=== PATIENT | female | born 1965 | race Caucasian/White ===

== ENCOUNTER → 2016-05-30 | Outpatient (CLI) | payer BC ==
--- OUTSIDE RECORDS SUMMARY | 2016-05-30 11:00 | XMS REPORT | Continuity of Care Document ---
Author Author [facility] Organization [facility] Address Unknown Phone Unavailable Care Team Providers Care Communications Department Chair Name Role Phone CHELI BARCENAS DO PCP Insurance Providers Payer Name Policy Number Subscriber Name Relationship [facility] [id number] Yecenia Valladares 16 Self / Same As Patient Problems No problem information available. Medications No medication information available. Social History Social History Problem Response Recorded Date/Time Recent Foreign Travel No 09/27/2015 1:27pm Hospital Discharge Instructions No hospital discharge instructions. Plan of Care Prescriptions See Medication Section Functional Status No functional status results. Allergies, Adverse Reactions, Alerts Allergen Type Severity Reaction Status Last Updated Sulfa (Sulfonamide Antibiotics) ([id number]) Allergy Unknown Active naproxen ([id number]) Allergy Unknown Active 08/03/14 Immunizations No immunization records. Vital Signs No known vital signs results. Results Microbiology Results Procedure Source Result Collection Date/Time Result Date/Time Anaerobic Culture Tissue, Toe No anaerobes isolated 09/27/2015 2:43pm 10/01 2:08pm Wound Culture Tissue, Toe CORYNEBACTERIUM SPECIES 09/27/2015 2:43pm 2015 2:08pm PROBABLE ACTINOMYCES 09/27/2015 2:43pm 10/02/2015 2:08pm STAPH, COAG NEG (PLANNING MANAGEMENT IT SPECIALIST) 09/27/2015 2:43pm 10/02/2015 2:08pm Procedures No known history of procedures. Encounters Encounter Location Arrival/Admit Date Discharge/Depart Date Attending Provider Discharged Recurring [facility] 10/11/15 3:24pm 4:00pm ZANA CARTER MD
--- NOTE | 2016-05-31 12:19 | Diagnostic Imaging Report ---
Bilateral screening mammogram. The current study was also evaluated with a Computer Aided Detection (CAD) system. INDICATION: Screening. No current complaints stated on the questionnaire. COMPARISON: 05/11/2015. FINDINGS: The breasts are composed of heterogeneously dense parenchyma which may decrease mammographic sensitivity. There is a benign-appearing calcification in the medial aspect of the right breast. Asymmetry measuring 1 cm with increased density is seen along the upper aspect of the right MLO view with no definite correlate on the CC projection. The left breast demonstrates no definite change. IMPRESSION: Focal compression view and ultrasound evaluation for upper right breast asymmetry is recommended. ACR BI-RADS Category 0: Incomplete. (Needs additional imaging evaluation). Result letter will be mailed to the patient. Note: At least 10% of breast cancer is not imaged by mammography. Dictated by: Dictated on workstation # [id number]
== END ==
LOC: RAD 10:56
PROVIDERS: ATTEND Nurse Practitioner
DX: Z12.31 Encounter for screening mammogram for malignant neoplasm of breast (principal)

== ENCOUNTER → 2016-06-07 | Outpatient (CLI) | payer BC ==
--- OUTSIDE RECORDS SUMMARY | 2016-06-07 08:04 | XMS REPORT | Continuity of Care Document ---
Author Author [facility] Organization [facility] Address Unknown Phone Unavailable Care Team Providers Care Legal Coordinator Name Role Phone CHELI BARCENAS DO PCP Insurance Providers Payer Name Policy Number Subscriber Name Relationship [facility] [id number] Yecenia Valladares 16 Self / Same As [...] Reaction Status Last Updated Sulfa (Sulfonamide Antibiotics) ([id number]) Allergy Unknown Active naproxen ([id number]) Allergy Unknown Active 08/03/14 Immunizations No immunization records. Vital Signs No known vital signs results. Results Microbiology Results Procedure Source Result Collection Date/Time Result Date/Time Anaerobic Culture Tissue, Toe No anaerobes isolated 09/27/2015 2:43pm 10/01 2:08pm Wound Culture Tissue, Toe CORYNEBACTERIUM SPECIES 09/27/2015 2:43pm 2015 2:08pm PROBABLE ACTINOMYCES 09/27/2015 2:43pm 10/02/2015 2:08pm STAPH, COAG NEG (POWER DISTRIBUTION ENGINEER) 09/27/2015 2:43pm 10/02/2015 2:08pm Procedures No known history of procedures. Encounters Encounter Location Arrival/Admit Date Discharge/Depart Date Attending Provider Discharged Recurring [facility] 10/11/15 3:24pm 4:00pm ZANA CARTER MD
--- NOTE | 2016-06-07 08:39 | Diagnostic Imaging Report ---
EXAMINATION: Right breast diagnostic mammogram. CAD is utilized. The current study was also evaluated with a Computer Aided Detection (CAD) system. Benign-appearing calcifications seen. FINDINGS: Area of asymmetry in the upper aspect of the right breast demonstrate this prominent density similar to the background breast parenchyma with focal compression view in favor of summation artifact of parenchyma. IMPRESSION: Findings suggestive of summation artifact of parenchyma. Ultrasound evaluation pending. BI-RADS 0. ACR BI-RADS Category 0: Incomplete. (Needs additional imaging evaluation). Result letter will be mailed to the patient. Note: At least 10% of breast cancer is not imaged by mammography. Dictated by: Dictated on workstation # [id number]
--- NOTE | 2016-06-07 09:12 | Diagnostic Imaging Report ---
EXAMINATION: Right breast ultrasound. INDICATION: Right breast asymmetry. FINDINGS: At 12:00 zone 6 cm from the nipple there is a lobulated 1.3 x 0.6 x 1.1 cm slightly heterogenous mass with no increased through-transmission. There is no internal vascularity. Some lobulations in the borders are seen. IMPRESSION: Indeterminate 1.3 cm mass at the 12:00, zone. Ultrasound-guided biopsy is recommended. BI-RADS 4A. ACR BI-RADS Category 4A: Low suspicion of malignancy. The findings and the recommendations were discussed personally with the patient. Report was faxed to office of Dr. Lantigua by gee at 9:15 am. Dictated by: Dictated on workstation # [id number]
== END ==
LOC: RAD 08:02
PROVIDERS: ATTEND Family Medicine
DX: R92.8 Other abnormal and inconclusive findings on diagnostic imaging of breast (principal)
CPT/HCPCS: 76641

== ENCOUNTER → 2016-06-19 | Outpatient (CLI) | payer BC ==
[~2016-06-19] VITALS: Ht 167.6 cm; Wt 102.1 kg
[~2016-06-19] MED LIST: LIDOCAINE 1% INJ 20 ML (XYLOCAINE) VIAL INJ ONE; LIDOCAINE 1% INJ 20 ML (XYLOCAINE) VIAL ONE
--- OUTSIDE RECORDS SUMMARY | 2016-06-19 12:19 | XMS REPORT | Continuity of Care Document ---
Author Author [facility] Organization [facility] Address Unknown Phone Unavailable Care Team Providers Care Division Field Inspector Name Role Phone CHELI BARCENAS DO PCP Insurance Providers Payer Name Policy Number Subscriber Name Relationship [facility] [id number] Yecenia Valladares 16 Self / Same As [...] Reaction Status Last Updated Sulfa (Sulfonamide Antibiotics) ([id number]) Allergy Unknown Active naproxen ([id number]) Allergy Unknown Active 08/03/14 Immunizations No immunization records. Vital Signs No known vital signs results. Results Microbiology Results Procedure Source Result Collection Date/Time Result Date/Time Anaerobic Culture Tissue, Toe No anaerobes isolated 09/27/2015 2:43pm 10/01 2:08pm Wound Culture Tissue, Toe CORYNEBACTERIUM SPECIES 09/27/2015 2:43pm 2015 2:08pm PROBABLE ACTINOMYCES 09/27/2015 2:43pm 10/02/2015 2:08pm STAPH, COAG NEG (SPLITTING MACHINE FEEDER) 09/27/2015 2:43pm 10/02/2015 2:08pm Procedures No known history of procedures. Encounters Encounter Location Arrival/Admit Date Discharge/Depart Date Attending Provider Discharged Recurring [facility] 10/11/15 3:24pm 4:00pm ZANA CARTER MD
--- NOTE | 2016-06-19 14:09 | Diagnostic Imaging Report ---
EXAMINATION: Vacuum-assisted ultrasound-guided biopsy of breast mass right. A metallic clip placed to brandan biopsy site. INDICATION: Right breast mass. CONSENT: Informed consent was obtained from the patient. The risks, benefits, potential complications and alternatives were reviewed and all questions answered to the patient's satisfaction. FINDINGS: Ultrasound images demonstrate hypoechoic indeterminate breast mass at 12:00 zone, 6 CM from the nipple. PROCEDURE: After sterile preparation and draping, 1% lidocaine was utilized for local anesthesia. A vacuum-assisted biopsy device with 14-gauge needle was introduced under live ultrasound guidance into the lesion. Good needle position was documented with ultrasound images. A metallic clip was placed to brandan the site of the biopsy. A subsequent mammogram is performed and confirms the proper positioning of the clip. Multiple samples were obtained and sent to pathology. The patient tolerated the procedure well with no immediate complications. IMPRESSION: Successful ultrasound-guided biopsy of 12:00 right breast mass. A metallic clip placed to brandan biopsy site. Dictated by: Dictated on workstation # [id number]
--- NOTE | 2016-06-19 20:44 | Diagnostic Imaging Report ---
Exam: Diagnostic right breast mammogram. Indication: Documentation of clip position after ultrasound-guided biopsy of 12:00 o'clock right breast mass. Findings: Clip is seen at 12:00 o'clock zone after ultrasound-guided biopsy. Impression: Satisfactory clip position at 12:00 o'clock zone at the location of the nodule biopsied by ultrasound. Pathology results are pending. Dictated by: Dictated on workstation # [id number]
== END ==
LOC: RAD 12:14
PROVIDERS: ATTEND Family Medicine
DX: N60.31 Fibrosclerosis of right breast (principal)
CPT/HCPCS: 19083; 88305

== ENCOUNTER → 2016-12-29 | Outpatient (CLI) | payer BC, OTHER ==
--- NOTE | 2016-12-29 09:03 | Diagnostic Imaging Report ---
Right breast diagnostic mammogram. Tomography was also performed. CAD is utilized. Pathology results were benign. INDICATION: Six-month followup after ultrasound-guided biopsy of the right breast for 12 o'clock zone lesion. FINDINGS: There is a biopsy clip in the upper aspect of the right breast. It is associated with background dense parenchyma with no definite focal lesion identified. Benign-appearing calcifications seen. IMPRESSION: Stable mammographic findings when compared to prior exam of 05/30/2016. Ultrasound evaluation is pending. ACR BI-RADS Category 0: Incomplete. (Needs additional imaging evaluation). Result letter will be mailed to the patient. Note: At least 10% of breast cancer is not imaged by mammography. Dictated by: Dictated on workstation # [id number]
--- NOTE | 2016-12-29 09:34 | Diagnostic Imaging Report ---
EXAMINATION: Right breast ultrasound. INDICATION: Followup lesion after ultrasound-guided biopsy. FINDINGS: The pathology results came back as fibrosis and unremarkable ductal epithelium. The hypoechoic mass is again seen measuring 1.3 x 0.7 x 0.8 CM. This is located in the 12 o'clock zone, 6 CM from the nipple. This is similar to the prior exam. There is minimal shadowing. The lesion has angular margins. IMPRESSION: Unchanged 1.3 cm mass at 12:00 zone 6 cm from the nipple with nonspecific benign findings on prior needle biopsy. Another followup in 6 months is recommended to reevaluate this area. Clinical assessment of the patient's risk and consideration for excision is recommended if clinically indicated. BI-RADS 3. ACR BI-RADS Category 3: Probably benign findings. The findings were discussed with Dr. Lantigua, and with her Nurse, Ms. Delma Guzman, by Dr. Estrella at time of dictation. Dictated by: Dictated on workstation # [id number]
== END ==
LOC: RAD 08:22
PROVIDERS: ATTEND Family Medicine
DX: N63 Unspecified lump in breast (principal)

== ENCOUNTER → 2017-07-12 | Outpatient (CLI) | payer OTHER | LOC: CARD 13:03 | PROVIDERS: ATTEND Internal Medicine Cardiovascular Disease | DX: R07.89 Other chest pain (principal); R42 Dizziness and giddiness; Z82.49 Family history of ischemic heart disease and other diseases of the circulatory system; I10 Essential (primary) hypertension; E66.9 Obesity, unspecified; E03.9 Hypothyroidism, unspecified; R00.2 Palpitations | CPT/HCPCS: 93306 ==

== ENCOUNTER → 2017-07-16 | Outpatient (CLI) | payer OTHER ==
[~2017-07-16] VITALS: Ht 167.6 cm; Wt 95.3 kg
[~2017-07-16] MED LIST changes: +CATHETER FLUSH 10 ML SYR IV PRN; -LIDOCAINE 1% INJ 20 ML (XYLOCAINE) VIAL INJ ONE; -LIDOCAINE 1% INJ 20 ML (XYLOCAINE) VIAL ONE
[2017-07-16 09:30] VITALS: BP 161/77
--- NOTE | 2017-07-16 14:02 | STRESS TEST ---
DATE OF SERVICE: 07/16/2017 EXERCISE MYOVIEW STRESS TEST REFERRING PHYSICIAN: Gunjan Lantigua DO. INDICATION: Chest pain. Baseline heart rate is 64. Baseline blood pressure is 139/82. Baseline EKG is sinus rhythm with no ischemic changes. SUMMARY: The patient was injected with 10.69 mCi of technetium-99 Myoview and the resting images were obtained. Then, the patient started exercising with heart rate, blood pressure and EKG noted above. During exercise, the patient has significant artifact affecting the quality of the EKG. Maximum heart rate achieved was 136, which is 83% of maximum expected heart rate. With peak exercise level, EKG was showing minimal nondiagnostic changes. During recovery, heart rate and blood pressure returned to baseline. EKG returned to baseline. The resting and stress images were reviewed and compared in the short axis, horizontal long axis, and vertical long axis views. Review of the images showed breast attenuation with no significant ischemia or infarction. SSS is 2, SDS 2, TID 1.06. On the gated images, the left ventricle appeared to be normal size with normal contractility. Calculated ejection fraction 70%. CONCLUSION: 1. Fair exercise tolerance, a total of 7 minutes 15 seconds on standard Osei protocol, total of 8.7 METS achieving 83% of maximum expected heart rate. 2. Appropriate heart rate and blood pressure response to exercise returned to baseline during recovery. 3. Significant EKG artifacts noted during test did not show significant ischemic changes. 4. Normal SPECT images with no ischemia or infarction on SPECT images. 5. Normal left ventricular size with normal contractility. Calculated ejection fraction 70%. Job ID: [id number] DocumentID: [id number] Dictated Date: 07/16/2017 11:17:42 Barge Captain Date: 07/16/2017 14:02:18 Dictated By: DOMINGUEZ SOMERS MD
== END ==
LOC: CARD 07:39
PROVIDERS: ATTEND Internal Medicine Cardiovascular Disease
DX: R07.89 Other chest pain (principal); I10 Essential (primary) hypertension; R00.2 Palpitations; R42 Dizziness and giddiness; E03.9 Hypothyroidism, unspecified; E66.9 Obesity, unspecified; Z68.33 Body mass index [BMI] 33.0-33.9, adult; Z82.49 Family history of ischemic heart disease and other diseases of the circulatory system
CPT/HCPCS: 78452; 93017

== ENCOUNTER 2017-07-27 12:45 | Outpatient (RCR) | payer OTHER | END 2017-10-25 | disposition home or self-care (01) | LOC: CARD 12:45 | PROVIDERS: ATTEND Internal Medicine Cardiovascular Disease | DX: R07.89 Other chest pain (principal); R00.2 Palpitations; I10 Essential (primary) hypertension; E03.9 Hypothyroidism, unspecified; E66.9 Obesity, unspecified | CPT/HCPCS: 93225; 93226 ==

== ENCOUNTER 2019-04-16 05:34 | Outpatient (CLI) | payer OTHER ==
[~2019-04-16] VITALS: Ht 167.7 cm; Wt 109.1 kg
[2019-04-16] MEDS ORDERED: LISI1TAB6 PO (14:10)
[2019-04-16] MEDS ORDERED: METO-387 PO (14:10)
[2019-04-16] MEDS ORDERED: KRIL1CAP18 PO (14:10)
[2019-04-16] MEDS ORDERED: MV-M1TAB57 PO (14:10)
[2019-04-16] MEDS ORDERED: ASPI-586 PO (14:10)
[2019-04-16] MEDS ORDERED: DICL100T83 PO (14:10)
[2019-04-16] MEDS ORDERED: ESTR0.5T PO (14:10)
[2019-04-16] MEDS ORDERED: FLUO60TA PO (14:10)
[2019-04-16] MEDS ORDERED: POTA8TAB6 PO (14:10)
[2019-04-16] MEDS ORDERED: GABA-488 PO (14:10)
[2019-04-16] MEDS ORDERED: CETI10TA20 PO (14:10)
[2019-04-16] MEDS ORDERED: LEVO75TA6 PO (14:10)
== END 2019-04-16 14:13 ==
LOC: PREOP 05:34
PROVIDERS: ATTEND Surgery
DX: Z01.818 Encounter for other preprocedural examination (principal)

== ENCOUNTER → 2019-04-23 | Day surgery (SDC) | payer OTHER ==
--- NOTE | 2019-04-09 07:57 | HISTORY AND PHYSICAL ---
DATE OF SERVICE: 04/23/2019 ATTENDING PHYSICIAN: Dr. Lantigua. PROCEDURE DATE: 04/23/2019. HISTORY OF PRESENT ILLNESS: The patient is a 53-year-old female, who is known to us. She does have a history of morbid obesity with medical comorbidities related to obesity and did undergo a laparoscopic gastric sleeve resection on 05/08/2016. On today's visit, the patient reports that she is in need of a screening colonoscopy and reports that she has never had one done before in the past. She denies any family history of colon cancer as well as no blood in her stool. She denies any diarrhea, constipation or abdominal pain. She also denies any dark tarry stools. PAST MEDICAL HISTORY: Type 2 diabetes, hypertension, hypothyroidism, depression, morbid obesity. PAST SURGICAL HISTORY: Appendectomy in 1977, in 1989, bilateral foot and ankle surgery x4 in 2013 and 2014, partial hysterectomy in 2001 and laparoscopic gastric sleeve resection on 05/08/2016. ALLERGIES: NAPROXEN. MEDICATIONS: Lisinopril/hydrochlorothiazide, metoprolol, levothyroxine, estradiol, Prozac, multivitamin, potassium and aspirin 81 mg. SOCIAL HISTORY: Previously smoked half pack per day for 10 years, quit in 1990. Rare for alcohol. FAMILY HISTORY: Mother with breast cancer diagnosed 45 years of age. Father with Parkinson's disease. Paternal grandmother with breast cancer and type 2 diabetes. Maternal grandmother with type 2 diabetes, hypertension. VITAL SIGNS: Blood pressure 110/60. Current weight is 235 pounds at 5 feet 6 inches. REVIEW OF SYSTEMS: Well-nourished female, in no acute distress. She is not experiencing any shortness of breath or difficulty breathing. No chest pain, palpitations or diaphoresis. No nausea, vomiting or abdominal pain. No diarrhea or constipation. No red blood per rectum. No dark tarry stools. No fever or chills. No recent inadvertent weight loss. All other review of systems negative. PHYSICAL EXAMINATION: CHEST: Clear. Good breath sounds bilaterally. HEART: Regular, no murmurs. EXTREMITIES: No lower extremity edema. Negative Homans sign. HEENT: No scleral icterus. No cervical lymphadenopathy. ABDOMEN: Soft, nontender, nondistended. SKIN: Warm, dry and pink. NEUROLOGIC: Awake, alert and oriented x3. ASSESSMENT AND PLAN: A 53-year-old female, who is in need of a screening colonoscopy. The risks and benefits of the procedure as well as the procedure and home care instructions were explained to the patient. The patient verbalized understanding of instructions and agrees to proceed as planned. At this time, we will proceed with scheduling the patient for a screening colonoscopy. Job ID: [id number] DocumentID: [id number] Dictated Date: 03/24/2019 11:13:45 Firer Helper Date: 03/24/2019 12:12:49 Dictated By: POLINA WILLSON APRN
[2019-04-23] VITALS (14 sets, daily range): BP systolic 108–129; BP diastolic 55–72
[~2019-04-23] VITALS: Ht 167.7 cm; Wt 109.1 kg
[~2019-04-23] MED LIST changes: +ACETAMINOPHEN 325 MG TABLET PO PRN; +ASPI-586 PO; -CATHETER FLUSH 10 ML SYR IV PRN; +CETI10TA20 PO; +DICL100T83 PO; +ESTR0.5T PO; +FLUO60TA PO; +GABA-488 PO; +HYDROcodone/APAP 5 MG/325 MG (LORTAB) TAB PO PRN; +KRIL1CAP18 PO; +LEVO75TA6 PO; +LIDOCAINE JELLY 2% 6 ML SYRINGE MM PRN; +LIDOCAINE JELLY 2% 6 ML SYRINGE ONE; +LISI1TAB6 PO; +METO-387 PO; +MIDAZOLAM 5 MG/5 ML (VERSED) VIAL ONE; +MV-M1TAB57 PO; +NS IV 500 ML 500 ML IV PRN; +NS IV 500 ML 500 ML ONE; +ONDANSETRON 4 MG/2 ML (SDV) Z0FRAN IVP PRN; +POTA8TAB6 PO; +fentaNYL INJECTION 100 MCG/2 ML AMP IVP ONE; +fentaNYL INJECTION 100 MCG/2 ML AMP ONE; +morphine INJ 10 MG/ML 1ML (SYR OR VIAL) IVP PRN
[2019-04-23] MEDS: MIDAZOLAM 5 MG/5 ML (VERSED) VIAL IV PRN ×4 (10:30→10:45)
--- NOTE | 2019-04-23 10:31 | Conscious Sedation/ASA ---
Conscious Sedation Pre-Proced Time 10:00 ASA Score 2 For ASA 3 and 4: Consider anesthesia and medical clearance. Also, for patients with a history of failed moderate sedation consider anesthesia. Airway Lungs Heart ASA score ASA 1: a normal healthy patient ASA 2: a patient with a mild systemic disease (mid diabetes, controlled hypertension, obesity ASA 3: a patient with a severe systemic disease that limits activity (angina, COPD, prior Myocardial infarction) ASA 4: a patient with an incapacitating disease that is a constant threat to life (CHF, renal failure) ASA 5: a moribund patient not expected to survive 24 hrs. (ruptured aneurysm) ASA 6: a declared brain- patient whose organs are being harvested. For emergent operations, add the letter E after the classification Mallampati Classification Grade 2 Sedation Plan Analgesia, Amnesia, Plan communicated to team members, Discussed options with patient/fam, Discussed risks with patient/fam The patient is an appropriate candidate to undergo the planned procedure, sedation, and anesthesia. The patient immediately re-assessed prior to indication. DIMITRIS PATE MD Apr 23, 2019 10:31 POS
--- NOTE | 2019-04-23 10:32 | Progress Note-Pre Operative ---
Pre-Operative Progress Note H&P Reviewed The H&P was reviewed, patient examined and no changes noted. Date Seen by Provider: Apr 23, 2019 Time Seen by Provider: 10:00 Date H&P Reviewed: Apr 23, 2019 Time H&P Reviewed: 10:00 Pre-Operative Diagnosis: screening o DIMITRIS PATE MD Apr 23, 2019 10:32 POS
--- NOTE | 2019-04-23 10:33 | Discharge Inst-Surgical ---
D/C Lap Instructions-RIO Follow Up Activity as tolerated High Fiber Diet 25g or more per day Avoid Alcohol, Caffeine, Spicy Thompson and Acid foods. Drink 64 fluid oz or more of fluids per day. Symptoms to Report: Fever over 101 degree F, Nausea/Vomiting If any problems/questions: Contact your physician or go to Emergency Room DIMITRIS PATE MD Apr 23, 2019 10:33 POS
--- NOTE | 2019-04-23 11:11 | Progress Note-Post Operative ---
Post-Operative Progess Note Surgeon (s)/Supervisor Agency Appointments (s) Surgeon DIMITRIS PATE MD Supervisor Agency Appointments: none Pre-Operative Diagnosis screening colo Post-Operative Diagnosis normal colon and rectum Procedure & Operative Findings Date of Procedure 04/23/19 Procedure Performed/Findings colonoscopy Anesthesia Type cs Estimated Blood Loss Estimated blood loss (mL): minimal Specimens/Packing Specimens Removed none DIMITRIS PATE MD Apr 23, 2019 11:11 POS
--- NOTE | 2019-04-23 17:33 | OPERATIVE REPORT ---
DATE OF SERVICE: 04/23/2019 ATTENDING PRIMARY CARE PHYSICIAN: Gunjan Lantigua DO PREOPERATIVE DIAGNOSIS: Screening colonoscopy. POSTOPERATIVE DIAGNOSIS: Normal colon and rectum. PROCEDURE PERFORMED: Colonoscopy. SURGEON: Dimitris Pate MD. ANESTHESIA: Conscious sedation. ESTIMATED BLOOD LOSS: Minimal. FINDINGS: Normal colon and rectum. No polyps or any neoplasms identified. DISPOSITION: The patient tolerated the procedure well. INDICATIONS: The patient is a 53-year-old female, known to us. She is in need of a screening colonoscopy. She has not had a colonoscopy up to this point in her life. She reports that she is tolerating a regular diet and having normal bowel movements with no major issues with diarrhea, no constipation as well as no red blood per rectum nor any dark tarry stools. She also does not report any family history of colon cancer. She does report that her mother was diagnosed with breast cancer at age 45. DESCRIPTION OF PROCEDURE: The patient was brought to the endoscopy suite, laid in left lateral decubitus position. After adequate IV pain and sedative medications and conscious sedation anesthesia, a digital rectal examination was performed. No significant hemorrhoids identified. Normal sphincter tone was felt and there were no palpable masses. The endoscope was then intubated to the anus and rectum gently insufflated. The endoscope was then advanced through the valves of Nichols of the rectum with no polyps or any neoplasms identified. We then proceeded through the sigmoid colon where no diverticulosis identified. The endoscope was then advanced to the remainder of the descending, transverse and ascending colon to the cecum. These segments were normal. There were no polyps or any neoplasms identified throughout the colon or rectum. The endoscope was then slowly withdrawn while taking a second look and suctioning of residual air with no additional findings. The patient tolerated the procedure well. We will recommend high fiber diet with 25 grams of fiber daily as well as significant amounts of water to promote soft stools on a daily basis. She does not need another colonoscopy for another 10 years. Job ID: [id number] DocumentID: [id number] Dictated Date: 04/23/2019 11:04:12 Special Events Assistant Date: 04/23/2019 17:32:16 Dictated By: DIMITRIS PATE MD
--- OUTSIDE RECORDS SUMMARY | 2019-05-18 21:39 | XMS REPORT | Clinical Summary ---
Author Author [facility] Organization [facility] Address Unknown Phone Unavailable Care Team Providers Care Instrument Room Technician Name Role Phone Gunjan Lantigua MD PCP Source Comments Some departments are not documenting in the electronic medical record. If you d o not see the information that you expected, contact Release of Information in [facility] [employer] Information Management department at [phone] for further assistan ce in locating additional records.[facility] Allergies Comments Active Allergy Reactions Severity Noted Date Naproxen HIVES Medium Sulfa (Sulfonamide HIVES Medium Antibiotics) Medications End Date Status Medication Sig Dispensed Refills Start Date Active pantoprazole DR TK 1 T PO D 3 (PROTONIX) 40 mg tablet 7 Active metoprolol XL (TOPROL XL) TK / T PO 1 12/19 25 mg extended release QD 7 tablet Active fluoxetine(+) (PROZAC) 40 TK 1 C PO QAM 2 11/19 0 mg capsule 7 Active Problems Problem Noted Date Abnormal screening mammogram 01/09/2017 Family History Medical History Relation Name Comments Cancer-Breast Maternal Aunt Cancer-Prostate Maternal Grandfather Diabetes Maternal Grandmother Heart Disease Maternal Grandmother High Cholesterol Maternal Grandmother Hypertension Maternal Grandmother Cancer-Breast Mother Cancer Paternal Grandfather Cancer-Breast Paternal bilateral breast ca ncer Grandmother Cancer-Colon Neg Hx Cancer-Ovarian Neg Hx Relation Name Status Comments Maternal Aunt Alive Maternal Grandfather Maternal Grandmother Mother Alive Paternal Grandfather Paternal Grandmother Social History Date Tobacco Use Types Packs/Day Years Used Quit: 1990 Former Smoker Cigarettes 0.5 5 Smokeless Tobacco: Never Used Drinks/Week oz/Week Comments Alcohol Use 1 Glasses of wine 1-2 Shots of liquor 0 Cans of beer 2.0 - 3.0 Yes Sex Assigned at Date Recorded Not on file Industry Job Start Date Occupation Not on file Not on file Not on file Travel End Travel History Travel Start No recent travel history available. Last Filed Vital Signs Reading Time Taken Comments Vital Sign 107/57 01/09/2017 10:15 AM CDT Blood Pressure 56 01/09/2017 10:15 AM CDT Pulse 36.8 C (98.3 F) 01/09/2017 10:15 AM CDT Temperature 16 01/09/2017 10:15 AM CDT Respiratory Rate 98% 01/09/2017 10:15 AM CDT Oxygen Saturation - - Inhaled Oxygen Concentration 93.2 kg (205 lb 6.4 oz) 01/09/2017 10:15 AM CDT Weight 167.6 cm (5' 6") 01/09/2017 10:15 AM CDT Height 33.15 01/09/2017 10:15 AM CDT Body Mass Index Plan of Treatment Health Maintenance Due Date Last Done Comments HEPATITIS C SCREENING 1963 DTAP/TDAP VACCINES ( - 10/09/1974 Tdap) HIV SCREENING 10/09/1978 PHYSICAL (COMPREHENSIVE) 10/09/1981 EXAM CERVICAL CANCER SCREENING 10/09/1993 COLORECTAL CANCER 10/09/2013 SCREENING INFLUENZA VACCINE 12/19/2018 02/18/2018 BREAST CANCER SCREENING 08/28/2019 08/27/2018, SHINGLES RECOMBINANT Completed 07/29/2018, 09/10 VACCINE Results Not on filefrom Last 3 Months Insurance Type Payer Benefit Subscriber ID Effective Phone Address Plan / Dates Group Indemnity [facility] xxxxxxxxx 2016-P CHOICE/CHO resent ICE PLUS [id number] Advance Directives Patient Power Shear Operator Explanation Type Date Recorded Advance Directive/DPOA
--- OUTSIDE RECORDS SUMMARY | 2019-05-18 21:41 | XMS REPORT | CCD ---
Author Author Yecenia Lantigua D.O. Organization GUNJAN LANTIGUA DO [facility] Address [address] [place] [phone] Phone Care Team Providers Care Iron Caster Name Role Phone Gunjan Lantigua D.O., PP Unavailable CCM Unavailable Summary Purpose Interface Exchange Insurance Providers Payer name Policy type / Coverage type Covered green party ID Effective Begin Date Effective End Date [facility] [employer] Insurance [id number] Un known Family history Father Diagnosis Age At Onset Parkinson's disease Unknown Grandmother Diagnosis Age At Onset Hypertension Unknown Congestive heart failure Unknown Social History Social History Element Codes Description Effective Dates Marital status Unknown 04/27/2011 Number of children Unknown 3 04/27/[address]: 7124304 Former smoker quit 20years ago 04/27/2011 Allergies, Adverse Reactions, Alerts Substance Reaction Codes Entered Date Inactivated Date Status SULFA (SULFONAMIDES) Unknown 02/19/2014 No Inactive Martin e Active _ Unknown 09/08/2010 No Inactive Date Active Problems Condition Codes Effective Dates Condition Status Encounter for general adult medical examination withou t abnormal findings ICD-9: V70.9 ICD-10: Z00.00 03/04/2019 Active FLU VACCINE ICD-9: V04.81 ICD-10: Z23 03/04/2019 Active Essential (primary) hypertension ICD-9: 401.9 ICD-10: I10 12/23/2013 Active Hypothyroidism ICD-9: 244.9 ICD-10: E03.9 12/23/2013 Active Type 2 diabetes mellitus without complications ICD-9: 250.00 ICD-10: E11.9 12/23/2013 Active Mixed hyperlipidemia ICD-9: 272.4 ICD-10: E78.2 12/23/2013 Active Type 2 diabetes mellitus with diabetic neuropathy, uns pecified ICD-9: 250.60 ICD-10: E11.40 01/04/2016 Active Other fatigue ICD-9: 780.79 ICD-10: R53.83 10/11/2018 Active Irritant contact dermatitis due to plants, except food ICD-9: 692.6 ICD-10: L24.7 09/13/2018 Active Charcot's joint, left ankle and foot ICD-9: 094.0 ICD-10: M14.672 01/03/2018 Active Charcot's joint, right ankle and foot ICD-9: 094.0 ICD-10: M14.671 01/03/2018 Active Other specified problems related to primary support gr oup ICD-9: V61.8 ICD-10: Z63.8 04/08/2018 Active Pain in right shoulder ICD-9: 719.41 ICD-10: M25.511 04/08/2018 Active Other allergic rhinitis ICD-9: 477.8 ICD-10: J30.89 03/04/2018 Active Unspecified open wound, right foot, sequela ICD-9: 906 .1 ICD-10: S91.301S 09/23/2015 Active Cellulitis of left toe ICD-9: 681.10 ICD-10: L03.032 09/10/2017 Active Urinary tract infection, site not specified ICD-9: 599 .0 ICD-10: N39.0 07/27/2017 Active Angina pectoris, unspecified ICD-9: 786.50 ICD-10: I20.9 06/06/2017 Active Anesthesia of skin ICD-9: 782.0 ICD-10: R20.0 06/04/2017 Active Cellulitis of right toe ICD-9: 681.10 ICD-10: L03.031 02/21/2017 Active Other abnormal and inconclusive findings on diagnostic imaging of breast ICD-9: 793.80 ICD-10: R92.8 12/13/2016 Active Bariatric surgery status ICD-9: V45.86 ICD-10: Z98.84 08/31/2016 Active Zoster without complications ICD-9: 053.9 ICD-10: B02.9 08/02/2016 Active Encounter for screening mammogram for malignant neopla sm of breast ICD-9: V76.11 ICD-10: Z12.31 05/16/2016 Active Acute stress reaction ICD-9: 308.3 ICD-10: F43.0 11/14/2015 Active Cellulitis of right lower limb ICD-9: 682.7 ICD-10: L03.115 09/23/2015 Active Cramp and spasm ICD-9: 729.82 ICD-10: R25.2 07/12/2015 Active Charcot's joint of foot, non-diabetic ICD-9: 094.0 11/25/2014 Active Cellulitis of toe of right foot ICD-9: 681.10 11/15/2014 Active ONYCHOMYCOSIS ICD-9: 110.1 04/24/2012 Active Valgus deformity of foot ICD-9: 736.79 11/15/2014 Active Epigastric abdominal pain ICD-9: 789.06 10/09/2014 Active Thoracic back pain ICD-9: 724.1 10/09/2014 Active DM W/O COMPLICATION TYPE II, UNCONTROLLED ICD-9: 250.02 2013 Active CELLULITIS ICD-9: 682.9 02/12/2014 Active Edema of lower extremity ICD-9: 782.3 02/12/2014 Active SKIN SENSATION DISTURB ICD-9: 782.0 02/12/2014 Active GASTROENTERITIS ICD-9: 558.9 12/25/2013 Active DM W/O COMPLICATION TYPE II ICD-9: 250.00 12/23/2013 Acti ve HYPERLIPIDEMIA NEC/NOS ICD-9: 272.4 12/23/2013 Active HYPERTENSION ICD-9: 401.9 12/23/2013 Active HYPOTHYROIDISM ICD-9: 244.9 12/23/2013 Active ABNORMAL WEIGHT GAIN ICD-9: 783.1 03/04/2013 Active DEPRESSIVE DISORDER NEC ICD-9: 311 10/31/2012 Active Subacromial bursitis ICD-9: 726.19 10/31/2012 Active Ankle pain, left ICD-9: 719.47 06/12/2012 Active Medication therapy continued ICD-9: V58.69 06/12/2012 Act toribio Stress incontinence ICD-9: 625.6 06/12/2012 Active Hyperglycemia ICD-9: 790.29 04/26/2011 Active Neuropathy of foot ICD-9: 355.8 01/27/2011 Active ROUTINE GYNE EXAM ICD-9: V72.31 10/31/2010 Active ROUTINE MEDICAL EXAM ICD-9: V70.0 10/31/2010 Active SPASM OF MUSCLE ICD-9: 728.85 09/15/2010 Active Allergic rhinitis Unknown 09/08/2010 Active Depression Unknown 09/08/2010 Active Hypertension Unknown 09/08/2010 Active Hypothyroid Unknown 09/08/2010 Active Neck pain, musculoskeletal ICD-9: 723.1 09/08/2010 Activ e Medications Medication Codes Instructions Start Date Stop Date Status Fill Instructions levothyroxine 75 mcg tablet RxNorm: 716408 TAKE 1 TABLET BY PAMELA TH DAILY 05/15/2019 07/13/2019 Active fluoxetine 20 mg capsule RxNorm: 157429 3 CAPSULE(S) PO QD 04/14/2009/10/2019 Active potassium chloride ER 8 mEq tablet,extended release RxNorm: 703073 1 TABLET(S) PO QD 04/14/2019 07/12/2019 Active metoprolol succinate ER 25 mg tablet,extended release 24 hr RxNorm: 729613 1/2 TABLET(S) PO QD 03/17/2019 06/14/2019 Active levothyroxine 75 mcg tablet RxNorm: 083994 1 TABLET(S) PO QD 201805/11/2019 Inactive [AttnRPh: Saving apply/adjud icate RxGRP:SG20 RxBIN:[id number] RxPCN:HT ID#:[id number]] potassium chloride ER 8 mEq tablet,extended release RxNorm: 507404 1 TABLET(S) PO QD 01/08/2019 04/07/2019 Inactive estradiol 0.5 mg tablet RxNorm: 498775 Tablet(s) 1 TABLET(S) PO QD 12/09/2018 No Stop Date Active lisinopril 10 mg-hydrochlorothiazide 12.5 mg tablet RxNorm: 110575 1/2 Tablet(s) PO QD 12/09/2018 06/06/2019 Active levothyroxine 75 mcg tablet RxNorm: 831489 1 Tablet(s) PO QD 201802/05/2019 Inactive [AttnRPh: Saving apply/adjud icate RxGRP:SG20 RxBIN:[id number] RxPCN:HT ID#:[id number]] fluoxetine 20 mg capsule RxNorm: 201814 3 Capsule(s) PO QD 10/11/1904/07/2019 Inactive fluoxetine 20 mg capsule RxNorm: 175327 3 Capsule(s) PO QD 10/11/1910/09/2018 Inactive diclofenac ER 100 mg tablet,extended release 24 hr RxNorm: 8 04152 1 Tablet(s) PO BID as needed for pain 10/02/2018 01/29/2019 Inactive potassium chloride ER 8 mEq tablet,extended release RxNorm: 640682 1 Tablet(s) PO QD 10/02/2018 12/30/2018 Inactive prednisone 20 mg tablet RxNorm: 736364 Tablet(s) PO 1 t ab TID for 3 days, 1 tab BID for 3 days, 1 tab daily for 3 days 09/13/2018 10/15/2018 Inactive metoprolol succinate ER 25 mg tablet,extended release 24 hr RxNorm: 638916 1/2 Tablet(s) PO QD 09/13/2018 03/11/2019 Inactive fluoxetine 60 mg tablet RxNorm: 4655651 1 Tablet(s) PO QD REPLAC ES 40MG DOSE 09/03/2018 10/09/2018 Inactive levothyroxine 75 mcg tablet RxNorm: 396112 1 Tablet(s) PO QD 201811/08/2018 Inactive [AttnRPh: Saving apply/adjud icate RxGRP:SG20 RxBIN:[id number] RxPCN: ID#:[id number]] potassium chloride ER 8 mEq tablet,extended release RxNorm: 559884 TABLET(S) 1 TABLET(S) PO QD 08/06/2018 10/01/2018 Inactive Fish Oil 1,000 mg capsule RxNorm: 1 Capsule(s) PO BID 07/16/2018 0 10/13/2018 Inactive atorvastatin 10 mg tablet RxNorm: 433684 1 Tablet(s) PO QD 07/16/1910/13/2018 Inactive atorvastatin 10 mg tablet RxNorm: 196977 1 Tablet(s) PO QD 07/16/1907/15/2018 Inactive fluoxetine 60 mg tablet RxNorm: 8350563 1 TABLET(S) PO QD REPLAC ES 40MG DOSE 06/13/2018 09/02/2018 Inactive lisinopril 10 mg-hydrochlorothiazide 12.5 mg tablet RxNorm: 834784 TABLET(S) 1/2 TABLET(S) PO QD 06/13/2018 12/08/2018 Inactive levothyroxine 75 mcg tablet RxNorm: 091638 1 TABLET(S) PO QD 201808/12/2018 Inactive [AttnRPh: Saving apply/adjud icate RxGRP:SG20 RxBIN:[id number] RxPCN: ID#:[id number]] potassium chloride ER 8 mEq tablet,extended release RxNorm: 319004 TABLET(S) 1 TABLET(S) PO QD 05/30/2018 07/28/2018 Inactive estradiol 0.5 mg tablet RxNorm: 835402 1 TABLET(S) PO QD 05/30/2018 0 12/08/2018 Inactive fluoxetine 60 mg tablet RxNorm: 4046086 1 Tablet(s) PO QD replac es 40mg dose 04/08/2018 06/06/2018 Inactive levothyroxine 75 mcg tablet RxNorm: 543457 1 TABLET(S) PO QD 201706/06/2018 Inactive [AttnRPh: Saving apply/adjud icate RxGRP:SG20 RxBIN:[id number] RxPCN:HT ID#:[id number]] Voltaren 1 % topical gel RxNorm: 206943 2 Gram(s) TOP QID to ri ght shoulder 04/08/2018 10/15/2018 Inactive potassium chloride ER 8 mEq tablet,extended release RxNorm: 575653 TABLET(S) 1 TABLET(S) PO QD 04/01/2018 05/29/2018 Inactive metoprolol succinate ER 25 mg tablet,extended release 24 hr RxNorm: 348235 1/2 TABLET(S) PO QD 03/07/2018 09/02/2018 Inactive lisinopril 10 mg-hydrochlorothiazide 12.5 mg tablet RxNorm: 362214 TABLET(S) 1/2 TABLET(S) PO QD 03/07/2018 06/04/2018 Inactive estradiol 0.5 mg tablet RxNorm: 719053 1 TABLET(S) PO QD 03/04/2018 0 05/29/2018 Inactive potassium chloride ER 8 mEq tablet,extended release RxNorm: 925090 TABLET(S) 1 TABLET(S) PO QD 01/31/2018 03/31/2018 Inactive fluoxetine 40 mg capsule RxNorm: 421247 1 Capsule(s) PO QAM 018 04/07/2018 Inactive levothyroxine 75 mcg tablet RxNorm: 464755 1 Tablet(s) PO QD 201704/06/2018 Inactive [AttnRPh: Saving apply/adjud icate RxGRP:SG20 RxBIN:[id number] RxPCN: ID#:[id number]] lisinopril 10 mg-hydrochlorothiazide 12.5 mg tablet RxNorm: 975437 TABLET(S) 1/2 TABLET(S) PO QD 12/10/2017 03/06/2018 Inactive estradiol 0.5 mg tablet RxNorm: 436523 1 Tablet(s) PO QD 11/28/2017 1 Inactive potassium chloride ER 8 mEq tablet,extended release RxNorm: 547970 Tablet(s) 1 TABLET(S) PO QD 11/02/2017 10/15/2018 Inactive potassium chloride ER 8 mEq tablet,extended release RxNorm: 883702 Tablet(s) 1 TABLET(S) PO QD 10/24/2017 11/01/2017 Inactive metoprolol succinate ER 25 mg tablet,extended release 24 hr RxNorm: 275360 1/2 Tablet(s) PO QD 10/03/2017 03/06/2018 Inactive levothyroxine 75 mcg tablet RxNorm: 839557 1 Tablet(s) PO QD 201701/07/2018 Inactive [AttnRPh: Saving apply/adjud icate RxGRP:SG20 RxBIN:[id number] RxPCN: ID#:[id number]] dicloxacillin 500 mg capsule RxNorm: 427448 1 Capsule(s) PO TID 01/201810/02/2017 Inactive diclofenac ER 100 mg tablet,extended release 24 hr RxNorm: 8 34412 1 Tablet(s) PO BID as needed for pain 09/19/2017 01/02/2018 Inactive potassium chloride ER 8 mEq tablet,extended release RxNorm: 204117 Tablet(s) 1 TABLET(S) PO QD 09/19/2017 10/24/2017 Inactive clindamycin HCl 300 mg capsule RxNorm: 138683 1 Capsule(s) PO TID 0 09/10/2017 09/16/2017 Inactive lisinopril 10 mg-hydrochlorothiazide 12.5 mg tablet RxNorm: 891226 Tablet(s) 1/2 TABLET(S) PO QD 09/06/2017 12/04/2017 Inactive potassium chloride ER 8 mEq tablet,extended release RxNorm: 430401 1 TABLET(S) PO QD 08/17/2017 09/19/2017 Inactive levothyroxine 75 mcg tablet RxNorm: 905440 1 Tablet(s) PO QD 201710/03/2017 Inactive [AttnRPh: Saving apply/adjud icate RxGRP:SG20 RxBIN:[id number] RxPCN:HT ID#:[id number]] fluoxetine 40 mg capsule RxNorm: 870435 1 Capsule(s) PO QAM 018 01/17/2018 Inactive lisinopril 10 mg-hydrochlorothiazide 12.5 mg tablet RxNorm: 749388 1/2 TABLET(S) PO QD 05/31/2017 09/06/2017 Inactive potassium chloride ER 8 mEq tablet,extended release RxNorm: 735978 1 Tablet(s) PO QD 05/08/2017 08/05/2017 Inactive metoprolol succinate ER 25 mg tablet,extended release 24 hr RxNorm: 689365 1/2 Tablet(s) PO QD 04/05/2017 10/03/2017 Inactive levothyroxine 75 mcg tablet RxNorm: 971054 1 Tablet(s) PO QD 201607/06/2017 Inactive [AttnRPh: Saving apply/adjud icate RxGRP:SG20 RxBIN:[id number] RxPCN:HT ID#:[id number]] potassium chloride ER 8 mEq tablet,extended release RxNorm: 959429 1 Tablet(s) PO QD 03/05/2017 05/08/2017 Inactive Diflucan 100 mg tablet RxNorm: 677525 1 Tablet(s) PO QD 02/21/2017 Inactive clindamycin 300 mg capsule RxNorm: 373223 2 Capsule(s) PO TID 02/2103/02/2017 Inactive fluoxetine 40 mg capsule RxNorm: 437182 1 Capsule(s) PO QAM 017 07/06/2017 Inactive levothyroxine 75 mcg tablet RxNorm: 737612 1 Tablet(s) PO QD 201604/05/2017 Inactive [AttnRPh: Saving apply/adjud icate RxGRP:SG20 RxBIN:[id number] RxPCN:HT ID#:[id number]] levothyroxine 75 mcg tablet RxNorm: 945687 1 Tablet(s) PO QD 201612/29/2016 Inactive [AttnRPh: Saving apply/adjud icate RxGRP:SG20 RxBIN:[id number] RxPCN:HT ID#:[id number]] lisinopril 10 mg-hydrochlorothiazide 12.5 mg tablet RxNorm: 589714 1/2 Tablet(s) PO QD 08/31/2016 02/26/2017 Inactive metoprolol succinate ER 25 mg tablet,extended release 24 hr RxNorm: 412844 1/2 Tablet(s) PO QD 08/31/2016 04/05/2017 Inactive estradiol 2 mg tablet RxNorm: 937322 1 Tablet(s) PO QD 08/08/201603/2017 Inactive [SAVINGS FOR UNINSURED PATIENTS -- BIN:0 88795, PCN: ASPROD1, Group: AM08, ID# [id number], Process claim through [employer], for questions: . THIS IS NOT INSURANCE.] Valtrex 1 gram tablet RxNorm: 932361 1 Tablet(s) PO TID 08/02/2016 Inactive levothyroxine 75 mcg tablet RxNorm: 080544 1 TABLET(S) PO QD -N EED LABS 06/26/2016 10/02/2016 Inactive [AttnRPh: Saving niraj ly/adjudicate RxGRP:SG20 RxBIN:[id number] RxPCN:HT ID#:[id number]] metoprolol succinate ER 50 mg tablet,extended release 24 hr RxNorm: 781163 TAKE 1 TABLET BY MOUTH EVERY DAY 05/29/2016 09/09/2017 Inactive levothyroxine 75 mcg tablet RxNorm: 334837 1 TABLET(S) PO QD -N EED LABS 03/16/2016 06/13/2016 Inactive [AttnRPh: Saving niraj ly/adjudicate RxGRP:SG20 RxBIN:[id number] RxPCN:HT ID#:[id number]] potassium chloride ER 8 mEq tablet,extended release RxNorm: 669793 1 TABLET(S) PO QD 03/13/2016 03/05/2017 Inactive fluoxetine 40 mg capsule RxNorm: 972735 1 CAPSULE(S) PO QAM 016 01/10/2017 Inactive diclofenac ER 100 mg tablet,extended release 24 hr RxNorm: 8 09024 1 Tablet(s) PO BID as needed for pain 02/02/2016 09/19/2017 Inactive estradiol 2 mg tablet RxNorm: 471007 1 Tablet(s) PO QD 01/25/2016 Inactive [SAVINGS FOR UNINSURED PATIENTS -- BIN:0 84871, PCN: ASPROD1, Group: [id number], ID# [id number], Process claim through [employer], for questions: . THIS IS NOT INSURANCE.] lisinopril 20 mg-hydrochlorothiazide 25 mg tablet RxNorm: 19 7887 1 TABLET(S) PO QD 01/20/2016 02/20/2017 Inactive [AttnRPh: Saving apply/adjudicate RxGRP:SG20 RxBIN:[id number] RxPCN: ID#:[id number]] levothyroxine 75 mcg tablet RxNorm: 193179 1 TABLET(S) PO QD -N EED LABS 12/22/2015 03/15/2016 Inactive [AttnRPh: Saving niraj ly/adjudicate RxGRP:SG20 RxBIN:[id number] RxPCN:HT ID#:[id number]] potassium chloride ER 8 mEq tablet,extended release RxNorm: 013295 1 TABLET(S) PO QD 12/08/2015 03/06/2016 Inactive Zorvolex 35 mg capsule RxNorm: 8263031 1 Capsule(s) PO TID 11/15/19 16 10/15/2018 Inactive Zorvolex 35 mg capsule RxNorm: 6445139 1 Capsule(s) PO TID 11/15/19 16 11/14/2015 Inactive gabapentin 300 mg capsule RxNorm: 468777 1 CAPSULE(S) PO QHS 201501/03/2016 Inactive lisinopril 20 mg-hydrochlorothiazide 25 mg tablet RxNorm: 19 7887 1 TABLET(S) PO QD 10/20/2015 01/17/2016 Inactive [AttnRPh: Saving apply/adjudicate RxGRP:SG20 RxBIN:[id number] RxPCN:HT ID#:[id number]] estradiol 2 mg tablet RxNorm: 085151 1 TABLET(S) PO QD 10/20/2015 Inactive [SAVINGS FOR UNINSURED PATIENTS -- BIN:0 50713, PCN: ASPROD1, Group: [id number], ID# [id number], Process claim through [employer], for questions: . THIS IS NOT INSURANCE.] levothyroxine 75 mcg tablet RxNorm: 471798 1 TABLET(S) PO QD -N EED LABS 09/24/2015 12/21/2015 Inactive [AttnRPh: Saving niraj ly/adjudicate RxGRP:SG20 RxBIN:[id number] RxPCN: ID#:[id number]] clindamycin 300 mg capsule RxNorm: 350681 1 Capsule(s) PO QID 09/1209/22/2015 Inactive potassium chloride ER 8 mEq tablet,extended release RxNorm: 849021 1 TABLET(S) PO QD 08/25/2015 11/22/2015 Inactive gabapentin 300 mg capsule RxNorm: 133838 1 Capsule(s) PO QHS 201511/09/2015 Inactive potassium chloride ER 8 mEq tablet,extended release RxNorm: 150881 1 Tablet(s) PO QD 08/19/2015 10/15/2018 Inactive potassium chloride ER 8 mEq tablet,extended release RxNorm: 539830 1 Tablet(s) PO QD 07/13/2015 08/11/2015 Inactive metoprolol succinate ER 50 mg tablet,extended release 24 hr RxNorm: 911001 1 Tablet(s) PO QD 05/20/2015 05/19/2015 Inactive fluoxetine 40 mg capsule RxNorm: 671126 1 Capsule(s) PO QAM 015 11/15/2015 Inactive cyclobenzaprine 10 mg tablet RxNorm: 237422 1 Tablet(s) PO TID as needed for muscle spasm 04/26/2015 01/03/2016 Inactive Zorvolex 35 mg capsule RxNorm: 7394365 1 Capsule(s) PO TID 04/26/20 15 11/15/2015 Inactive lisinopril 20 mg-hydrochlorothiazide 25 mg tablet RxNorm: 19 7887 1 Tablet(s) PO QD 04/19/2015 10/15/2015 Inactive [AttnRPh: Saving apply/adjudicate RxGRP:SG20 RxBIN:[id number] RxPCN:HT ID#:[id number]] estradiol 2 mg tablet RxNorm: 490216 1 Tablet(s) PO QD 04/05/2015 Inactive [SAVINGS FOR UNINSURED PATIENTS -- BIN:0 10968, PCN: ASPROD1, Group: [id number], ID# [id number], Process claim through [employer], for questions: . THIS IS NOT INSURANCE.] levothyroxine 75 mcg tablet RxNorm: 289295 1 TABLET(S) PO QD -N EED LABS 03/15/2015 09/10/2015 Inactive [AttnRPh: Saving niraj ly/adjudicate RxGRP:SG20 RxBIN:[id number] RxPCN: ID#:[id number]] mupirocin 2 % topical ointment RxNorm: 316167 TOP BID to affect ed toe 11/16/2014 11/25/2014 Inactive clindamycin 300 mg capsule RxNorm: 132458 1 Capsule(s) PO TID 11/1611/25/2014 Inactive [SAVINGS FOR UNINSURED PATIE NTS -- BIN:485365, PCN: ASPROD1, Group: AME08, ID# [id number], Process claim through [employer], for questions: . THIS IS NOT INSURANCE.] fluoxetine 40 mg capsule RxNorm: 574839 1 Capsule(s) PO QAM 015 05/20/2015 Inactive fenofibrate micronized 134 mg capsule RxNorm: 485228 1 Capsule( s) PO QD 10/15/2014 08/18/2015 Inactive lisinopril 20 mg-hydrochlorothiazide 25 mg tablet RxNorm: 19 7887 1 Tablet(s) PO QD 10/15/2014 04/19/2015 Inactive [AttnRPh: Saving apply/adjudicate RxGRP:SG20 RxBIN:[id number] RxPCN:HT ID#:[id number]] cyclobenzaprine 10 mg tablet RxNorm: 452370 1 Tablet(s) PO TID as needed for muscle spasm 10/09/2014 04/26/2015 Inactive Zorvolex 35 mg capsule RxNorm: 7807528 1 Capsule(s) PO TID 10/10/19 15 04/26/2015 Inactive levothyroxine 75 mcg tablet RxNorm: 259211 1 TABLET(S) PO QD -N EED LABS 08/28/2014 02/23/2015 Inactive [AttnRPh: Saving niraj ly/adjudicate RxGRP:SG20 RxBIN:[id number] RxPCN:HT ID#:[id number]] levothyroxine 75 mcg tablet RxNorm: 236700 1 Tablet(s) PO QD -n eed labs 08/03/2014 08/27/2014 Inactive [AttnRPh: Saving niraj ly/adjudicate RxGRP:SG20 RxBIN:[id number] RxPCN:HT ID#:[id number]] lisinopril 20 mg-hydrochlorothiazide 25 mg tablet RxNorm: 19 7887 TABLET(S) PO TAKE 1 TABLET BY MOUTH EVERY DAY 07/13/2014 10/15/2014 Inactive [AttnRPh: Saving apply/adjudicate RxGRP:SG20 RxBIN:[id number] RxPCN:HT ID#:[id number]] fenofibrate micronized 134 mg capsule RxNorm: 298292 1 CAPSULE( S) PO QD 07/06/2014 10/15/2014 Inactive estradiol 2 mg tablet RxNorm: 217400 1 Tablet(s) PO QD 06/25/2014 Inactive [SAVINGS FOR UNINSURED PATIENTS -- BIN:0 37080, PCN: ASPROD1, Group: AME08, ID# [id number], Process claim through [employer], for questions: . THIS IS NOT INSURANCE.] fluoxetine 40 mg capsule RxNorm: 445565 1 Capsule(s) PO QAM 014 11/10/2014 Inactive levothyroxine 75 mcg tablet RxNorm: 571312 1 Tablet(s) PO QD 201308/03/2014 Inactive [AttnRPh: Saving apply/adjud icate RxGRP:SG20 RxBIN:232863 RxPCN:HT ID#:[id number]] clindamycin 300 mg capsule RxNorm: 685356 1 Capsule(s) PO TID 02/1902/28/2014 Inactive [SAVINGS FOR UNINSURED PATIE NTS -- BIN:283635, PCN: ASPROD1, Group: AME08, ID# [id number], Process claim through [employer], for questions: . THIS IS NOT INSURANCE.] mupirocin 2 % topical ointment RxNorm: 917844 1 TOP BID 02/12/2014 1 Inactive Bactrim DS 800 mg-160 mg tablet RxNorm: 952035 1 Tablet(s) PO BID 0 02/12/2014 02/18/2014 Inactive metoprolol succinate ER 50 mg tablet,extended release 24 hr RxNorm: 080130 1 Tablet(s) PO QD 01/27/2014 05/20/2015 Inactive TAKE 1 TABLET BY MOUTH EVERY MORNING levothyroxine 75 mcg tablet RxNorm: 538084 1 Tablet(s) PO QD 201304/24/2014 Inactive [AttnRPh: Saving apply/adjud icate RxGRP:SG20 RxBIN:[id number] RxPCN: ID#:[id number]] lisinopril 20 mg-hydrochlorothiazide 25 mg tablet RxNorm: 19 7887 Tablet(s) PO TAKE 1 TABLET BY MOUTH EVERY DAY 01/12/2014 01/11/2014 Inactive [AttnRPh: Saving apply/adjudicate RxGRP:SG20 RxBIN:[id number] RxPCN: ID#:[id number]] promethazine 25 mg tablet RxNorm: 346765 1 Tablet(s) PO Q4H as needed 12/25/2013 04/22/2014 Inactive fenofibrate micronized 134 mg capsule RxNorm: 513250 1 Capsule( s) PO QD 12/25/2013 06/22/2014 Inactive fluoxetine 40 mg capsule RxNorm: 981160 1 Capsule(s) PO QAM 014 05/11/2014 Inactive metformin ER 500 mg 24 hr tablet,extended release RxNorm: 86 0975 TAKE 1 TABLET BY MOUTH DAILY 10/28/2013 12/24/2013 Inactive metoprolol succinate ER 50 mg tablet,extended release 24 hr RxNorm: 225979 1 Tablet(s) PO QD 10/06/2013 10/15/2018 Inactive [SAVINGS FOR UNI NSURED PATIENTS -- BIN:134674, PCN: ASPROD1, Group: AME08, ID# [id number], Process claim through [employer], for questions: . THIS IS NOT INSURANCE.] estradiol 2 mg tablet RxNorm: 185795 1 Tablet(s) PO QD 09/12/2013 Inactive [SAVINGS FOR UNINSURED PATIENTS -- BIN:0 18815, PCN: ASPROD1, Group: AME08, ID# [id number], Process claim through [employer], for questions: . THIS IS NOT INSURANCE.] levothyroxine 75 mcg tablet RxNorm: 259814 1 Tablet(s) PO QD may do 30 day supply if desires. Patient needs labs prior to next refill 09/12/2013 01/20/2014 Inactive [AttnRPh: Saving apply/adjud icate RxGRP:SG20 RxBIN:[id number] RxPCN:HT ID#:[id number]] levothyroxine 75 mcg tablet RxNorm: 475251 1 Tablet(s) PO QD may do 30 day supply if desires. Patient needs labs prior to next refill 08/15/2013 09/12/2013 Inactive metformin ER 500 mg 24 hr tablet,extended release RxNorm: 86 0975 1 /2 Tablet(s) PO QD 07/04/2013 08/26/2013 Inactive levothyroxine 75 mcg tablet RxNorm: 968976 1 Tablet(s) PO QD may do 30 day supply if desires 05/12/2013 08/15/2013 Inactive Lipitor 40 mg tablet RxNorm: 585268 1 Tablet(s) PO QD 05/05/201312/2013 Inactive Lipitor 40 mg tablet RxNorm: 240100 1 Tablet(s) PO QD 05/05/201304/20 Inactive fluoxetine 40 mg capsule RxNorm: 861050 1 Capsule(s) PO QAM 013 11/10/2013 Inactive lisinopril 20 mg-hydrochlorothiazide 25 mg tablet RxNorm: 19 7887 Tablet(s) PO TAKE 1 TABLET BY MOUTH EVERY DAY 04/07/2013 01/11/2014 Inactive metoprolol succinate ER 50 mg tablet,extended release 24 hr RxNorm: 069342 Tablet(s) PO 04/07/2013 10/06/2013 Inactive TAKE 1 TABLET BY MOUTH EVERY MORNING metformin ER 500 mg tablet,extended release 24hr RxNorm: 861 002 1 /2 Tablet(s) PO QD 02/28/2013 04/29/2013 Inactive levothyroxine 75 mcg tablet RxNorm: 024816 1 Tablet(s) PO QD may do 30 day supply if desires 02/17/2013 05/12/2013 Inactive lisinopril 20 mg-hydrochlorothiazide 25 mg tablet RxNorm: 19 7887 1 Tablet(s) PO QD 12/27/2012 04/07/2013 Inactive phentermine 37.5 mg tablet RxNorm: 954393 1 Tablet(s) PO QAM 201201/23/2013 Inactive estradiol 2 mg tablet RxNorm: 902239 1 Tablet(s) PO QD 12/12/2012 Inactive fluoxetine 40 mg capsule RxNorm: 799314 1 Capsule(s) PO QAM 013 05/01/2013 Inactive levothyroxine 75 mcg tablet RxNorm: 321673 1 Tablet(s) PO QD may do 30 day supply if desires 11/20/2012 02/16/2013 Inactive metformin ER 500 mg tablet,extended release 24 hr RxNorm: 86 0977 2 Tablet(s) PO QD 10/31/2012 11/27/2012 Inactive fluoxetine 40 mg capsule RxNorm: 219748 1 Capsule(s) PO QAM 013 05/02/2013 Inactive metformin ER 500 mg tablet,extended release 24 hr RxNorm: 86 0977 1 Tablet(s) PO QD 10/21/2012 10/30/2012 Inactive fluoxetine 20 mg tablet RxNorm: 201040 1 Tablet(s) PO QAM repla dianne cymbalta 10/03/2012 10/30/2012 Inactive Lamisil 250 mg tablet RxNorm: 266661 1 Tablet(s) PO QD 10/03/201202/2013 Inactive metoprolol succinate ER 50 mg tablet,extended release 24 hr RxNorm: 707305 Tablet(s) PO 10/02/2012 04/06/2013 Inactive TAKE 1 TABLET BY MOUTH EVERY MORNING Cymbalta 60 mg capsule,delayed release RxNorm: 449408 1 Capsule (s) PO QD 07/25/2012 10/30/2012 Inactive TAKE 1 CAPSULE BY [facility] DAILY lisinopril 20 mg-hydrochlorothiazide 25 mg tablet RxNorm: 19 7887 1 Tablet(s) PO QD 06/27/2012 12/23/2012 Inactive levothyroxine 75 mcg tablet RxNorm: 432065 1 Tablet(s) PO QD 201108/17/2012 Inactive Lamisil 250 mg tablet RxNorm: 406675 1 Tablet(s) PO QD 04/24/2012 Inactive metformin ER 500 mg tablet,extended release 24 hr RxNorm: 86 0977 1 Tablet(s) PO QD 04/22/2012 10/18/2012 Inactive lisinopril-hydrochlorothiazide 20 mg-25 mg tablet RxNorm: 19 7887 1 Tablet(s) PO QD 02/29/2012 05/28/2012 Inactive metoprolol succinate ER 50 mg tablet,extended release 24 hr RxNorm: 939036 Tablet(s) PO 01/04/2012 10/01/2012 Inactive TAKE 1 TABLET BY MOUTH EVERY MORNING estradiol 2 mg tablet RxNorm: 990735 1 Tablet(s) PO QD 01/04/201204/2013 Inactive Cymbalta 60 mg capsule,delayed release RxNorm: 421172 1 Capsule (s) PO QD 12/04/2011 07/24/2012 Inactive TAKE 1 CAPSULE BY [facility] DAILY Metanx 3 mg-35 mg-2 mg Tab RxNorm: 2 Tablet(s) PO QD 11/29/2011 Inactive levothyroxine 75 mcg tablet RxNorm: 926672 1 Tablet(s) PO QD 201105/20/2012 Inactive Cymbalta 60 mg capsule,delayed release RxNorm: 773400 1 Capsule (s) PO QD 11/08/2011 07/25/2012 Inactive TAKE 1 CAPSULE BY [facility] DAILY estradiol 2 mg Tab RxNorm: 146296 1 Tablet(s) PO QD 11/08/20112011 Inactive metformin ER 500 mg tablet,extended release 24 hr RxNorm: 86 0977 1 Tablet(s) PO QD 11/08/2011 04/22/2012 Inactive lisinopril-hydrochlorothiazide 20 mg-25 mg tablet RxNorm: 19 7887 1 Tablet(s) PO QD 11/08/2011 02/29/2012 Inactive levothyroxine 75 mcg Cap RxNorm: 810339 1 Capsule(s) PO QD 11/06/19 12 11/06/2011 Inactive levothyroxine 75 mcg tablet RxNorm: 413493 1 Tablet(s) PO QD 201111/20/2012 Inactive Metanx 3 mg-35 mg-2 mg Tab RxNorm: 2 Tablet(s) PO QD 08/29/2011 Inactive hydrochlorothiazide 25 mg Tab RxNorm: 105438 1 Tablet(s) PO QD 08/1911/07/2011 Inactive estradiol 2 mg Tab RxNorm: 316424 1 Tablet(s) PO QD 06/26/20112011 Inactive levothyroxine 75 mcg Cap RxNorm: 569216 1 Capsule(s) PO QD 06/26/1910/23/2011 Inactive Metanx 3 mg-35 mg-2 mg Tab RxNorm: 2 Tablet(s) PO QD 05/29/2011 Inactive hydrochlorothiazide 25 mg Tab RxNorm: 818125 1 Tablet(s) PO QD 02/2005/18/2011 Inactive levothyroxine 75 mcg Cap RxNorm: 777683 1 Capsule(s) PO QD 03/01/20 11 03/30/2011 Inactive levothyroxine 75 mcg Cap RxNorm: 402553 1 Capsule(s) PO QD 02/02/20 11 02/28/2011 Inactive metformin 1,000 mg Tab RxNorm: 023408 1 Tablet(s) PO QHS 02/01/2011 0 10/15/2018 Inactive metoprolol succinate ER 50 mg tablet,extended release 24 hr RxNorm: 709014 1 Tablet(s) PO QAM 12/22/2010 10/02/2012 Inactive estradiol 2 mg Tab RxNorm: 880268 1 Tablet(s) PO QD 12/13/20102011 Inactive Cymbalta 60 mg Capsule, delayed release RxNorm: 246967 Capsule(s) P O 12/01/2010 11/07/2011 Inactive TAKE 1 CAPSULE BY MOUTH VARSHA Y Cymbalta 60 mg Cap RxNorm: 515618 1 Capsule(s) PO QD 11/24/201010/15 Inactive Cymbalta 60 mg Capsule, delayed release RxNorm: 713173 1 Capsul e(s) PO QD 09/29/2010 12/04/2011 Inactive hydrochlorothiazide 25 mg Tab RxNorm: 597897 1 Tablet(s) PO QD 09/1811/27/2010 Inactive metoprolol succinate ER 50 mg 24 hr Tab RxNorm: 909733 1 Tablet (s) PO QAM 09/15/2010 12/22/2010 Inactive Flexeril 10 mg Tab RxNorm: 449576 1 Tablet(s) PO TID 09/15/201011/13 Inactive levothyroxine 75 mcg Cap RxNorm: 855143 1 Capsule(s) PO QD 09/09/1912/06/2010 Inactive estradiol 2 mg Tab RxNorm: 419392 1 Tablet(s) PO QD 09/08/20102010 Inactive Flexeril 10 mg Tab RxNorm: 963587 1 Tablet(s) PO TID 09/08/201009/14 Inactive Multiple Vitamins Oral RxNorm: Oral No Start Date Act toribio aspirin 81 mg tablet RxNorm: 443531 1 Tablet(s) PO QD No Start Date Active gabapentin 300 mg capsule RxNorm: 845991 1 Capsule(s) PO QHS as needed No Start Date Active Zyrtec 10 mg tablet RxNorm: 6503494 1 Tablet(s) PO QD No Start Date Active metoprolol succinate ER 50 mg tablet,extended release 24 hr RxNorm: 577559 1/4 Tablet(s) PO QD No Start Date 02/20/2017 Inactive metoprolol succinate ER 50 mg tablet,extended release 24 hr RxNorm: 697762 1/2 Tablet(s) PO QD No Start Date 08/30/2016 Inactive Fish Oil 1,000 mg capsule RxNorm: 1 Capsule(s) PO QD No Start Date 07/15/2018 Inactive estradiol 0.5 mg tablet RxNorm: 193853 1 Tablet(s) PO QD No Start D ate 11/27/2017 Inactive clindamycin RxNorm: 2582 miscellaneous No Start Date 11/25/2014 Inacti ve levothyroxine 75 mcg Tab RxNorm: 974979 1 Tablet(s) PO QD No Start Date 11/05/2011 Inactive metformin ER 500 mg tablet,extended release 24hr RxNorm: 860 975 1/2 Tablet(s) PO QD No Start Date 08/19/2014 Inactive levothyroxine 75 mcg Cap RxNorm: 966427 1 Capsule(s) PO QD No Start Date 09/07/2010 Inactive levothyroxine 75 mcg tablet RxNorm: 275711 1 Tablet(s) PO QD No Sta rt Date 01/19/2014 Inactive metformin ER 500 mg tablet,extended release 24hr RxNorm: 861 002 1 1/2 Tablet(s) PO QD No Start Date 02/27/2013 Inactive clindamycin 300 mg capsule RxNorm: 655097 1 Capsule(s) PO TID No St art Date 03/28/2015 Inactive Zyrtec 10 mg Tab RxNorm: 2410444 1 Tablet(s) PO QD No Start Date 08/19 Inactive metoprolol succinate ER 50 mg 24 hr Tab RxNorm: 691267 1 Tablet (s) PO QAM No Start Date 09/14/2010 Inactive Vitamin B12 1000mcg Tablet RxNorm: 1 Tablet(s) PO QD No Start Date 10/02/2012 Inactive Xyzal 5 mg tablet RxNorm: 397042 1 Tablet(s) PO QD No Start Date 07/2016 Inactive metformin 1,000 mg Tab RxNorm: 563969 1/2 Tablet(s) PO QD No Start Date 11/07/2011 Inactive metoprolol succinate ER 50 mg tablet,extended release 24 hr RxNorm: 281520 1 Tablet(s) PO QD No Start Date 05/19/2015 Inactive hydrochlorothiazide 25 mg Tab RxNorm: 018186 1 Tablet(s) PO QD No S tart Date 09/28/2010 Inactive potassium chloride ER 8 mEq tablet,extended release RxNorm: 485516 1 Tablet(s) PO QD No Start Date 03/04/2017 Inactive lisinopril 20 mg-hydrochlorothiazide 25 mg tablet RxNorm: 19 7887 1/2 Tablet(s) PO QD No Start Date 08/30/2016 Inactive Co Q-10 200 mg capsule RxNorm: 417145 1 Capsule(s) PO QD No Start D ate 11/25/2014 Inactive Cymbalta 60 mg Cap RxNorm: 417322 1 Capsule(s) PO QD No Start Date Inactive vitamin E 1,000 unit Cap RxNorm: 113467 1 Capsule(s) PO QD No Start Date 11/25/2014 Inactive metformin ER 500 mg 24 hr tablet,extended release RxNorm: 86 1018 1 Tablet(s) PO QD No Start Date 12/24/2013 Inactive [place] 3 Fish Oil capsule RxNorm: 1 Capsule(s) PO BID No Start Date 07/08/2018 Inactive prednisone 20 mg tablet RxNorm: 636380 1 Tablet(s) PO BID No Start Date 11/27/2012 Inactive metformin ER 500 mg 24 hr tablet,extended release RxNorm: 86 0975 1 Tablet(s) PO QD No Start Date 07/03/2013 Inactive metoprolol succinate ER 50 mg 24 hr Tab RxNorm: 538073 1 Tablet (s) PO QD No Start Date 10/05/2013 Inactive estradiol 2 mg Tab RxNorm: 337215 1 Tablet(s) PO QD No Start Date Inactive Medication Administered No Medication Administered data Immunizations Vaccine Codes Date Status Influenza CVX: 141 03/04/2019 Complete Influenza CVX: 141 03/04/2019 Complete Results Observation Observation Code Item Item Code Result Date S ervice Location FREE T4 37451 T4 Free 0.98 ng/dL 02/27/2019 Unknown GLYCOSYLATED HEMOGLOBIN TEST 45214 Hgb A1c 96768-1 6.0 % 1 Unknown MEAN GLUC 6513459 Calc Mean Gluc 126 mg/dL 02/27/2019 Unkn own GFR CALC 9556918 GFR Non Afr Amr >60 mL/min 02/27/2019 Un known GFR CALC 6463834 GFR Afr Amr >60 mL/min 02/27/2019 Unknow n THYROID STIMULATING HORMONE 79245 TSH 0.802 uIU/mL 02/27/2019 Unknown COMPLETE BLOOD COUNT [id number] WBC 7.0 10e9/L 02/28/20 19 Unknown COMPLETE BLOOD COUNT [id number] RBC 4.04 10e12/L 2018 Unknown COMPLETE BLOOD COUNT 0853533 HEMOGLOBIN 11.9 g/dL 02/28/20 19 Unknown COMPLETE BLOOD COUNT [id number] HEMATOCRIT 37.4 % 02/28/20 19 Unknown COMPLETE BLOOD COUNT [id number] MCV 92.6 fL 9 Unknown COMPLETE BLOOD COUNT [id number] MCH 29.5 pg 9 Unknown COMPLETE BLOOD COUNT 0562010 MCHC 31.8 g/dL 9 Unknown COMPLETE BLOOD COUNT [id number] PLATELET COUNT 242 10e9/L 02/2019 Unknown COMPLETE BLOOD COUNT 6553501 Mean Plt Volume 10.9 fL 02/2019 Unknown COMPLETE BLOOD COUNT 1365321 Neut Auto 59.1 % 9 Unknown COMPLETE BLOOD COUNT 1082044 Lymph Auto 32.2 % 02/28/20 19 Unknown COMPLETE BLOOD COUNT 7128540 [place] Auto 6.0 % 9 Unknown COMPLETE BLOOD COUNT 7879672 RDW 13.3 % 9 Unknown COMPLETE BLOOD COUNT 3853021 Eos Auto 2.6 % 9 Unknown COMPLETE BLOOD COUNT 1859539 Baso Auto 0.1 % 9 Unknown COMPLETE BLOOD COUNT 2015748 Neutrophil Abs 4.14 10e9/L Unknown COMPLETE BLOOD COUNT [id number] Lymphocyte Abs 2.25 10e9/L Unknown COMPLETE BLOOD COUNT 8108090 Monocyte Abs 0.42 10e9/L 02/18 Unknown COMPLETE BLOOD COUNT [id number] Eosinophil Abs 0.18 10e9/L Unknown COMPLETE BLOOD COUNT 4361513 RDW-SD 44.2 fL 9 Unknown COMPLETE BLOOD COUNT [id number] Basophil Abs 0.01 10e9/L 02/18 Unknown COMPREHENSIVE METABOLIC 47438 AST 18 U/L 2018 Unknown COMPREHENSIVE METABOLIC 52111 ALT 12 U/L 2018 Unknown COMPREHENSIVE METABOLIC 57532 BUN 15 mg/dL 2018 Unknown COMPREHENSIVE METABOLIC 34313 ALBUMIN 4.0 g/dL 2018 Unknown COMPREHENSIVE METABOLIC 67054 CHLORIDE 100 mmol/L 02/27 Unknown COMPREHENSIVE METABOLIC 75133 Bili Total 0.5 mg/dL 02/27 Unknown COMPREHENSIVE METABOLIC 69454 ALK PHOS 81 U/L 2018 Unknown COMPREHENSIVE METABOLIC 08403 SODIUM 138 mmol/L 02/27 Unknown COMPREHENSIVE METABOLIC 46720 CREATININE 0.86 mg/dL 02/18 Unknown COMPREHENSIVE METABOLIC 84518 CALCIUM 8.9 mg/dL 2018 Unknown COMPREHENSIVE METABOLIC 42249 POTASSIUM 3.9 mmol/L 02/27 Unknown COMPREHENSIVE METABOLIC 95616 Total Protein 6.5 g/dL Unknown COMPREHENSIVE METABOLIC 20916 Glucose 88 mg/dL 2018 Unknown COMPREHENSIVE METABOLIC 31249 Bicarbonate 29 mmol/L 02/18 Unknown COMPREHENSIVE METABOLIC 12116 AGAP 9 mmol/L 2018 Unknown LIPID GROUP 48467 Cholesterol 234 mg/dL 02/27/2019 Unkno wn LIP[facility] GROUP 12146 Triglyceride 138 mg/dL 02/27/2019 Unkn own LIPID GROUP 00038 HDL CHOLESTEROL 51 mg/dL 02/27/2019 U nknown LIPID GROUP 40200 Chol/HDL Ratio 4.59 ratio 02/27/2019 U nknown LIPID GROUP 08568 NON-HDL Chol 183 mg/dL 02/27/2019 Unkn own LIPID GROUP 67131 LDL Cholesterol 155 mg/dL 02/27/2019 U nknown LIPID GROUP 69970 Cholesterol 235 mg/dL 07/15/2018 Unkno wn LIPID GROUP 70558 Triglyceride 171 mg/dL 07/15/2018 Unkn own LIPID GROUP 41425 HDL CHOLESTEROL 51 mg/dL 07/15/2018 U nknown LIPID GROUP 50115 Chol/HDL Ratio 4.61 ratio 07/15/2018 U nknown LIPID GROUP 36000 NON-HDL Chol 184 mg/dL 07/15/2018 Unkn own LIPID GROUP 76996 LDL Cholesterol 150 mg/dL 07/15/2018 U nknown THYROID STIMULATING HORMONE 47497 TSH 0.940 uIU/mL 07/15/2018 Unknown COMPLETE BLOOD COUNT 3083605 WBC 6.7 10e9/L 07/15/19 19 Unknown COMPLETE BLOOD COUNT [id number] RBC 4.12 10e12/L 2018 Unknown COMPLETE BLOOD COUNT 6564378 HEMOGLOBIN 12.4 g/dL 07/15/19 19 Unknown COMPLETE BLOOD COUNT [id number] HEMATOCRIT 38.1 % 07/15/19 19 Unknown COMPLETE BLOOD COUNT 4883386 MCV 92.5 fL 9 Unknown COMPLETE BLOOD COUNT 4108368 MCH 30.1 pg 9 Unknown COMPLETE BLOOD COUNT 5962710 MCHC 32.5 g/dL 9 Unknown COMPLETE BLOOD COUNT 2121802 PLATELET COUNT 247 10e9/L Unknown COMPLETE BLOOD COUNT 8264991 Mean Plt Volume 10.7 fL Unknown COMPLETE BLOOD COUNT 2311752 Neut Auto 56.5 % 9 Unknown COMPLETE BLOOD COUNT 0665823 Lymph Auto 32.3 % 07/15/19 19 Unknown COMPLETE BLOOD COUNT 7332808 [place] Auto 6.7 % 9 Unknown COMPLETE BLOOD COUNT 7563984 RDW 13.4 % 9 Unknown COMPLETE BLOOD COUNT 8651265 Eos Auto 4.2 % 9 Unknown COMPLETE BLOOD COUNT 0044628 Baso Auto 0.3 % 9 Unknown COMPLETE BLOOD COUNT 0885080 Neutrophil Abs 3.79 10e9/L Unknown COMPLETE BLOOD COUNT 0508776 Lymphocyte Abs 2.16 10e9/L Unknown COMPLETE BLOOD COUNT 4176375 Monocyte Abs 0.45 10e9/L 06/22 Unknown COMPLETE BLOOD COUNT 8540917 Eosinophil Abs 0.28 10e9/L Unknown COMPLETE BLOOD COUNT 1087323 RDW-SD 44.2 fL 9 Unknown COMPLETE BLOOD COUNT 1253017 Basophil Abs 0.02 10e9/L 06/22 Unknown COMPREHENSIVE METABOLIC 21760 AST 21 U/L 2018 Unknown COMPREHENSIVE METABOLIC 44462 ALT 15 U/L 2018 Unknown COMPREHENSIVE METABOLIC 44006 BUN 17 mg/dL 2018 Unknown COMPREHENSIVE METABOLIC 17864 ALBUMIN 3.8 g/dL 2018 Unknown COMPREHENSIVE METABOLIC 26235 CHLORIDE 101 mmol/L 07/15 Unknown COMPREHENSIVE METABOLIC 72582 Bili Total 0.4 mg/dL 07/15 Unknown COMPREHENSIVE METABOLIC 27109 ALK PHOS 80 U/L 2018 Unknown COMPREHENSIVE METABOLIC 50211 SODIUM 138 mmol/L 07/15 Unknown COMPREHENSIVE METABOLIC 26473 CREATININE 0.78 mg/dL 06/22 Unknown COMPREHENSIVE METABOLIC 06307 CALCIUM 8.9 mg/dL 2018 Unknown COMPREHENSIVE METABOLIC 08924 POTASSIUM 4.0 mmol/L 07/15 Unknown COMPREHENSIVE METABOLIC 66927 Total Protein 6.4 g/dL Unknown COMPREHENSIVE METABOLIC 97190 Glucose 91 mg/dL 2018 Unknown COMPREHENSIVE METABOLIC 09097 Bicarbonate 29 mmol/L 06/22 Unknown COMPREHENSIVE METABOLIC 60531 AGAP 8 mmol/L 2018 Unknown GFR CALC 5047418 GFR Non Afr Amr >60 mL/min 07/15/2018 Un known GFR CALC 9825766 GFR Afr Amr >60 mL/min 07/15/2018 Unknow n GLYCOSYLATED HEMOGLOBIN TEST 94512 Hgb A1c 46049-3 6.1 % 0 07/15/2018 Unknown FREE T4 59246 T4 Free 0.96 ng/dL 07/15/2018 Unknown MEAN GLUC 6644942 Calc Mean Gluc 128 mg/dL 07/15/2018 Unkn own MEAN GLUC 6653624 Calc Mean Gluc 117 mg/dL 12/31/2017 Unkn own COMPREHENSIVE METABOLIC 34921 AST 20 U/L 2017 Unknown COMPREHENSIVE METABOLIC 28548 ALT 17 U/L 2017 Unknown COMPREHENSIVE METABOLIC 58426 BUN 22 mg/dL 2017 Unknown COMPREHENSIVE METABOLIC 45810 ALBUMIN 4.0 g/dL 2017 Unknown COMPREHENSIVE METABOLIC 66872 CHLORIDE 101 mmol/L 12/31 Unknown COMPREHENSIVE METABOLIC 60084 Bili Total 0.4 mg/dL 12/31 Unknown COMPREHENSIVE METABOLIC 23258 ALK PHOS 74 U/L 2017 Unknown COMPREHENSIVE METABOLIC 22573 SODIUM 139 mmol/L 12/31 Unknown COMPREHENSIVE METABOLIC 59375 CREATININE 0.80 mg/dL 12/19 Unknown COMPREHENSIVE METABOLIC 35465 CALCIUM 9.3 mg/dL 2017 Unknown COMPREHENSIVE METABOLIC 82276 POTASSIUM 4.2 mmol/L 12/31 Unknown COMPREHENSIVE METABOLIC 83799 Total Protein 6.5 g/dL Unknown COMPREHENSIVE METABOLIC 60272 Glucose 93 mg/dL 2017 Unknown COMPREHENSIVE METABOLIC 62401 Bicarbonate 29 mmol/L 12/19 Unknown COMPREHENSIVE METABOLIC 64228 AGAP 9 mmol/L 2017 Unknown GFR CALC 5263381 GFR Non Afr Amr >60 mL/min 12/31/2017 Un known GFR CALC 2274155 GFR Afr Amr >60 mL/min 12/31/2017 Unknow n GLYCOSYLATED HEMOGLOBIN TEST 68004 Hgb A1c 67883-2 5.7 % 0 12/31/2017 Unknown FREE T4 99435 T4 Free 1.11 ng/dL 12/31/2017 Unknown LIPID GROUP 67467 Cholesterol 241 mg/dL 12/31/2017 Unkno wn L[facility] 70738 Triglyceride 108 mg/dL 12/31/2017 Unkn own LIPID GROUP 28313 HDL CHOLESTEROL 59 mg/dL 12/31/2017 [facility] [place] LIPID GROUP 97879 Chol/HDL Ratio 4.08 ratio 12/31/2017 [facility] [place] LIPID GROUP 77902 NON-HDL Chol 182 mg/dL 12/31/2017 Unkn own LIPID GROUP 62395 LDL Cholesterol 160 mg/dL 12/31/2017 U nkno COMPLETE BLOOD COUNT 9200369 WBC 6.7 10e9/L 01/01/20 18 Unknown COMPLETE BLOOD COUNT [id number] RBC 4.03 10e12/L 2017 Unknown COMPLETE BLOOD COUNT 2919429 HEMOGLOBIN 12.1 g/dL 01/01/20 18 Unknown COMPLETE BLOOD COUNT 6721244 HEMATOCRIT 38.0 % 01/01/20 18 Unknown COMPLETE BLOOD COUNT 5915339 MCV 94.3 fL 8 Unknown COMPLETE BLOOD COUNT 6098932 MCH 30.0 pg 8 Unknown COMPLETE BLOOD COUNT 9300931 MCHC 31.8 g/dL 8 Unknown COMPLETE BLOOD COUNT 6135236 PLATELET COUNT 240 10e9/L Unknown COMPLETE BLOOD COUNT 9886753 Mean Plt Volume 10.9 fL Unknown COMPLETE BLOOD COUNT 1211456 Neut Auto 53.9 % 8 Unknown COMPLETE BLOOD COUNT 3899181 Lymph Auto 35.7 % 01/01/20 18 Unknown COMPLETE BLOOD COUNT 5368941 [place] Auto 6.6 % 8 Unknown COMPLETE BLOOD COUNT 7018621 RDW 13.5 % 8 Unknown COMPLETE BLOOD COUNT 6170131 Eos Auto 3.7 % 8 Unknown COMPLETE BLOOD COUNT 6738110 Baso Auto 0.1 % 8 Unknown COMPLETE BLOOD COUNT 3439062 Neutrophil Abs 3.61 10e9/L Unknown COMPLETE BLOOD COUNT 7263554 Lymphocyte Abs 2.39 10e9/L Unknown COMPLETE BLOOD COUNT [id number] Monocyte Abs 0.44 10e9/L 12/19 Unknown COMPLETE BLOOD COUNT 6869316 Eosinophil Abs 0.25 10e9/L Unknown COMPLETE BLOOD COUNT 3972804 RDW-SD 44.7 fL 8 Unknown COMPLETE BLOOD COUNT 7881992 Basophil Abs 0.01 10e9/L 12/19 Unknown THYROID STIMULATING HORMONE 32981 TSH 0.533 uIU/mL 12/31/2017 Unknown GFR CALC 6923046 GFR Non Afr Amr 57 mL/min 06/04/2017 Lanette chungn GFR CALC 8062598 GFR Afr Amr >60 mL/min 06/04/2017 Unknow n VITAMIN B 12 80126 VITAMIN B12 1339 pg/mL 06/04/2017 [place] COMPLETE BLOOD COUNT 4178933 WBC 6.7 10e9/L 06/04/19 18 Unknown COMPLETE BLOOD COUNT 3457595 RBC 4.13 10e12/L 2017 Unknown COMPLETE BLOOD COUNT 8796822 HEMOGLOBIN 12.5 g/dL 06/04/19 18 Unknown COMPLETE BLOOD COUNT 7535341 HEMATOCRIT 38.7 % 06/04/19 18 Unknown COMPLETE BLOOD COUNT 7252633 MCV 93.7 fL 8 Unknown COMPLETE BLOOD COUNT 9465575 MCH 30.3 pg 8 Unknown COMPLETE BLOOD COUNT 6488557 MCHC 32.3 g/dL 8 Unknown COMPLETE BLOOD COUNT 6437750 PLATELET COUNT 205 10e9/L Unknown COMPLETE BLOOD COUNT 4962622 Mean Plt Volume 11.1 fL Unknown COMPLETE BLOOD COUNT 4777381 Neut Auto 41.5 % 8 Unknown COMPLETE BLOOD COUNT 2383555 Lymph Auto 40.5 % 06/04/19 18 Unknown COMPLETE BLOOD COUNT 1648422 [place] Auto 6.0 % 8 Unknown COMPLETE BLOOD COUNT 6992323 RDW 12.5 % 8 Unknown COMPLETE BLOOD COUNT 3807664 Eos Auto 11.6 % 8 Unknown COMPLETE BLOOD COUNT 3265628 Baso Auto 0.4 % 8 Unknown COMPLETE BLOOD COUNT 5945935 Neutrophil Abs 2.78 10e9/L Unknown COMPLETE BLOOD COUNT 4598264 Lymphocyte Abs 2.71 10e9/L Unknown COMPLETE BLOOD COUNT [id number] Monocyte Abs 0.40 10e9/L 05/21 Unknown COMPLETE BLOOD COUNT 2202285 Eosinophil Abs 0.78 10e9/L Unknown COMPLETE BLOOD COUNT 2450231 RDW-SD 41.9 fL 8 Unknown COMPLETE BLOOD COUNT 9283207 Basophil Abs 0.03 10e9/L 05/21 Unknown LIPID GROUP 67507 Cholesterol 186 mg/dL 06/04/2017 Unkno wn LIPID GROUP 91886 Triglyceride 78 mg/dL 06/04/2017 Unkn own LIPID GROUP 38359 HDL CHOLESTEROL 40 06/04/2017 U nknown LIPID GROUP 22712 Chol/HDL Ratio 4.65 ratio 06/04/2017 U nknown LIPID GROUP 99319 NON-HDL Chol 146 mg/dL 06/04/2017 Unkn own LIPID GROUP 17367 LDL Cholesterol 130 mg/dL 06/04/2017 U nknown GLYCOSYLATED HEMOGLOBIN TEST 62663 Hgb A1c 62684-7 5.6 % 0 06/04/2017 Unknown THYROID STIMULATING HORMONE 73055 TSH 0.748 uIU/mL 06/04/2017 Unknown COMPREHENSIVE METABOLIC 85047 AST 17 U/L 2017 Unknown COMPREHENSIVE METABOLIC 29291 ALT 11 U/L 2017 Unknown COMPREHENSIVE METABOLIC 90305 BUN 19 mg/dL 2017 Unknown COMPREHENSIVE METABOLIC 98137 ALBUMIN 4.1 g/dL 2017 Unknown COMPREHENSIVE METABOLIC 74161 CHLORIDE 103 mmol/L 06/04 Unknown COMPREHENSIVE METABOLIC 02947 Bili Total 0.5 mg/dL 06/04 Unknown COMPREHENSIVE METABOLIC 04046 ALK PHOS 65 U/L 2017 Unknown COMPREHENSIVE METABOLIC 29813 SODIUM 140 mmol/L 06/04 Unknown COMPREHENSIVE METABOLIC 63750 CREATININE 1.01 mg/dL 05/21 Unknown COMPREHENSIVE METABOLIC 77912 CALCIUM 9.3 mg/dL 2017 Unknown COMPREHENSIVE METABOLIC 92734 POTASSIUM 4.2 mmol/L 06/04 Unknown COMPREHENSIVE METABOLIC 02816 Total Protein 6.3 g/dL Unknown COMPREHENSIVE METABOLIC 17582 Glucose 87 mg/dL 2017 Unknown COMPREHENSIVE METABOLIC 87652 Bicarbonate 31 mmol/L 05/21 Unknown COMPREHENSIVE METABOLIC 13759 AGAP 6 mmol/L 2017 Unknown MEAN GLUC 5611276 Calc Mean Gluc 114 mg/dL 06/04/2017 Unkn own FREE T4 51024 T4 Free 1.22 ng/dL 02/23/2017 Unknown THYROID STIMULATING HORMONE 17137 TSH 1.404 uIU/mL 02/23/2017 Unknown COMPREHENSIVE METABOLIC 86605 AST 18 U/L 2016 Unknown COMPREHENSIVE METABOLIC 36050 ALT 12 U/L 2016 Unknown COMPREHENSIVE METABOLIC 45797 BUN 19 mg/dL 2016 Unknown COMPREHENSIVE METABOLIC 38831 ALBUMIN 4.3 g/dL 2016 Unknown COMPREHENSIVE METABOLIC 66128 CHLORIDE 99 mmol/L 2016 Unknown COMPREHENSIVE METABOLIC 82010 Bili Total 0.4 mg/dL 02/23 Unknown COMPREHENSIVE METABOLIC 77679 ALK PHOS 66 U/L 2016 Unknown COMPREHENSIVE METABOLIC 70138 SODIUM 137 mmol/L 02/23 Unknown COMPREHENSIVE METABOLIC 78955 CREATININE 0.92 mg/dL 10/2016 Unknown COMPREHENSIVE METABOLIC 22216 CALCIUM 9.4 mg/dL 2016 Unknown COMPREHENSIVE METABOLIC 90068 POTASSIUM 4.2 mmol/L 02/23 Unknown COMPREHENSIVE METABOLIC 64827 Total Protein 6.6 g/dL Unknown COMPREHENSIVE METABOLIC 96881 Glucose 85 mg/dL 2016 Unknown COMPREHENSIVE METABOLIC 87430 Bicarbonate 35 mmol/L 10/2016 Unknown COMPREHENSIVE METABOLIC 78750 AGAP 3 mmol/L 2016 Unknown MEAN GLUC 5324680 Calc Mean Gluc 114 mg/dL 02/23/2017 Unkn own COMPLETE BLOOD COUNT 4452872 WBC 6.2 10e9/L 02/24/20 17 Unknown COMPLETE BLOOD COUNT [id number] RBC 4.20 10e12/L 2016 Unknown COMPLETE BLOOD COUNT 1868417 HEMOGLOBIN 12.7 g/dL 02/24/20 17 Unknown COMPLETE BLOOD COUNT 8427687 HEMATOCRIT 39.3 % 02/24/20 17 Unknown COMPLETE BLOOD COUNT 5271305 MCV 93.6 fL 7 Unknown COMPLETE BLOOD COUNT 4003409 MCH 30.2 pg 7 Unknown COMPLETE BLOOD COUNT 3164152 MCHC 32.3 g/dL 7 Unknown COMPLETE BLOOD COUNT 7174322 PLATELET COUNT 226 10e9/L 10/2016 Unknown COMPLETE BLOOD COUNT 0916995 Mean Plt Volume 10.7 fL 10/2016 Unknown COMPLETE BLOOD COUNT 1026700 Neut Auto 48.7 % 7 Unknown COMPLETE BLOOD COUNT 7432555 Lymph Auto 40.8 % 02/24/20 17 Unknown COMPLETE BLOOD COUNT 4405544 [place] Auto 7.7 % 7 Unknown COMPLETE BLOOD COUNT 2313361 RDW 13.0 % 7 Unknown COMPLETE BLOOD COUNT 0553974 Eos Auto 2.6 % 7 Unknown COMPLETE BLOOD COUNT 6305637 Baso Auto 0.2 % 7 Unknown COMPLETE BLOOD COUNT 6860318 Neutrophil Abs 3.02 10e9/L Unknown COMPLETE BLOOD COUNT 3055362 Lymphocyte Abs 2.53 10e9/L Unknown COMPLETE BLOOD COUNT 1630806 Monocyte Abs 0.48 10e9/L 10/2016 Unknown COMPLETE BLOOD COUNT 6049218 Eosinophil Abs 0.16 10e9/L Unknown COMPLETE BLOOD COUNT 9028930 RDW-SD 43.2 fL 7 Unknown COMPLETE BLOOD COUNT 4740355 Basophil Abs 0.01 10e9/L 10/2016 Unknown GLYCOSYLATED HEMOGLOBIN TEST 58533 Hgb A1c 91053-5 5.6 % 1 Unknown LIPID GROUP 14937 Cholesterol 238 mg/dL 02/23/2017 Unkno wn LIPID GROUP 07022 Triglyceride 155 mg/dL 02/23/2017 Unkn own LIPID GROUP 27852 HDL CHOLESTEROL 49 mg/dL 02/23/2017 U nknown LIPID GROUP 83342 Chol/HDL Ratio 4.86 ratio 02/23/2017 U nknown LIPID GROUP 41418 NON-HDL Chol 189 mg/dL 02/23/2017 Unkn own LIPID GROUP 05539 LDL Cholesterol 158 mg/dL 02/23/2017 U nknown GFR CALC 9653822 GFR Non Afr Amr >60 mL/min 02/23/2017 Un known GFR CALC 5162376 GFR Afr Amr >60 mL/min 02/23/2017 Unknow n GLYCOSYLATED HEMOGLOBIN TEST 25710 Hgb A1c 07015-6 5.7 % 0 08/31/2016 Unknown MEAN GLUC 0447721 Calc Mean Gluc 117 mg/dL 08/31/2016 Unkn own COMPLETE BLOOD COUNT 6286953 WBC 6.9 10e9/L 09/01/19 17 Unknown COMPLETE BLOOD COUNT 2950815 RBC 4.00 10e12/L 2016 Unknown COMPLETE BLOOD COUNT 5586062 HEMOGLOBIN 12.3 g/dL 09/01/19 17 Unknown COMPLETE BLOOD COUNT 5298838 HEMATOCRIT 37.1 % 09/01/19 17 Unknown COMPLETE BLOOD COUNT 3125166 MCV 92.8 fL 7 Unknown COMPLETE BLOOD COUNT 9920035 MCH 30.8 pg 7 Unknown COMPLETE BLOOD COUNT 7748336 MCHC 33.2 g/dL 7 Unknown COMPLETE BLOOD COUNT 9901774 PLATELET COUNT 238 10e9/L Unknown COMPLETE BLOOD COUNT 6399164 Mean Plt Volume 11.2 fL Unknown COMPLETE BLOOD COUNT 2633307 Neut Auto 49.9 % 7 Unknown COMPLETE BLOOD COUNT 5705115 Lymph Auto 40.7 % 09/01/19 17 Unknown COMPLETE BLOOD COUNT 5381675 [place] Auto 6.5 % 7 Unknown COMPLETE BLOOD COUNT [id number] RDW 14.3 % 7 Unknown COMPLETE BLOOD COUNT [id number] Eos Auto 2.8 % 7 Unknown COMPLETE BLOOD COUNT 1600584 Baso Auto 0.1 % 7 Unknown COMPLETE BLOOD COUNT [id number] Neutrophil Abs 3.44 10e9/L Unknown COMPLETE BLOOD COUNT 1990449 Lymphocyte Abs 2.81 10e9/L Unknown COMPLETE BLOOD COUNT [id number] Monocyte Abs 0.45 10e9/L 08/19 Unknown COMPLETE BLOOD COUNT 6971955 Eosinophil Abs 0.19 10e9/L Unknown COMPLETE BLOOD COUNT [id number] RDW-SD 47.3 fL 7 Unknown COMPLETE BLOOD COUNT [id number] Basophil Abs 0.01 10e9/L 08/19 Unknown THYROID STIMULATING HORMONE 37708 TSH 1.053 uIU/mL 08/31/2016 Unknown GFR CALC [id number] GFR Non Afr Amr >60 mL/min 08/31/2016 Un known GFR CALC [id number] GFR Afr Amr >60 mL/min 08/31/2016 Unknow n FREE T4 88762 T4 Free 1.29 ng/dL 08/31/2016 Unknown COMPREHENSIVE METABOLIC 81968 AST 20 U/L 2016 Unknown COMPREHENSIVE METABOLIC 13253 ALT 14 U/L 2016 Unknown COMPREHENSIVE METABOLIC 07510 BUN 15 mg/dL 2016 Unknown COMPREHENSIVE METABOLIC 83016 ALBUMIN 4.0 g/dL 2016 Unknown COMPREHENSIVE METABOLIC 22013 CHLORIDE 97 mmol/L 2016 Unknown COMPREHENSIVE METABOLIC 38306 Bili Total 0.4 mg/dL 08/31 Unknown COMPREHENSIVE METABOLIC 86594 ALK PHOS 72 U/L 2016 Unknown COMPREHENSIVE METABOLIC 63170 SODIUM 135 mmol/L 08/31 Unknown COMPREHENSIVE METABOLIC 16462 CREATININE 0.91 mg/dL 08/19 Unknown COMPREHENSIVE METABOLIC 02230 CALCIUM 9.5 mg/dL 2016 Unknown COMPREHENSIVE METABOLIC 61633 POTASSIUM 4.0 mmol/L 08/31 Unknown COMPREHENSIVE METABOLIC 55946 Total Protein 6.4 g/dL Unknown COMPREHENSIVE METABOLIC 18742 Glucose 76 mg/dL 2016 Unknown COMPREHENSIVE METABOLIC 92217 Bicarbonate 29 mmol/L 08/19 Unknown COMPREHENSIVE METABOLIC 88662 AGAP 9 mmol/L 2016 Unknown LIPID GROUP [id number] Cholesterol 211 mg/dL 08/31/2016 Unkno wn [facility] 36460 Triglyceride 147 mg/dL 08/31/2016 Unkn own [facility] 29842 HDL CHOLESTEROL 49 mg/dL 08/31/2016 U nknown [facility] 87840 Chol/HDL Ratio 4.31 ratio 08/31/2016 U nknown [facility] 42355 NON-HDL Chol 162 mg/dL 08/31/2016 Unkn own [facility] 91341 LDL Cholesterol 133 mg/dL 08/31/2016 U nknown GFR CALC 6135329 GFR Non Afr Amr >60 mL/min 01/05/2016 Un known GFR CALC [id number] GFR Afr Amr >60 mL/min 01/05/2016 Unknow n FREE T4 88361 T4 Free 1.13 ng/dL 01/05/2016 Unknown URIC ACID 11096 URIC ACID 6.5 mg/dL 01/05/2016 Unknown COMPREHENSIVE METABOLIC 21117 AST 19 U/L 2015 Unknown COMPREHENSIVE METABOLIC 32860 ALT 12 U/L 2015 Unknown COMPREHENSIVE METABOLIC 96920 BUN 16 mg/dL 2015 Unknown COMPREHENSIVE METABOLIC 67565 ALBUMIN 4.0 g/dL 2015 Unknown COMPREHENSIVE METABOLIC 41981 CHLORIDE 97 mmol/L 2015 Unknown COMPREHENSIVE METABOLIC 76272 Bili Total 0.4 mg/dL 01/04 Unknown COMPREHENSIVE METABOLIC 89337 ALK PHOS 69 U/L 2015 Unknown COMPREHENSIVE METABOLIC 71299 SODIUM 135 mmol/L 01/04 Unknown COMPREHENSIVE METABOLIC 58162 CREATININE 0.76 mg/dL 12/19 Unknown COMPREHENSIVE METABOLIC 60647 CALCIUM 9.4 mg/dL 2015 Unknown COMPREHENSIVE METABOLIC 21032 POTASSIUM 4.1 mmol/L 01/04 Unknown COMPREHENSIVE METABOLIC 23030 Total Protein 6.6 g/dL Unknown COMPREHENSIVE METABOLIC 22195 Glucose 81 mg/dL 2015 Unknown COMPREHENSIVE METABOLIC 03221 Bicarbonate 28 mmol/L 12/19 Unknown COMPREHENSIVE METABOLIC 57124 AGAP 10 mmol/L 2015 Unknown VITAMIN B 12 76564 VITAMIN B12 1044 pg/mL 01/05/2016 Unk nown COMPLETE BLOOD COUNT 0265813 WBC 8.2 10e9/L 01/05/20 16 Unknown COMPLETE BLOOD COUNT 1004327 RBC 3.92 10e12/L 2015 Unknown COMPLETE BLOOD COUNT 1013608 HEMOGLOBIN 12.0 g/dL 01/05/20 16 Unknown COMPLETE BLOOD COUNT 7550013 HEMATOCRIT 36.3 % 01/05/20 16 Unknown COMPLETE BLOOD COUNT 9853253 MCV 92.6 fL 6 Unknown COMPLETE BLOOD COUNT 4385181 MCH 30.6 pg 6 Unknown COMPLETE BLOOD COUNT 9229445 MCHC 33.1 g/dL 6 Unknown COMPLETE BLOOD COUNT 3351915 PLATELET COUNT 253 10e9/L Unknown COMPLETE BLOOD COUNT 3749071 Mean Plt Volume 10.7 fL Unknown COMPLETE BLOOD COUNT 3508869 Neut Auto 59.9 % 6 Unknown COMPLETE BLOOD COUNT 0177819 Lymph Auto 30.2 % 01/05/20 16 Unknown COMPLETE BLOOD COUNT 0123320 [place] Auto 5.7 % 6 Unknown COMPLETE BLOOD COUNT 4539284 RDW 12.9 % 6 Unknown COMPLETE BLOOD COUNT 9327524 Eos Auto 4.1 % 6 Unknown COMPLETE BLOOD COUNT 7094851 Baso Auto 0.1 % 6 Unknown COMPLETE BLOOD COUNT 2421463 Neutrophil Abs 4.91 10e9/L Unknown COMPLETE BLOOD COUNT 6391890 Lymphocyte Abs 2.48 10e9/L Unknown COMPLETE BLOOD COUNT 1212097 Monocyte Abs 0.47 10e9/L 12/19 Unknown COMPLETE BLOOD COUNT 7486497 Eosinophil Abs 0.34 10e9/L Unknown COMPLETE BLOOD COUNT 7604457 RDW-SD 42.2 fL 6 Unknown COMPLETE BLOOD COUNT 3149607 Basophil Abs 0.01 10e9/L 12/19 Unknown THYROID STIMULATING HORMONE 22043 TSH 1.364 uIU/mL 01/05/2016 Unknown [facility] 59167 Cholesterol 199 mg/dL 01/05/2016 Unkno wn [facility] 46056 Triglyceride 218 mg/dL 01/05/2016 Unkn own [facility] 49582 HDL CHOLESTEROL 48 mg/dL 01/05/2016 U nknown [facility] 02281 Chol/HDL Ratio 4.15 ratio 01/05/2016 U nknown [facility] 98587 NON-HDL Chol 151 mg/dL 01/05/2016 Unkn own [facility] 21507 LDL Cholesterol 107 mg/dL 01/05/2016 U nknown COMPREHENSIVE METABOLIC 38085 AST 19 U/L 2015 Unknown COMPREHENSIVE METABOLIC 02827 ALT 13 IU/L 2015 Unknown COMPREHENSIVE METABOLIC 16187 BUN 18 MG/DL 2015 Unknown COMPREHENSIVE METABOLIC 19124 ALBUMIN 4.1 GM/DL 2015 Unknown COMPREHENSIVE METABOLIC 35250 CHLORIDE 99 MMOL/L 2015 Unknown COMPREHENSIVE METABOLIC 76470 BILI TOT 0.4 MG/DL 2015 Unknown COMPREHENSIVE METABOLIC 17300 ALK PHOS 67 U/L 2015 Unknown COMPREHENSIVE METABOLIC 91655 SODIUM 134 MMOL/L 08/16 Unknown COMPREHENSIVE METABOLIC 40855 CREATININE 0.81 MG/DL 07/20 Unknown COMPREHENSIVE METABOLIC 26287 CALCIUM 9.5 MG/DL 2015 Unknown COMPREHENSIVE METABOLIC 09296 POTASSIUM 3.8 MMOL/L 08/16 Unknown COMPREHENSIVE METABOLIC 59303 PROT TOT 6.6 GM/DL 2015 Unknown COMPREHENSIVE METABOLIC 48932 Glucose 98 MG/DL 2015 Unknown COMPREHENSIVE METABOLIC 65081 BICARB 26 MMOL/L 2015 Unknown COMPREHENSIVE METABOLIC 83156 ANION GAP 9 MEQ/L 2015 Unknown GFR CALC 1125566 GFR AA >60 ML/MIN 08/17/2015 Unknown GFR CALC 7594416 GFR NON-AA >60 ML/MIN 08/17/2015 Unknown THYROID STIMULATING HORMONE 63045 TSH 1.705 uIU/ML 08/17/2015 Unknown COMPLETE BLOOD COUNT 7168496 WBC 8.2 10e9/L 08/17/19 16 Unknown COMPLETE BLOOD COUNT 6198831 RBC 4.04 10e12/L 2015 Unknown COMPLETE BLOOD COUNT 6693675 HGB 12.2 g/dL 6 Unknown COMPLETE BLOOD COUNT 2234886 HCT DET 36.9 % 6 Unknown COMPLETE BLOOD COUNT 5012229 MCV 91.3 fL 6 Unknown COMPLETE BLOOD COUNT 3658274 MCH 30.2 pg 6 Unknown COMPLETE BLOOD COUNT 5550865 MCHC 33.1 g/dL 6 Unknown COMPLETE BLOOD COUNT 4300613 PLT 254 10e9/L 08/17/19 16 Unknown COMPLETE BLOOD COUNT 3389856 MPV 10.8 fL 6 Unknown COMPLETE BLOOD COUNT 1556428 RULA % 57.3 % 6 Unknown COMPLETE BLOOD COUNT 7416148 LY % 32.5 % 6 Unknown COMPLETE BLOOD COUNT 1913202 MON % 6.0 % 6 Unknown COMPLETE BLOOD COUNT 1344680 EOS % 4.0 % 6 Unknown COMPLETE BLOOD COUNT 0688209 BASO % 0.2 % 6 Unknown COMPLETE BLOOD COUNT 0451534 RDW 13.3 % 6 Unknown COMPLETE BLOOD COUNT 1936420 ABS RULA 4.70 10e9/L 016 Unknown COMPLETE BLOOD COUNT 5430240 ABS LYMPH 2.67 10e9/L 016 Unknown COMPLETE BLOOD COUNT 5947581 ABS MONO 0.49 10e9/L 016 Unknown COMPLETE BLOOD COUNT 1966931 ABS EOS 0.33 10e9/L 016 Unknown COMPLETE BLOOD COUNT 3359792 ABS BASO 0.02 10e9/L 016 Unknown COMPLETE BLOOD COUNT 2519476 RDW-SD 43.7 fL 6 Unknown GLYCOSYLATED HEMOGLOBIN TEST 51979 A1C HPLC 84607-6 6.0 % 0 08/17/2015 Unknown FREE T4 34194 FREE T4 1.14 NG/DL 08/17/2015 Unknown LIP[facility] GROUP 97535 HDL TEST 53 MG/DL 08/17/2015 Unknown [facility] 01108 TRIG 220 MG/DL 08/17/2015 Unknown [facility] 69844 TEST LDL 114 MG/DL 08/17/2015 Unknown [facility] 50233 CHOL 211 MG/DL 08/17/2015 Unknown [facility] GROUP 12318 RCHOL/HDL 3.98 RATIO 08/17/2015 Unknow n [facility] 64595 NON-HDL CH 158 MG/DL 08/17/2015 Unknow n GFR CALC 0031493 GFR AA >60 ML/MIN 07/01/2015 Unknown GFR CALC 3690078 GFR NON-AA >60 ML/MIN 07/01/2015 Unknown THYROID STIMULATING HORMONE 82401 TSH 1.105 uIU/ML 07/01/2015 [place] [address] Glucose 106 MG/DL 07/01 [place] [address] CREATININE 0.76 MG/DL 03/2016 [place] [address] BUN 14 MG/DL 07/01 [place] [address] SODIUM 134 MMOL/L 06/21 [place] [address] POTASSIUM 3.5 MMOL/L 06/21 [place] [address] CHLORIDE 95 MMOL/L 07/01 [place] [address] BICARB 31 MMOL/L 07/01 [place] [address] ANION GAP 8 MEQ/L 07/01 [place] [address] CALCIUM 9.6 MG/DL 07/01 Unknown FREE T4 69778 FREE T4 1.15 NG/DL 03/24/2015 Unknown COMPLETE BLOOD COUNT 7755249 WBC 8.4 10e9/L 03/24/20 15 Unknown COMPLETE BLOOD COUNT 1158687 RBC 4.17 10e12/L 2014 Unknown COMPLETE BLOOD COUNT 5494255 HGB 12.5 g/dL 5 Unknown COMPLETE BLOOD COUNT 6755567 HCT DET 38.4 % 5 Unknown COMPLETE BLOOD COUNT 7914734 MCV 92.1 fL 5 Unknown COMPLETE BLOOD COUNT 6241469 MCH 30.0 pg 5 Unknown COMPLETE BLOOD COUNT 3111899 MCHC 32.6 g/dL 5 Unknown COMPLETE BLOOD COUNT 0499745 PLT 266 10e9/L 03/24/20 15 Unknown COMPLETE BLOOD COUNT 2256036 MPV 10.8 fL 5 Unknown COMPLETE BLOOD COUNT 7596674 RULA % 50.9 % 5 Unknown COMPLETE BLOOD COUNT 5552425 LY % 41.6 % 5 Unknown COMPLETE BLOOD COUNT 7154685 MON % 5.0 % 5 Unknown COMPLETE BLOOD COUNT 0399711 EOS % 2.3 % 5 Unknown COMPLETE BLOOD COUNT 7669997 BASO % 0.2 % 5 Unknown COMPLETE BLOOD COUNT 6162130 RDW 13.0 % 5 Unknown COMPLETE BLOOD COUNT 1261925 ABS RULA 4.28 10e9/L 015 Unknown COMPLETE BLOOD COUNT 7433734 ABS LYMPH 3.49 10e9/L 015 Unknown COMPLETE BLOOD COUNT 1951335 ABS MONO 0.42 10e9/L 015 Unknown COMPLETE BLOOD COUNT 3422219 ABS EOS 0.19 10e9/L 015 Unknown COMPLETE BLOOD COUNT 9604352 ABS BASO 0.02 10e9/L 015 Unknown COMPLETE BLOOD COUNT 1125307 RDW-SD 42.6 fL 5 Unknown GFR CALC 5618982 GFR AA >60 ML/MIN 03/24/2015 Unknown GFR CALC 4029492 GFR NON-AA >60 ML/MIN 03/24/2015 Unknown COMPREHENSIVE METABOLIC 67809 AST 16 U/L 2014 Unknown COMPREHENSIVE METABOLIC 75302 ALT 10 IU/L 2014 Unknown COMPREHENSIVE METABOLIC 19358 BUN 16 MG/DL 2014 Unknown COMPREHENSIVE METABOLIC 88756 ALBUMIN 4.2 GM/DL 2014 Unknown COMPREHENSIVE METABOLIC 05706 CHLORIDE 98 MMOL/L 2014 Unknown COMPREHENSIVE METABOLIC 06069 BILI TOT 0.4 MG/DL 2014 Unknown COMPREHENSIVE METABOLIC 05387 ALK PHOS 60 U/L 2014 Unknown COMPREHENSIVE METABOLIC 70727 SODIUM 136 MMOL/L 03/24 Unknown COMPREHENSIVE METABOLIC 06010 CREATININE 0.85 MG/DL 08/2014 Unknown COMPREHENSIVE METABOLIC 85494 CALCIUM 9.7 MG/DL 2014 Unknown COMPREHENSIVE METABOLIC 05107 POTASSIUM 4.0 MMOL/L 03/24 Unknown COMPREHENSIVE METABOLIC 39276 PROT TOT 6.8 GM/DL 2014 Unknown COMPREHENSIVE METABOLIC 78931 Glucose 88 MG/DL 2014 Unknown COMPREHENSIVE METABOLIC 79228 BICARB 26 MMOL/L 2014 Unknown COMPREHENSIVE METABOLIC 94309 ANION GAP 12 MEQ/L 2014 Unknown THYROID STIMULATING HORMONE 70311 TSH 1.827 uIU/ML 03/24/2015 Unknown GLYCOSYLATED HEMOGLOBIN TEST 61033 A1C HPLC 68836-3 5.9 % 1 05/24/2014 Unknown LIPID GROUP 41380 HDL TEST 57 MG/DL 03/24/2015 Unknown LIP[facility] GROUP 60228 TRIG 236 MG/DL 03/24/2015 Unknown LIPID GROUP 88378 TEST LDL 136 MG/DL 03/24/2015 Unknown LIPID GROUP 15346 CHOL 240 MG/DL 03/24/2015 Unknown LIP[facility] GROUP 63653 RCHOL/HDL 4.21 RATIO 03/24/2015 Unknow n LIP[facility] GROUP 49613 NON-HDL CH 183 MG/DL 03/24/2015 Unknow n THYROID STIMULATING HORMONE 75917 TSH 0.769 uIU/ML 11/19/2014 Unknown LIPID GROUP 62060 HDL TEST 46 MG/DL 11/19/2014 Unknown LIP[facility] GROUP 32782 TRIG 175 MG/DL 11/19/2014 Unknown LIP[facility] GROUP 82960 TEST LDL 93 MG/DL 11/19/2014 Unknown LIP[facility] GROUP 14630 CHOL 174 MG/DL 11/19/2014 Unknown LIPID GROUP 15279 RCHOL/HDL 3.78 RATIO 11/19/2014 Unknow n LIP[facility] GROUP 29723 NON-HDL CH 128 MG/DL 11/19/2014 Unknow n GLYCOSYLATED HEMOGLOBIN TEST 58248 A1C HPLC 93160-8 6.0 % 0 11/19/2014 Unknown GFR CALC 5155824 GFR AA >60 ML/MIN 11/19/2014 Unknown GFR CALC 8636415 GFR NON-AA >60 ML/MIN 11/19/2014 Unknown COMPLETE BLOOD COUNT 9689597 WBC 8.1 10e9/L 11/20/19 15 Unknown COMPLETE BLOOD COUNT 6430962 RBC 4.06 10e12/L 2014 Unknown COMPLETE BLOOD COUNT 0763352 HGB 12.2 g/dL 5 Unknown COMPLETE BLOOD COUNT 3298018 HCT DET 36.9 % 5 Unknown COMPLETE BLOOD COUNT 7162769 MCV 90.9 fL 5 Unknown COMPLETE BLOOD COUNT 9667771 MCH 30.0 pg 5 Unknown COMPLETE BLOOD COUNT 0984563 MCHC 33.1 g/dL 5 Unknown COMPLETE BLOOD COUNT 5565889 PLT 320 10e9/L 11/20/19 15 Unknown COMPLETE BLOOD COUNT 3253060 MPV 10.0 fL 5 Unknown COMPLETE BLOOD COUNT 1312884 RULA % 56.0 % 5 Unknown COMPLETE BLOOD COUNT 9578350 LY % 33.8 % 5 Unknown COMPLETE BLOOD COUNT 2771904 MON % 5.7 % 5 Unknown COMPLETE BLOOD COUNT 3431586 EOS % 4.1 % 5 Unknown COMPLETE BLOOD COUNT 1566250 BASO % 0.4 % 5 Unknown COMPLETE BLOOD COUNT 2658444 RDW 12.6 % 5 Unknown COMPLETE BLOOD COUNT 4060572 ABS RULA 4.54 10e9/L 015 Unknown COMPLETE BLOOD COUNT 4119813 ABS LYMPH 2.74 10e9/L 015 Unknown COMPLETE BLOOD COUNT 1644147 ABS MONO 0.46 10e9/L 015 Unknown COMPLETE BLOOD COUNT 3868094 ABS EOS 0.33 10e9/L 015 Unknown COMPLETE BLOOD COUNT 0502672 ABS BASO 0.03 10e9/L 015 Unknown COMPLETE BLOOD COUNT 6942902 RDW-SD 40.9 fL 5 Unknown URIC ACID 43375 URIC ACID 4.5 MG/DL 11/19/2014 Unknown COMPREHENSIVE METABOLIC 88684 AST 16 U/L 2014 Unknown COMPREHENSIVE METABOLIC 63876 ALT 13 IU/L 2014 Unknown COMPREHENSIVE METABOLIC 94912 BUN 16 MG/DL 2014 Unknown COMPREHENSIVE METABOLIC 38919 ALBUMIN 4.2 GM/DL 2014 Unknown COMPREHENSIVE METABOLIC 02329 CHLORIDE 99 MMOL/L 2014 Unknown COMPREHENSIVE METABOLIC 43761 BILI TOT 0.4 MG/DL 2014 Unknown COMPREHENSIVE METABOLIC 26408 ALK PHOS 51 U/L 2014 Unknown COMPREHENSIVE METABOLIC 57219 SODIUM 134 MMOL/L 11/19 Unknown COMPREHENSIVE METABOLIC 67213 CREATININE 0.95 MG/DL 06/2014 Unknown COMPREHENSIVE METABOLIC 08778 CALCIUM 9.8 MG/DL 2014 Unknown COMPREHENSIVE METABOLIC 55168 POTASSIUM 3.9 MMOL/L 11/19 Unknown COMPREHENSIVE METABOLIC 92527 PROT TOT 6.8 GM/DL 2014 Unknown COMPREHENSIVE METABOLIC 21479 Glucose 89 MG/DL 2014 Unknown COMPREHENSIVE METABOLIC 20593 BICARB 28 MMOL/L 2014 Unknown COMPREHENSIVE METABOLIC 01455 ANION GAP 7 MEQ/L 2014 Unknown FREE T4 60829 FREE T4 1.34 NG/DL 11/19/2014 Unknown GLYCOSYLATED HEMOGLOBIN TEST 14903 A1C HPLC 20134-6 6.0 % 0 08/17/2014 Unknown GFR CALC 1113227 GFR AA >60 ML/MIN 08/17/2014 Unknown GFR CALC 6645082 GFR NON-AA >60 ML/MIN 08/17/2014 Unknown LIPID GROUP 26589 HDL TEST 49 MG/DL 08/17/2014 Unknown LIPID GROUP 35825 TRIG 144 MG/DL 08/17/2014 Unknown LIPID GROUP 04606 TEST LDL 118 MG/DL 08/17/2014 Unknown LIPID GROUP 72505 CHOL 196 MG/DL 08/17/2014 Unknown LIPID GROUP 51229 RCHOL/HDL 4.00 RATIO 08/17/2014 Unknow n LIPID GROUP 57472 NON-HDL CH 147 MG/DL 08/17/2014 Unknow n COMPREHENSIVE METABOLIC 27693 AST 18 U/L 2014 Unknown COMPREHENSIVE METABOLIC 64706 ALT 12 IU/L 2014 Unknown COMPREHENSIVE METABOLIC 98750 BUN 12 MG/DL 2014 Unknown COMPREHENSIVE METABOLIC 98789 ALBUMIN 3.9 GM/DL 2014 Unknown COMPREHENSIVE METABOLIC 97110 CHLORIDE 100 MMOL/L 08/17 Unknown COMPREHENSIVE METABOLIC 92723 BILI TOT 0.3 MG/DL 2014 Unknown COMPREHENSIVE METABOLIC 36550 ALK PHOS 46 U/L 2014 Unknown COMPREHENSIVE METABOLIC 90172 SODIUM 135 MMOL/L 08/17 Unknown COMPREHENSIVE METABOLIC 96003 CREATININE 0.84 MG/DL 07/21 Unknown COMPREHENSIVE METABOLIC 27983 CALCIUM 9.5 MG/DL 2014 Unknown COMPREHENSIVE METABOLIC 60418 POTASSIUM 4.2 MMOL/L 08/17 Unknown COMPREHENSIVE METABOLIC 16973 PROT TOT 6.4 GM/DL 2014 Unknown COMPREHENSIVE METABOLIC 23172 Glucose 95 MG/DL 2014 Unknown COMPREHENSIVE METABOLIC 62105 BICARB 29 MMOL/L 2014 Unknown COMPREHENSIVE METABOLIC 31449 ANION GAP 6 MEQ/L 2014 Unknown THYROID STIMULATING HORMONE 38870 TSH 1.029 uIU/ML 08/17/2014 Unknown COMPLETE BLOOD COUNT 3990515 WBC 6.6 10e9/L 08/18/19 15 Unknown COMPLETE BLOOD COUNT 7401072 RBC 3.97 10e12/L 2014 Unknown COMPLETE BLOOD COUNT 2722633 HGB 12.2 g/dL 5 Unknown COMPLETE BLOOD COUNT 9453217 HCT DET 36.7 % 5 Unknown COMPLETE BLOOD COUNT 3462087 MCV 92.4 fL 5 Unknown COMPLETE BLOOD COUNT 7783269 MCH 30.7 pg 5 Unknown COMPLETE BLOOD COUNT 6199561 MCHC 33.2 g/dL 5 Unknown COMPLETE BLOOD COUNT 1371209 PLT 284 10e9/L 08/18/19 15 Unknown COMPLETE BLOOD COUNT 0395013 MPV 10.5 fL 5 Unknown COMPLETE BLOOD COUNT 0677210 RULA % 51.3 % 5 Unknown COMPLETE BLOOD COUNT 3306207 LY % 38.6 % 5 Unknown COMPLETE BLOOD COUNT 4350999 MON % 5.7 % 5 Unknown COMPLETE BLOOD COUNT 0423106 EOS % 4.1 % 5 Unknown COMPLETE BLOOD COUNT 6700851 BASO % 0.3 % 5 Unknown COMPLETE BLOOD COUNT 6039211 RDW 12.8 % 5 Unknown COMPLETE BLOOD COUNT [id number] ABS RULA 3.39 10e9/L 015 Unknown COMPLETE BLOOD COUNT 0730390 ABS LYMPH 2.55 10e9/L 015 Unknown COMPLETE BLOOD COUNT 9095160 ABS MONO 0.38 10e9/L 015 Unknown COMPLETE BLOOD COUNT 0542922 ABS EOS 0.27 10e9/L 015 Unknown COMPLETE BLOOD COUNT 8620636 ABS BASO 0.02 10e9/L 015 Unknown COMPLETE BLOOD COUNT 3982392 RDW-SD 42.2 fL 5 Unknown FREE T4 22628 FREE T4 1.31 NG/DL 08/17/2014 Unknown GFR CALC 7987091 GFR AA >60 ML/MIN 04/28/2014 Unknown GFR CALC 4267441 GFR NON-AA 59.0L ML/MIN 04/28/2014 Unkno wn FREE T4 46453 FREE T4 1.05 NG/DL 04/28/2014 Unknown COMPREHENSIVE METABOLIC 85398 AST 16 U/L 2013 Unknown COMPREHENSIVE METABOLIC 89282 ALT 10 IU/L 2013 Unknown COMPREHENSIVE METABOLIC 98983 BUN 16 MG/DL 2013 Unknown COMPREHENSIVE METABOLIC 47231 ALBUMIN 4.1 GM/DL 2013 Unknown COMPREHENSIVE METABOLIC 86736 CHLORIDE 101 MMOL/L 04/28 Unknown COMPREHENSIVE METABOLIC 91984 BILI TOT 0.4 MG/DL 2013 Unknown COMPREHENSIVE METABOLIC 23083 ALK PHOS 46 U/L 2013 Unknown COMPREHENSIVE METABOLIC 17940 SODIUM 136 MMOL/L 04/28 Unknown COMPREHENSIVE METABOLIC 16504 CREATININE 0.99 MG/DL 01/2014 Unknown COMPREHENSIVE METABOLIC 22713 CALCIUM 9.4 MG/DL 2013 Unknown COMPREHENSIVE METABOLIC 48958 POTASSIUM 4.3 MMOL/L 04/28 Unknown COMPREHENSIVE METABOLIC 60199 PROT TOT 6.6 GM/DL 2013 Unknown COMPREHENSIVE METABOLIC 64346 Glucose 94 MG/DL 2013 Unknown COMPREHENSIVE METABOLIC 37984 BICARB 28 MMOL/L 2013 Unknown COMPREHENSIVE METABOLIC 34170 ANION GAP 7 MEQ/L 2013 Unknown GLYCOSYLATED HEMOGLOBIN TEST 84545 A1C HPLC 17043-1 6.2 % 1 06/29/2013 Unknown COMPLETE BLOOD COUNT 4659618 WBC 6.5 10e9/L 04/28/20 14 Unknown COMPLETE BLOOD COUNT 2457638 RBC 3.87 10e12/L 2013 Unknown COMPLETE BLOOD COUNT 7908405 HGB 11.9 g/dL 4 Unknown COMPLETE BLOOD COUNT 7838335 HCT DET 36.2 % 4 Unknown COMPLETE BLOOD COUNT 1187017 MCV 93.5 fL 4 Unknown COMPLETE BLOOD COUNT 7650092 MCH 30.7 pg 4 Unknown COMPLETE BLOOD COUNT 9896168 MCHC 32.9 g/dL 4 Unknown COMPLETE BLOOD COUNT 9937782 PLT 276 10e9/L 04/28/20 14 Unknown COMPLETE BLOOD COUNT 3260259 MPV 11.0 fL 4 Unknown COMPLETE BLOOD COUNT 2284021 RULA % 58.9 % 4 Unknown COMPLETE BLOOD COUNT 9044825 LY % 32.6 % 4 Unknown COMPLETE BLOOD COUNT 0327670 MON % 5.4 % 4 Unknown COMPLETE BLOOD COUNT 4061732 EOS % 2.8 % 4 Unknown COMPLETE BLOOD COUNT 4397181 BASO % 0.3 % 4 Unknown COMPLETE BLOOD COUNT 8057743 RDW 12.7 % 4 Unknown COMPLETE BLOOD COUNT 0468752 ABS RULA 3.83 10e9/L 014 Unknown COMPLETE BLOOD COUNT [id number] ABS LYMPH 2.12 10e9/L 014 Unknown COMPLETE BLOOD COUNT 3706772 ABS MONO 0.35 10e9/L 014 Unknown COMPLETE BLOOD COUNT 6985280 ABS EOS 0.18 10e9/L 014 Unknown COMPLETE BLOOD COUNT 8782136 ABS BASO 0.02 10e9/L 014 Unknown COMPLETE BLOOD COUNT 2376296 RDW-SD 42.4 fL 4 Unknown THYROID STIMULATING HORMONE 09251 TSH 1.219 uIU/ML 04/28/2014 Unknown LIPID GROUP 50396 HDL TEST 53 MG/DL 04/28/2014 Unknown LIPID GROUP 94211 TRIG 144 MG/DL 04/28/2014 Unknown LIPID GROUP 10654 TEST LDL 124 MG/DL 04/28/2014 Unknown LIPID GROUP 24153 CHOL 206 MG/DL 04/28/2014 Unknown LIPID GROUP 74645 RCHOL/HDL 3.89 RATIO 04/28/2014 Unknow n LIPID GROUP 09775 NON-HDL CH 153 MG/DL 04/28/2014 Unknow n COMPLETE BLOOD COUNT 4491006 WBC 6.8 10e9/L 12/24/19 14 Unknown COMPLETE BLOOD COUNT 1606591 RBC 3.96 10e12/L 2013 Unknown COMPLETE BLOOD COUNT 3325326 HGB 12.3 g/dL 4 Unknown COMPLETE BLOOD COUNT 7890619 HCT DET 37.1 % 4 Unknown COMPLETE BLOOD COUNT 7101451 MCV 93.7 fL 4 Unknown COMPLETE BLOOD COUNT 7992434 MCH 31.1 pg 4 Unknown COMPLETE BLOOD COUNT 6149235 MCHC 33.2 g/dL 4 Unknown COMPLETE BLOOD COUNT 4912883 PLT 258 10e9/L 12/24/19 14 Unknown COMPLETE BLOOD COUNT 0832116 MPV 10.7 fL 4 Unknown COMPLETE BLOOD COUNT 9722700 RULA % 52.5 % 4 Unknown COMPLETE BLOOD COUNT 9334634 LY % 36.7 % 4 Unknown COMPLETE BLOOD COUNT 4057960 MON % 6.2 % 4 Unknown COMPLETE BLOOD COUNT 7468530 EOS % 4.3 % 4 Unknown COMPLETE BLOOD COUNT 2029645 BASO % 0.3 % 4 Unknown COMPLETE BLOOD COUNT 5213451 RDW 13.0 % 4 Unknown COMPLETE BLOOD COUNT 6294501 ABS RULA 3.57 10e9/L 014 Unknown COMPLETE BLOOD COUNT 0585989 ABS LYMPH 2.50 10e9/L 014 Unknown COMPLETE BLOOD COUNT 1625329 ABS MONO 0.42 10e9/L 014 Unknown COMPLETE BLOOD COUNT 2821982 ABS EOS 0.29 10e9/L 014 Unknown COMPLETE BLOOD COUNT 9270295 ABS BASO 0.02 10e9/L 014 Unknown COMPLETE BLOOD COUNT 2512550 RDW-SD 43.0 fL 4 Unknown LIPID GROUP 11101 HDL TEST 45 MG/DL 12/23/2013 Unknown LIPID GROUP 91743 TRIG 323 MG/DL 12/23/2013 Unknown LIPID GROUP 59752 TEST LDL 129 MG/DL 12/23/2013 Unknown LIPID GROUP 63803 CHOL 239 MG/DL 12/23/2013 Unknown LIPID GROUP 90541 RCHOL/HDL 5.31 RATIO 12/23/2013 Unknow n LIPID GROUP 87118 NON-HDL CH 194 MG/DL 12/23/2013 Unknow n GLYCOSYLATED HEMOGLOBIN TEST 13361 A1C HPLC 50964-4 5.9 % 0 12/23/2013 Unknown GFR CALC 8745768 GFR AA >60 ML/MIN 12/23/2013 Unknown GFR CALC 1843821 GFR NON-AA >60 ML/MIN 12/23/2013 Unknown THYROID STIMULATING HORMONE 63884 TSH 1.105 uIU/ML 12/23/2013 Unknown COMPREHENSIVE METABOLIC 76623 AST 19 U/L 2013 Unknown COMPREHENSIVE METABOLIC 01517 ALT 12 IU/L 2013 Unknown COMPREHENSIVE METABOLIC 29976 BUN 13 MG/DL 2013 Unknown COMPREHENSIVE METABOLIC 29048 ALBUMIN 4.1 GM/DL 2013 Unknown COMPREHENSIVE METABOLIC 58388 CHLORIDE 99 MMOL/L 2013 Unknown COMPREHENSIVE METABOLIC 61671 BILI TOT 0.4 MG/DL 2013 Unknown COMPREHENSIVE METABOLIC 75841 ALK PHOS 59 U/L 2013 Unknown COMPREHENSIVE METABOLIC 48578 SODIUM 136 MMOL/L 12/23 Unknown COMPREHENSIVE METABOLIC 33062 CREATININE 0.81 MG/DL 09/2013 Unknown COMPREHENSIVE METABOLIC 17968 CALCIUM 9.5 MG/DL 2013 Unknown COMPREHENSIVE METABOLIC 46535 POTASSIUM 4.1 MMOL/L 12/23 Unknown COMPREHENSIVE METABOLIC 82922 PROT TOT 6.6 GM/DL 2013 Unknown COMPREHENSIVE METABOLIC 39357 Glucose 94 MG/DL 2013 Unknown COMPREHENSIVE METABOLIC 48501 BICARB 28 MMOL/L 2013 Unknown COMPREHENSIVE METABOLIC 91716 ANION GAP 9 MEQ/L 2013 Unknown FREE T4 44698 FREE T4 1.12 NG/DL 12/23/2013 Unknown HEMOGLOBIN A1C (GLYCOSYLATED) 2198936 A1C HPLC 35898-9 5.9 % 05/01/2013 Unknown THYROID STIMULATING HORMONE 19278 TSH 1.216 uIU/ML 05/01/2013 Unknown FREE T4 66444 FREE T4 1.14 NG/DL 05/01/2013 Unknown GFR CALC 4306180 GFR AA >60 ML/MIN 05/01/2013 Unknown GFR CALC 3618347 GFR NON-AA >60 ML/MIN 05/01/2013 Unknown COMPLETE BLOOD COUNT 4928130 WBC 7.1 10e9/L 05/01/20 13 Unknown COMPLETE BLOOD COUNT 0169092 RBC 4.02 10e12/L 2012 Unknown COMPLETE BLOOD COUNT 6004418 HGB 12.7 g/dL 3 Unknown COMPLETE BLOOD COUNT 4995734 HCT DET 38.5 % 3 Unknown COMPLETE BLOOD COUNT 1394998 MCV 95.8 fL 3 Unknown COMPLETE BLOOD COUNT 7112647 MCH 31.6 pg 3 Unknown COMPLETE BLOOD COUNT 6506334 MCHC 33.0 g/dL 3 Unknown COMPLETE BLOOD COUNT 7720969 PLT 281 10e9/L 05/01/20 13 Unknown COMPLETE BLOOD COUNT 1849999 MPV 10.4 fL 3 Unknown COMPLETE BLOOD COUNT 5907378 RULA % 61.1 % 3 Unknown COMPLETE BLOOD COUNT 7995105 LY % 30.2 % 3 Unknown COMPLETE BLOOD COUNT 4890985 MON % 6.2 % 3 Unknown COMPLETE BLOOD COUNT [id number] EOS % 2.4 % 3 Unknown COMPLETE BLOOD COUNT [id number] BASO % 0.1 % 3 Unknown COMPLETE BLOOD COUNT [id number] RDW 12.4 % 3 Unknown COMPLETE BLOOD COUNT [id number] ABS RULA 4.34 10e9/L 013 Unknown COMPLETE BLOOD COUNT [id number] ABS LYMPH 2.14 10e9/L 013 Unknown COMPLETE BLOOD COUNT [id number] ABS MONO 0.44 10e9/L 013 Unknown COMPLETE BLOOD COUNT [id number] ABS EOS 0.17 10e9/L 013 Unknown COMPLETE BLOOD COUNT [id number] ABS BASO 0.01 10e9/L 013 Unknown COMPLETE BLOOD COUNT [id number] RDW-SD 42.4 fL 3 Unknown COMPREHENSIVE METABOLIC 76303 AST 15 U/L 2012 Unknown COMPREHENSIVE METABOLIC 48349 ALT 11 IU/L 2012 Unknown COMPREHENSIVE METABOLIC 60897 BUN 19 MG/DL 2012 Unknown COMPREHENSIVE METABOLIC 58012 ALBUMIN 4.2 GM/DL 2012 Unknown COMPREHENSIVE METABOLIC 27476 CHLORIDE 99 MMOL/L 2012 Unknown COMPREHENSIVE METABOLIC 64644 BILI TOT 0.4 MG/DL 2012 Unknown COMPREHENSIVE METABOLIC 74594 ALK PHOS 53 U/L 2012 Unknown COMPREHENSIVE METABOLIC 08101 SODIUM 137 MMOL/L 05/01 Unknown COMPREHENSIVE METABOLIC 71705 CREATININE 0.81 MG/DL 04/20 Unknown COMPREHENSIVE METABOLIC 34266 CALCIUM 9.5 MG/DL 2012 Unknown COMPREHENSIVE METABOLIC 13163 POTASSIUM 4.2 MMOL/L 05/01 Unknown COMPREHENSIVE METABOLIC 66418 PROT TOT 6.4 GM/DL 2012 Unknown COMPREHENSIVE METABOLIC 59171 Glucose 99 MG/DL 2012 Unknown COMPREHENSIVE METABOLIC 26263 BICARB 31 MMOL/L 2012 Unknown COMPREHENSIVE METABOLIC 27334 ANION GAP 7 MEQ/L 2012 Unknown LIPID GROUP 75947 HDL TEST 51 MG/DL 05/01/2013 Unknown LIPID GROUP 98719 TRIG 254 MG/DL 05/01/2013 Unknown LIPID GROUP 46424 TEST LDL 134 MG/DL 05/01/2013 Unknown LIPID GROUP 42333 CHOL 236 MG/DL 05/01/2013 Unknown LIPID GROUP 19227 RCHOL/HDL 4.63 RATIO 05/01/2013 Unknow n HEMOGLOBIN A1C (GLYCOSYLATED) [id number] A1C [facility] [id number] 5.6 % 01/28/2013 Unknown THYROID STIMULATING HORMONE 64902 TSH 0.908 uIU/ML 01/28/2013 Unknown FREE T4 21617 FREE T4 1.35 NG/DL 01/28/2013 Unknown COMPLETE BLOOD COUNT [id number] WBC 6.7 10e9/L 01/28/20 13 Unknown COMPLETE BLOOD COUNT [id number] RBC 3.91 10e12/L 2012 Unknown COMPLETE BLOOD COUNT [id number] HGB 12.6 g/dL 3 Unknown COMPLETE BLOOD COUNT [id number] HCT DET 36.6 % 3 Unknown COMPLETE BLOOD COUNT [id number] MCV 93.6 fL 3 Unknown COMPLETE BLOOD COUNT [id number] MCH 32.2 pg 3 Unknown COMPLETE BLOOD COUNT [id number] MCHC 34.4 g/dL 3 Unknown COMPLETE BLOOD COUNT [id number] PLT 254 10e9/L 01/28/20 13 Unknown COMPLETE BLOOD COUNT [id number] MPV 10.3 fL 3 Unknown COMPLETE BLOOD COUNT [id number] RULA % 51.9 % 3 Unknown COMPLETE BLOOD COUNT [id number] LY % 37.7 % 3 Unknown COMPLETE BLOOD COUNT [id number] MON % 7.3 % 3 Unknown COMPLETE BLOOD COUNT [id number] EOS % 3.0 % 3 Unknown COMPLETE BLOOD COUNT [id number] BASO % 0.1 % 3 Unknown COMPLETE BLOOD COUNT [id number] RDW 11.8 % 3 Unknown COMPLETE BLOOD COUNT [id number] ABS RULA 3.48 10e9/L 013 Unknown COMPLETE BLOOD COUNT [id number] ABS LYMPH 2.53 10e9/L 013 Unknown COMPLETE BLOOD COUNT [id number] ABS MONO 0.49 10e9/L 013 Unknown COMPLETE BLOOD COUNT [id number] ABS EOS 0.20 10e9/L 013 Unknown COMPLETE BLOOD COUNT 1980753 ABS BASO 0.01 10e9/L 013 Unknown COMPLETE BLOOD COUNT [id number] RDW-SD 39.4 fL 3 Unknown COMPREHENSIVE METABOLIC 84367 AST 17 U/L 2012 Unknown COMPREHENSIVE METABOLIC 19807 ALT 11 IU/L 2012 Unknown COMPREHENSIVE METABOLIC 75326 BUN 10 MG/DL 2012 Unknown COMPREHENSIVE METABOLIC 35962 ALBUMIN 4.1 GM/DL 2012 Unknown COMPREHENSIVE METABOLIC 48899 CHLORIDE 100 MMOL/L 01/27 Unknown COMPREHENSIVE METABOLIC 67965 BILI TOT 0.3 MG/DL 2012 Unknown COMPREHENSIVE METABOLIC 51182 ALK PHOS 51 U/L 2012 Unknown COMPREHENSIVE METABOLIC 20250 SODIUM 138 MMOL/L 01/27 Unknown COMPREHENSIVE METABOLIC 47393 CREATININE 0.81 MG/DL 01/2013 Unknown COMPREHENSIVE METABOLIC 37855 CALCIUM 9.4 MG/DL 2012 Unknown COMPREHENSIVE METABOLIC 95375 POTASSIUM 4.2 MMOL/L 01/27 Unknown COMPREHENSIVE METABOLIC 57880 PROT TOT 6.5 GM/DL 2012 Unknown COMPREHENSIVE METABOLIC 97693 Glucose 91 MG/DL 2012 Unknown COMPREHENSIVE METABOLIC 96135 BICARB 29 MMOL/L 2012 Unknown COMPREHENSIVE METABOLIC 80717 ANION GAP 9 MEQ/L 2012 Unknown GFR CALC 1884520 GFR AA >60 ML/MIN 01/27/2013 Unknown GFR CALC 0458336 GFR NON-AA >60 ML/MIN 01/27/2013 Unknown LIPID GROUP 60609 HDL TEST 48 MG/DL 01/27/2013 Unknown LIPID GROUP 44943 TRIG 250 MG/DL 01/27/2013 Unknown LIPID GROUP 75899 TEST LDL 111 MG/DL 01/27/2013 Unknown LIPID GROUP 40272 CHOL 209 MG/DL 01/27/2013 Unknown LIPID GROUP 49177 RCHOL/HDL 4.35 RATIO 01/27/2013 Unknow n FREE T4 95494 FREE T4 1.24 NG/DL 10/28/2012 Unknown HEMOGLOBIN A1C (GLYCOSYLATED) 0613832 A1C HPLC 10254-8 6.2 % 10/28/2012 Unknown LIPID GROUP 99733 HDL TEST 47 MG/DL 10/28/2012 Unknown LIPID GROUP 86600 TRIG 372 MG/DL 10/28/2012 Unknown LIPID GROUP 10310 TEST LDL 109 MG/DL 10/28/2012 Unknown LIPID GROUP 98198 CHOL 230 MG/DL 10/28/2012 Unknown LIPID GROUP 35114 RCHOL/HDL 4.89 RATIO 10/28/2012 Unknow n COMPLETE BLOOD COUNT [id number] WBC 8.0 10e9/L 10/29/19 13 Unknown COMPLETE BLOOD COUNT [id number] RBC 4.03 10e12/L 2012 Unknown COMPLETE BLOOD COUNT [id number] HGB 12.7 g/dL 3 Unknown COMPLETE BLOOD COUNT [id number] HCT DET 38.2 % 3 Unknown COMPLETE BLOOD COUNT 7958482 MCV 94.8 fL 3 Unknown COMPLETE BLOOD COUNT 5307251 MCH 31.5 pg 3 Unknown COMPLETE BLOOD COUNT [id number] MCHC 33.2 g/dL 3 Unknown COMPLETE BLOOD COUNT [id number] PLT 274 10e9/L 10/29/19 13 Unknown COMPLETE BLOOD COUNT [id number] MPV 10.4 fL 3 Unknown COMPLETE BLOOD COUNT [id number] RULA % 56.4 % 3 Unknown COMPLETE BLOOD COUNT [id number] LY % 33.8 % 3 Unknown COMPLETE BLOOD COUNT [id number] MON % 6.7 % 3 Unknown COMPLETE BLOOD COUNT 0377898 EOS % 2.9 % 3 Unknown COMPLETE BLOOD COUNT 1534556 BASO % 0.2 % 3 Unknown COMPLETE BLOOD COUNT [id number] RDW 12.4 % 3 Unknown COMPLETE BLOOD COUNT [id number] ABS RULA 4.51 10e9/L 013 Unknown COMPLETE BLOOD COUNT [id number] ABS LYMPH 2.70 10e9/L 013 Unknown COMPLETE BLOOD COUNT [id number] ABS MONO 0.54 10e9/L 013 Unknown COMPLETE BLOOD COUNT [id number] ABS EOS 0.23 10e9/L 013 Unknown COMPLETE BLOOD COUNT [id number] ABS BASO 0.02 10e9/L 013 Unknown COMPLETE BLOOD COUNT [id number] RDW-SD 42.2 fL 3 Unknown COMPREHENSIVE METABOLIC 07908 AST 18 U/L 2012 Unknown COMPREHENSIVE METABOLIC 04489 ALT 12 IU/L 2012 Unknown COMPREHENSIVE METABOLIC 84259 BUN 15 MG/DL 2012 Unknown COMPREHENSIVE METABOLIC 20751 ALBUMIN 4.3 GM/DL 2012 Unknown COMPREHENSIVE METABOLIC 85747 CHLORIDE 97 MMOL/L 2012 Unknown COMPREHENSIVE METABOLIC 57278 BILI TOT 0.3 MG/DL 2012 Unknown COMPREHENSIVE METABOLIC 41147 ALK PHOS 47 U/L 2012 Unknown COMPREHENSIVE METABOLIC 67916 SODIUM 135 MMOL/L 10/28 Unknown COMPREHENSIVE METABOLIC 25795 CREATININE 0.81 MG/DL 10/19 Unknown COMPREHENSIVE METABOLIC 84204 CALCIUM 9.5 MG/DL 2012 Unknown COMPREHENSIVE METABOLIC 13955 POTASSIUM 4.0 MMOL/L 10/28 Unknown COMPREHENSIVE METABOLIC 52306 PROT TOT 6.3 GM/DL 2012 Unknown COMPREHENSIVE METABOLIC 86570 Glucose 112 MG/DL 2012 Unknown COMPREHENSIVE METABOLIC 17159 BICARB 29 MMOL/L 2012 Unknown COMPREHENSIVE METABOLIC 90255 ANION GAP 9 MEQ/L 2012 Unknown THYROID STIMULATING HORMONE 18468 TSH 1.478 uIU/ML 10/28/2012 Unknown GFR CALC 7537894 GFR AA >60 ML/MIN 10/28/2012 Unknown GFR CALC 3448962 GFR NON-AA >60 ML/MIN 10/28/2012 Unknown GFR CALC 6639843 GFR AA >60 ML/MIN 07/18/2012 Unknown GFR CALC 6340161 GFR NON-AA >60 ML/MIN 07/18/2012 Unknown COMPREHENSIVE METABOLIC 24789 AST 22 U/L 2012 Unknown COMPREHENSIVE METABOLIC 59909 ALT 17 IU/L 2012 Unknown COMPREHENSIVE METABOLIC 84443 BUN 10 MG/DL 2012 Unknown COMPREHENSIVE METABOLIC 14128 ALBUMIN 4.4 GM/DL 2012 Unknown COMPREHENSIVE METABOLIC 92212 CHLORIDE 93 MMOL/L 2012 Unknown COMPREHENSIVE METABOLIC 18742 BILI TOT 0.3 MG/DL 2012 Unknown COMPREHENSIVE METABOLIC 48087 ALK PHOS 73 U/L 2012 Unknown COMPREHENSIVE METABOLIC 10374 SODIUM 135 MMOL/L 07/18 Unknown COMPREHENSIVE METABOLIC 37103 CREATININE 0.86 MG/DL 06/22 Unknown COMPREHENSIVE METABOLIC 62475 CALCIUM 9.9 MG/DL 2012 Unknown COMPREHENSIVE METABOLIC 44516 POTASSIUM 3.8 MMOL/L 07/18 Unknown COMPREHENSIVE METABOLIC 80902 PROT TOT 7.1 GM/DL 2012 Unknown COMPREHENSIVE METABOLIC 00201 Glucose 94 MG/DL 2012 Unknown COMPREHENSIVE METABOLIC 71075 BICARB 29 MMOL/L 2012 Unknown COMPREHENSIVE METABOLIC 87086 ANION GAP 13 MEQ/L 2012 Unknown HEMOGLOBIN A1C (GLYCOSYLATED) 2732592 A1C HPLC 09610-9 5.8 % 07/18/2012 Unknown URIC ACID 86769 URIC ACID 5.5 MG/DL 06/12/2012 Unknown HEPATIC FUNCTION PANEL A 62830 AST 20 U/L 06/12 Unknown HEPATIC FUNCTION PANEL A 79220 ALK PHOS 61 U/L 06/12 Unknown HEPATIC FUNCTION PANEL A 90862 BILI TOT 0.3 MG/DL 06/12 Unknown HEPATIC FUNCTION PANEL A 69376 ALT 18 IU/L 06/12 Unknown HEPATIC FUNCTION PANEL A 14175 BILI DIR 0.1 MG/DL 06/12 Unknown HEPATIC FUNCTION PANEL A 29615 ALBUMIN 4.6 GM/DL 06/12 Unknown HEPATIC FUNCTION PANEL A 93540 PROT TOT 6.9 GM/DL 06/12 Unknown GFR CALC 5772932 GFR AA >60 ML/MIN 11/01/2011 Unknown GFR CALC 1710588 GFR NON-AA >60 ML/MIN 11/01/2011 Unknown COMPREHENSIVE METABOLIC 92076 AST 22 U/L 2011 Unknown COMPREHENSIVE METABOLIC 49919 ALT 19 IU/L 2011 Unknown COMPREHENSIVE METABOLIC 98188 BUN 15 MG/DL 2011 Unknown COMPREHENSIVE METABOLIC 34854 ALBUMIN 4.1 GM/DL 2011 Unknown COMPREHENSIVE METABOLIC 04024 CHLORIDE 98 MMOL/L 2011 Unknown COMPREHENSIVE METABOLIC 39028 BILI TOT 0.3 MG/DL 2011 Unknown COMPREHENSIVE METABOLIC 87888 ALK PHOS 57 U/L 2011 Unknown COMPREHENSIVE METABOLIC 56622 SODIUM 140 MMOL/L 10/31 Unknown COMPREHENSIVE METABOLIC 14110 CREATININE 0.84 MG/DL 10/19 Unknown COMPREHENSIVE METABOLIC 32257 CALCIUM 9.4 MG/DL 2011 Unknown COMPREHENSIVE METABOLIC 37268 POTASSIUM 3.7 MMOL/L 10/31 Unknown COMPREHENSIVE METABOLIC 48301 PROT TOT 6.3 GM/DL 2011 Unknown COMPREHENSIVE METABOLIC 86620 Glucose 97 MG/DL 2011 Unknown COMPREHENSIVE METABOLIC 30021 BICARB 31 MMOL/L 2011 Unknown COMPREHENSIVE METABOLIC 93103 ANION GAP 11 MEQ/L 2011 Unknown GLYCOSYLATED HEMOGLOBIN TEST 30176 A1C HPLC 64384-5 6.0 % 0 11/01/2011 Unknown GLYCOSYLATED HEMOGLOBIN TEST 61128 A1C HPLC 42080-1 6.0 % 1 06/27/2010 Unknown LIPID GROUP 08256 HDL TEST 44 MG/DL 02/01/2011 Unknown LIPID GROUP 53684 TRIG 199 MG/DL 02/01/2011 Unknown LIPID GROUP 20133 TEST LDL 116 MG/DL 02/01/2011 Unknown LIPID GROUP 84079 CHOL 200 MG/DL 02/01/2011 Unknown LIPID GROUP 82058 RCHOL/HDL 4.55 RATIO 02/01/2011 Unknow n INSULIN SERUM 38589 INSULIN 26.9 mU/L 01/30/2011 Unkno wn THYROID STIMULATING HORMONE 63616 TSH 1.190 uIU/ML 01/30/2011 Unknown COMPLETE BLOOD COUNT 47249 WBC 8.5 10e9/L 01/31/20 11 Unknown COMPLETE BLOOD COUNT 25637 RBC 4.23 10e12/L 2010 Unknown COMPLETE BLOOD COUNT 55674 HGB 13.3 g/dL 1 Unknown COMPLETE BLOOD COUNT 35190 HCT DET 38.6 % 1 Unknown COMPLETE BLOOD COUNT 25404 MCV 91.3 fL 1 Unknown COMPLETE BLOOD COUNT 46512 MCH 31.4 pg 1 Unknown COMPLETE BLOOD COUNT 86517 MCHC 34.5 g/dL 1 Unknown COMPLETE BLOOD COUNT 17928 PLT 283 10e9/L 01/31/20 11 Unknown COMPLETE BLOOD COUNT 16786 MPV 10.5 fL 1 Unknown COMPLETE BLOOD COUNT 21072 RULA % 62.5 % 1 Unknown COMPLETE BLOOD COUNT 88505 LY % 28.6 % 1 Unknown COMPLETE BLOOD COUNT 16374 MON % 6.7 % 1 Unknown COMPLETE BLOOD COUNT 50826 EOS % 2.0 % 1 Unknown COMPLETE BLOOD COUNT 48534 BASO % 0.2 % 1 Unknown COMPLETE BLOOD COUNT 74687 RDW 12.1 % 1 Unknown COMPLETE BLOOD COUNT 23830 ABS RULA 5.31 10e9/L 011 Unknown COMPLETE BLOOD COUNT 81602 ABS LYMPH 2.43 10e9/L 011 Unknown COMPLETE BLOOD COUNT 31246 ABS MONO 0.57 10e9/L 011 Unknown COMPLETE BLOOD COUNT 15476 ABS EOS 0.17 10e9/L 011 Unknown COMPLETE BLOOD COUNT 30274 ABS BASO 0.02 10e9/L 011 Unknown COMPLETE BLOOD COUNT 05113 RDW-SD 39.7 fL 1 Unknown FREE T4 61630 FREE T4 1.24 NG/DL 01/30/2011 Unknown GFR CALC 2002611 GFR AA >60 ML/MIN 01/30/2011 Unknown GFR CALC 6311417 GFR NON-AA >60 ML/MIN 01/30/2011 Unknown COMPREHENSIVE METABOLIC 66736 AST 16 U/L 2010 Unknown COMPREHENSIVE METABOLIC 06968 ALT 15 IU/L 2010 Unknown COMPREHENSIVE METABOLIC 59139 BUN 14 MG/DL 2010 Unknown COMPREHENSIVE METABOLIC 11880 ALBUMIN 4.3 GM/DL 2010 Unknown COMPREHENSIVE METABOLIC 32356 CHLORIDE 97 MMOL/L 2010 Unknown COMPREHENSIVE METABOLIC 37689 BILI TOT 0.5 MG/DL 2010 Unknown COMPREHENSIVE METABOLIC 37124 ALK PHOS 66 U/L 2010 Unknown COMPREHENSIVE METABOLIC 91579 SODIUM 139 MMOL/L 01/30 Unknown COMPREHENSIVE METABOLIC 50626 CREATININE 0.87 MG/DL 01/19 Unknown COMPREHENSIVE METABOLIC 24026 CALCIUM 9.3 MG/DL 2010 Unknown COMPREHENSIVE METABOLIC 87778 POTASSIUM 3.6 MMOL/L 01/30 Unknown COMPREHENSIVE METABOLIC 25514 PROT TOT 6.9 GM/DL 2010 Unknown COMPREHENSIVE METABOLIC 03353 Glucose 107 MG/DL 2010 Unknown COMPREHENSIVE METABOLIC 92708 BICARB 29 MMOL/L 2010 Unknown COMPREHENSIVE METABOLIC 84105 ANION GAP 13 MEQ/L 2010 Unknown ERYTHROCYTE SEDIMENTATION RATE 86380 ESR 19 MM/HR 01/30/2011 Unknown Procedures Procedure Codes Date IIV4 VACC NO PRSV 6 MTHS TO 64 YRS+ IM CPT-4: 82112 03/04/2019 IIV4 VACC NO PRSV 6 MTHS TO 64 YRS+ IM CPT-4: 19010 03/04/2019 IMMUNIZATION ADMIN CPT-4: 50228 03/04/2019 ROUTINE VENIPUNCTURE CPT-4: 84748 02/27/2019 ASSAY OF FREE THYROXINE CPT-4: 29022 02/27/2019 ASSAY THYROID STIM HORMONE CPT-4: 90187 02/27/2019 COMPREHEN METABOLIC PANEL CPT-4: 51010 02/27/2019 COMPLETE CBC W/AUTO DIFF WBC CPT-4: 82933 02/27/2019 LIPID PANEL CPT-4: 52871 02/27/2019 A1C HPLC CPT-4: 90249 02/27/2019 ROUTINE VENIPUNCTURE CPT-4: 62375 10/11/2018 ASSAY OF FREE THYROXINE CPT-4: 01033 10/11/2018 ASSAY THYROID STIM HORMONE CPT-4: 90442 10/11/2018 COMPREHEN METABOLIC PANEL CPT-4: 43059 10/11/2018 COMPLETE CBC W/AUTO DIFF WBC CPT-4: 21805 10/11/2018 ASSAY OF FERRITIN CPT-4: 96504 10/11/2018 A1C HPLC CPT-4: 82432 10/11/2018 ROUTINE VENIPUNCTURE CPT-4: 78847 07/15/2018 COMPLETE CBC W/AUTO DIFF WBC CPT-4: 73618 07/15/2018 COMPREHEN METABOLIC PANEL CPT-4: 99480 07/15/2018 ASSAY THYROID STIM HORMONE CPT-4: 18571 07/15/2018 ASSAY OF FREE THYROXINE CPT-4: 68674 07/15/2018 LIPID PANEL CPT-4: 83398 07/15/2018 A1C HPLC CPT-4: 47818 07/15/2018 ROUTINE VENIPUNCTURE CPT-4: 40056 04/04/2018 COMPREHEN METABOLIC PANEL CPT-4: 60400 04/04/2018 A1C HPLC CPT-4: 78069 04/04/2018 ROUTINE VENIPUNCTURE CPT-4: 57070 12/31/2017 ASSAY OF FREE THYROXINE CPT-4: 29738 12/31/2017 ASSAY THYROID STIM HORMONE CPT-4: 48608 12/31/2017 COMPREHEN METABOLIC PANEL CPT-4: 72895 12/31/2017 COMPLETE CBC W/AUTO DIFF WBC CPT-4: 39862 12/31/2017 LIPID PANEL CPT-4: 65084 12/31/2017 A1C HPLC CPT-4: 53069 12/31/2017 CEFTRIAXONE SODIUM INJECTION CPT-4: J0696 10/25/2017 THER/PROPH/DIAG INJ SC/IM CPT-4: 49214 10/25/2017 CEFTRIAXONE SODIUM INJECTION CPT-4: J0696 10/24/2017 THER/PROPH/DIAG INJ SC/IM CPT-4: 63900 10/24/2017 CEFTRIAXONE SODIUM INJECTION CPT-4: J0696 09/26/2017 THER/PROPH/DIAG INJ SC/IM CPT-4: 65836 09/26/2017 DEBRIDE INFECTED SKIN CPT-4: 07617 09/10/2017 URINE CULTURE/ COLONY COUNT CPT-4: 95253 07/27/2017 URINALYSIS NONAUTO W/O SCOPE CPT-4: 26023 07/27/2017 ROUTINE VENIPUNCTURE CPT-4: 30664 06/04/2017 ASSAY THYROID STIM HORMONE CPT-4: 79148 06/04/2017 COMPREHEN METABOLIC PANEL CPT-4: 50306 06/04/2017 COMPLETE CBC W/AUTO DIFF WBC CPT-4: 68730 06/04/2017 LIPID PANEL CPT-4: 07971 06/04/2017 A1C HPLC CPT-4: 74930 06/04/2017 VITAMIN B-12 CPT-4: 90517 06/04/2017 ROUTINE VENIPUNCTURE CPT-4: 52808 02/23/2017 ASSAY OF FREE THYROXINE CPT-4: 79721 02/23/2017 ASSAY THYROID STIM HORMONE CPT-4: 96086 02/23/2017 COMPREHEN METABOLIC PANEL CPT-4: 98688 02/23/2017 COMPLETE CBC W/AUTO DIFF WBC CPT-4: 88869 02/23/2017 LIPID PANEL CPT-4: 11598 02/23/2017 A1C HPLC CPT-4: 02523 02/23/2017 ROUTINE VENIPUNCTURE CPT-4: 06114 08/31/2016 COMPREHEN METABOLIC PANEL CPT-4: 14547 08/31/2016 COMPLETE CBC W/AUTO DIFF WBC CPT-4: 58265 08/31/2016 LIPID PANEL CPT-4: 18142 08/31/2016 A1C HPLC CPT-4: 33500 08/31/2016 ASSAY OF FREE THYROXINE CPT-4: 06832 08/31/2016 ASSAY THYROID STIM HORMONE CPT-4: 48383 08/31/2016 A1C HPLC CPT-4: 74827 01/25/2016 ROUTINE VENIPUNCTURE CPT-4: 51252 01/05/2016 ASSAY OF FREE THYROXINE CPT-4: 71109 01/05/2016 ASSAY THYROID STIM HORMONE CPT-4: 50380 01/05/2016 COMPREHEN METABOLIC PANEL CPT-4: 75375 01/05/2016 COMPLETE CBC W/AUTO DIFF WBC CPT-4: 37451 01/05/2016 LIPID PANEL CPT-4: 80090 01/05/2016 A1C GLYCOSYLATED HEMOGLOBIN TEST CPT-4: 07201 016 ASSAY OF BLOOD/URIC ACID CPT-4: 90371 01/05/2016 VITAMIN B-12 CPT-4: 52267 01/05/2016 CEFTRIAXONE SODIUM INJECTION CPT-4: J0696 09/13/2015 THER/PROPH/DIAG INJ SC/IM CPT-4: 25737 09/13/2015 ROUTINE VENIPUNCTURE CPT-4: 45195 08/17/2015 ASSAY OF FREE THYROXINE CPT-4: 09723 08/17/2015 ASSAY THYROID STIM HORMONE CPT-4: 53566 08/17/2015 COMPREHEN METABOLIC PANEL CPT-4: 96158 08/17/2015 COMPLETE CBC W/AUTO DIFF WBC CPT-4: 61285 08/17/2015 LIPID PANEL CPT-4: 63180 08/17/2015 A1C HPLC CPT-4: 14133 08/17/2015 METABOLIC PANEL TOTAL CA CPT-4: 09896 07/01/2015 ROUTINE VENIPUNCTURE CPT-4: 45676 07/01/2015 ASSAY THYROID STIM HORMONE CPT-4: 91105 07/01/2015 ROUTINE VENIPUNCTURE CPT-4: 30628 03/24/2015 ASSAY OF FREE THYROXINE CPT-4: 59215 03/24/2015 ASSAY THYROID STIM HORMONE CPT-4: 72355 03/24/2015 COMPREHEN METABOLIC PANEL CPT-4: 42770 03/24/2015 COMPLETE CBC W/AUTO DIFF WBC CPT-4: 62277 03/24/2015 LIPID PANEL CPT-4: 22364 03/24/2015 A1C HPLC CPT-4: 56810 03/24/2015 ROUTINE VENIPUNCTURE CPT-4: 92208 11/19/2014 ASSAY OF FREE THYROXINE CPT-4: 53824 11/19/2014 ASSAY THYROID STIM HORMONE CPT-4: 13560 11/19/2014 COMPREHEN METABOLIC PANEL CPT-4: 21988 11/19/2014 COMPLETE CBC W/AUTO DIFF WBC CPT-4: 95265 11/19/2014 LIPID PANEL CPT-4: 03851 11/19/2014 A1C HPLC CPT-4: 04283 11/19/2014 ASSAY OF BLOOD/URIC ACID CPT-4: 97511 11/19/2014 URINALYSIS NONAUTO W/O SCOPE CPT-4: 33623 10/09/2014 URINE CULTURE/ COLONY COUNT CPT-4: 52293 10/09/2014 ROUTINE VENIPUNCTURE CPT-4: 96674 08/17/2014 ASSAY OF FREE THYROXINE CPT-4: 52465 08/17/2014 ASSAY THYROID STIM HORMONE CPT-4: 67860 08/17/2014 COMPREHEN METABOLIC PANEL CPT-4: 87379 08/17/2014 COMPLETE CBC W/AUTO DIFF WBC CPT-4: 49112 08/17/2014 LIPID PANEL CPT-4: 48396 08/17/2014 A1C HPLC CPT-4: 48860 08/17/2014 ROUTINE VENIPUNCTURE CPT-4: 17797 04/28/2014 ASSAY OF FREE THYROXINE CPT-4: 32267 04/28/2014 ASSAY THYROID STIM HORMONE CPT-4: 50367 04/28/2014 COMPREHEN METABOLIC PANEL CPT-4: 37370 04/28/2014 COMPLETE CBC W/AUTO DIFF WBC CPT-4: 32522 04/28/2014 LIPID PANEL CPT-4: 37604 04/28/2014 A1C HPLC CPT-4: 61547 04/28/2014 ROUTINE VENIPUNCTURE CPT-4: 77932 12/23/2013 ASSAY OF FREE THYROXINE CPT-4: 87173 12/23/2013 ASSAY THYROID STIM HORMONE CPT-4: 39371 12/23/2013 COMPREHEN METABOLIC PANEL CPT-4: 33646 12/23/2013 COMPLETE CBC W/AUTO DIFF WBC CPT-4: 92002 12/23/2013 LIPID PANEL CPT-4: 79316 12/23/2013 A1C HPLC CPT-4: 54194 12/23/2013 ROUTINE VENIPUNCTURE CPT-4: 45287 08/18/2013 ASSAY OF FREE THYROXINE CPT-4: 63794 08/18/2013 ASSAY THYROID STIM HORMONE CPT-4: 44614 08/18/2013 COMPREHEN METABOLIC PANEL CPT-4: 44170 08/18/2013 COMPLETE CBC W/AUTO DIFF WBC CPT-4: 26450 08/18/2013 LIPID PANEL CPT-4: 68251 08/18/2013 A1C HPLC CPT-4: 58965 08/18/2013 ROUTINE VENIPUNCTURE CPT-4: 08578 05/01/2013 ASSAY OF FREE THYROXINE CPT-4: 29679 05/01/2013 ASSAY THYROID STIM HORMONE CPT-4: 90417 05/01/2013 COMPREHEN METABOLIC PANEL CPT-4: 69971 05/01/2013 COMPLETE CBC W/AUTO DIFF WBC CPT-4: 60563 05/01/2013 LIPID PANEL CPT-4: 52502 05/01/2013 A1C GLYCOSYLATED HEMOGLOBIN TEST CPT-4: 95585 013 ROUTINE VENIPUNCTURE CPT-4: 62486 01/27/2013 ASSAY OF FREE THYROXINE CPT-4: 98323 01/27/2013 ASSAY THYROID STIM HORMONE CPT-4: 05142 01/27/2013 COMPREHEN METABOLIC PANEL CPT-4: 79530 01/27/2013 LIPID PANEL CPT-4: 94612 01/27/2013 A1C GLYCOSYLATED HEMOGLOBIN TEST CPT-4: 14575 013 COMPLETE CBC W/AUTO DIFF WBC CPT-4: 08016 01/27/2013 DRAIN/INJECT JOINT/BURSA CPT-4: 32128 10/31/2012 METHYLPREDNISOLONE 40 MG INJ CPT-4: J1030 10/31/2012 TRIAMCINOLONE ACET INJ NOS CPT-4: J3301 10/31/2012 ROUTINE VENIPUNCTURE CPT-4: 17049 10/28/2012 COMPLETE CBC W/AUTO DIFF WBC CPT-4: 49337 10/28/2012 LIPID PANEL CPT-4: 14072 10/28/2012 COMPREHEN METABOLIC PANEL CPT-4: 73209 10/28/2012 ASSAY THYROID STIM HORMONE CPT-4: 53585 10/28/2012 ASSAY OF FREE THYROXINE CPT-4: 71767 10/28/2012 A1C GLYCOSYLATED HEMOGLOBIN TEST CPT-4: 62579 013 CEFTRIAXONE SODIUM INJECTION CPT-4: J0696 07/19/2012 THER/PROPH/DIAG INJ SC/IM CPT-4: 91280 07/19/2012 CEFTRIAXONE SODIUM INJECTION CPT-4: J0696 07/18/2012 THER/PROPH/DIAG INJ SC/IM CPT-4: 21622 07/18/2012 ROUTINE VENIPUNCTURE CPT-4: 03177 07/18/2012 COMPREHEN METABOLIC PANEL CPT-4: 60023 07/18/2012 A1C GLYCOSYLATED HEMOGLOBIN TEST CPT-4: 64257 013 ROUTINE VENIPUNCTURE CPT-4: 58897 06/12/2012 ASSAY OF BLOOD/URIC ACID CPT-4: 95392 06/12/2012 HEPATIC FUNCTION PANEL CPT-4: 83495 06/12/2012 ROUTINE VENIPUNCTURE CPT-4: 48348 11/01/2011 COMPREHEN METABOLIC PANEL CPT-4: 66379 11/01/2011 A1C GLYCOSYLATED HEMOGLOBIN TEST CPT-4: 27212 012 ROUTINE VENIPUNCTURE CPT-4: 36385 04/26/2011 A1C GLYCOSYLATED HEMOGLOBIN TEST CPT-4: 66852 011 ROUTINE VENIPUNCTURE CPT-4: 87824 01/30/2011 ASSAY OF FREE THYROXINE CPT-4: 53740 01/30/2011 ASSAY THYROID STIM HORMONE CPT-4: 33782 01/30/2011 COMPREHEN METABOLIC PANEL CPT-4: 90650 01/30/2011 COMPLETE CBC W/AUTO DIFF WBC CPT-4: 38750 01/30/2011 ASSAY OF INSULIN CPT-4: 80538 01/30/2011 RBC SED RATE AUTOMATED CPT-4: 34270 01/30/2011 SPECIMEN HANDLING OFFICE-LAB CPT-4: 92818 10/31/2010 OCCULT BLOOD FECES CPT-4: 65668 10/31/2010 Vital Signs Date Vital 03/04/2019 Blood Pressure 1: 122/78 Code: 8480-6 BMI: 39.6 Code: 81386-3 Heart Rate 1: 56 bpm Height: 5'5" Respiratory Rate: 18 bpm SpO2: 98% Tempera ture: 37.0 (C) / 98.6 (F) Weight: 238 lbs 10/16/2018 Blood Pressure 1: 116/78 Code: 8480-6 Heart Rate 1: 64 bpm Respiratory Rate: 20 bpm SpO2: 97% Temperature: 37.2 (C) / 99.0 (F) We ight: 240 lbs 09/13/2018 Blood Pressure 1: 140/90 Code: 8480-6 Heart Rate 1: 62 bpm Respiratory Rate: 18 bpm SpO2: 97% Temperature: 36.1 (C) / 97.0 (F) We ight: 237 lbs 07/09/2018 Blood Pressure 1: 126/78 Code: 8480-6 BMI: 37.9 Code: 54466-5 Heart Rate 1: 72 bpm Height: 5'6" Respiratory Rate: 20 bpm SpO2: 98% Tempera ture: 36.9 (C) / 98.4 (F) Weight: 235 lbs 04/08/2018 Blood Pressure 1: 116/70 Code: 8480-6 BMI: 37.0 Code: 36033-8 Heart Rate 1: 60 bpm Height: 5'6" Respiratory Rate: 20 bpm SpO2: 97% Tempera ture: 36.7 (C) / 98.1 (F) Weight: 229 lbs 04/04/2018 Blood Pressure 1: 128/80 Cod e: 8480-6 03/04/2018 Blood Pressure 1: 150/82 Code: 8480-6 Heart Rate 1: 57 bpm Respiratory Rate: 18 bpm SpO2: 96% Temperature: 36.6 (C) / 97.8 (F) We ight: 230 lbs 01/03/2018 Blood Pressure 1: 116/64 Code: 8480-6 BMI: 36.5 Code: 34248-5 Heart Rate 1: 64 bpm Height: 5'6" Respiratory Rate: 20 bpm Temperature: 36 .9 (C) / 98.5 (F) Weight: 226 lbs 10/24/2017 Blood Pressure 1: 118/78 Code: 8480-6 BMI: 35.2 Code: 73301-9 Heart Rate 1: 70 bpm Height: 5'6" Respiratory Rate: 22 bpm SpO2: 98% Tempera ture: 36.1 (C) / 97.0 (F) Weight: 218 lbs 09/26/2017 Blood Pressure 1: 130/84 Code: 8480-6 BMI: 35.3 Code: 00627-1 Heart Rate 1: 53 bpm Height: 5'6" Respiratory Rate: 12 bpm SpO2: 96% Tempera ture: 36.3 (C) / 97.4 (F) Weight: 219 lbs 09/10/2017 Blood Pressure 1: 120/70 Code: 8480-6 Heart Rate 1: 50 bpm SpO2: 95% Temperature: 36.2 (C) / 97.1 (F) Weight: 218 lbs 07/27/2017 Blood Pressure 1: 126/80 Code: 8480-6 BMI: 33.9 Code: 84820-0 Heart Rate 1: 64 bpm Height: 5'6" Respiratory Rate: 20 bpm SpO2: 97% Tempera ture: 36.8 (C) / 98.2 (F) Weight: 210 lbs 06/06/2017 Blood Pressure 1: 112/68 Code: 8480-6 BMI: 33.9 Code: 78580-9 Heart Rate 1: 72 bpm Height: 5'6" Respiratory Rate: 20 bpm Temperature: 36 .6 (C) / 97.9 (F) Weight: 210 lbs 03/08/2017 Blood Pressure 1: 104/60 Code: 8480-6 Heart Rate 1: 68 bpm Respiratory Rate: 20 bpm Temperature: 36.6 (C) / 97.8 (F) 02/21/2017 Blood Pressure 1: 106/60 Code: 8480-6 BMI: 33.2 Code: 87540-0 Heart Rate 1: 68 bpm Height: 5'6" Respiratory Rate: 20 bpm Temperature: 36 .6 (C) / 97.8 (F) Weight: 206 lbs 08/31/2016 Blood Pressure 1: 114/68 Code: 8480-6 BMI: 33.2 Code: 23979-8 Heart Rate 1: 60 bpm Height: 5'6" Respiratory Rate: 20 bpm SpO2: 98% Tempera ture: 36.8 (C) / 98.2 (F) Weight: 206 lbs 08/02/2016 Blood Pressure 1: 126/68 Code: 8480-6 BMI: 34.5 Code: 17604-9 Heart Rate 1: 58 bpm Height: 5'6" Respiratory Rate: 22 bpm SpO2: 98% Tempera ture: 36.0 (C) / 96.8 (F) Weight: 214 lbs 01/04/2016 Blood Pressure 1: 132/68 Code: 8480-6 BMI: 40.8 Code: 78531-8 Heart Rate 1: 80 bpm Height: 5'6" Respiratory Rate: 20 bpm Temperature: 36 .8 (C) / 98.2 (F) Weight: 253 lbs 11/15/2015 Blood Pressure 1: 142/70 Code: 8480-6 BMI: 40.8 Code: 85504-4 Heart Rate 1: 80 bpm Height: 5'6" Respiratory Rate: 18 bpm SpO2: 96% Tempera ture: 36.1 (C) / 97.0 (F) Weight: 253 lbs 09/24/2015 Blood Pressure 1: 128/70 Code: 8480-6 Heart Rate 1: 68 bpm Height: Respiratory Rate: 20 bpm SpO2: 99% Temperature: 36.2 (C) / 97.1 (F) We ight: 09/15/2015 BMI: 40.5 Code: 49437-2 Heart Rate 1: 64 bpm Height: 5 '6" Respiratory Rate: 20 bpm SpO2: 97% Temperature: 36.2 (C) / 97.1 (F) Weight: 251 lbs 09/13/2015 Blood Pressure 1: 118/76 Code: 8480-6 BMI: 40.5 Code: 55007-1 Heart Rate 1: 76 bpm Height: 5'6" Respiratory Rate: 20 bpm Temperature: 36 .9 (C) / 98.4 (F) Weight: 251 lbs 08/19/2015 Blood Pressure 1: 126/78 Code: 8480-6 BMI: 40.7 Code: 71201-5 Heart Rate 1: 76 bpm Height: 5'6" Respiratory Rate: 20 bpm Temperature: 36 .4 (C) / 97.5 (F) Weight: 252 lbs 07/13/2015 Blood Pressure 1: 114/70 Code: 8480-6 Heart Rate 1: 76 bpm Height: 5'6" Respiratory Rate: 20 bpm Temperature: 36.8 (C) / 98.2 (F) We ight: 03/29/2015 Blood Pressure 1: 114/72 Code: 8480-6 BMI: 41.0 Code: 28512-2 Heart Rate 1: 68 bpm Height: 5'6" Respiratory Rate: 20 bpm Temperature: 36 .6 (C) / 97.8 (F) Weight: 254 lbs 11/26/2014 Blood Pressure 1: 114/62 Code: 8480-6 BMI: 39.4 Code: 08540-4 Heart Rate 1: 84 bpm Height: 5'6" Respiratory Rate: 20 bpm Temperature: 36 .8 (C) / 98.3 (F) Weight: 244 lbs 11/19/2014 Blood Pressure 1: 128/76 Code: 8480-6 BMI: 39.4 Code: 79642-0 Heart Rate 1: 80 bpm Height: 5'6" Respiratory Rate: 22 bpm Temperature: 36 .4 (C) / 97.6 (F) Weight: 244 lbs 11/16/2014 Blood Pressure 1: 122/70 Code: 8480-6 BMI: 39.4 Code: 66731-9 Heart Rate 1: 80 bpm Height: 5'6" Respiratory Rate: 18 bpm Temperature: 36 .4 (C) / 97.6 (F) Weight: 244 lbs 10/09/2014 Blood Pressure 1: 126/70 Code: 8480-6 BMI: 39.5 Code: 45482-7 Heart Rate 1: 78 bpm Height: 5'6" Respiratory Rate: 20 bpm Temperature: 36 .8 (C) / 98.2 (F) Weight: 245 lbs 08/20/2014 Blood Pressure 1: 118/82 Code: 8480-6 BMI: 39.5 Code: 49026-9 Heart Rate 1: 72 bpm Height: 5'6" Respiratory Rate: 20 bpm Temperature: 36 .8 (C) / 98.2 (F) Weight: 245 lbs 04/23/2014 Blood Pressure 1: 108/60 Code: 8480-6 BMI: 39.4 Code: 09609-3 Heart Rate 1: 60 bpm Height: 5'6" Respiratory Rate: 20 bpm Temperature: 36 .3 (C) / 97.4 (F) Weight: 244 lbs 02/19/2014 Blood Pressure 1: 114/62 Code: 8480-6 BMI: 39.4 Code: 40856-1 Heart Rate 1: 84 bpm Height: 5'6" Respiratory Rate: 20 bpm Temperature: 36 .7 (C) / 98.1 (F) Weight: 244 lbs 02/12/2014 Blood Pressure 1: 122/80 Code: 8480-6 BMI: 39.4 Code: 86679-1 Heart Rate 1: 80 bpm Height: 5'6" Respiratory Rate: 22 bpm Temperature: 36 .2 (C) / 97.1 (F) Weight: 244 lbs 12/25/2013 Blood Pressure 1: 130/78 Code: 8480-6 Bl ood Pressure 2: 118/74 Code: 8480-6 BMI: 38.6 Code: 95313-0 Heart Rate 1: 88 bpm Height: 5'6" Res piratory Rate: 20 bpm Temperature: 36.9 (C) / 98.4 (F) Weight: 239 lbs 08/27/2013 Blood Pressure 1: 136/94 Code: 8480-6 BMI: 39.4 Code: 99415-3 Heart Rate 1: 68 bpm Height: 5'6" Respiratory Rate: 20 bpm Temperature: 37 .0 (C) / 98.6 (F) Weight: 244 lbs 04/30/2013 Blood Pressure 1: 126/78 Code: 8480-6 BMI: 39.2 Code: 11362-2 Heart Rate 1: 84 bpm Height: 5'6" Respiratory Rate: 20 bpm Temperature: 36 .7 (C) / 98.0 (F) Weight: 243 lbs 03/04/2013 Blood Pressure 1: 128 Code: 8480-6 BMI: 38.9 Code: 71518-3 Height: 5'6" Weight: 241 lbs 01/30/2013 Blood Pressure 1: 122 Code: 8480-6 BMI: 39.4 Code: 37829-3 Heart Rate 1: 64 bpm Height: 5'6" Respiratory Rate: 20 bpm Temperature: 35 .6 (C) / 96.1 (F) Weight: 244 lbs 11/28/2012 Blood Pressure 1: 128 Code: 8480-6 BMI: 39.4 Code: 63671-8 Heart Rate 1: 72 bpm Height: 5'6" Respiratory Rate: 20 bpm Temperature: 36 .7 (C) / 98.1 (F) Weight: 248 lbs 10/31/2012 Blood Pressure 1: 12882 Code: 8480-6 BMI: 39.7 Code: 64663-9 Heart Rate 1: 80 bpm Height: 5'6" Respiratory Rate: 20 bpm Temperature: 36 .9 (C) / 98.4 (F) Weight: 250 lbs 10/03/2012 Blood Pressure 1: 116 Code: 8480-6 BMI: 39.1 Code: 58989-3 Heart Rate 1: 76 bpm Height: 5'6" Respiratory Rate: 20 bpm Temperature: 36 .9 (C) / 98.5 (F) Weight: 246 lbs 07/18/2012 Blood Pressure 1: 108 Code: 8480-6 BMI: 38.6 Code: 07206-1 Heart Rate 1: 92 bpm Height: 5'6" Respiratory Rate: 20 bpm Temperature: 36 .8 (C) / 98.2 (F) Weight: 243 lbs 06/12/2012 Blood Pressure 1: 122/72 Code: 8480-6 BMI: 38.0 Code: 96814-5 Heart Rate 1: 68 bpm Height: 5'6" Temperature: 36.6 (C) / 97.8 (F) Weight: 239 lbs 04/24/2012 Blood Pressure 1: 108/78 Code: 8480-6 BMI: 39.6 Code: 95067-2 Heart Rate 1: 80 bpm Height: 5'6" Respiratory Rate: 20 bpm Temperature: 36 .7 (C) / 98.1 (F) Weight: 249 lbs 03/07/2012 Blood Pressure 1: 112/72 Code: 8480-6 BMI: 39.6 Code: 07622-6 Heart Rate 1: 74 bpm Height: 5'6" Temperature: 36.1 (C) / 97.0 (F) Weight: 249 lbs 11/08/2011 Blood Pressure 1: 136/86 Code: 8480-6 BMI: 40.1 Code: 68202-2 Heart Rate 1: 76 bpm Height: 5'6" Respiratory Rate: 20 bpm Temperature: 36 .7 (C) / 98.0 (F) Weight: 252 lbs 07/31/2011 Blood Pressure 1: 126/80 Code: 8480-6 BMI: 40.1 Code: 45847-3 Heart Rate 1: 84 bpm Height: 5'6" Respiratory Rate: 20 bpm Temperature: 36 .6 (C) / 97.8 (F) Weight: 252 lbs 04/27/2011 Blood Pressure 1: 140/82 Code: 8480-6 BMI: 40.7 Code: 43887-3 Heart Rate 1: 76 bpm Height: 5'6" Respiratory Rate: 20 bpm Temperature: 36 .4 (C) / 97.6 (F) Weight: 256 lbs 01/27/2011 Blood Pressure 1: 124/78 Code: 8480-6 Heart Rate 1: 84 bpm Temperature: 36.6 (C) / 97.8 (F) Weight: 254 lbs 10/31/2010 Blood Pressure 1: 124/76 Code: 8480-6 Heart Rate 1: 72 bpm Temperature: 36.1 (C) / 97.0 (F) Weight: 256 lbs 09/15/2010 Blood Pressure 1: 122/84 Code: 8480-6 Te mperature: 36.2 (C) / 97.2 (F) Weight: 255 lbs 09/08/2010 Blood Pressure 1: 138/92 Code: 8480-6 BMI: 41.2 Code: 50628-3 Heart Rate 1: 82 bpm Height: 5'6" Temperature: 36.3 (C) / 97.3 (F) Weight: 255 lbs Functional Status No Functional Status data Reason For Visit Reason For Visit Effective Dates Notes well woman exam (40-65 years) 03/04/2019 Annual Wel lness lab draw 02/27/2019 follow up 10/16/2018 lab draw 10/11/2018 flare up of rash 09/13/2018 lab draw 07/15/2018 follow up 07/09/2018 follow up 04/08/2018 lab draw 04/04/2018 otalgia 03/04/2018 left ear follow up 01/03/2018 lab draw 12/31/2017 injection(s) 10/25/2017 Rocephin toe pain due to infection 10/24/2017 Patient has on ging infection to left great toe for the last month. She was given clindamycin, dicloxacillin, and rocephin in the past. Patient also placing Bactroban to affected area flank pain 07/27/2017 follow up 06/06/2017 lab draw 06/04/2017 follow up 03/08/2017 lab draw 02/23/2017 cellulitis 02/21/2017 follow up 08/31/2016 rash 08/02/2016 lab draw 01/25/2016 lab draw 01/05/2016 follow up 01/04/2016 follow up 11/15/2015 ER vist from [place] approximately 10 days follow up 09/24/2015 Patient is still pro ceeding with current regimen of Bactroban ointment and clindamycin follow up 09/15/2015 2 day cellulitis 09/13/2015 follow up 08/19/2015 Refill potassium chl oride lab draw 08/17/2015 follow up 07/13/2015 lab draw 07/01/2015 follow up 03/29/2015 lab draw 03/24/2015 follow up 11/26/2014 follow up 11/19/2014 toe pain due to infection 11/16/2014 flank pain 10/09/2014 follow up 08/20/2014 lab draw 08/17/2014 lab draw 04/28/2014 diabetes mellitus 04/23/2014 follow up 02/19/2014 toe pain due to infection 02/12/2014 high blood pressure 12/25/2013 lab draw 12/23/2013 follow up 08/27/2013 lab draw 08/18/2013 lab draw 05/01/2013 follow up 04/30/2013 3mo fwup blood pressure check 03/04/2013 follow up 01/30/2013 dc Phentermine optio n lab draw 01/27/2013 follow up 11/28/2012 1mo fwup follow up 10/31/2012 1mo fwup lab draw 10/28/2012 follow up 10/03/2012 3mo fwup injection(s) 07/19/2012 cellulitis 07/18/2012 Started on Cephalexi n yesterday ankle pain 06/12/2012 color change 04/24/2012 diabetes mellitus 03/07/2012 follow up 11/08/2011 3mo fwup lab draw 11/01/2011 follow up 07/31/2011 3mo fwup follow up 04/27/2011 discuss labs paresthesia 01/27/2011 well woman exam (40-65 years) 10/31/2010 neck pain 09/15/2010 neck and arm pain 09/08/2010 Encounters Encounter Performer Location Codes Date ([id number]) PREV VISIT EST AGE 40-64 Diagnosis: Encounter for general adult medical examination without abnormal findings[ICD10: Z00.00] Diagnosis: FLU VACCINE[ICD10: Z23] Gunjan Orefuadmaddi PALACIOGUNJAN [employer] CPT-4: 74475 03/04/2019 ([id number]) NURSE/OUTPATIENT VISIT EST Diagnosis: Type 2 diabetes mellitus without complications[ICD10: E11.9] Diagnosis: Essential (primary) hypertension[ICD10: I10] Diagnosis: Hypothyroidism[ICD10: E03.9] Gunjan Glenroyfuadmaddi PALACIOGUNJAN [employer] CPT-4: 82930 02/27/2019 ([id number]) OFFICE/OUTPATIENT VISIT EST Diagnosis: Essential (primary) hypertension[ICD10: I10] Diagnosis: Hypothyroidism, unspecified[ICD10: E03.9] Diagnosis: Mixed hyperlipidemia[ICD10: E78.2] Diagnosis: Type 2 diabetes mellitus with diabetic neuropathy, unspecified[ICD10: E11.40] Gunjan Glenroyfuadmaddi PALACIOGUNJAN [employer] CPT-4: 87579 10/16/2018 ([id number]) NURSE/OUTPATIENT VISIT EST Diagnosis: Type 2 diabetes mellitus without complications[ICD10: E11.9] Diagnosis: Essential (primary) hypertension[ICD10: I10] Diagnosis: Mixed hyperlipidemia[ICD10: E78.2] Diagnosis: Hypothyroidism, unspecified[ICD10: E03.9] Diagnosis: Other fatigue[ICD10: R53.83] Gunjan LANTIGUA [employer] CPT-4: 00204 10/11/2018 ([id number]) OFFICE/OUTPATIENT VISIT EST Diagnosis: Irritant contact dermatitis due to plants, except food[ICD10: L24.7] Darby LANTIGUA [employer] CPT-4: 45386 09/13/2018 ([id number]) NURSE/OUTPATIENT VISIT EST Diagnosis: Type 2 diabetes mellitus without complications[ICD10: E11.9] Diagnosis: Mixed hyperlipidemia[ICD10: E78.2] Diagnosis: Hypothyroidism, unspecified[ICD10: E03.9] Diagnosis: Essential (primary) hypertension[ICD10: I10] Gunjan LANTIGUA [employer] CPT-4: 30623 07/15/2018 ([id number]) OFFICE/OUTPATIENT VISIT EST Diagnosis: Essential (primary) hypertension[ICD10: I10] Diagnosis: Type 2 diabetes mellitus without complications[ICD10: E11.9] Diagnosis: Charcot's joint, left ankle and foot[ICD10: M14.672] Diagnosis: Charcot's joint, right ankle and foot[ICD10: M14.671] Diagnosis: Mixed hyperlipidemia[ICD10: E78.2] Gunjan [employer] CPT-4: 21337 07/09/2018 OFFICE/OUTPATIENT VISIT EST Diagnosis: Type 2 diabetes mellitus without complications[ICD10: E11.9] Diagnosis: Hypothyroidism, unspecified[ICD10: E03.9] Diagnosis: Mixed hyperlipidemia[ICD10: E78.2] Diagnosis: Essential (primary) hypertension[ICD10: I10] Diagnosis: Other specified problems related to primary support group[ICD10: Z63.8] Diagnosis: Pain in right shoulder[ICD10: M25.511] Gunjan Limaddi DEIDRE ROQUE LANTIGUA [employer] CPT-4: 27114 04/08/2018 ([id number]) OFFICE/OUTPATIENT VISIT EST Diagnosis: Other allergic rhinitis[ICD10: J30.89] Hina JIANG [email or web address] CPT-4: 73604 03/04/2018 ([id number]) OFFICE/OUTPATIENT VISIT EST Diagnosis: Charcot's joint, right ankle and foot[ICD10: M14.671] Diagnosis: Charcot's joint, left ankle and foot[ICD10: M14.672] Diagnosis: Type 2 diabetes mellitus without complications[ICD10: E11.9] Diagnosis: Hypothyroidism, unspecified[ICD10: E03.9] Diagnosis: Mixed hyperlipidemia[ICD10: E78.2] Diagnosis: Essential (primary) hypertension[ICD10: I10] Gunjan LANTIGUA [employer] CPT-4: 88915 01/03/2018 ([id number]) NURSE/OUTPATIENT VISIT EST Diagnosis: Hypothyroidism, unspecified[ICD10: E03.9] Diagnosis: Type 2 diabetes mellitus without complications[ICD10: E11.9] Diagnosis: Mixed hyperlipidemia[ICD10: E78.2] Diagnosis: Essential (primary) hypertension[ICD10: I10] Gunjan LANTIGUA [employer] CPT-4: 17436 12/31/2017 ([id number]) NURSE/OUTPATIENT VISIT EST Diagnosis: Unspecified open wound, right foot, sequela[ICD10: S91.301S] Gunjan LANTIGUA [employer] CPT-4: 25368 10/25/2017 ([id number]) OFFICE/OUTPATIENT VISIT EST Diagnosis: Cellulitis of left toe[ICD10: L03.032] Hina JIANG [employer] CPT-4: 70343 10/24/2017 ([id number]) OFFICE/OUTPATIENT VISIT EST Diagnosis: Cellulitis of left toe[ICD10: L03.032] Hina JIANG [employer] CPT-4: 58201 09/26/2017 ([id number]) OFFICE/OUTPATIENT VISIT EST Diagnosis: Urinary tract infection, site not specified[ICD10: N39.0] Hina LANTIGUA [employer] CPT-4: 92132 07/27/2017 ([id number]) OFFICE/OUTPATIENT VISIT EST Diagnosis: Type 2 diabetes mellitus without complications[ICD10: E11.9] Diagnosis: Essential (primary) hypertension[ICD10: I10] Diagnosis: Mixed hyperlipidemia[ICD10: E78.2] Diagnosis: Angina pectoris, unspecified[ICD10: I20.9] Gunjan LANTIGUA [facility] CPT-4: 42870 06/06/2017 ([id number]) OFFICE/OUTPATIENT VISIT EST Diagnosis: Hypothyroidism, unspecified[ICD10: E03.9] Diagnosis: Type 2 diabetes mellitus without complications[ICD10: E11.9] Diagnosis: Mixed hyperlipidemia[ICD10: E78.2] Diagnosis: Essential (primary) hypertension[ICD10: I10] Diagnosis: Anesthesia of skin[ICD10: R20.0] Gunjan LANTIGUA [employer] [facility] CPT-4: 75894 06/04/2017 ([id number]) OFFICE/OUTPATIENT VISIT EST Diagnosis: Cellulitis of right toe[ICD10: L03.031] Gunjan LANTIGUA [employer] [facility] CPT-4: 18682 03/08/2017 ([id number]) OFFICE/OUTPATIENT VISIT EST Diagnosis: Hypothyroidism, unspecified[ICD10: E03.9] Diagnosis: Type 2 diabetes mellitus without complications[ICD10: E11.9] Diagnosis: Mixed hyperlipidemia[ICD10: E78.2] Diagnosis: Essential (primary) hypertension[ICD10: I10] Gunjan LANTIGUA [employer] [facility] CPT-4: 69245 02/23/2017 ([id number]) OFFICE/OUTPATIENT VISIT EST Diagnosis: Cellulitis of right toe[ICD10: L03.031] Gunjan LANTIGUA [employer] [facility] CPT-4: 66531 02/21/2017 ([id number]) OFFICE/OUTPATIENT VISIT EST Diagnosis: Type 2 diabetes mellitus without complications[ICD10: E11.9] Diagnosis: Type 2 diabetes mellitus with diabetic neuropathy, unspecified[ICD10: E11.40] Diagnosis: Hypothyroidism, unspecified[ICD10: E03.9] Diagnosis: Essential (primary) hypertension[ICD10: I10] Diagnosis: Bariatric surgery status[ICD10: Z98.84] Gunjan LANTIGUA [employer] [facility] CPT-4: 74356 08/31/2016 ([id number]) OFFICE/OUTPATIENT VISIT EST Diagnosis: Zoster without complications[ICD10: B02.9] Ernestina Tomas GUNJAN Briana LANTIGUA [employer] [facility] CPT-4: 71846 08/02/2016 ([id number]) OFFICE/OUTPATIENT VISIT EST Diagnosis: Hypothyroidism, unspecified[ICD10: E03.9] Diagnosis: Type 2 diabetes mellitus without complications[ICD10: E11.9] Diagnosis: Type 2 diabetes mellitus with diabetic neuropathy, unspecified[ICD10: E11.40] Diagnosis: Mixed hyperlipidemia[ICD10: E78.2] Diagnosis: Essential (primary) hypertension[ICD10: I10] Gunjan BOWER Briana LANTIGUA [employer] [facility] CPT-4: 63947 01/05/2016 ([id number]) OFFICE/OUTPATIENT VISIT EST Diagnosis: Essential (primary) hypertension[ICD10: I10] Diagnosis: Type 2 diabetes mellitus without complications[ICD10: E11.9] Diagnosis: Type 2 diabetes mellitus with diabetic neuropathy, unspecified[ICD10: E11.40] Diagnosis: Mixed hyperlipidemia[ICD10: E78.2] Gunjan MCKENZIE Briana LANTIGUA [employer] [facility] CPT-4: 07196 01/04/2016 ([id number]) OFFICE/OUTPATIENT VISIT EST Diagnosis: Zoster without complications[ICD10: B02.9] Diagnosis: Acute stress reaction[ICD10: F43.0] Ernestinajaya Tomas DOLORES LR Briana LANTIGUA [employer] [facility] CPT-4: 65450 11/15/2015 ([id number]) OFFICE/OUTPATIENT VISIT EST Diagnosis: Unspecified open wound, right foot, sequela[ICD10: S91.301S] Diagnosis: Cellulitis of right lower limb[ICD10: L03.115] Ernestina BOWER Briana LANTIGUA [employer] [facility] CPT-4: 42624 09/24/2015 ([id number]) OFFICE/OUTPATIENT VISIT EST Diagnosis: Cellulitis of right lower limb[ICD10: L03.115] Ernestina BOWER TruptiMabel SWAPNA [employer] [facility] CPT-4: 94800 09/15/2015 ([id number]) OFFICE/OUTPATIENT VISIT EST Diagnosis: Cellulitis of right lower limb[ICD10: L03.115] Ernestina BOWER [employer] [facility] CPT-4: 74391 09/13/2015 ([id number]) OFFICE/OUTPATIENT VISIT EST Diagnosis: Type 2 diabetes mellitus with diabetic neuropathy, unspecified[ICD10: E11.40] Diagnosis: Essential (primary) hypertension[ICD10: I10] Diagnosis: Mixed hyperlipidemia[ICD10: E78.2] Gunjan MCKENZIE [employer] [facility] CPT-4: 20618 08/19/2015 ([id number]) OFFICE/OUTPATIENT VISIT EST Diagnosis: Hypothyroidism, unspecified[ICD10: E03.9] Diagnosis: Type 2 diabetes mellitus without complications[ICD10: E11.9] Diagnosis: Mixed hyperlipidemia[ICD10: E78.2] Diagnosis: Essential (primary) hypertension[ICD10: I10] Gunjan LANTIGUA [employer] [facility] CPT-4: 64097 08/17/2015 ([id number]) OFFICE/OUTPATIENT VISIT EST Diagnosis: Cramp and spasm[ICD10: R25.2] Gunjan LI [employer] [facility] CPT-4: 15497 07/13/2015 ([id number]) OFFICE/OUTPATIENT VISIT EST Diagnosis: Cramp and spasm[ICD10: R25.2] Gunjan [facility] [employer] [facility] CPT-4: 22418 07/01/2015 ([id number]) OFFICE/OUTPATIENT VISIT EST Diagnosis: Type 2 diabetes mellitus without complications[ICD10: E11.9] Diagnosis: Essential (primary) hypertension[ICD10: I10] Diagnosis: Mixed hyperlipidemia[ICD10: E78.2] Gunjan Glenroyaquiles [place] [employer] [facility] CPT-4: 87387 03/29/2015 ([id number]) OFFICE/OUTPATIENT VISIT EST Diagnosis: Type 2 diabetes mellitus without complications[ICD10: E11.9] Diagnosis: Hypothyroidism, unspecified[ICD10: E03.9] Diagnosis: Essential (primary) hypertension[ICD10: I10] Diagnosis: Mixed hyperlipidemia[ICD10: E78.2] Gunjan Limaddi [employer]LEX[employer]ERBESS [employer] [facility] CPT-4: 66466 03/24/2015 ([id number]) OFFICE/OUTPATIENT VISIT EST Diagnosis: DM W/O COMPLICATION TYPE II[ICD9: 250.00] Diagnosis: HYPOTHYROIDISM[ICD9: 244.9] Diagnosis: HYPERLIPIDEMIA NEC/NOS[ICD9: 272.4] Diagnosis: Charcot's joint of foot, non-diabetic[ICD9: 094.0] Gunjan LANTIGUA [facility] CPT-4: 33447 11/26/2014 ([id number]) OFFICE/OUTPATIENT VISIT EST Diagnosis: Cellulitis of toe of right foot[ICD9: 681.10] Diagnosis: ONYCHOMYCOSIS[ICD9: 110.1] Yissel KAY [facility] CPT-4: 10260 11/19/2014 ([id number]) OFFICE/OUTPATIENT VISIT EST Diagnosis: Cellulitis of toe of right foot[ICD9: 681.10] Diagnosis: ONYCHOMYCOSIS[ICD9: 110.1] Diagnosis: DISTURBANCE OF SKIN SENSATION (Paresthesia)[ICD9: 782.0] Diagnosis: Valgus deformity of foot[ICD9: 736.79] Yissel LANTIGUA [facility] CPT-4: 41622 11/16/2014 ([id number]) OFFICE/OUTPATIENT VISIT EST Diagnosis: Epigastric abdominal pain[ICD9: 789.06] Diagnosis: Thoracic back pain[ICD9: 724.1] Yissel LANTIGUA [facility] CPT-4: 31662 10/09/2014 ([id number]) OFFICE/OUTPATIENT VISIT EST Diagnosis: DM W/O COMPLICATION TYPE II[ICD9: 250.00] Diagnosis: HYPERLIPIDEMIA NEC/NOS[ICD9: 272.4] Diagnosis: HYPERTENSION[ICD9: 401.9] Gunjan TIM [facility] CPT-4: 14377 08/20/2014 ([id number]) OFFICE/OUTPATIENT VISIT EST Diagnosis: HYPOTHYROIDISM[ICD9: 244.9] Diagnosis: DM W/O COMPLICATION TYPE II, UNCONTROLLED[ICD9: 250.02] Diagnosis: HYPERLIPIDEMIA NEC/NOS[ICD9: 272.4] Diagnosis: HYPERTENSION[ICD9: 401.9] Gunjan TIM [facility] CPT-4: 07105 08/17/2014 ([id number]) OFFICE/OUTPATIENT VISIT EST Diagnosis: HYPOTHYROIDISM[ICD9: 244.9] Diagnosis: DM W/O COMPLICATION TYPE II, UNCONTROLLED[ICD9: 250.02] Diagnosis: HYPERLIPIDEMIA NEC/NOS[ICD9: 272.4] Diagnosis: HYPERTENSION[ICD9: 401.9] Gunjan TIM [facility] CPT-4: 05590 04/28/2014 ([id number]) OFFICE/OUTPATIENT VISIT EST Diagnosis: DM W/O COMPLICATION TYPE II[ICD9: 250.00] Diagnosis: HYPERLIPIDEMIA NEC/NOS[ICD9: 272.4] Diagnosis: HYPERTENSION[ICD9: 401.9] Gunjan TIM [facility] CPT-4: 73316 04/23/2014 OFFICE/OUTPATIENT VISIT EST Diagnosis: CELLULITIS[ICD9: 682.9] [facility] 64865 02/19/2014 OFFICE/OUTPATIENT VISIT EST Diagnosis: SKIN SENSATION DISTURB[ICD9: 782.0] Diagnosis: CELLULITIS[ICD9: 682.9] Diagnosis: Edema of lower extremity[ICD9: 782.3] Yissel Virgil [employer] CPT-4: 14269 02/12/2014 ([id number]) OFFICE/OUTPATIENT VISIT EST Diagnosis: GASTROENTERITIS[ICD9: 558.9] Diagnosis: DM W/O COMPLICATION TYPE II[ICD9: 250.00] Diagnosis: HYPERLIPIDEMIA NEC/NOS[ICD9: 272.4] Diagnosis: HYPERTENSION[ICD9: 401.9] Gunjan TIM [facility] CPT-4: 12330 12/25/2013 ([id number]) OFFICE/OUTPATIENT VISIT EST Diagnosis: HYPOTHYROIDISM[ICD9: 244.9] Diagnosis: DM W/O COMPLICATION TYPE II[ICD9: 250.00] Diagnosis: HYPERLIPIDEMIA NEC/NOS[ICD9: 272.4] Diagnosis: HYPERTENSION[ICD9: 401.9] Gunjan TIM [facility] CPT-4: 73929 12/23/2013 ([id number]) OFFICE/OUTPATIENT VISIT EST Diagnosis: DM W/O COMPLICATION TYPE II[ICD9: 250.00] Diagnosis: HYPERTENSION[ICD9: 401.9] Diagnosis: HYPERLIPIDEMIA NEC/NOS[ICD9: 272.4] Gunjan LR S. ORENDER DO [facility] CPT-4: 63619 08/27/2013 ([id number]) OFFICE/OUTPATIENT VISIT EST Diagnosis: HYPOTHYROIDISM[ICD9: 244.9] Diagnosis: DM W/O COMPLICATION TYPE II, UNCONTROLLED[ICD9: 250.02] Diagnosis: HYPERTENSION[ICD9: 401.9] Gunjan Orefuadmaddi PALACIOGUNJAN TruptiMabel GLENROY NDER DO [facility] CPT-4: 66865 08/18/2013 ([id number]) OFFICE/OUTPATIENT VISIT EST Diagnosis: HYPOTHYROIDISM[ICD9: 244.9] Diagnosis: DM W/O COMPLICATION TYPE II[ICD9: 250.00] Diagnosis: HYPERLIPIDEMIA NEC/NOS[ICD9: 272.4] Diagnosis: HYPERTENSION[ICD9: 401.9] Gunjan Glenroyaquiles BOWER TruptiMabel ORE NDER DO [facility] CPT-4: 50702 05/01/2013 ([id number]) OFFICE/OUTPATIENT VISIT EST Diagnosis: DM W/O COMPLICATION TYPE II[ICD9: 250.00] Diagnosis: HYPERTENSION[ICD9: 401.9] Diagnosis: HYPOTHYROIDISM[ICD9: 244.9] Gunjanyue BOWER S. O RENDER DO [facility] CPT-4: 32081 04/30/2013 OFFICE/OUTPATIENT VISIT EST Diagnosis: ABNORMAL WEIGHT GAIN[ICD9: 783.1] Gunjan Cummings SMabel ORENDER DO [facility] CPT-4: 77060 03/04/2013 ([id number]) OFFICE/OUTPATIENT VISIT EST Diagnosis: DM W/O COMPLICATION TYPE II[ICD9: 250.00] Diagnosis: HYPERTENSION[ICD9: 401.9] Diagnosis: HYPERLIPIDEMIA NEC/NOS[ICD9: 272.4] Gunjan LR S. ORENDER DO [facility] CPT-4: 08452 01/30/2013 ([id number]) OFFICE/OUTPATIENT VISIT EST Diagnosis: DM W/O COMPLICATION TYPE II, UNCONTROLLED[ICD9: 250.02] Diagnosis: HYPERTENSION[ICD9: 401.9] Diagnosis: HYPOTHYROIDISM[ICD9: 244.9] Gunjan BOWER S. O RENDER DO [facility] CPT-4: 21299 01/27/2013 ([id number]) OFFICE/OUTPATIENT VISIT EST Diagnosis: DM W/O COMPLICATION TYPE II, UNCONTROLLED[ICD9: 250.02] Diagnosis: DEPRESSIVE DISORDER NEC[ICD9: 311] Diagnosis: FEM STRESS INCONTINENCE[ICD9: 625.6] Gunjan Warren [facility] CPT-4: 81858 11/28/2012 OFFICE/OUTPATIENT VISIT EST Diagnosis: JOINT PAIN-ANKLE[ICD9: 719.47] Diagnosis: DM W/O COMPLICATION TYPE II, UNCONTROLLED[ICD9: 250.02] Diagnosis: DEPRESSIVE DISORDER NEC[ICD9: 311] Diagnosis: Subacromial bursitis[ICD9: 726.19] Gunjan Warren [employer] CPT-4: 76065 10/31/2012 ([id number]) OFFICE/OUTPATIENT VISIT EST Diagnosis: DM W/O COMPLICATION TYPE II, UNCONTROLLED[ICD9: 250.02] Diagnosis: HYPERTENSION[ICD9: 401.9] Gunjan Warren GLENROY AQUILES [facility] CPT-4: 23334 10/28/2012 ([id number]) OFFICE/OUTPATIENT VISIT EST Diagnosis: DISTURBANCE OF SKIN SENSATION (Paresthesia)[ICD9: 782.0] Diagnosis: JOINT PAIN-ANKLE[ICD9: 719.47] Gunjan Monroe GLENROYAQUILES [facility] CPT-4: 26743 10/03/2012 ([id number]) OFFICE/OUTPATIENT VISIT EST Diagnosis: CELLULITIS[ICD9: 682.9] Gunjan Warren GLENROYFUAD VICENTE [facility] CPT-4: 38174 07/19/2012 ([id number]) OFFICE/OUTPATIENT VISIT EST Diagnosis: CELLULITIS[ICD9: 682.9] Diagnosis: DM W/O COMPLICATION TYPE II, UNCONTROLLED[ICD9: 250.02] Gunjan Warren GLENROYAQUIL[address] [facility] CPT-4: 67583 07/18/2012 OFFICE/OUTPATIENT VISIT EST Diagnosis: Ankle pain, left[ICD9: 719.47] Diagnosis: Stress incontinence[ICD9: 625.6] Diagnosis: Medication therapy continued[ICD9: V58.69] Gunjanyue TIMNDER [facility] CPT-4: 13258 06/12/2012 ([id number]) OFFICE/OUTPATIENT VISIT EST Diagnosis: ONYCHOMYCOSIS[ICD9: 110.1] Gunjan GUAJARDO RAHUL [facility] CPT-4: 68064 04/24/2012 ([id number]) OFFICE/OUTPATIENT VISIT EST Diagnosis: DM W/O COMPLICATION TYPE II[ICD9: 250.00] Diagnosis: HYPERTENSION[ICD9: 401.9] Gunjan TIM NDER [facility] CPT-4: 29499 03/07/2012 ([id number]) OFFICE/OUTPATIENT VISIT EST Diagnosis: DM W/O COMPLICATION TYPE II[ICD9: 250.00] Diagnosis: HYPERTENSION[ICD9: 401.9] Gunjan TIM NDER [facility] CPT-4: 10815 11/08/2011 ([id number]) OFFICE/OUTPATIENT VISIT EST Diagnosis: OTHER ABNORMAL GLUCOSE[ICD9: 790.29] Diagnosis: HYPERTENSION[ICD9: 401.9] Gunjan TIM NDER [facility] CPT-4: 21080 11/01/2011 ([id number]) OFFICE/OUTPATIENT VISIT EST Diagnosis: HYPERTENSION[ICD9: 401.9] Diagnosis: OTHER ABNORMAL GLUCOSE[ICD9: 790.29] Gunjan LylesMabel GLENROYNDER [facility] CPT-4: 69738 07/31/2011 OFFICE/OUTPATIENT VISIT EST Diagnosis: OTHER ABNORMAL GLUCOSE[ICD9: 790.29] Diagnosis: HYPERTENSION[ICD9: 401.9] Diagnosis: SKIN SENSATION DISTURB[ICD9: 782.0] Gunjan BERNAL BE SMabel GLENROYNDER [facility] CPT-4: 62031 04/27/2011 OFFICE/OUTPATIENT VISIT EST Diagnosis: Neuropathy of foot[ICD9: 355.8] Gunjan Glenroyfuadmaddi ALEXANDERGUNJAN TruptiMabel [facility] CPT-4: 37349 01/27/2011 ([id number]) PREV VISIT EST AGE 40-64 Chloe BOWER S. O RENDER DO [facility] CPT- 4: 24581 10/31/2010 ([id number]) OFFICE/OUTPATIENT VISIT EST Gunjan LANTIGUA DO [employer] CPT-4: 50152 09/15/2010 ([id number]) OFFICE/OUTPATIENT VISIT NEW Gunjan LANTIGUA DO [employer] CPT-4: 37270 09/08/2010 Plan of Care Planned Activity Notes Codes Status Date Visit Diagnosis Plan: Encounter for [facility] adult medical examination without abnormal findings Discussion: Mediterranean diet Combinati on of cardio and weight bearing exercise Had Tdap in December of this year Flu shot given Up to date on mammo Referral for colonoscopy ICD-9 : V70.9 ICD-10 : Z00.00 03/04/2019 Appointment: Gunjan Lantigua WPtel: [address] [place] [address] Annual Well Visit 03/04/2019 Care Plan: Referral Order SNOMED-CT : [id number] Pending 03/04/2019 Appointment: Gunjan Lantigua WPtel: [address] [place], [place] [id number] [place] LAB 02/27/2019 Visit Diagnosis Plan: Hypothyroidism, unspecified Disc ussion: Stable ICD-9 : 244.9 ICD-10 : E03.9 10/16/2018 Visit Diagnosis Plan: Essential (primary) hypertension Discussion: Stable ICD-9 : 401.9 ICD-10 : I10 10/16/2018 Visit Diagnosis Plan: Type 2 diabetes me llitus with diabetic neuropathy, unspecified Discussion: Lab discussed Accuchecks herson ly Continue current meds Check CMP and HbA1C in 4mos then fwup ICD-9 : 250.60 ICD-10 : E11.40 10/16/2018 Visit Diagnosis Plan: Mixed hyperlipidemia Discussion: Mediterranean diet Combination of cardio and weight bearing exercise Lab discussed Recheck lipids in 6mos ICD-9 : 272.4 ICD-10 : E78.2 10/16/2018 Appointment: Gunjan Lantigua WPtel: [address] [place], [place] [id number] [place] FOLLOW UP 10/16/2018 Appointment: Gunjan Lantigua WPtel: [address] [place], [place] [phone] [place] LAB 10/11/2018 Visit Diagnosis Plan: Irritant contact dermatitis due to plants, except food Discussion: Prednisone taper- start today. Continue oral antihistamines at home. Blue goo called into [facility]- apply twice daily to lower extremities, arms, and abdomen. Go to ED with any orofacial swelling, SOA. Patient states understanding. ICD-9 : 692.6 ICD-10 : L24.7 09/13/2018 Appointment: Darby Pereira [facility]0 [place] [id number] ACUTE ILLNESS 09/13/2018 Patient Education: prednisone- Optimize[employer] Coupon [id number] [email or web address] Completed 09/13/2018 Appointment: Gunjan Lantigua WPtel: [facility]0 [facility] [place] LAB 07/15/2018 Visit Diagnosis Plan: Essential (primary) hypertension Discussion: Stable ICD-9 : 401.9 ICD-10 : I10 07/09/2018 Visit Diagnosis Plan: Type 2 diabetes mellitus without complications Discussion: Return in AM for fasting lab Fwup end of September Follow Up: As needed ICD-9 : 250.00 ICD-10 : E11.9 07/09/2018 Visit Diagnosis Plan: Mixed hyperlipidemia Discussion: Return for fasting lipids ICD-9 : 272.4 ICD-10 : E78.2 07/09/2018 Visit Diagnosis Plan: Charcot's joint, left ankle and foot Discussion: Using CBD oil Sees specialist in in August ICD-9 : 094.0 ICD-10 : M14.672 07/09/2018 Appointment: Gunjan Lantigua WPtel: [facility]3 [facility] [place] FOLLOW UP 07/09/2018 Visit Diagnosis Plan: Other specified problems related to primary support group Discussion: Stress Reducers Discussed counseling Increase fluoxetine to 60mg daily ICD-9 : V61.8 ICD-10 : Z63.8 04/08/2018 Visit Diagnosis Plan: Type 2 diabetes mellitus without complications Discussion: Lab discussed Accuchecks daily Follow Up: 3 months ICD-9 : 250.00 ICD-10 : E11.9 04/08/2018 Visit Diagnosis Plan: Hypothyroidism, unspecified Disc ussion: Stable ICD-9 : 244.9 ICD-10 : E03.9 04/08/2018 Visit Diagnosis Plan: Pain in right shoulder Discussio n: Topical voltaren gel and stretches Discussed possible PT ICD-9 : 719.41 ICD-10 : M25.511 04/08/2018 Visit Diagnosis Plan: Mixed hyperlipidemia Discussion: Lab discussed ICD-9 : 272.4 ICD-10 : E78.2 04/08/2018 Visit Diagnosis Plan: Essential (primary) hypertension Discussion: Stable ICD-9 : 401.9 ICD-10 : I10 04/08/2018 Appointment: Gunjan Lantigua WPtel: [address] [place] [address] FOLLOW UP 04/08/2018 Appointment: Gunjan Lantigua WPtel: [address] [place] [address] LAB 04/04/2018 Visit Diagnosis Plan: Other allergic rhinitis Discussi on: instructed patient to start flonase daily to bilateral nares. discussed that may not have relief for a couple days but should have relief. if new or worsening symptoms later this week, call clinic ICD-9 : 477.8 ICD-10 : J30.89 03/04/2018 Appointment: Hina Bess [address] [place] [address] ACUTE ILLNESS 03/04/2018 Patient Education: Patient Medication Summary Completed 03/04/2018 Visit Diagnosis Plan: Charcot's joint, right ankle and foot Discussion: Wearing orhotic shoes with inserts and monitoring for sores/infections Patient got first Shingrix ICD-9 : 094.0 ICD-10 : M14.671 01/03/2018 Visit Diagnosis Plan: Essential (primary) hypertension Discussion: Stable ICD-9 : 401.9 ICD-10 : I10 01/03/2018 Visit Diagnosis Plan: Hypothyroidism, unspecified Disc ussion: Stable ICD-9 : 244.9 ICD-10 : E03.9 01/03/2018 Visit Diagnosis Plan: Mixed hyperlipidemia Discussion: Lifestyle change/diet/exercise and check lipids in 6mos ICD-9 : 272.4 ICD-10 : E78.2 01/03/2018 Visit Diagnosis Plan: Type 2 diabetes mellitus without complications Discussion: Stable Continue accuchecks daily Follow Up: 3 months ICD-9 : 250.00 ICD-10 : E11.9 01/03/2018 Appointment: Gunjan Lantigua WPtel: [address] [facility] FOLLOW UP 01/03/2018 Patient Education: Patient Medication Summary Completed 01/03/2018 Appointment: Gunjan Lantigua WPtel: [address] [facility] US LAB 12/31/2017 Patient Education: Patient Medication Summary Completed 12/31/2017 Appointment: Gunjan Lantigua WPtel: [address] [facility] US INJECTION 10/25/2017 Patient Education: Patient Medication Summary Completed 10/25/2017 Visit Diagnosis Plan: Cellulitis of left toe Discussio n: due to no improvement and worsening symptoms, instructed patient to call dr. mary to be seen as soon as possible. rocephin injection given in office and instructed to have additional injection tomorrow due to severity. ICD-9 : 681.10 ICD-10 : L03.032 10/24/2017 Appointment: Hina Bess [address] [place], [place] [address] ACUTE ILLNESS 10/24/2017 Patient Education: Patient Medication Summary Completed 10/24/2017 Visit Diagnosis Plan: Cellulitis of left toe Discussio n: rocephin injection given in office. dicloxacillin prescribed as well. instructed patient to call or rtc with new or worsening symptoms. ICD-9 : 681.10 ICD-10 : L03.032 09/26/2017 Appointment: Hina Bess [address] [place], [place] [address] ACUTE ILLNESS 09/26/2017 Patient Education: Patient Medication Summary Completed 09/26/2017 Visit Diagnosis Plan: Cellulitis of left toe Discussio n: small incision was made over area of concern to attempt to drain out infection. consent was signed. infection under skin had calcified but was completely removed. patient tolerated well due to unable to feel procedure. no bleeding or complications occurred. toe was cleansed thoroughly and covered with bandaid. clindamycin tid for 7 days prescribed. instructed patient to avoid using neosporin for 48 hours in case additional infection was to be removed. ok to cover toe with bandaid. after 48 hours, can use neosporin and bandaid. call or rtc with worsening symptoms or no improvement. educated patient on importance of checking feet regularly. ICD-9 : 681.10 ICD-10 : L03.032 09/10/2017 Appointment: Hina Bess [address] [place] [address] ACUTE ILLNESS 09/10/2017 Patient Education: Patient Medication Summary Completed 09/10/2017 Visit Diagnosis Plan: Urinary tract infection, site no t specified Discussion: ua obtained due to symptoms. showed trace blood and leukocytes. will send off for culture. instructed patient to push fluids this weekend including water and cranberry juice and to purchase AZO for pain. take for no more than 3 days. will call sunday with culture results and if antibiotic is needed. go to ED over the weekend if symptoms worsen. ICD-9 : 599.0 ICD-10 : N39.0 07/27/2017 Appointment: Hina Bess [address] [place] [address] ACUTE ILLNESS 07/27/2017 Patient Education: Patient Medication Summary Completed 07/27/2017 Referral: Shirley Juares WPtel: [address] [place] [address] Referral Initiated 06/21/2017 Visit Diagnosis Plan: Essential (primary) hypertension Discussion: Stable ICD-9 : 401.9 ICD-10 : I10 06/06/2017 Visit Diagnosis Plan: Type 2 diabetes mellitus without complications Discussion: Lab discussed Stable with diet Follow Up: 3 months ICD-9 : 250.00 ICD-10 : E11.9 06/06/2017 Visit Diagnosis Plan: Angina pectoris, unspecified Dis cussion: Proceed with cardiology for stress testing--will need nuclear due to foot To ER if CP with radiation to neck/back/arm, associated dyspnea, nausea, diaphoresis, or impending doom ICD-9 : 786.50 ICD-10 : I20.9 06/06/2017 Appointment: Gunjan Lantigua WPtel: [address] [place], [place] [phone] FOLLOW UP 06/06/2017 Patient Education: Patient Medication Summary Completed 06/06/2017 Care Plan: Referral Order SNOMED-CT : [id number] Pending 06/06/2017 Appointment: Gunjan Lantigua WPtel: [address] [place], [place] [phone] [place] LAB 06/04/2017 Patient Education: Patient Medication Summary Completed 06/04/2017 Visit Diagnosis Plan: Cellulitis of right toe Discussi on: Healing Discussed wrapping toe in moleskin if rubbing in shoe Needs to go back and see podiatry Notify if redness returns ICD-9 : 681.10 ICD-10 : L03.031 03/08/2017 Appointment: Gunjan Lantigua WPtel: [address] [place] [address] FOLLOW UP 03/08/2017 Patient Education: Patient Medication Summary Completed 03/08/2017 Appointment: Gunjan Lantigua WPtel: [address] [place], [place] [phone] CANCELED 03/01/2017 Appointment: Gunjan Lantigua WPtel: [address] [place], [place] [phone] [place] LAB 02/23/2017 Patient Education: Patient Medication Summary Completed 02/23/2017 Visit Diagnosis Plan: Cellulitis of right toe Discussi on: Clindamycin Notify if worsening Recheck 1 week Will return in AM for routine fasting lab ICD-9 : 681.10 ICD-10 : L03.031 02/21/2017 Appointment: Gunjan Lantigua WPtel: [address] [place] [address] ACUTE ILLNESS 02/21/2017 Patient Education: Patient Medication Summary Completed 02/21/2017 Patient Education: Patient Medication Summary Completed 12/13/2016 Visit Diagnosis Plan: Type 2 diabetes mellitus without complications Discussion: Check CMP, HbA1C Follow Up: 3 months ICD-9 : 250.00 ICD-10 : E11.9 08/31/2016 Visit Diagnosis Plan: Hypothyroidism, unspecified Disc ussion: Check TSH, Free T4 ICD-9 : 244.9 ICD-10 : E03.9 08/31/2016 Visit Diagnosis Plan: Essential (primary) hypertension Discussion: Decrease lisinopril hct to 10/12.5mg 1/2 po daily ICD-9 : 401.9 ICD-10 : I10 08/31/2016 Appointment: Gunjan Lantigua WPtel: [address] [place] [address] [place] CHECK UP 08/31/2016 Patient Education: Patient Medication Summary Completed 08/31/2016 Visit Diagnosis Plan: Zoster without complications Dis cussion: Rash and symptoms appear consistent with shingles Rx as above Supportive care reviewed Can add gabapentin if pain not controlled Discussed contagious precautions Follow up PRN ICD-9 : 053.9 ICD-10 : B02.9 08/02/2016 Appointment: Ernestina Tomas [address] [place] [address] ACUTE ILLNESS 08/02/2016 Patient Education: Patient Medication Summary Completed 08/02/2016 Patient Education: Patient Medication Summary Completed 05/17/2016 Appointment: Gunjan Lantigua WPtel: [address] [place] [address] [place] LAB 01/25/2016 Patient Education: Patient Medication Summary Completed 01/25/2016 Appointment: Gunjan Lantigua WPtel: [address] [place], [place] [phone] [place] LAB 01/05/2016 Patient Education: Patient Medication Summary Completed 01/05/2016 Visit Plan: Check CMP, CBC, TSH, free T4 , B12, uric acid, HbA1C, Lipids Use topical selsun blue to posterior left ear Continue off of neurontin Accuchecks daily 01/04/2016 Appointment: Gunjan Lantigua WPtel: [address] [place], [place] [phone] 01/02 lm~sl 01/03 lm~sl FOLLOW UP 01/04/2016 Patient Education: Patient Medication Summary Completed 01/04/2016 Appointment: Gunjan Lantigua WPtel: [address] [place], [place] [phone] RESCHEDULED 12/16/2015 Visit Plan: Finish acyclovir as ordered Discussed shingles vaccine - she will check with insurance if covered yet - per Dr Lantigua wait 6 months to vaccinate Advised healthy grieving and stress reduction Offered assistance with paperwork(FMLA) or work note if needed - patient declines at this time 11/15/2015 Appointment: Ernestina Tomas [address] [place], [place] [id number] 11/11 confirmed~sl FOLLOW UP 11/15/2015 Patient Education: Patient Medication Summary Completed 11/15/2015 Visit Plan: Sore to right foot is now ap pearing more ulcerative in nature Is not progressing in healing process Will refer over to wound care for further management since she is not able to get into her dramatic coach promptly Appt made for Sunday at 2:00 09/24/2015 Appointment: Ernestina Tomas [address] [place], [place] [phone] FOLLOW UP 09/24/2015 Patient Education: Patient Medication Summary Completed 09/24/2015 Visit Plan: Foot does appear some improv ed Work harder at getting epsom salt soaks in Continue clinda and other wound care Monitor closely Follow up if stops improving or if worsens 09/15/2015 Appointment: Ernestina Tomas [address] [place], [place] [phone] 09/13 confirmed~sl FOLLOW UP 09/15/2015 Patient Education: Patient Medication Summary Completed 09/15/2015 Visit Plan: Patient requesting to be agg ressive due to history of infections 1 Gram of Rocephin given Clindamycin rx as above Has topical bactroban at home Epsom salt soaks and elevate Keep DYLAN when possible Recheck in 48 hours 09/13/2015 Appointment: Ernestina Tomas [address] [place], [place] [phone] ACUTE ILLNESS 09/13/2015 Patient Education: Patient Medication Summary Completed 09/13/2015 Visit Plan: Lab discussed Accuchecks herson ly Gabapentin 300mg q HS Going to start training 08/19/2015 Appointment: Gunjan Lantigua WPtel: [address] [place], [place] [phone] 08/09 lm-sp 08/10 confirmed-sp RESCHEDULED Patient Education: Patient Medication Summary Completed 08/19/2015 Appointment: Gunjan Lantigua WPtel: [address] [place], [place] [phone] [place] LAB 08/17/2015 Patient Education: Patient Medication Summary Completed 08/17/2015 Appointment: Gunjan Lantigua WPtel: [address] [place], [place] [phone] US FOLLOW UP 07/26/2015 Visit Plan: Lab discussed Sees Podiatry tomorrow Add potassium micro-K 8meq daily and magnesium 400mg daily Call in 1month 07/13/2015 Appointment: Gunjan Lantigua WPtel: [address] [place], [place] [phone] [place] 07/12 confirmed~lb FOLLOW UP 07/13/2015 Patient Education: Patient Medication Summary Completed 07/13/2015 Appointment: Gunjan Lantigua WPtel: [address] [place], [place] [id number] [place] LAB 07/01/2015 Patient Education: Patient Medication Summary Completed 07/01/2015 Patient Education: Patient Medication Summary Completed 04/27/2015 Visit Plan: Lab discussed Continue curre nt meds and add back fish oil 3gram daily Accuchecks daily Recheck in 4mos Fwup with podiatry on right foot 03/29/2015 Appointment: Gunjan Lantigua WPtel: [address] [place], [place] [phone] [place] 03/26 left message~lb...03/26 confirmed~lb 03/29/15 appt mraio irwin cn FOLLOW UP 03/29/2015 Patient Education: Patient Medication Summary Completed 03/29/2015 Appointment: Gunjan Lantigua WPtel: [address] [place], [place] [phone] [place] LAB 03/24/2015 Patient Education: Patient Medication Summary Completed 03/24/2015 Visit Plan: Sees podiatry next week and going to have to have right foot surgery Continue current meds Finish antibiotics Will check lab and fwup at end of February or first part of 11/26/2014 Appointment: Gunjan Lantigua WPtel: [address] [place], [place] [address] US FOLLOW UP 11/26/2014 Patient Education: Patient Medication Summary Completed 11/26/2014 Visit Plan: Routine fasting labs today. CBC, CMP, TSH, Free T4, Lipid Panel, HgbA1C, Uric Acid Continue warm foot soaks and application of Mupirocin bid Complete Clindamycin Appt. with Dr. Mary - Sunday. 11/19/2014 Appointment: Yissel Herman WPtel: [address] [place] [address] 11/18 appt confirmed FOLLOW UP 11/19/2014 Patient Education: Patient Medication Summary Completed 11/19/2014 Visit Plan: Wear open toed shoes to avoi d pressure on toe Foot soaks BID x 20 min. Mupirocin topical to affected area of toe BID Follow-up on Recommended increasing Probiotic to BID while on antibiotc Will make appt for follow-up with Dr. Mary concerning foot deformity 11/16/2014 Appointment: Yissel Herman WPtel: [address] [place] [address] ACUTE ILLNESS 11/16/2014 Patient Education: Patient Medication Summary Completed 11/16/2014 Appointment: Yissel Herman WPtel: [address] [place] [address] ACUTE ILLNESS 10/09/2014 Patient Education: Patient Medication Summary Completed 10/09/2014 Visit Plan: Labs discussed Stop Metformi n Accuchecks daily alternating times Discussed Saxenda Recheck HbA1C in 3mos 08/20/2014 Appointment: Gunjan Lantigua WPtel: [address] [place], [place] [address] US FOLLOW UP 08/20/2014 Patient Education: Patient Medication Summary Completed 08/20/2014 Appointment: Gunjan Lantigua WPtel: [address] [place], [place] [id number] [place] LAB 08/17/2014 Patient Education: Patient Medication Summary Completed 08/17/2014 Appointment: Gunjan Lantigua WPtel: [address] [place], [place] [phone] US LAB 04/28/2014 Patient Education: Patient Medication Summary Completed 04/28/2014 Visit Plan: Patient will return next wee k for fasting lab Decrease Toprol XL to 25mg daily and moniter BP Pt sees podiatry next week 04/23/2014 Appointment: Gunjan Lantigua WPtel: [address] [place] [address] FOLLOW UP 04/23/2014 Patient Education: Patient Medication Summary Completed 04/23/2014 Appointment: Gunjan Lantigua WPtel: [address] [place] [address] FOLLOW UP 02/19/2014 Patient Education: Patient Medication Summary Completed 02/19/2014 Appointment: Yissel Herman WPtel: [address] [place] [address] ACUTE ILLNESS 02/12/2014 Patient Education: Patient Medication Summary Completed 02/12/2014 Visit Plan: Clear liquids--litle sips at a time, notify if worsens or persists and phenergan to use prn Labs discussed Cont off metformin and moniter BS Fenofibrate 12/25/2013 Appointment: Gunjan Lantigua WPtel: [address] [place], [place] [phone] 12/24 vm PAP 12/25/2013 Patient Education: Patient Medication Summary Completed 12/25/2013 Appointment: Gunjan Lantigua WPtel: [address] [place], [place] [phone] ACUTE ILLNESS 12/23/2013 Patient Education: Patient Medication Summary Completed 12/23/2013 Visit Plan: Lab discussed--continue curr ent meds Continue accuchecks Defers chol meds--will add fish oil 3gm daily Will go for 2nd opinion on left ankle/foot 08/27/2013 Appointment: Gunjan Lantiguatel: [address] [place], [place] [phone] [place] FOLLOW UP 08/27/2013 Patient Education: Patient Medication Summary Completed 08/27/2013 Appointment: Gunjan Lantigua WPtel: [address] [place], [place] [phone] US LAB 08/18/2013 Patient Education: Patient Medication Summary Completed 08/18/2013 Appointment: Gunjan Lantigua WPtel: [address] [place], [place] [phone] US LAB 05/01/2013 Patient Education: Patient Medication Summary Completed 05/01/2013 Visit Plan: See ophtalmalogy for removal of right eye cyst Discussed podiatry consult Will return later this week or next for fasting lab 04/30/2013 Appointment: Gunjan Lantigua WPtel: [address] [place], [place] [phone] US FOLLOW UP 04/30/2013 Patient Education: Patient Medication Summary Completed 04/30/2013 Appointment: Gunjan Lantiguatel: [address] [place], [place] [phone] WT CHECK 03/04/2013 Patient Education: Patient Medication Summary Completed 03/04/2013 Visit Plan: Lab discussed Continue accuc hecks Continue current meds and phenteramine for next 3mos 01/30/2013 Appointment: Gunjan Lantigua WPtel: [address] [place], [place] [phone] US FOLLOW UP 01/30/2013 Patient Education: Patient Medication Summary Completed 01/30/2013 Appointment: Gunjan Lantigua WPtel: [address] [place], [place] [phone] US LAB 01/27/2013 Patient Education: Patient Medication Summary Completed 01/27/2013 Visit Plan: Continue increase dose of fl uoxetine Trial of enablex Keep metformin at 750mg daily with accuchecks Trial of phenteramine in 1mo Mammogram scheduled 11/28/2012 Appointment: Gunjan Lantiguatel: [address] [place], [place] [address] FOLLOW UP 11/28/2012 Patient Education: Patient Medication Summary Completed 11/28/2012 Visit Plan: Aircast to left ankle for 1m ore week then ankle brace for 2wks then prn Increase fluoxetine to 40mg daily Injection to shoulder as above Increase metforminER to 1000mg daily Trial of Enablex 15mg q HS Continue benadryl and 3 days of prednisone for both rash and shoulder 10/31/2012 Appointment: Gunjan Lantigua WPtel: [address] [place] [address] FOLLOW UP 10/31/2012 Patient Education: Patient Medication Summary Completed 10/31/2012 Appointment: Gunjan Lantigua WPtel: [address] [place] [address] LAB 10/28/2012 Patient Education: Patient Medication Summary Completed 10/28/2012 Visit Plan: DC cymbalta and start fluoxe tyesha Discussed likely diabetic neuropathy Aircast to left ankle Restart Lamisil 10/03/2012 Appointment: Gunjan Lantigua WPtel: [address] [place], [place] [address] FOLLOW UP 10/03/2012 Patient Education: Patient Medication Summary Completed 10/03/2012 Appointment: Gunjan Lantigua WPtel: [address] [place], [place] [phone] [place] INJECTION 07/19/2012 Patient Education: Patient Medication Summary Completed 07/19/2012 Appointment: Gunjan Lantigua WPtel: [address] [place], [place] [address] 07/15 patient notified to call office be fore coming to appt to make sure clinic is not closed due to weather FOLLOW UP 06/22 Patient Education: Patient Medication Summary Completed 07/18/2012 Appointment: Chloe Pak WPtel: [address] [place], [place] [phone] ACUTE ILLNESS 06/12/2012 Patient Education: Patient Medication Summary Completed 06/12/2012 Visit Plan: Lamisil for 3mos LFTs in 6wk s Fwup 3mos Discussed diabetic shoes vs wide-toed shoes 04/24/2012 Appointment: Gunjan Lantigua WPtel: [address] [place] [address] ACUTE ILLNESS 04/24/2012 Patient Education: Patient Medication Summary Completed 04/24/2012 Visit Plan: Check HbA1C, CBC, CMP, Lipid s, TSH, Free T4 Discussed possibility of carpal tunnel--will start with wrist splints Decrease lisinopril hct 20/25mg to 1/2 tablet daily 03/07/2012 Appointment: Gunjan Lantigua WPtel: [address] [place] [address] 03/06 number no longer FOLLOW UP 2 Patient Education: Patient Medication Summary Completed 03/07/2012 Visit Plan: Decrease metformin to 250mg daily Continue accuchecks Change HCTZ to lisinopril hct Discussed lap-band procedure--pt has tried numerous diets in past with little success 11/08/2011 Appointment: Gunjan Lantigua WPtel: [address] [place], [place] [phone] FOLLOW UP 11/08/2011 Patient Education: Patient Medication Summary Completed 11/08/2011 Appointment: Gunjan Lantigua WPtel: [address] [place], [place] [phone] US LAB 11/01/2011 Patient Education: Patient Medication Summary Completed 11/01/2011 Visit Plan: Continue current meds Long d iscussion about diet/exercise and weight loss Check CMP, HbA1C in 3mos 07/31/2011 Appointment: Gunjan Lantigua WPtel: [address] [place], [place] [phone] [place] FOLLOW UP 07/31/2011 Patient Education: Patient Medication Summary Completed 07/31/2011 Visit Plan: Decrease Metformin to 500mg po daily Glucometer to do spot checks Start Metanx 1 po BID 04/27/2011 Appointment: Gunjan Lantigua WPtel: [address] [place] [address] FOLLOW UP 04/27/2011 Patient Education: Patient Medication Summary Completed 04/27/2011 Appointment: Gunjan Lantigua WPtel: [address] [place] [phone] [place] LAB 04/26/2011 Patient Education: Patient Medication Summary Completed 04/26/2011 Appointment: Gunjan Lantigua WPtel: [address] [place] [address] LAB 01/30/2011 Patient Education: Patient Medication Summary Completed 01/30/2011 Visit Plan: Neuropathy of both feet to m id foot. Labs: (fasting labs: CBC, CMP, insulin and sed rate, TSH, Free T4). Discussed that if all labs are normal we will consider further studies. (EMG etc) 01/27/2011 Appointment: Chloe Pak WPtel: [address] [place] [address] ACUTE ILLNESS 01/27/2011 Patient Education: Patient Medication Summary Completed 01/27/2011 Appointment: Chloe Pak WPtel: [address] [place] [address] PAP 10/31/2010 Patient Education: Patient Medication Summary Completed 10/31/2010 Visit Plan: Cont flexeril plus daily str etches Discussed if arm pain continues will need MRI of cervical spine Pt will return in October for annual with lab 09/15/2010 Appointment: Gunjan Lantigua WPtel: [address] [place] [address] FOLLOW UP 09/15/2010 Patient Education: Patient Medication Summary Completed 09/15/2010 Visit Plan: Pt reports seeing Dr. Savannah onofre in [facility].(Chiropractor) Discussed use of heat, stretches. Pt. will come in for re-eval next week. Will schedule for PAP /well woman in October. Pt. is allergic to Naproxen sodium. 09/08/2010 Appointment: Chloe Pak WPtel: [phone] [id number] NEW PATIENT 09/08/2010 Patient Education: Patient Medication Summary Completed 09/08/2010 Ref[facility]: [facility] [phone] [id number] [facility] Appointment Requested Instructions Comment . Check CMP, CBC, TSH, free T4, B12, uri c acid, HbA1C, Lipids Use topical selsun blue to posterior left ear Continue off of neurontin Accuchecks daily . Finish acyclovir as ordered Discussed shingles vaccine - she will check with insurance if covered yet - per Dr Lantigua wait 6 months to vaccinate Advised healthy grieving and stress reduction Offered assistance with paperwork(FMLA) or work note if needed - patient declines at this time . Sore to right foot is now appearing mo re ulcerative in nature Is not progressing in healing process Will refer over to wound care for further management since she is not able to get into her dramatic coach promptly Appt made for Sunday at 2:00 . Foot does appear some improved Work harder at getting epsom salt soaks in Continue clinda and other wound care Monitor closely Follow up if stops improving or if worsens . Patient requesting to be aggressive du e to history of infections 1 Gram of Rocephin given Clindamycin rx as above Has topical bactroban at home Epsom salt soaks and elevate Keep DYLAN when possible Recheck in 48 hours . Lab discussed Accuchecks daily Gabapentin 300mg q HS Going to start training . Lab discussed Sees Podiatry tomorrow Add potassium micro-K 8meq daily and magnesium 400mg daily Call in 1month . Lab discussed Continue current meds and add back fish oil 3gram daily Accuchecks daily Recheck in 4mos Fwup with podiatry on right foot . Sees podiatry next week and going to [facility] to have right foot surgery Continue current meds Finish antibiotics Will check lab and fwup at end of February or first part of March . Routine fasting labs today. CBC, CMP, TSH, Free T4, Lipid Panel, HgbA1C, Uric Acid Continue warm foot soaks and application of Mupirocin bid Complete Clindamycin Appt. with Dr. Mary - Sunday. . Wear open toed shoes to avoid pressure on toe Foot soaks BID x 20 min. Mupirocin topical to affected area of toe BID Follow-up on Recommended increasing Probiotic to BID while on antibiotc Will make appt for follow-up with Dr. Mary concerning foot deformity . Labs discussed Stop Metformin Accuchecks daily alternating times Discussed Saxenda Recheck HbA1C in 3mos . Patient will return next week for fast ing lab Decrease Toprol XL to 25mg daily and moniter BP Pt sees podiatry next week . Clear liquids--litle sips at a time, n otify if worsens or persists and phenergan to use prn Labs discussed Cont off metformin and moniter BS Fenofibrate . Lab discussed--continue current meds Continue accuchecks Defers chol meds--will add fish oil 3gm daily Will go for 2nd opinion on left ankle/foot . See ophtalmalogy for removal of right eye cyst Discussed podiatry consult Will return later this week or next for fasting lab . Lab discussed Continue accuchecks Continue current meds and phenteramine for next 3mos . Continue increase dose of fluoxetine Trial of enablex Keep metformin at 750mg daily with accuchecks Trial of phenteramine in 1mo Mammogram scheduled . Aircast to left ankle for 1more week t hen ankle brace for 2wks then prn Increase fluoxetine to 40mg daily Injection to shoulder as above Increase metforminER to 1000mg daily Trial of Enablex 15mg q HS Continue benadryl and 3 days of prednisone for both rash and shoulder . DC cymbalta and start fluoxetine Discussed likely diabetic neuropathy Aircast to left ankle Restart Lamisil Patient's toe looks better. There is les s redness and no puss coming out she says.. . Lamisil for 3mos LFTs in 6wks Fwup 3mos Discussed diabetic shoes vs wide-toed shoes Positive tinels, phalens bilaterally and negative reverse phalens. Check HbA1C, CBC, CMP, Lipids, TSH, Free T4 Discussed possibility of carpal tunnel--will start with wrist splints Decrease lisinopril hct 20/25mg to 1/2 tablet daily . Decrease metformin to 250mg daily Continue accuchecks Change HCTZ to lisinopril hct Discussed lap-band procedure--pt has tried numerous diets in past with little success . Continue current meds Long discussion about diet/exercise and weight loss Check CMP, HbA1C in 3mos . Decrease Metformin to 500mg po daily Glucometer to do spot checks Start Metanx 1 po BID . Neuropathy of both feet to mid foot. L abs: (fasting labs: CBC, CMP, insulin and sed rate, TSH, Free T4). Discussed that if all labs are normal we will consider further studies. (EMG etc) . Cont flexeril plus daily stretches Discussed if arm pain continues will need MRI of cervical spine Pt will return in October for annual with lab . Pt reports seeing Dr. Bartlett in [facility].(Chiropractor) Discussed use of heat, stretches. Pt. will come in for re-eval next week. Will schedule for PAP /well woman in October. Pt. is allergic to Naproxen sodium. Medical Equipment No Medical Equipment data Health Concerns Section Health Concerns data not found Goals Section Goals data not found Interventions Section Interventions data not found Health Status Evaluations/Outcomes Section Health Status Evaluations/Outcomes data not found Advance Directives No Advance Directive data
--- OUTSIDE RECORDS SUMMARY | 2019-05-18 21:43 | XMS REPORT ---
Author Author Yecenia Blakely Doctor Organization [facility] Address Unknown Phone Unavailable Care Team Providers Care Orthotic/Prosthetic Clinician Name Role Phone Migration, Doctor Unavailable Unavailable PROBLEMS Type Condition ICD9-CM Code [id number] Code Onset Dates Condition S tatus SNOMED Code Problem Screening examination for pulmonary tuberculosis V74.1 Active 907730703 Problem Need for prophylactic vaccination and inoculation, Influen za V04.81 Active 752369411 Problem Screening for hypertension V81.1 Act toribio [id number] ALLERGIES Substance Reaction Event Type Date Status Naproxen Unknown Drug Allergy Aug, Active ENCOUNTERS Encounter Location Date Diagnosis [facility] [id number] [place] [phone] Feb, Encounter for immunization Z 23 [facility] [address] [facility] [id number] [place] [id number] September, Ulcer of right foot, limited to breakdown of skin L97.511 [facility] [address] [facility] [id number] [address] [place] [id number] Feb, Encounter for immunization Z 23 [facility] [address] [facility] [id number] [address] [place] [id number] Aug, [facility] [address] [facility] [id number] [address] [place] [phone] Aug, [facility] [address] [facility] [id number] [address] [place] [id number] Jun, [facility] [address] [facility] [id number] [address] [place] [phone] Jun, [facility] [address] [facility] [id number] [address] [place] [phone] Feb, [facility] [address] [place] [id number] [address] [place] [phone] Feb, [facility] [address] [facility] [id number] [address] [place] [phone] Mar, [facility] [address] [facility] [id number] [address] [place] [phone] Mar, [facility] [address] [facility] [id number] [address] [place] [phone] Feb, [facility] [address] [facility] [id number] [address] [place] [phone] Feb, IMMUNIZATIONS No Known Immunizations SOCIAL HISTORY Never Assessed [place] [place] VITAL SIGNS MEDICATIONS Medication Instructions Dosage Frequency Start Date End Date Duration S tatus Metoprolol Tartrate by Oral route Mar, Active levothyroxine by Oral route Mar, Active Estradiol by Oral route Mar, Act toribio Cymbalta by Oral route Mar, Acti ve Lisinopril by Oral route Mar, Ac tive RESULTS No Results PROCEDURES No Known procedures INSTRUCTIONS MEDICATIONS ADMINISTERED No Known Medications MEDICAL (GENERAL) HISTORY Type Description Date Medical History Charcot foot Surgical History numerous foot surgeries
--- OUTSIDE RECORDS SUMMARY | 2019-05-18 21:43 | XMS REPORT ---
Author Author Yecenia Black Organization [facility] Address [address] [place] [address] Care Team Providers Care Underwriter Solicitation Director Name Role Phone SHEILA Black Unavailable PROBLEMS Type Condition ICD9-CM Code [id number] Code Onset Dates Condition S tatus SNOMED Code Problem Screening examination for pulmonary tuberculosis V74.1 Active 492830749 Problem Need for prophylactic vaccination and inoculation, Influen za V04.81 Active 817177015 Problem Screening for hypertension V81.1 Act toribio [id number] ALLERGIES No Information ENCOUNTERS Encounter Location Date Diagnosis [facility] [id number] [place] [phone] Feb, Encounter for immunization Z 23 [facility] [address] [place] [id number] [place] [phone] September, Ulcer of right foot, limited to breakdown of skin L97.511 [facility] [address] [place] [id number] [place] [phone] Feb, Encounter for immunization Z 23 [facility] [address] [facility] [id number] [address] [place] [phone] Aug, [facility] [address] [place] [id number] [place] [phone] Aug, [facility] [address] [place] [id number] [place] [phone] Jun, [facility] [address] [place] [id number] [place] [phone] Jun, [facility] [address] [place] [id number] [place] [phone] Feb, [facility] [address] [place] [id number] [place] [phone] Feb, [facility] [address] [facility] [id number] [address] [place] [phone] Mar, [facility] [address] [facility] [id number] [address] [place] [phone] Mar, [facility] [address] [facility] [id number] [address] [place] [phone] Feb, [facility] [address] [facility] [id number] [address] [place] [phone] Feb, IMMUNIZATIONS No Known Immunizations SOCIAL HISTORY Never Assessed REASON FOR VISIT PLAN OF CARE VITAL SIGNS MEDICATIONS Unknown Medications RESULTS No Results PROCEDURES No Known procedures INSTRUCTIONS MEDICATIONS ADMINISTERED No Known Medications MEDICAL (GENERAL) HISTORY Type Description Date Medical History Charcot foot Surgical History numerous foot surgeries
--- OUTSIDE RECORDS SUMMARY | 2019-05-18 21:43 | XMS REPORT | CCD ---
Author Author Yecenia Lantigua D.O. Organization GUNJAN LANTIGUA [facility] Address [facility] [place] [address] Phone Care Team Providers Care Photonics Technician Name Role Phone Gunjan Lantigua D.O., PP Unavailable CCM Unavailable Summary Purpose Interface Exchange Insurance Providers Payer name Policy type / Coverage type Covered democrat ID Effective Begin Date Effective End Date [facility] [employer] [id number] Unknown Family history Father Diagnosis Age At Onset Parkinson's disease Unknown Grandmother Diagnosis Age At Onset Hypertension Unknown Congestive heart failure Unknown Social History Social History Element Codes Description Effective Dates Marital status Unknown M arried 04/27/2011 Number of children Unknown 3 04/27/[address]: 4618366 Former smoker quit 20years ago 04/27/2011 Allergies, Adverse Reactions, Alerts Substance Reaction Codes Entered Date Inactivated Date Status _ Unknown 09/08/2010 No Inactive Date Active SULFA (SULFONAMIDES) Unknown 02/19/2014 No Inactive Date Active Past Medical History Illness Codes Condition Status Onset Date Resolved Date Essential (primary) hypertension ICD-9: 401.9 ICD-10: I10 Active 12/23/2013 Unknown Hypothyroidism, unsp ecified ICD-9: 244.9 ICD-10: E03.9 Active 12/23/2013 Unknown Mixed hyperlipidemia ICD-9: 272.4 ICD-10: E78.2 Active 12/23/2013 Unknown Type 2 diabetes osmar itus with diabetic neuropathy, unspecified ICD-9: 250.60 ICD-10: E11.40 Active 01/04/2016 Unknown Other fatigue ICD-9: 780.79 ICD-10: R53.83 Active 10/11/2018 Unknown Type 2 diabetes osmar itus without complications ICD-9: 250.00 ICD-10: E11.9 Active 12/23/2013 Unknown Irritant contact crow matitis due to plants, except food ICD-9: 692.6 ICD-10: L24.7 Active 09/13/2018 Unknown Charcot's joint, lef t ankle and foot ICD-9: 094.0 ICD-10: M14.672 Active 01/03/2018 Unknown Charcot's joint, rig ht ankle and foot ICD-9: 094.0 ICD-10: M14.671 Active 01/03/2018 Unknown Other specified prob lems related to primary support group ICD-9: V61.8 ICD-10: Z63.8 Active 04/08/2018 Unknown Pain in right shoulder ICD-9: 719.41 ICD-10: M25.511 Active 04/08/2018 Unknown Other allergic rhinitis ICD-9: 477.8 ICD-10: J30.89 Active 03/04/2018 Unknown Unspecified open wou nd, right foot, sequela ICD-9: 906.1 ICD-10: S91.301S Active 09/23/2015 Unknown Cellulitis of left toe ICD-9: 681.10 ICD-10: L03.032 Active 09/10/2017 Unknown Urinary tract infect ion, site not specified ICD-9: 599.0 ICD-10: N39.0 Active 07/27/2017 Unknown Angina pectoris, uns pecified ICD-9: 786.50 ICD-10: I20.9 Active 06/06/2017 Unknown Anesthesia of skin ICD- 9: 782.0 ICD-10: R20.0 Active 06/04/2017 Unknown Cellulitis of right toe ICD-9: 681.10 ICD-10: L03.031 Active 02/21/2017 Unknown Other abnormal and i nconclusive findings on diagnostic imaging of breast ICD-9: 793.80 ICD-10: R92.8 Active 12/13/[address] atus ICD-9: V45.86 ICD-10: Z98.84 Active 08/31/2016 Unknown Zoster without compl ications ICD-9: 053.9 ICD-10: B02.9 Active 11/14/2015 Unknown Encounter for screen ing mammogram for malignant neoplasm of breast ICD-9: V76.11 ICD-10: Z12.31 Active 05/16/2016 Unknown Acute stress reaction ICD-9: 308.3 ICD-10: F43.0 Active 11/14/2015 Unknown Cellulitis of right lower limb ICD-9: 682.7 ICD-10: L03.115 Active 09/23/2015 Unknown Cramp and spasm ICD-9: 729.82 ICD-10: R25.2 Active 07/12/2015 Unknown Charcot's joint of f oot, non-diabetic ICD-9: 094.0 Active 12/2014 Unknown Cellulitis of toe of right foot ICD-9: 681.10 Active Unknown ONYCHOMYCOSIS ICD-9: 110.1 Active 04/24/2012 Unknown Valgus deformity of foot ICD-9: 736.79 Active Unknown Epigastric abdominal pain ICD-9: 789.06 Active Unknown Thoracic back pain ICD- 9: 724.1 Active 10/09/2014 Unknown DM W/O COMPLICATION TYPE II, UNCONTROLLED ICD-9: 250.02 Active 04/28/2014 Unknown CELLULITIS ICD-9: 682.9 Active 02/12/2014 Unknow n Edema of lower extre mity ICD-9: 782.3 Active 01/20 Unknown SKIN SENSATION DISTURB ICD-9: 782.0 Active 02/12/2014 Unknown GASTROENTERITIS ICD-9: 558.9 Active 12/25/2013 Unknown DM W/O COMPLICATION TYPE II ICD-9: 250.00 Active 09/2013 Unknown HYPERLIPIDEMIA NEC/NOS ICD-9: 272.4 Active 12/23/2013 Unknown HYPERTENSION ICD-9: 401.9 Active 12/23/2013 Unknown HYPOTHYROIDISM ICD-9: 244.9 Active 12/23/2013 Unknown ABNORMAL WEIGHT GAIN ICD-9: 783.1 Active 03/04/2013 Unknown DEPRESSIVE DISORDER NEC ICD-9: 311 Active 10/31/2012 Unknown Subacromial bursitis ICD-9: 726.19 Active 10/31/2012 Unknown Ankle pain, left ICD-9: 719.47 Active 06/12/2012 Unknown Medication therapy c ontinued ICD-9: V58.69 Active Unknown Stress incontinence ICD- 9: 625.6 Active 06/12/2012 Unknown Hyperglycemia ICD-9: 790.29 Active 04/26/2011 Unknown Neuropathy of foot ICD- 9: 355.8 Active 01/27/2011 Unknown ROUTINE GYNE EXAM ICD-9: V72.31 Active 10/31/2010 Unknown ROUTINE MEDICAL EXAM ICD-9: V70.0 Active 10/31/2010 Unknown SPASM OF MUSCLE ICD-9: 728.85 Active 09/15/2010 Unknown Allergic rhinitis Unknown Active 09/08/2010 Unknown Depression Unknown Active 09/08/2010 Unknow n Hypertension Unknown Active 09/08/2010 Unknow n Hypothyroid Unknown Active 09/08/2010 Unknow n Neck pain, musculosk eletal ICD-9: 723.1 Active 08/20 Unknown Problems Condition Codes Effectiv e Dates Condition Status Essential (primary) hypertension ICD-9: 401.9 ICD-10: I10 12/23/2013 Active Hypothyroidism, unsp ecified ICD-9: 244.9 ICD-10: E03.9 12/23/2013 Active Mixed hyperlipidemia ICD-9: 272.4 ICD-10: E78.2 12/23/2013 Active Type 2 diabetes osmar itus with diabetic neuropathy, unspecified ICD-9: 250.60 ICD-10: E11.40 01/04/2016 Active Other fatigue ICD-9: 780.79 ICD-10: R53.83 10/11/2018 Active Type 2 diabetes osmar itus without complications ICD-9: 250.00 ICD-10: E11.9 12/23/2013 Active Irritant contact crow matitis due to plants, except food ICD-9: 692.6 ICD-10: L24.7 09/13/2018 Active Charcot's joint, lef t ankle and foot ICD-9: 094.0 ICD-10: M14.672 01/03/2018 Active Charcot's joint, rig ht ankle and foot ICD-9: 094.0 ICD-10: M14.671 01/03/2018 Active Other specified prob lems related to primary support group ICD-9: V61.8 ICD-10: Z63.8 04/08/2018 Active Pain in right shoulder ICD-9: 719.41 ICD-10: M25.511 04/08/2018 Active Other allergic rhinitis ICD-9: 477.8 ICD-10: J30.89 03/04/2018 Active Unspecified open wou nd, right foot, sequela ICD-9: 906.1 ICD-10: S91.301S 09/23/2015 Active Cellulitis of left toe ICD-9: 681.10 ICD-10: L03.032 09/10/2017 Active Urinary tract infect ion, site not specified ICD-9: 599.0 ICD-10: N39.0 07/27/2017 Active Angina pectoris, uns pecified ICD-9: 786.50 ICD-10: I20.9 06/06/2017 Active Anesthesia of skin ICD- 9: 782.0 ICD-10: R20.0 06/04/2017 Active Cellulitis of right toe ICD-9: 681.10 ICD-10: L03.031 02/21/2017 Active Other abnormal and i nconclusive findings on diagnostic imaging of breast ICD-9: 793.80 ICD-10: R92.8 12/13/[address] atus ICD-9: V45.86 ICD-10: Z98.84 08/31/2016 Active Zoster without compl ications ICD-9: 053.9 ICD-10: B02.9 11/14/2015 Active Encounter for screen ing mammogram for malignant neoplasm of breast ICD-9: V76.11 ICD-10: Z12.31 05/16/2016 Active Acute stress reaction ICD-9: 308.3 ICD-10: F43.0 11/14/2015 Active Cellulitis of right lower limb ICD-9: 682.7 ICD-10: L03.115 09/23/2015 Active Cramp and spasm ICD-9: 729.82 ICD-10: R25.2 07/12/2015 Active Charcot's joint of f oot, non-diabetic ICD-9: 094.0 11/25/2014 Active Cellulitis of toe of right foot ICD-9: 681.10 11/15/2014 Active ONYCHOMYCOSIS ICD-9: 110.1 04/24/2012 Active Valgus deformity of foot ICD-9: 736.79 11/15/2014 Active Epigastric abdominal pain ICD-9: 789.06 10/09/2014 Active Thoracic back pain ICD- 9: 724.1 10/09/2014 Active DM W/O COMPLICATION TYPE II, UNCONTROLLED ICD-9: 250.02 04/28/2014 Active CELLULITIS ICD-9: 682.9 02/12/2014 Active Edema of lower extre mity ICD-9: 782.3 02/12/2014 Active SKIN SENSATION DISTURB ICD-9: 782.0 02/12/2014 Active GASTROENTERITIS ICD-9: 558.9 12/25/2013 Active DM W/O COMPLICATION TYPE II ICD-9: 250.00 12/23/2013 Active HYPERLIPIDEMIA NEC/NOS ICD-9: 272.4 12/23/2013 Active HYPERTENSION ICD-9: 401.9 12/23/2013 Active HYPOTHYROIDISM ICD-9: 244.9 12/23/2013 Active ABNORMAL WEIGHT GAIN ICD-9: 783.1 03/04/2013 Active DEPRESSIVE DISORDER NEC ICD-9: 311 10/31/2012 Active Subacromial bursitis ICD-9: 726.19 10/31/2012 Active Ankle pain, left ICD-9: 719.47 06/12/2012 Active Medication therapy c ontinued ICD-9: V58.69 06/12/2012 Active Stress incontinence ICD- 9: 625.6 06/12/2012 Active Hyperglycemia ICD-9: 790.29 04/26/2011 Active Neuropathy of foot ICD- 9: 355.8 01/27/2011 Active ROUTINE GYNE EXAM ICD-9: V72.31 10/31/2010 Active ROUTINE MEDICAL EXAM ICD-9: V70.0 10/31/2010 Active SPASM OF MUSCLE ICD-9: 728.85 09/15/2010 Active Allergic rhinitis Unknown 09/08/2010 Active Depression Unknown 09/08/2010 Active Hypertension Unknown 09/08/2010 Active Hypothyroid Unknown 09/08/2010 Active Neck pain, musculosk eletal ICD-9: 723.1 09/08/2010 Active Medications Medication Codes Instruc tions Start Date Stop Date Sta tus Fill Instructions potassium chloride E R 8 mEq tablet,extended release RxNorm: 986578 1 TABLET(S) PO QD 01/08/2019 04/07/2019 Ac tive estradiol 0.5 mg tablet RxNorm: 780772 Tablet(s) 1 TABLET(S) PO QD 12/09/2018 No Stop Date Active lisinopril 10 mg-hyd rochlorothiazide 12.5 mg tablet RxNorm: 629160 1/2 Tablet(s) PO QD 12/09/2018 06/06/2019 Active levothyroxine 75 mcg tablet RxNorm: 666105 1 Tablet(s) PO QD 11/08/2018 02/05/2019 Active [AttnRPh: Saving apply/adjudicate RxGRP: SG20 RxBIN:[id number] RxPCN: ID#:[id number]] fluoxetine 20 mg cap jose miguel RxNorm: 758164 3 Capsule(s) PO QD 2018 04/07/2019 Active fluoxetine 20 mg cap jose miguel RxNorm: 987771 3 Capsule(s) PO QD 2018 10/09/2018 Inactive diclofenac ER 100 mg tablet,extended release 24 hr RxNorm: 498483 1 Tablet(s) PO BID as needed for pain 10/02/2018 01/29/2019 Active potassium chloride E R 8 mEq tablet,extended release RxNorm: 154270 1 Tablet(s) PO QD 10/02/2018 12/30/2018 Inactive metoprolol succinate ER 25 mg tablet,extended release 24 hr RxNorm: 925271 1/2 Tablet(s) PO QD 09/13/2018 03/11/2019 Active prednisone 20 mg tablet RxNorm: 594870 Tablet(s) PO 1 tab TID for 3 days, 1 tab BID for 3 days, 1 tab daily for 3 days 09/13/2018 10/15/2018 Inactive fluoxetine 60 mg tablet RxNorm: 2055554 1 Tablet(s) PO QD REPLACES 40MG DOSE 09/03/2018 10/09/2018 In active levothyroxine 75 mcg tablet RxNorm: 952873 1 Tablet(s) PO QD 08/12/2018 11/08/2018 Inactive [AttnRPh: Saving apply/adjudicate RxGRP: SG20 RxBIN:[id number] RxPCN: ID#:[id number]] potassium chloride E R 8 mEq tablet,extended release RxNorm: 630000 TABLET(S) 1 TABLET(S) PO QD 08/06/2018 10/01/2018 Inactive Fish Oil 1,000 mg ca psule RxNorm: 1 Capsule(s) PO BID 07/16/2018 10/13/2018 Inactive atorvastatin 10 mg t ablet RxNorm: 924537 1 Tablet(s) PO QD 07/16/2018 10/13/2018 Inactive atorvastatin 10 mg t ablet RxNorm: 933010 1 Tablet(s) PO QD 07/16/2018 07/15/2018 Inactive fluoxetine 60 mg tablet RxNorm: 2834591 1 TABLET(S) PO QD REPLACES 40MG DOSE 06/13/2018 09/02/2018 In active lisinopril 10 mg-hyd rochlorothiazide 12.5 mg tablet RxNorm: 574457 TABLET(S) 1/2 TABLET(S) PO QD 06/13/2018 12/08/2018 Inactive levothyroxine 75 mcg tablet RxNorm: 264123 1 TABLET(S) PO QD 06/13/2018 08/12/2018 Inactive [AttnRPh: Saving apply/adjudicate RxGRP: SG20 RxBIN:[id number] RxPCN: ID#:[id number]] potassium chloride E R 8 mEq tablet,extended release RxNorm: 550150 TABLET(S) 1 TABLET(S) PO QD 05/30/2018 07/28/2018 Inactive estradiol 0.5 mg tablet RxNorm: 808320 1 TABLET(S) PO QD 05/30/2018 12/08/2018 Inactive fluoxetine 60 mg tablet RxNorm: 5216856 1 Tablet(s) PO QD replaces 40mg dose 04/08/2018 06/06/2018 In active levothyroxine 75 mcg tablet RxNorm: 329439 1 TABLET(S) PO QD 04/08/2018 06/06/2018 Inactive [AttnRPh: Saving apply/adjudicate RxGRP: SG20 RxBIN:[id number] RxPCN:HT ID#:[id number]] Voltaren 1 % topical gel RxNorm: 886925 2 Gram(s) TOP QID to right shoulder 04/08/2018 10/15/2018 In active potassium chloride E R 8 mEq tablet,extended release RxNorm: 601769 TABLET(S) 1 TABLET(S) PO QD 04/01/2018 05/29/2018 Inactive metoprolol succinate ER 25 mg tablet,extended release 24 hr RxNorm: 777413 1/2 TABLET(S) PO QD 03/07/2018 09/02/2018 Inactive lisinopril 10 mg-hyd rochlorothiazide 12.5 mg tablet RxNorm: 589806 TABLET(S) 1/2 TABLET(S) PO QD 03/07/2018 06/04/2018 Inactive estradiol 0.5 mg tablet RxNorm: 777716 1 TABLET(S) PO QD 03/04/2018 05/29/2018 Inactive potassium chloride E R 8 mEq tablet,extended release RxNorm: 275155 TABLET(S) 1 TABLET(S) PO QD 01/31/2018 03/31/2018 Inactive fluoxetine 40 mg cap jose miguel RxNorm: 711703 1 Capsule(s) PO QAM 01/17/2018 04/07/2018 Inactive levothyroxine 75 mcg tablet RxNorm: 857082 1 Tablet(s) PO QD 01/07/2018 04/06/2018 Inactive [AttnRPh: Saving apply/adjudicate RxGRP: SG20 RxBIN:[id number] RxPCN: ID#:[id number]] lisinopril 10 mg-hyd rochlorothiazide 12.5 mg tablet RxNorm: 280331 TABLET(S) 1/2 TABLET(S) PO QD 12/10/2017 03/06/2018 Inactive estradiol 0.5 mg tablet RxNorm: 168773 1 Tablet(s) PO QD 11/28/2017 03/03/2018 Inactive potassium chloride E R 8 mEq tablet,extended release RxNorm: 086367 Tablet(s) 1 TABLET(S) PO QD 11/02/2017 10/15/2018 Inactive potassium chloride E R 8 mEq tablet,extended release RxNorm: 983026 Tablet(s) 1 TABLET(S) PO QD 10/24/2017 11/01/2017 Inactive metoprolol succinate ER 25 mg tablet,extended release 24 hr RxNorm: 394635 1/2 Tablet(s) PO QD 10/03/2017 03/06/2018 Inactive levothyroxine 75 mcg tablet RxNorm: 088122 1 Tablet(s) PO QD 10/03/2017 01/07/2018 Inactive [AttnRPh: Saving apply/adjudicate RxGRP: SG20 RxBIN:[id number] RxPCN: ID#:[id number]] dicloxacillin 500 mg capsule RxNorm: 557130 1 Capsule(s) PO TID 09/26/2017 10/02/2017 Inactive diclofenac ER 100 mg tablet,extended release 24 hr RxNorm: 854234 1 Tablet(s) PO BID as needed for pain 09/19/2017 01/02/2018 Inactive potassium chloride E R 8 mEq tablet,extended release RxNorm: 811069 Tablet(s) 1 TABLET(S) PO QD 09/19/2017 10/24/2017 Inactive clindamycin HCl 300 mg capsule RxNorm: 737705 1 Capsule(s) PO TID 09/10/2017 09/16/2017 Inactive lisinopril 10 mg-hyd rochlorothiazide 12.5 mg tablet RxNorm: 846171 Tablet(s) 1/2 TABLET(S) PO QD 09/06/2017 12/04/2017 Inactive potassium chloride E R 8 mEq tablet,extended release RxNorm: 414697 1 TABLET(S) PO QD 08/17/2017 09/19/2017 Inactive levothyroxine 75 mcg tablet RxNorm: 451272 1 Tablet(s) PO QD 07/06/2017 10/03/2017 Inactive [AttnRPh: Saving apply/adjudicate RxGRP: SG20 RxBIN:[id number] RxPCN:HT ID#:[id number]] fluoxetine 40 mg cap jose miguel RxNorm: 406310 1 Capsule(s) PO QAM 07/06/2017 01/17/2018 Inactive lisinopril 10 mg-hyd rochlorothiazide 12.5 mg tablet RxNorm: 993085 1/2 TABLET(S) PO QD 05/31/2017 09/06/2017 Inactive potassium chloride E R 8 mEq tablet,extended release RxNorm: 607510 1 Tablet(s) PO QD 05/08/2017 08/05/2017 Inactive metoprolol succinate ER 25 mg tablet,extended release 24 hr RxNorm: 615509 1/2 Tablet(s) PO QD 04/05/2017 10/03/2017 Inactive levothyroxine 75 mcg tablet RxNorm: 140580 1 Tablet(s) PO QD 04/05/2017 07/06/2017 Inactive [AttnRPh: Saving apply/adjudicate RxGRP: SG20 RxBIN:[id number] RxPCN:HT ID#:[id number]] potassium chloride E R 8 mEq tablet,extended release RxNorm: 294538 1 Tablet(s) PO QD 03/05/2017 05/08/2017 Inactive Diflucan 100 mg tablet RxNorm: 563571 1 Tablet(s) PO QD 02/21/2017 02/27/2017 Inactive clindamycin 300 mg c apsule RxNorm: 381220 2 Capsule(s) PO TID 02/21/2017 03/02/2017 Inactive fluoxetine 40 mg cap jose miguel RxNorm: 861274 1 Capsule(s) PO QAM 01/11/2017 07/06/2017 Inactive levothyroxine 75 mcg tablet RxNorm: 981072 1 Tablet(s) PO QD 12/29/2016 04/05/2017 Inactive [AttnRPh: Saving apply/adjudicate RxGRP: SG20 RxBIN:[id number] RxPCN:HT ID#:[id number]] levothyroxine 75 mcg tablet RxNorm: 046360 1 Tablet(s) PO QD 10/02/2016 12/29/2016 Inactive [AttnRPh: Saving apply/adjudicate RxGRP: SG20 RxBIN:[id number] RxPCN:HT ID#:[id number]] lisinopril 10 mg-hyd rochlorothiazide 12.5 mg tablet RxNorm: 787447 1/2 Tablet(s) PO QD 08/31/2016 02/26/2017 Inactive metoprolol succinate ER 25 mg tablet,extended release 24 hr RxNorm: 686363 1/2 Tablet(s) PO QD 08/31/2016 04/05/2017 Inactive estradiol 2 mg tablet RxNorm: 102174 1 Tablet(s) PO QD 08/08/2016 01/29/2017 Inactive [SAVINGS FOR UNINSURED PATIENTS -- BIN:[id number], PCN: [id number], Group: [id number], ID# [id number], Process claim through [facility], for questions: . THIS IS NOT INSURANCE.] Valtrex 1 gram tablet RxNorm: 493904 1 Tablet(s) PO TID 08/02/2016 08/08/2016 Inactive levothyroxine 75 mcg tablet RxNorm: 951433 1 TABLET(S) PO QD -NE ED LABS 06/26/2016 10/02/2016 In active [AttnRPh: Saving apply/adjudicate RxGRP: SG20 RxBIN:[id number] RxPCN:HT ID#:[id number]] metoprolol succinate ER 50 mg tablet,extended release 24 hr RxNorm: 774102 TAKE 1 TABLET BY MOUTH EVERY DAY 05/29/2016 09/09/2017 Inactive levothyroxine 75 mcg tablet RxNorm: 682924 1 TABLET(S) PO QD -NE ED LABS 03/16/2016 06/13/2016 In active [AttnRPh: Saving apply/adjudicate RxGRP: SG20 RxBIN:[id number] RxPCN: ID#:[id number]] potassium chloride E R 8 mEq tablet,extended release RxNorm: 463973 1 TABLET(S) PO QD 03/13/2016 03/05/2017 Inactive fluoxetine 40 mg cap jose miguel RxNorm: 592426 1 CAPSULE(S) PO QAM 02/16/2016 01/10/2017 Inactive diclofenac ER 100 mg tablet,extended release 24 hr RxNorm: 103273 1 Tablet(s) PO BID as needed for pain 02/02/2016 09/19/2017 Inactive estradiol 2 mg tablet RxNorm: 061441 1 Tablet(s) PO QD 01/25/2016 08/08/2016 Inactive [SAVINGS FOR UNINSURED PATIENTS -- BIN:093705, PCN: [id number], Group: [id number], ID# [id number], Process claim through [facility], for questions: . THIS IS NOT INSURANCE.] lisinopril 20 mg-hyd rochlorothiazide 25 mg tablet RxNorm: 288405 1 TABLET(S) PO QD 01/20/2016 02/20/2017 In active [AttnRPh: Saving apply/adjudicate RxGRP: SG20 RxBIN:[id number] RxPCN: ID#:[id number]] levothyroxine 75 mcg tablet RxNorm: 242408 1 TABLET(S) PO QD -NE ED LABS 12/22/2015 03/15/2016 In active [AttnRPh: Saving apply/adjudicate RxGRP: SG20 RxBIN:[id number] RxPCN:HT ID#:[id number]] potassium chloride E R 8 mEq tablet,extended release RxNorm: 883074 1 TABLET(S) PO QD 12/08/2015 03/06/2016 Inactive Zorvolex 35 mg capsule RxNorm: 7082153 1 Capsule(s) PO TID 11/15/2015 10/15/2018 Inactive Zorvolex 35 mg capsule RxNorm: 6934291 1 Capsule(s) PO TID 11/15/2015 11/14/2015 Inactive gabapentin 300 mg ca psule RxNorm: 627296 1 CAPSULE(S) PO QHS 11/10/2015 01/03/2016 Inactive lisinopril 20 mg-hyd rochlorothiazide 25 mg tablet RxNorm: 498259 1 TABLET(S) PO QD 10/20/2015 01/17/2016 In active [AttnRPh: Saving apply/adjudicate RxGRP: SG20 RxBIN:[id number] RxPCN: ID#:[id number]] estradiol 2 mg tablet RxNorm: 555396 1 TABLET(S) PO QD 10/20/2015 01/17/2016 Inactive [SAVINGS FOR UNINSURED PATIENTS -- BIN:430973, PCN: [id number], Group: [id number], ID# [id number], Process claim through [facility], for questions: . THIS IS NOT INSURANCE.] levothyroxine 75 mcg tablet RxNorm: 627930 1 TABLET(S) PO QD -NE ED LABS 09/24/2015 12/21/2015 In active [AttnRPh: Saving apply/adjudicate RxGRP: SG20 RxBIN:[id number] RxPCN: ID#:[id number]] clindamycin 300 mg c apsule RxNorm: 373723 1 Capsule(s) PO QID 09/13/2015 09/22/2015 Inactive potassium chloride E R 8 mEq tablet,extended release RxNorm: 087827 1 TABLET(S) PO QD 08/25/2015 11/22/2015 Inactive gabapentin 300 mg ca psule RxNorm: 225344 1 Capsule(s) PO QHS 08/19/2015 11/09/2015 Inactive potassium chloride E R 8 mEq tablet,extended release RxNorm: 621671 1 Tablet(s) PO QD 08/19/2015 10/15/2018 Inactive potassium chloride E R 8 mEq tablet,extended release RxNorm: 599012 1 Tablet(s) PO QD 07/13/2015 08/11/2015 Inactive metoprolol succinate ER 50 mg tablet,extended release 24 hr RxNorm: 535296 1 Tablet(s) PO QD 05/20/2015 05/19/2015 Inactive fluoxetine 40 mg cap jose miguel RxNorm: 601475 1 Capsule(s) PO QAM 05/20/2015 11/15/2015 Inactive cyclobenzaprine 10 m g tablet RxNorm: 344603 1 Tablet(s) PO TID as needed for muscle spasm 04/26/2015 01/03/2016 Inactive Zorvolex 35 mg capsule RxNorm: 1045486 1 Capsule(s) PO TID 04/26/2015 11/15/2015 Inactive lisinopril 20 mg-hyd rochlorothiazide 25 mg tablet RxNorm: 987280 1 Tablet(s) PO QD 04/19/2015 10/15/2015 In active [AttnRPh: Saving apply/adjudicate RxGRP: SG20 RxBIN:[id number] RxPCN: ID#:[id number]] estradiol 2 mg tablet RxNorm: 499272 1 Tablet(s) PO QD 04/05/2015 10/01/2015 Inactive [SAVINGS FOR UNINSURED PATIENTS -- BIN:685401, PCN: [id number], Group: [id number], ID# [id number], Process claim through [facility], for questions: . THIS IS NOT INSURANCE.] levothyroxine 75 mcg tablet RxNorm: 276572 1 TABLET(S) PO QD -NE ED LABS 03/15/2015 09/10/2015 In active [AttnRPh: Saving apply/adjudicate RxGRP: SG20 RxBIN:[id number] RxPCN: ID#:[id number]] mupirocin 2 % topica l ointment RxNorm: 535058 TOP BID to affected t oe 11/16/2014 11/25/2014 In active clindamycin 300 mg c apsule RxNorm: 773404 1 Capsule(s) PO TID 11/16/2014 11/25/2014 Inactive [SAVINGS FOR UNINSURED PATIENTS -- BIN:0 13344, PCN: [id number], Group: [id number], ID# [id number], Process claim through [facility], for questions: . THIS IS NOT INSURANCE.] fluoxetine 40 mg cap jose miguel RxNorm: 306068 1 Capsule(s) PO QAM 11/10/2014 05/20/2015 Inactive fenofibrate microniz ed 134 mg capsule RxNorm: 242181 1 Capsule(s) PO QD 10/15/2014 08/18/2015 In active lisinopril 20 mg-hyd rochlorothiazide 25 mg tablet RxNorm: 008618 1 Tablet(s) PO QD 10/15/2014 04/19/2015 In active [AttnRPh: Saving apply/adjudicate RxGRP: SG20 RxBIN:[id number] RxPCN:HT ID#:[id number]] cyclobenzaprine 10 m g tablet RxNorm: 304522 1 Tablet(s) PO TID as needed for muscle spasm 10/09/2014 04/26/2015 Inactive Zorvolex 35 mg capsule RxNorm: 7818988 1 Capsule(s) PO TID 10/09/2014 04/26/2015 Inactive levothyroxine 75 mcg tablet RxNorm: 184901 1 TABLET(S) PO QD -NE ED LABS 08/28/2014 02/23/2015 In active [AttnRPh: Saving apply/adjudicate RxGRP: SG20 RxBIN:[id number] RxPCN: ID#:[id number]] levothyroxine 75 mcg tablet RxNorm: 343862 1 Tablet(s) PO QD -ne ed labs 08/03/2014 08/27/2014 In active [AttnRPh: Saving apply/adjudicate RxGRP: SG20 RxBIN:075907 RxPCN: ID#:[id number]] lisinopril 20 mg-hyd rochlorothiazide 25 mg tablet RxNorm: 877110 TABLET(S) PO TAKE 1 TABLET BY MOUTH EVERY DAY 07/13/2014 10/15/2014 Inactive [AttnRPh: Saving apply/adjudicate RxGRP:SG20 RxBIN:[id number] RxPCN:HT ID#:[id number]] fenofibrate microniz ed 134 mg capsule RxNorm: 700732 1 CAPSULE(S) PO QD 07/06/2014 10/15/2014 In active estradiol 2 mg tablet RxNorm: 395664 1 Tablet(s) PO QD 06/25/2014 04/05/2015 Inactive [SAVINGS FOR UNINSURED PATIENTS -- BIN:308923, PCN: [id number], Group: [id number], ID# [id number], Process claim through [facility], for questions: . THIS IS NOT INSURANCE.] fluoxetine 40 mg cap jose miguel RxNorm: 237994 1 Capsule(s) PO QAM 05/11/2014 11/10/2014 Inactive levothyroxine 75 mcg tablet RxNorm: 648680 1 Tablet(s) PO QD 04/24/2014 08/03/2014 Inactive [AttnRPh: Saving apply/adjudicate RxGRP: SG20 RxBIN:[id number] RxPCN: ID#:[id number]] clindamycin 300 mg c apsule RxNorm: 352435 1 Capsule(s) PO TID 02/19/2014 02/28/2014 Inactive [SAVINGS FOR UNINSURED PATIENTS -- BIN:0 [id number], PCN: [id number], Group: [id number], ID# [id number], Process claim through [facility], for questions: . THIS IS NOT INSURANCE.] mupirocin 2 % topica l ointment RxNorm: 084737 1 TOP BID 02/12/2014 02/25/2014 Inactive Bactrim DS 800 mg-16 0 mg tablet RxNorm: 450081 1 Tablet(s) PO BID 02/12/2014 02/18/2014 Inactive metoprolol succinate ER 50 mg tablet,extended release 24 hr RxNorm: 092801 1 Tablet(s) PO QD 01/27/2014 05/20/2015 Inactive TAKE 1 TABLET BY MOUTH EVER Y MORNING levothyroxine 75 mcg tablet RxNorm: 547551 1 Tablet(s) PO QD 01/20/2014 04/24/2014 Inactive [AttnRPh: Saving apply/adjudicate RxGRP: SG20 RxBIN:[id number] RxPCN:HT ID#:[id number]] lisinopril 20 mg-hyd rochlorothiazide 25 mg tablet RxNorm: 799895 Tablet(s) PO TAKE 1 TABLET BY MOUTH EVERY DAY 01/12/2014 01/11/2014 Inactive [AttnRPh: Saving apply/adjudicate RxGRP:SG20 RxBIN:[id number] RxPCN:HT ID#:[id number]] promethazine 25 mg t ablet RxNorm: 055877 1 Tablet(s) PO Q4H as needed 12/25/2013 04/22/2014 In active fenofibrate microniz ed 134 mg capsule RxNorm: 067112 1 Capsule(s) PO QD 12/25/2013 06/22/2014 In active fluoxetine 40 mg cap jose miguel RxNorm: 883940 1 Capsule(s) PO QAM 11/10/2013 05/11/2014 Inactive metformin ER 500 mg 24 hr tablet,extended release RxNorm: 807925 TAKE 1 TABLET BY MOUT H DAILY 10/28/2013 12/24/2013 Inactive metoprolol succinate ER 50 mg tablet,extended release 24 hr RxNorm: 066787 1 Tablet(s) PO QD 10/06/2013 10/15/2018 Inactive [SAVINGS FOR UNINSURED PATIENCE ENTS -- BIN:[id number], PCN: [id number], Group: [id number], ID# [id number], Process claim through [facility], for questions: . THIS IS NOT INSURANCE.] estradiol 2 mg tablet RxNorm: 149340 1 Tablet(s) PO QD 09/12/2013 06/08/2014 Inactive [SAVINGS FOR UNINSURED PATIENTS -- BIN:[id number], PCN: [id number], Group: [id number], ID# [id number], Process claim through [facility], for questions: . THIS IS NOT INSURANCE.] levothyroxine 75 mcg tablet RxNorm: 215828 1 Tablet(s) PO QD may do 30 day supply if desires. Patient needs labs prior to next refill 09/12/2013 01/20/2014 Inactive [Att nRPh: Saving apply/adjudicate RxGRP:[id number] RxBIN:[id number] RxPCN: ID#:[id number]] levothyroxine 75 mcg tablet RxNorm: 446385 1 Tablet(s) PO QD may do 30 day supply if desires. Patient needs labs prior to next refill 08/15/2013 09/12/2013 Inactive metformin ER 500 mg 24 hr tablet,extended release RxNorm: 430879 1 1/2 Tablet(s) PO QD 07/04/2013 08/26/2013 Inactive levothyroxine 75 mcg tablet RxNorm: 792634 1 Tablet(s) PO QD may do 30 day supply if desires 05/12/2013 08/15/2013 Inactive Lipitor 40 mg tablet RxNorm: 619165 1 Tablet(s) PO QD 05/05/2013 08/26/2013 Inactive Lipitor 40 mg tablet RxNorm: 381648 1 Tablet(s) PO QD 05/05/2013 05/04/2013 Inactive fluoxetine 40 mg cap jose miguel RxNorm: 123426 1 Capsule(s) PO QAM 05/02/2013 11/10/2013 Inactive lisinopril 20 mg-hyd rochlorothiazide 25 mg tablet RxNorm: 626233 Tablet(s) PO TAKE 1 TABLET BY MOUTH EVERY DAY 04/07/2013 01/11/2014 Inactive metoprolol succinate ER 50 mg tablet,extended release 24 hr RxNorm: 642730 Tablet(s) PO 04/07/2013 10/06/2013 Inactive TAKE 1 TABLET BY MOUTH EVERY MORNING metformin ER 500 mg tablet,extended release 24hr RxNorm: 355038 1 1/2 Tablet(s) PO QD 02/28/2013 04/29/2013 Inactive levothyroxine 75 mcg tablet RxNorm: 173709 1 Tablet(s) PO QD may do 30 day supply if desires 02/17/2013 05/12/2013 Inactive lisinopril 20 mg-hyd rochlorothiazide 25 mg tablet RxNorm: 752456 1 Tablet(s) PO QD 12/27/2012 04/07/2013 In active phentermine 37.5 mg tablet RxNorm: 742494 1 Tablet(s) PO QAM 12/26/2012 01/23/2013 Inactive estradiol 2 mg tablet RxNorm: 496900 1 Tablet(s) PO QD 12/12/2012 09/07/2013 Inactive fluoxetine 40 mg cap jose miguel RxNorm: 249008 1 Capsule(s) PO QAM 11/28/2012 05/01/2013 Inactive levothyroxine 75 mcg tablet RxNorm: 524104 1 Tablet(s) PO QD may do 30 day supply if desires 11/20/2012 02/16/2013 Inactive metformin ER 500 mg tablet,extended release 24 hr RxNorm: 470337 2 Tablet(s) PO QD 10/31/2012 11/27/2012 In active fluoxetine 40 mg cap jose miguel RxNorm: 686900 1 Capsule(s) PO QAM 10/31/2012 05/02/2013 Inactive metformin ER 500 mg tablet,extended release 24 hr RxNorm: 818541 1 Tablet(s) PO QD 10/21/2012 10/30/2012 In active fluoxetine 20 mg tablet RxNorm: 492651 1 Tablet(s) PO QAM replaces cymbalta 10/03/2012 10/30/2012 In active Lamisil 250 mg tablet RxNorm: 476074 1 Tablet(s) PO QD 10/03/2012 11/27/2012 Inactive metoprolol succinate ER 50 mg tablet,extended release 24 hr RxNorm: 568168 Tablet(s) PO 10/02/2012 04/06/2013 Inactive TAKE 1 TABLET BY MOUTH EVERY MORNING Cymbalta 60 mg capsu le,delayed release RxNorm: 516294 1 Capsule(s) PO QD 07/25/2012 10/30/2012 In active TAKE 1 CAPSULE BY MOUTH DAILY lisinopril 20 mg-hyd rochlorothiazide 25 mg tablet RxNorm: 536709 1 Tablet(s) PO QD 06/27/2012 12/23/2012 In active levothyroxine 75 mcg tablet RxNorm: 874254 1 Tablet(s) PO QD 05/20/2012 08/17/2012 Inactive Lamisil 250 mg tablet RxNorm: 489810 1 Tablet(s) PO QD 04/24/2012 07/17/2012 Inactive metformin ER 500 mg tablet,extended release 24 hr RxNorm: 171721 1 Tablet(s) PO QD 04/22/2012 10/18/2012 In active lisinopril-hydrochlo rothiazide 20 mg-25 mg tablet RxNorm: 388598 1 Tablet(s) PO QD 02/29/2012 05/28/2012 In active metoprolol succinate ER 50 mg tablet,extended release 24 hr RxNorm: 249264 Tablet(s) PO 01/04/2012 10/01/2012 Inactive TAKE 1 TABLET BY MOUTH EVERY MORNING estradiol 2 mg tablet RxNorm: 163506 1 Tablet(s) PO QD 01/04/2012 09/29/2012 Inactive Cymbalta 60 mg capsu le,delayed release RxNorm: 884779 1 Capsule(s) PO QD 12/04/2011 07/24/2012 In active TAKE 1 CAPSULE BY MOUTH DAILY Metanx 3 mg-35 mg-2 mg Tab RxNorm: 2 Tablet(s) PO QD 11/29/2011 07/17/2012 Inactive levothyroxine 75 mcg tablet RxNorm: 168783 1 Tablet(s) PO QD 11/08/2011 05/20/2012 Inactive Cymbalta 60 mg capsu le,delayed release RxNorm: 261130 1 Capsule(s) PO QD 11/08/2011 07/25/2012 In active TAKE 1 CAPSULE BY MOUTH DAILY estradiol 2 mg Tab RxNorm: 008816 1 Tablet(s) PO QD 11/08/2011 01/04/2012 Inactive metformin ER 500 mg tablet,extended release 24 hr RxNorm: 912185 1 Tablet(s) PO QD 11/08/2011 04/22/2012 In active lisinopril-hydrochlo rothiazide 20 mg-25 mg tablet RxNorm: 150382 1 Tablet(s) PO QD 11/08/2011 02/29/2012 In active levothyroxine 75 mcg Cap RxNorm: 250962 1 Capsule(s) PO QD 11/06/2011 11/06/2011 Inactive levothyroxine 75 mcg tablet RxNorm: 588045 1 Tablet(s) PO QD 11/06/2011 11/20/2012 Inactive Metanx 3 mg-35 mg-2 mg Tab RxNorm: 2 Tablet(s) PO QD 08/29/2011 11/20/2011 Inactive hydrochlorothiazide 25 mg Tab RxNorm: 146648 1 Tablet(s) PO QD 08/29/2011 11/07/2011 Inactive estradiol 2 mg Tab RxNorm: 736466 1 Tablet(s) PO QD 06/26/2011 11/07/2011 Inactive levothyroxine 75 mcg Cap RxNorm: 620326 1 Capsule(s) PO QD 06/26/2011 10/23/2011 Inactive Metanx 3 mg-35 mg-2 mg Tab RxNorm: 2 Tablet(s) PO QD 05/29/2011 08/20/2011 Inactive hydrochlorothiazide 25 mg Tab RxNorm: 582831 1 Tablet(s) PO QD 03/20/2011 05/18/2011 Inactive levothyroxine 75 mcg Cap RxNorm: 491990 1 Capsule(s) PO QD 03/01/2011 03/30/2011 Inactive levothyroxine 75 mcg Cap RxNorm: 313992 1 Capsule(s) PO QD 02/01/2011 02/28/2011 Inactive metformin 1,000 mg Tab RxNorm: 642397 1 Tablet(s) PO QHS 02/01/2011 10/15/2018 Inactive metoprolol succinate ER 50 mg tablet,extended release 24 hr RxNorm: 509820 1 Tablet(s) PO QAM 12/22/2010 10/02/2012 Inactive estradiol 2 mg Tab RxNorm: 601985 1 Tablet(s) PO QD 12/13/2010 06/26/2011 Inactive Cymbalta 60 mg Capsu le, delayed release RxNorm: 213395 Capsule(s) PO 12/01/2010 11/07/2011 Inactive TAKE 1 CAPSULE BY MOUTH DAILY Cymbalta 60 mg Cap RxNorm: 865153 1 Capsule(s) PO QD 11/24/2010 10/15/2018 Inactive Cymbalta 60 mg Capsu le, delayed release RxNorm: 911364 1 Capsule(s) PO QD 09/29/2010 12/04/2011 In active hydrochlorothiazide 25 mg Tab RxNorm: 415517 1 Tablet(s) PO QD 09/29/2010 11/27/2010 Inactive metoprolol succinate ER 50 mg 24 hr Tab RxNorm: 269545 1 Tablet(s) PO QAM 09/15/2010 12/22/2010 In active Flexeril 10 mg Tab RxNorm: 246416 1 Tablet(s) PO TID 09/15/2010 11/13/2010 Inactive levothyroxine 75 mcg Cap RxNorm: 871221 1 Capsule(s) PO QD 09/08/2010 12/06/2010 Inactive estradiol 2 mg Tab RxNorm: 362243 1 Tablet(s) PO QD 09/08/2010 12/06/2010 Inactive Flexeril 10 mg Tab RxNorm: 009972 1 Tablet(s) PO TID 09/08/2010 09/14/2010 Inactive Multiple Vitamins Oral RxNorm: Oral No Start Date Active aspirin 81 mg tablet RxNorm: 220694 1 Tablet(s) PO QD No Start Date Active gabapentin 300 mg ca psule RxNorm: 998555 1 Capsule(s) PO QHS a s needed No Start Date Active Zyrtec 10 mg tablet RxNorm: 0244016 1 Tablet(s) PO QD No Start Date Active metoprolol succinate ER 50 mg tablet,extended release 24 hr RxNorm: 122886 1/4 Tablet(s) PO QD No Start Date 02/20/2017 Inactive metoprolol succinate ER 50 mg tablet,extended release 24 hr RxNorm: 460556 1/2 Tablet(s) PO QD No Start Date 08/30/2016 Inactive Fish Oil 1,000 mg ca psule RxNorm: 1 Capsule(s) PO QD No Start Date 07/15/2018 Inactive estradiol 0.5 mg tablet RxNorm: 437482 1 Tablet(s) PO QD No Start Date 11/27/2017 Inactive clindamycin RxNorm: 2582 miscellaneous No Start Date 11/25/2014 Inactive levothyroxine 75 mcg Tab RxNorm: 757935 1 Tablet(s) PO QD No Start Date 11/05/2011 Inactive metformin ER 500 mg tablet,extended release 24hr RxNorm: 623201 1/2 Tablet(s) PO QD No Start Date 08/19/2014 Inactive levothyroxine 75 mcg Cap RxNorm: 556140 1 Capsule(s) PO QD No Start Date 09/07/2010 Inactive levothyroxine 75 mcg tablet RxNorm: 364752 1 Tablet(s) PO QD No Start Date 01/19/2014 Inactive metformin ER 500 mg tablet,extended release 24hr RxNorm: 923290 1 1/2 Tablet(s) PO QD No Start Date 02/27/2013 Inactive clindamycin 300 mg c apsule RxNorm: 457208 1 Capsule(s) PO TID No Start Date 03/28/2015 Inactive Zyrtec 10 mg Tab RxNorm: 2315698 1 Tablet(s) PO QD No Start Date 08/30/2016 Inactive metoprolol succinate ER 50 mg 24 hr Tab RxNorm: 955415 1 Tablet(s) PO QAM No Start Date 09/14/2010 Inactive Vitamin B12 1000mcg Tablet RxNorm: 1 Tablet(s) PO QD No Start Date 10/02/2012 Inactive Xyzal 5 mg tablet RxNorm: 846543 1 Tablet(s) PO QD No Start Date 02/20/2017 Inactive metformin 1,000 mg Tab RxNorm: 973655 1/2 Tablet(s) PO QD No Start Date 11/07/2011 Inactive metoprolol succinate ER 50 mg tablet,extended release 24 hr RxNorm: 806474 1 Tablet(s) PO QD No Start Date 05/19/2015 Inactive hydrochlorothiazide 25 mg Tab RxNorm: 847073 1 Tablet(s) PO QD No Start Date 09/28/2010 Inactive potassium chloride E R 8 mEq tablet,extended release RxNorm: 891495 1 Tablet(s) PO QD No Start Date 03/04/2017 Inactive lisinopril 20 mg-hyd rochlorothiazide 25 mg tablet RxNorm: 072546 1/2 Tablet(s) PO QD No Start Date 08/30/2016 Inactive Co Q-10 200 mg capsule RxNorm: 902021 1 Capsule(s) PO QD No Start Date 11/25/2014 Inactive Cymbalta 60 mg Cap RxNorm: 370501 1 Capsule(s) PO QD No Start Date 09/28/2010 Inactive vitamin E 1,000 unit Cap RxNorm: 102258 1 Capsule(s) PO QD No Start Date 11/25/2014 Inactive metformin ER 500 mg 24 hr tablet,extended release RxNorm: 354123 1 Tablet(s) PO QD No Start Date 12/24/2013 Inactive [place] 3 Fish Oil cap jose miguel RxNorm: 1 Capsule(s) PO BID No Start Date 07/08/2018 Inactive prednisone 20 mg tablet RxNorm: 398706 1 Tablet(s) PO BID No Start Date 11/27/2012 Inactive metformin ER 500 mg 24 hr tablet,extended release RxNorm: 354278 1 Tablet(s) PO QD No Start Date 07/03/2013 Inactive metoprolol succinate ER 50 mg 24 hr Tab RxNorm: 105651 1 Tablet(s) PO QD No Start Date 10/05/2013 Inactive estradiol 2 mg Tab RxNorm: 083159 1 Tablet(s) PO QD No Start Date 09/07/2010 Inactive Medication Administered No Medication Administered data Immunizations No Immunization data Assessments Condition Codes Effectiv e Dates Type 2 diabetes mellitus with diabetic n europathy, unspecified ICD-10: E11.40 ICD-9: 250.60 10/16/2018 Essential (primary) hypertension ICD -10: I10 ICD-9: 401.9 10/16/2018 Mixed hyperlipidemia ICD-10: E78.2 ICD-9: 272.4 10/16/2018 Hypothyroidism, unspecified ICD-10: E03.9 ICD-9: 244.9 10/16/2018 Type 2 diabetes mellitus without complications ICD-10: E11.9 ICD-9: 250.00 10/11/2018 Other fatigue ICD-10: R53.83 ICD-9: 780.79 10/11/2018 Irritant contact dermatitis due to plants, except food ICD-10: L24.7 ICD-9: 692.6 09/13/2018 Charcot's joint, left ankle and foot ICD-10: M14.672 ICD-9: 094.0 07/09/2018 Charcot's joint, right ankle and foot ICD-10: M14.671 ICD-9: 094.0 07/09/2018 Other specified problems related to primary support gr oup ICD- 10: Z63.8 ICD-9: V61.8 04/08/2018 Pain in right shoulder ICD-10: M25.5 11 ICD-9: 719.41 04/08/2018 Other allergic rhinitis ICD-10: J30. 89 ICD-9: 477.8 03/04/2018 Unspecified open wound, right foot, sequela ICD-10: S91.301S ICD-9: 906.1 10/25/2017 Cellulitis of left toe ICD-10: L03.0 32 ICD-9: 681.10 10/24/2017 Urinary tract infection, site not specified ICD-10: N39.0 ICD-9: 599.0 07/27/2017 Angina pectoris, unspecified ICD-10: I20.9 ICD-9: 786.50 06/06/2017 Anesthesia of skin ICD-10: R20.0 ICD-9: 782.0 06/04/2017 Cellulitis of right toe ICD-10: L03. 031 ICD-9: 681.10 03/08/2017 Other abnormal and inconclusive findings on diagnostic imaging of breast ICD-10: R92.8 ICD-9: 793.80 12/13/2016 Bariatric surgery status ICD-10: Z98 .84 ICD-9: V45.86 08/31/2016 Zoster without complications ICD-10: B02.9 ICD-9: 053.9 08/02/2016 Encounter for screening mammogram for ma lignant neoplasm of breast ICD-10: Z12.31 ICD-9: V76.11 05/17/2016 Acute stress reaction ICD-10: F43.0 ICD-9: 308.3 11/15/2015 Cellulitis of right lower limb ICD-1 0: L03.115 ICD-9: 682.7 09/24/2015 Cramp and spasm ICD-10: R25.2 ICD-9: 729.82 07/13/2015 Charcot's joint of foot, non-diabetic ICD-9: 094.0 11/26/2014 HYPERLIPIDEMIA NEC/NOS ICD-9: 272.4 11/26/2014 DM W/O COMPLICATION TYPE II ICD-9: 250.00 11/26/2014 HYPOTHYROIDISM ICD-9: 244.9 11/26/2014 Cellulitis of toe of right foot ICD- 9: 681.10 11/19/2014 ONYCHOMYCOSIS ICD-9: 110.1 11/19/2014 Valgus deformity of foot ICD-9: 736.79 11/16/2014 DISTURBANCE OF SKIN SENSATION (Paresthesia) ICD-9: 782.0 11/16/2014 Thoracic back pain ICD-9: 724.1 10/09/2014 Epigastric abdominal pain ICD-9: 789.06 10/09/2014 HYPERTENSION ICD-9: 401.9 08/20/2014 DM W/O COMPLICATION TYPE II, UNCONTROLLED ICD-9: 250.02 08/17/2014 CELLULITIS ICD-9: 682.9 02/19/2014 Edema of lower extremity ICD-9: 782.3 02/12/2014 GASTROENTERITIS ICD-9: 558.9 12/25/2013 ABNORMAL WEIGHT GAIN ICD-9: 783.1 03/04/2013 FEM STRESS INCONTINENCE ICD-9: 625.6 11/28/2012 DEPRESSIVE DISORDER NEC ICD-9: 311 11/28/2012 JOINT PAIN-ANKLE ICD-9: 719.47 10/31/2012 Subacromial bursitis ICD-9: 726.19 10/31/2012 Medication therapy continued ICD-9: V58.69 06/12/2012 OTHER ABNORMAL GLUCOSE ICD-9: 790.29 11/01/2011 ROUTINE MEDICAL EXAM ICD-9: V70.0 01/30/2011 Neuropathy of foot ICD-9: 355.8 01/27/2011 ROUTINE GYNE EXAM ICD-9: V72.31 10/31/2010 SPASM OF MUSCLE ICD-9: 728.85 09/15/2010 CERVICALGIA ICD-9: 723.1 09/15/2010 Reason For Visit Reason For Visit Effective Dates Notes follow up 10/16/2018 lab draw 10/11/2018 flare up of rash 09/13/2018 lab draw 07/15/2018 follow up 07/09/2018 follow up 04/08/2018 lab draw 04/04/2018 otalgia 03/04/2018 left ear follow up 01/03/2018 lab draw 12/31/2017 injection(s) 10/25/2017 Rocephin toe pain due to infection 10/24/2017 Patient has onging infection to left great toe for the [...] [place] approximately 10 days follow up 09/24/2015 Pat ient is still proceeding with current regimen of Bactroban ointment and clindamycin follow up 09/15/2015 2 d ay cellulitis 09/13/2015 follow up 08/19/2015 Ref ill potassium chloride lab draw 08/17/2015 follow up 07/13/2015 lab [...] check 03/04/2013 follow up 01/30/2013 dc Phentermine option lab draw 01/27/2013 follow up 11/28/2012 1mo fwup follow up 10/31/2012 1mo fwup lab draw 10/28/2012 follow up 10/03/2012 3mo fwup injection(s) 07/19/2012 cellulitis 07/18/2012 St sod on Cephalexin yesterday ankle pain 06/12/2012 color change 04/24/2012 diabetes mellitus 03/07/2012 follow up 11/08/2011 3mo fwup lab draw 11/01/2011 follow up 07/31/2011 3mo fwup follow up 04/27/2011 dis cuss labs paresthesia 01/27/2011 well woman exam (40-65 years) 10/31/2010 neck pain 09/15/2010 neck and arm pain 09/08/2010 Results Observation Observation Code Item Item Code Result Date LIP[facility] 12368 Choles terol 235 mg/dL 07/15/2018 [facility] 39057 Trigly ceride 171 mg/dL 07/15/2018 [facility] 53600 HDL CH OLESTEROL 51 mg/dL 07/15/2018 [facility] 68828 Chol/H DL Ratio 4.61 ratio 07/15/2018 [facility] 46322 NON-HD L Chol 184 mg/dL 07/15/2018 [facility] 25753 LDL Ch olesterol 150 mg/dL 07/15/2018 THYROID STIMULATING HORMONE 21146 TSH 0.940 uIU/mL 9 COMPLETE BLOOD COUNT 7861096 WBC 6.7 10e9/L 07/15/2018 COMPLETE BLOOD COUNT [id number] RBC 4.12 10e12/L 9 COMPLETE BLOOD COUNT [id number] HEMOGLOBIN 12.4 g/dL 07/15/2018 COMPLETE BLOOD COUNT [id number] HEMATOCRIT 38.1 % 07/15/2018 COMPLETE BLOOD COUNT [id number] MCV 92.5 fL 07/15/2018 COMPLETE BLOOD COUNT [id number] MCH 30.1 pg 07/15/2018 COMPLETE BLOOD COUNT 4868872 MCHC 32.5 g/dL 07/15/2018 COMPLETE BLOOD COUNT [id number] PLATELET COUNT 247 10e9/L 07/15/2018 COMPLETE BLOOD COUNT [id number] Mean Plt Volume 10.7 fL 07/15/2018 COMPLETE BLOOD COUNT [id number] Neut Auto 56.5 % 07/15/2018 COMPLETE BLOOD COUNT 0779826 Lymph Auto 32.3 % 07/15/2018 COMPLETE BLOOD COUNT 4403587 Alfalfa Auto 6.7 % 07/15/2018 COMPLETE BLOOD COUNT 1679321 RDW 13.4 % 07/15/2018 COMPLETE BLOOD COUNT [id number] Eos Auto 4.2 % 07/15/2018 COMPLETE BLOOD COUNT 0161215 Baso Auto 0.3 % 07/15/2018 COMPLETE BLOOD COUNT [id number] Neutrophil Abs 3.79 10e9/L 07/15/2018 COMPLETE BLOOD COUNT [id number] Lymphocyte Abs 2.16 10e9/L 07/15/2018 COMPLETE BLOOD COUNT 1653069 Monocyte Abs 0.45 10e9/L 07/15/2018 COMPLETE BLOOD COUNT [id number] Eosinophil Abs 0.28 10e9/L 07/15/2018 COMPLETE BLOOD COUNT [id number] RDW-SD 44.2 fL 07/15/2018 COMPLETE BLOOD COUNT [id number] Basophil Abs 0.02 10e9/L 07/15/2018 COMPREHENSIVE METABOLIC 70786 AST 21 U/L 07/15/2018 COMPREHENSIVE METABOLIC 53289 ALT 15 U/L 07/15/2018 COMPREHENSIVE METABOLIC 25631 BUN 17 mg/dL 07/15/2018 COMPREHENSIVE METABOLIC 30146 ALBUMIN 3.8 g/dL 07/15/2018 COMPREHENSIVE METABOLIC 18466 CHLORIDE 101 mmol/L 07/15/2018 COMPREHENSIVE METABOLIC 16419 Bili Total 0.4 mg/dL 07/15/2018 COMPREHENSIVE METABOLIC 06281 ALK PHOS 80 U/L 07/15/2018 COMPREHENSIVE METABOLIC 97111 SODIUM 138 mmol/L 07/15/2018 COMPREHENSIVE METABOLIC 94770 CREATININE 0.78 mg/dL 07/15/2018 COMPREHENSIVE METABOLIC 23269 CALCIUM 8.9 mg/dL 07/15/2018 COMPREHENSIVE METABOLIC 39024 POTASSIUM 4.0 mmol/L 07/15/2018 COMPREHENSIVE METABOLIC 12123 Total Protein 6.4 g/dL 07/15/2018 COMPREHENSIVE METABOLIC 85897 Glucose 91 mg/dL 07/15/2018 COMPREHENSIVE METABOLIC 18774 Bicarbonate 29 mmol/L 07/15/2018 COMPREHENSIVE METABOLIC 83199 AGAP 8 mmol/L 07/15/2018 GFR CALC 0384677 GFR Non Afr Amr >60 mL/min 07/15/2018 GFR CALC 8645132 GFR Afr Amr >60 mL/min 07/15/2018 GLYCOSYLATED HEMOGLOBIN TEST 34689 Hgb A1c 23747-9 6.1 % 07/15/2018 FREE T4 13968 T4 Free 0.96 ng/dL 07/15/2018 MEAN GLUC Calc M rajesh Gluc 128 mg/dL 07/15/2018 MEAN GLUC 9308375 Calc M rajesh Gluc 117 mg/dL 12/31/2017 COMPREHENSIVE METABOLIC 30050 AST 20 U/L 12/31/2017 COMPREHENSIVE METABOLIC 51921 ALT 17 U/L 12/31/2017 COMPREHENSIVE METABOLIC 22470 BUN 22 mg/dL 12/31/2017 COMPREHENSIVE METABOLIC 29740 ALBUMIN 4.0 g/dL 12/31/2017 COMPREHENSIVE METABOLIC 77170 CHLORIDE 101 mmol/L 12/31/2017 COMPREHENSIVE METABOLIC 00281 Bili Total 0.4 mg/dL 12/31/2017 COMPREHENSIVE METABOLIC 90237 ALK PHOS 74 U/L 12/31/2017 COMPREHENSIVE METABOLIC 30018 SODIUM 139 mmol/L 12/31/2017 COMPREHENSIVE METABOLIC 40101 CREATININE 0.80 mg/dL 12/31/2017 COMPREHENSIVE METABOLIC 12916 CALCIUM 9.3 mg/dL 12/31/2017 COMPREHENSIVE METABOLIC 12895 POTASSIUM 4.2 mmol/L 12/31/2017 COMPREHENSIVE METABOLIC 09017 Total Protein 6.5 g/dL 12/31/2017 COMPREHENSIVE METABOLIC 92881 Glucose 93 mg/dL 12/31/2017 COMPREHENSIVE METABOLIC 75831 Bicarbonate 29 mmol/L 12/31/2017 COMPREHENSIVE METABOLIC 50489 AGAP 9 mmol/L 12/31/2017 GFR CALC 2399661 GFR Non Afr Amr >60 mL/min 12/31/2017 GFR CALC 8498427 GFR Afr Amr >60 mL/min 12/31/2017 GLYCOSYLATED HEMOGLOBIN TEST 95063 Hgb A1c 18660-5 5.7 % 12/31/2017 FREE T4 66132 T4 Free 1.11 ng/dL 12/31/2017 LIPID GROUP 81086 Choles terol 241 mg/dL 12/31/2017 LIPID GROUP 11852 Trigly ceride 108 mg/dL 12/31/2017 LIPID GROUP 22720 HDL CH OLESTEROL 59 mg/dL 12/31/2017 LIPID GROUP 03239 Chol/H DL Ratio 4.08 ratio 12/31/2017 LIPID GROUP 47521 NON-HD L Chol 182 mg/dL 12/31/2017 LIP[facility] GROUP 08743 LDL Ch olesterol 160 mg/dL 12/31/2017 COMPLETE BLOOD COUNT 8072018 WBC 6.7 10e9/L 12/31/2017 COMPLETE BLOOD COUNT 4695061 RBC 4.03 10e12/L 8 COMPLETE BLOOD COUNT 0966228 HEMOGLOBIN 12.1 g/dL 12/31/2017 COMPLETE BLOOD COUNT 0605750 HEMATOCRIT 38.0 % 12/31/2017 COMPLETE BLOOD COUNT 7774209 MCV 94.3 fL 12/31/2017 COMPLETE BLOOD COUNT 9374142 MCH 30.0 pg 12/31/2017 COMPLETE BLOOD COUNT 7278491 MCHC 31.8 g/dL 12/31/2017 COMPLETE BLOOD COUNT 5337213 PLATELET COUNT 240 10e9/L 12/31/2017 COMPLETE BLOOD COUNT 9216203 Mean Plt Volume 10.9 fL 12/31/2017 COMPLETE BLOOD COUNT 4174984 Neut Auto 53.9 % 12/31/2017 COMPLETE BLOOD COUNT 8630424 Lymph Auto 35.7 % 12/31/2017 COMPLETE BLOOD COUNT 6211284 Alfalfa Auto 6.6 % 12/31/2017 COMPLETE BLOOD COUNT 9663452 RDW 13.5 % 12/31/2017 COMPLETE BLOOD COUNT 4336113 Eos Auto 3.7 % 12/31/2017 COMPLETE BLOOD COUNT 0690580 Baso Auto 0.1 % 12/31/2017 COMPLETE BLOOD COUNT 5572082 Neutrophil Abs 3.61 10e9/L 12/31/2017 COMPLETE BLOOD COUNT 5177938 Lymphocyte Abs 2.39 10e9/L 12/31/2017 COMPLETE BLOOD COUNT 2795609 Monocyte Abs 0.44 10e9/L 12/31/2017 COMPLETE BLOOD COUNT 7788671 Eosinophil Abs 0.25 10e9/L 12/31/2017 COMPLETE BLOOD COUNT 9380235 Basophil Abs 0.01 10e9/L 12/31/2017 COMPLETE BLOOD COUNT 2440918 RDW-SD 44.7 fL 12/31/2017 THYROID STIMULATING HORMONE 36920 TSH 0.533 uIU/mL 8 GFR CALC 0659691 GFR Non Afr Amr 57 mL/min 06/04/2017 GFR CALC 9807471 GFR Afr Amr >60 mL/min 06/04/2017 VITAMIN B 12 70272 VITAM IN B12 1339 pg/mL 06/04/2017 COMPLETE BLOOD COUNT 2698904 WBC 6.7 10e9/L 06/04/2017 COMPLETE BLOOD COUNT 4872723 RBC 4.13 10e12/L 8 COMPLETE BLOOD COUNT 2449473 HEMOGLOBIN 12.5 g/dL 06/04/2017 COMPLETE BLOOD COUNT 4179356 HEMATOCRIT 38.7 % 06/04/2017 COMPLETE BLOOD COUNT 6115461 MCV 93.7 fL 06/04/2017 COMPLETE BLOOD COUNT 6553863 MCH 30.3 pg 06/04/2017 COMPLETE BLOOD COUNT 3226992 MCHC 32.3 g/dL 06/04/2017 COMPLETE BLOOD COUNT 6088027 PLATELET COUNT 205 10e9/L 06/04/2017 COMPLETE BLOOD COUNT 2665901 Mean Plt Volume 11.1 fL 06/04/2017 COMPLETE BLOOD COUNT 6679243 Neut Auto 41.5 % 06/04/2017 COMPLETE BLOOD COUNT 2867879 Lymph Auto 40.5 % 06/04/2017 COMPLETE BLOOD COUNT 1255962 Alfalfa Auto 6.0 % 06/04/2017 COMPLETE BLOOD COUNT 8645990 Eos Auto 11.6 % 06/04/2017 COMPLETE BLOOD COUNT 3140936 RDW 12.5 % 06/04/2017 COMPLETE BLOOD COUNT 9037091 Baso Auto 0.4 % 06/04/2017 COMPLETE BLOOD COUNT 4323444 Neutrophil Abs 2.78 10e9/L 06/04/2017 COMPLETE BLOOD COUNT 5328377 Lymphocyte Abs 2.71 10e9/L 06/04/2017 COMPLETE BLOOD COUNT [id number] Monocyte Abs 0.40 10e9/L 06/04/2017 COMPLETE BLOOD COUNT [id number] Eosinophil Abs 0.78 10e9/L 06/04/2017 COMPLETE BLOOD COUNT [id number] Basophil Abs 0.03 10e9/L 06/04/2017 COMPLETE BLOOD COUNT [id number] RDW-SD 41.9 fL 06/04/2017 LIPID GROUP 85990 Choles terol 186 mg/dL 06/04/2017 LIPID GROUP 71333 Trigly ceride 78 mg/dL 06/04/2017 LIPID GROUP 44751 HDL CH OLESTEROL 40 06/04/2017 LIPID GROUP 95890 Chol/H DL Ratio 4.65 ratio 06/04/2017 LIPID GROUP 94163 NON-HD L Chol 146 mg/dL 06/04/2017 LIPID GROUP 89275 LDL Ch olesterol 130 mg/dL 06/04/2017 GLYCOSYLATED HEMOGLOBIN TEST 91471 Hgb A1c 28860-2 5.6 % 06/04/2017 THYROID STIMULATING HORMONE 85075 TSH 0.748 uIU/mL 01/15/201 8 COMPREHENSIVE METABOLIC 04355 AST 17 U/L 06/04/2017 COMPREHENSIVE METABOLIC 38026 ALT 11 U/L 06/04/2017 COMPREHENSIVE METABOLIC 66199 BUN 19 mg/dL 06/04/2017 COMPREHENSIVE METABOLIC 07786 ALBUMIN 4.1 g/dL 06/04/2017 COMPREHENSIVE METABOLIC 28703 CHLORIDE 103 mmol/L 06/04/2017 COMPREHENSIVE METABOLIC 33123 Bili Total 0.5 mg/dL 06/04/2017 COMPREHENSIVE METABOLIC 23402 ALK PHOS 65 U/L 06/04/2017 COMPREHENSIVE METABOLIC 44098 SODIUM 140 mmol/L 06/04/2017 COMPREHENSIVE METABOLIC 27604 CREATININE 1.01 mg/dL 06/04/2017 COMPREHENSIVE METABOLIC 46104 CALCIUM 9.3 mg/dL 06/04/2017 COMPREHENSIVE METABOLIC 43648 POTASSIUM 4.2 mmol/L 06/04/2017 COMPREHENSIVE METABOLIC 05713 Total Protein 6.3 g/dL 06/04/2017 COMPREHENSIVE METABOLIC 32326 Glucose 87 mg/dL 06/04/2017 COMPREHENSIVE METABOLIC 62702 Bicarbonate 31 mmol/L 06/04/2017 COMPREHENSIVE METABOLIC 75137 AGAP 6 mmol/L 06/04/2017 MEAN GLUC [id number] Calc M rajesh Gluc 114 mg/dL 06/04/2017 FREE T4 65079 T4 Free 1.22 ng/dL 02/23/2017 THYROID STIMULATING HORMONE 50938 TSH 1.404 uIU/mL 7 COMPREHENSIVE METABOLIC 61792 AST 18 U/L 02/23/2017 COMPREHENSIVE METABOLIC 49283 ALT 12 U/L 02/23/2017 COMPREHENSIVE METABOLIC 60729 BUN 19 mg/dL 02/23/2017 COMPREHENSIVE METABOLIC 48706 ALBUMIN 4.3 g/dL 02/23/2017 COMPREHENSIVE METABOLIC 01157 CHLORIDE 99 mmol/L 02/23/2017 COMPREHENSIVE METABOLIC 11393 Bili Total 0.4 mg/dL 02/23/2017 COMPREHENSIVE METABOLIC 44013 ALK PHOS 66 U/L 02/23/2017 COMPREHENSIVE METABOLIC 06978 SODIUM 137 mmol/L 02/23/2017 COMPREHENSIVE METABOLIC 85154 CREATININE 0.92 mg/dL 02/23/2017 COMPREHENSIVE METABOLIC 07570 CALCIUM 9.4 mg/dL 02/23/2017 COMPREHENSIVE METABOLIC 01462 POTASSIUM 4.2 mmol/L 02/23/2017 COMPREHENSIVE METABOLIC 75988 Total Protein 6.6 g/dL 02/23/2017 COMPREHENSIVE METABOLIC 93288 Glucose 85 mg/dL 02/23/2017 COMPREHENSIVE METABOLIC 37361 Bicarbonate 35 mmol/L 02/23/2017 COMPREHENSIVE METABOLIC 94416 AGAP 3 mmol/L 02/23/2017 MEAN GLUC 8472227 Calc M rajesh Gluc 114 mg/dL 02/23/2017 COMPLETE BLOOD COUNT 2032396 WBC 6.2 10e9/L 02/23/2017 COMPLETE BLOOD COUNT 0357530 RBC 4.20 10e12/L 7 COMPLETE BLOOD COUNT 4576952 HEMOGLOBIN 12.7 g/dL 02/23/2017 COMPLETE BLOOD COUNT 7320395 HEMATOCRIT 39.3 % 02/23/2017 COMPLETE BLOOD COUNT 4784311 MCV 93.6 fL 02/23/2017 COMPLETE BLOOD COUNT 6309458 MCH 30.2 pg 02/23/2017 COMPLETE BLOOD COUNT 3277806 MCHC 32.3 g/dL 02/23/2017 COMPLETE BLOOD COUNT 3096697 PLATELET COUNT 226 10e9/L 02/23/2017 COMPLETE BLOOD COUNT 0088887 Mean Plt Volume 10.7 fL 02/23/2017 COMPLETE BLOOD COUNT 6286519 Neut Auto 48.7 % 02/23/2017 COMPLETE BLOOD COUNT 5240107 Lymph Auto 40.8 % 02/23/2017 COMPLETE BLOOD COUNT 9126743 Alfalfa Auto 7.7 % 02/23/2017 COMPLETE BLOOD COUNT 0351158 RDW 13.0 % 02/23/2017 COMPLETE BLOOD COUNT 3484718 Eos Auto 2.6 % 02/23/2017 COMPLETE BLOOD COUNT 7165345 Baso Auto 0.2 % 02/23/2017 COMPLETE BLOOD COUNT 9818783 Neutrophil Abs 3.02 10e9/L 02/23/2017 COMPLETE BLOOD COUNT 3188883 Lymphocyte Abs 2.53 10e9/L 02/23/2017 COMPLETE BLOOD COUNT 2687837 Monocyte Abs 0.48 10e9/L 02/23/2017 COMPLETE BLOOD COUNT 4268084 Eosinophil Abs 0.16 10e9/L 02/23/2017 COMPLETE BLOOD COUNT 6752685 Basophil Abs 0.01 10e9/L 02/23/2017 COMPLETE BLOOD COUNT 6910058 RDW-SD 43.2 fL 02/23/2017 GLYCOSYLATED HEMOGLOBIN TEST 81292 Hgb A1c 83500-9 5.6 % 02/23/2017 LIPID GROUP 52063 Choles terol 238 mg/dL 02/23/2017 LIPID GROUP 06585 Trigly ceride 155 mg/dL 02/23/2017 LIPID GROUP 32927 HDL CH OLESTEROL 49 mg/dL 02/23/2017 LIPID GROUP 32788 Chol/H DL Ratio 4.86 ratio 02/23/2017 LIPID GROUP 95792 NON-HD L Chol 189 mg/dL 02/23/2017 LIPID GROUP 72692 LDL Ch olesterol 158 mg/dL 02/23/2017 GFR CALC 8959700 GFR Non Afr Amr >60 mL/min 02/23/2017 GFR CALC 6335563 GFR Afr Amr >60 mL/min 02/23/2017 GLYCOSYLATED HEMOGLOBIN TEST 22992 Hgb A1c 06080-2 5.7 % 08/31/2016 MEAN GLUC 6096733 Calc M rajesh Gluc 117 mg/dL 08/31/2016 COMPLETE BLOOD COUNT 4091203 WBC 6.9 10e9/L 08/31/2016 COMPLETE BLOOD COUNT 9372651 RBC 4.00 10e12/L 7 COMPLETE BLOOD COUNT 5589216 HEMOGLOBIN 12.3 g/dL 08/31/2016 COMPLETE BLOOD COUNT 4174760 HEMATOCRIT 37.1 % 08/31/2016 COMPLETE BLOOD COUNT 3013212 MCV 92.8 fL 08/31/2016 COMPLETE BLOOD COUNT 2818863 MCH 30.8 pg 08/31/2016 COMPLETE BLOOD COUNT 6442661 MCHC 33.2 g/dL 08/31/2016 COMPLETE BLOOD COUNT 9924483 PLATELET COUNT 238 10e9/L 08/31/2016 COMPLETE BLOOD COUNT 3526023 Mean Plt Volume 11.2 fL 08/31/2016 COMPLETE BLOOD COUNT 9088533 Neut Auto 49.9 % 08/31/2016 COMPLETE BLOOD COUNT 3801099 Lymph Auto 40.7 % 08/31/2016 COMPLETE BLOOD COUNT 5930441 Alfalfa Auto 6.5 % 08/31/2016 COMPLETE BLOOD COUNT 9761148 Eos Auto 2.8 % 08/31/2016 COMPLETE BLOOD COUNT 1742643 RDW 14.3 % 08/31/2016 COMPLETE BLOOD COUNT 5985998 Baso Auto 0.1 % 08/31/2016 COMPLETE BLOOD COUNT 5757051 Neutrophil Abs 3.44 10e9/L 08/31/2016 COMPLETE BLOOD COUNT 7096086 Lymphocyte Abs 2.81 10e9/L 08/31/2016 COMPLETE BLOOD COUNT 6114832 Monocyte Abs 0.45 10e9/L 08/31/2016 COMPLETE BLOOD COUNT 1386130 Eosinophil Abs 0.19 10e9/L 08/31/2016 COMPLETE BLOOD COUNT 6644299 RDW-SD 47.3 fL 08/31/2016 COMPLETE BLOOD COUNT 9558752 Basophil Abs 0.01 10e9/L 08/31/2016 THYROID STIMULATING HORMONE 37442 TSH 1.053 uIU/mL 7 GFR CALC 3005575 GFR Non Afr Amr >60 mL/min 08/31/2016 GFR CALC 0502556 GFR Afr Amr >60 mL/min 08/31/2016 FREE T4 51752 T4 Free 1.29 ng/dL 08/31/2016 COMPREHENSIVE METABOLIC 09043 AST 20 U/L 08/31/2016 COMPREHENSIVE METABOLIC 64698 ALT 14 U/L 08/31/2016 COMPREHENSIVE METABOLIC 42018 BUN 15 mg/dL 08/31/2016 COMPREHENSIVE METABOLIC 02981 ALBUMIN 4.0 g/dL 08/31/2016 COMPREHENSIVE METABOLIC 79045 CHLORIDE 97 mmol/L 08/31/2016 COMPREHENSIVE METABOLIC 31186 Bili Total 0.4 mg/dL 08/31/2016 COMPREHENSIVE METABOLIC 26612 ALK PHOS 72 U/L 08/31/2016 COMPREHENSIVE METABOLIC 68694 SODIUM 135 mmol/L 08/31/2016 COMPREHENSIVE METABOLIC 53281 CREATININE 0.91 mg/dL 08/31/2016 COMPREHENSIVE METABOLIC 52462 CALCIUM 9.5 mg/dL 08/31/2016 COMPREHENSIVE METABOLIC 39182 POTASSIUM 4.0 mmol/L 08/31/2016 COMPREHENSIVE METABOLIC 83460 Total Protein 6.4 g/dL 08/31/2016 COMPREHENSIVE METABOLIC 95923 Glucose 76 mg/dL 08/31/2016 COMPREHENSIVE METABOLIC 44651 Bicarbonate 29 mmol/L 08/31/2016 COMPREHENSIVE METABOLIC 18681 AGAP 9 mmol/L 08/31/2016 LIPID GROUP 57638 Choles terol 211 mg/dL 08/31/2016 LIPID GROUP 78991 Trigly ceride 147 mg/dL 08/31/2016 LIPID GROUP 19680 HDL CH OLESTEROL 49 mg/dL 08/31/2016 LIPID GROUP 61732 Chol/H DL Ratio 4.31 ratio 08/31/2016 LIPID GROUP 71719 NON-HD L Chol 162 mg/dL 08/31/2016 LIPID GROUP 16012 LDL Ch olesterol 133 mg/dL 08/31/2016 GFR CALC 1613853 GFR Non Afr Amr >60 mL/min 01/05/2016 GFR CALC 8600351 GFR Afr Amr >60 mL/min 01/05/2016 FREE T4 11577 T4 Free 1.13 ng/dL 01/05/2016 URIC ACID 95818 URIC ACID 6.5 mg/dL 01/05/2016 COMPREHENSIVE METABOLIC 92418 AST 19 U/L 01/05/2016 COMPREHENSIVE METABOLIC 98879 ALT 12 U/L 01/05/2016 COMPREHENSIVE METABOLIC 90817 BUN 16 mg/dL 01/05/2016 COMPREHENSIVE METABOLIC 84667 ALBUMIN 4.0 g/dL 01/05/2016 COMPREHENSIVE METABOLIC 73729 CHLORIDE 97 mmol/L 01/05/2016 COMPREHENSIVE METABOLIC 76838 Bili Total 0.4 mg/dL 01/05/2016 COMPREHENSIVE METABOLIC 17942 ALK PHOS 69 U/L 01/05/2016 COMPREHENSIVE METABOLIC 08565 SODIUM 135 mmol/L 01/05/2016 COMPREHENSIVE METABOLIC 35374 CREATININE 0.76 mg/dL 01/05/2016 COMPREHENSIVE METABOLIC 71509 CALCIUM 9.4 mg/dL 01/05/2016 COMPREHENSIVE METABOLIC 67393 POTASSIUM 4.1 mmol/L 01/05/2016 COMPREHENSIVE METABOLIC 75912 Total Protein 6.6 g/dL 01/05/2016 COMPREHENSIVE METABOLIC 26625 Glucose 81 mg/dL 01/05/2016 COMPREHENSIVE METABOLIC 13716 Bicarbonate 28 mmol/L 01/05/2016 COMPREHENSIVE METABOLIC 70152 AGAP 10 mmol/L 01/05/2016 VITAMIN B 12 66225 VITAM IN B12 1044 pg/mL 01/05/2016 COMPLETE BLOOD COUNT 3272059 WBC 8.2 10e9/L 01/05/2016 COMPLETE BLOOD COUNT 4072190 RBC 3.92 10e12/L 6 COMPLETE BLOOD COUNT 5143638 HEMOGLOBIN 12.0 g/dL 01/05/2016 COMPLETE BLOOD COUNT 7582902 HEMATOCRIT 36.3 % 01/05/2016 COMPLETE BLOOD COUNT 5896261 MCV 92.6 fL 01/05/2016 COMPLETE BLOOD COUNT 2288093 MCH 30.6 pg 01/05/2016 COMPLETE BLOOD COUNT 0629169 MCHC 33.1 g/dL 01/05/2016 COMPLETE BLOOD COUNT 2338852 PLATELET COUNT 253 10e9/L 01/05/2016 COMPLETE BLOOD COUNT 4909770 Mean Plt Volume 10.7 fL 01/05/2016 COMPLETE BLOOD COUNT 3644712 Neut Auto 59.9 % 01/05/2016 COMPLETE BLOOD COUNT 5190240 Lymph Auto 30.2 % 01/05/2016 COMPLETE BLOOD COUNT 9494077 Alfalfa Auto 5.7 % 01/05/2016 COMPLETE BLOOD COUNT 5699985 RDW 12.9 % 01/05/2016 COMPLETE BLOOD COUNT 6832055 Eos Auto 4.1 % 01/05/2016 COMPLETE BLOOD COUNT 0873670 Baso Auto 0.1 % 01/05/2016 COMPLETE BLOOD COUNT 8165748 Neutrophil Abs 4.91 10e9/L 01/05/2016 COMPLETE BLOOD COUNT 3839214 Lymphocyte Abs 2.48 10e9/L 01/05/2016 COMPLETE BLOOD COUNT 6972478 Monocyte Abs 0.47 10e9/L 01/05/2016 COMPLETE BLOOD COUNT 5440847 Eosinophil Abs 0.34 10e9/L 01/05/2016 COMPLETE BLOOD COUNT 1819770 RDW-SD 42.2 fL 01/05/2016 COMPLETE BLOOD COUNT 0821134 Basophil Abs 0.01 10e9/L 01/05/2016 THYROID STIMULATING HORMONE 51741 TSH 1.364 uIU/mL 6 LIPID GROUP 85517 Choles terol 199 mg/dL 01/05/2016 LIPID GROUP 75973 Trigly ceride 218 mg/dL 01/05/2016 LIPID GROUP 17720 HDL CH OLESTEROL 48 mg/dL 01/05/2016 LIPID GROUP 08890 Chol/H DL Ratio 4.15 ratio 01/05/2016 LIPID GROUP 19586 NON-HD L Chol 151 mg/dL 01/05/2016 LIPID GROUP 72522 LDL Ch olesterol 107 mg/dL 01/05/2016 COMPREHENSIVE METABOLIC 75105 AST 19 U/L 08/17/2015 COMPREHENSIVE METABOLIC 82760 ALT 13 IU/L 08/17/2015 COMPREHENSIVE METABOLIC 38004 BUN 18 MG/DL 08/17/2015 COMPREHENSIVE METABOLIC 16486 ALBUMIN 4.1 GM/DL 08/17/2015 COMPREHENSIVE METABOLIC 27058 CHLORIDE 99 MMOL/L 08/17/2015 COMPREHENSIVE METABOLIC 30032 BILI TOT 0.4 MG/DL 08/17/2015 COMPREHENSIVE METABOLIC 47238 ALK PHOS 67 U/L 08/17/2015 COMPREHENSIVE METABOLIC 25967 SODIUM 134 MMOL/L 08/17/2015 COMPREHENSIVE METABOLIC 21439 CREATININE 0.81 MG/DL 08/17/2015 COMPREHENSIVE METABOLIC 98223 CALCIUM 9.5 MG/DL 08/17/2015 COMPREHENSIVE METABOLIC 58915 POTASSIUM 3.8 MMOL/L 08/17/2015 COMPREHENSIVE METABOLIC 46246 PROT TOT 6.6 GM/DL 08/17/2015 COMPREHENSIVE METABOLIC 39255 Glucose 98 MG/DL 08/17/2015 COMPREHENSIVE METABOLIC 87686 BICARB 26 MMOL/L 08/17/2015 COMPREHENSIVE METABOLIC 80481 ANION GAP 9 MEQ/L 08/17/2015 GFR CALC 1122496 GFR AA >60 ML/MIN 08/17/2015 GFR CALC 2427549 GFR NON -AA >60 ML/MIN 08/17/2015 THYROID STIMULATING HORMONE 19524 TSH 1.705 uIU/ML 6 COMPLETE BLOOD COUNT 6623885 WBC 8.2 10e9/L 08/17/2015 COMPLETE BLOOD COUNT 2428767 RBC 4.04 10e12/L 6 COMPLETE BLOOD COUNT 0417802 HGB 12.2 g/dL 08/17/2015 COMPLETE BLOOD COUNT 1227746 HCT DET 36.9 % 08/17/2015 COMPLETE BLOOD COUNT 8298682 MCV 91.3 fL 08/17/2015 COMPLETE BLOOD COUNT 7726750 MCH 30.2 pg 08/17/2015 COMPLETE BLOOD COUNT 3772748 MCHC 33.1 g/dL 08/17/2015 COMPLETE BLOOD COUNT 7523556 PLT 254 10e9/L 08/17/2015 COMPLETE BLOOD COUNT 7831042 MPV 10.8 fL 08/17/2015 COMPLETE BLOOD COUNT 3469720 LYNN % 57.3 % 08/17/2015 COMPLETE BLOOD COUNT 9083689 LY % 32.5 % 08/17/2015 COMPLETE BLOOD COUNT 7251363 MON % 6.0 % 08/17/2015 COMPLETE BLOOD COUNT 8276329 EOS % 4.0 % 08/17/2015 COMPLETE BLOOD COUNT 1886790 BASO % 0.2 % 08/17/2015 COMPLETE BLOOD COUNT 5321853 RDW 13.3 % 08/17/2015 COMPLETE BLOOD COUNT 4871097 ABS LYNN 4.70 10e9/L 08/17/2015 COMPLETE BLOOD COUNT 5793741 ABS LYMPH 2.67 10e9/L 08/17/2015 COMPLETE BLOOD COUNT 7140710 ABS MONO 0.49 10e9/L 08/17/2015 COMPLETE BLOOD COUNT 8507469 ABS EOS 0.33 10e9/L 08/17/2015 COMPLETE BLOOD COUNT 9751054 ABS BASO 0.02 10e9/L 08/17/2015 COMPLETE BLOOD COUNT 8636345 RDW-SD 43.7 fL 08/17/2015 GLYCOSYLATED HEMOGLOBIN TEST 83548 A1C HPLC 85657-6 6.0 % 08/17/2015 FREE T4 16432 FREE T4 1.14 NG/DL 08/17/2015 LIPID GROUP [address] 53 MG/DL 08/17/2015 LIPID GROUP 10166 TRIG 220 MG/DL 08/17/2015 LIPID GROUP 76948 TEST L DL 114 MG/DL 08/17/2015 LIPID GROUP 58566 CHOL 211 MG/DL 08/17/2015 LIPID GROUP 02504 RCHOL/ HDL 3.98 RATIO 08/17/2015 LIPID GROUP 50378 NON-HD L CH 158 MG/DL 08/17/2015 GFR CALC 5431712 GFR AA >60 ML/MIN 07/01/2015 GFR CALC 3760641 GFR NON -AA >60 ML/MIN 07/01/2015 THYROID STIMULATING HORMONE 26078 TSH 1.105 uIU/ML 6 [place] [address] Glucose 106 MG/DL 07/01/2015 [place] [address] CREATININE 0.76 MG/DL 07/01/2015 [place] [address] BUN 14 MG/DL 07/01/2015 [place] [address] SODIUM 134 MMOL/L 07/01/2015 [place] [address] POTASSIUM 3.5 MMOL/L 07/01/2015 [place] [address] CHLORIDE 95 MMOL/L 07/01/2015 [place] [address] BICARB 31 MMOL/L 07/01/2015 [place] [address] ANION GAP 8 MEQ/L 07/01/2015 [place] [address] CALCIUM 9.6 MG/DL 07/01/2015 FREE T4 30379 FREE T4 1.15 NG/DL 03/24/2015 COMPLETE BLOOD COUNT 5501671 WBC 8.4 10e9/L 03/24/2015 COMPLETE BLOOD COUNT 4408896 RBC 4.17 10e12/L 5 COMPLETE BLOOD COUNT 2944882 HGB 12.5 g/dL 03/24/2015 COMPLETE BLOOD COUNT 9985118 HCT DET 38.4 % 03/24/2015 COMPLETE BLOOD COUNT 0034142 MCV 92.1 fL 03/24/2015 COMPLETE BLOOD COUNT 2838355 MCH 30.0 pg 03/24/2015 COMPLETE BLOOD COUNT 1103646 MCHC 32.6 g/dL 03/24/2015 COMPLETE BLOOD COUNT 5447451 PLT 266 10e9/L 03/24/2015 COMPLETE BLOOD COUNT 7632066 MPV 10.8 fL 03/24/2015 COMPLETE BLOOD COUNT 2359997 LYNN % 50.9 % 03/24/2015 COMPLETE BLOOD COUNT 4049930 LY % 41.6 % 03/24/2015 COMPLETE BLOOD COUNT 7073109 MON % 5.0 % 03/24/2015 COMPLETE BLOOD COUNT 1701297 EOS % 2.3 % 03/24/2015 COMPLETE BLOOD COUNT 6336425 BASO % 0.2 % 03/24/2015 COMPLETE BLOOD COUNT 9482656 RDW 13.0 % 03/24/2015 COMPLETE BLOOD COUNT 0369717 ABS LYNN 4.28 10e9/L 03/24/2015 COMPLETE BLOOD COUNT 1874348 ABS LYMPH 3.49 10e9/L 03/24/2015 COMPLETE BLOOD COUNT 3646140 ABS MONO 0.42 10e9/L 03/24/2015 COMPLETE BLOOD COUNT 9313933 ABS EOS 0.19 10e9/L 03/24/2015 COMPLETE BLOOD COUNT 5487248 ABS BASO 0.02 10e9/L 03/24/2015 COMPLETE BLOOD COUNT 7787704 RDW-SD 42.6 fL 03/24/2015 GFR CALC 6316340 GFR AA >60 ML/MIN 03/24/2015 GFR CALC 4200215 GFR NON -AA >60 ML/MIN 03/24/2015 COMPREHENSIVE METABOLIC 34058 AST 16 U/L 03/24/2015 COMPREHENSIVE METABOLIC 46380 ALT 10 IU/L 03/24/2015 COMPREHENSIVE METABOLIC 24900 BUN 16 MG/DL 03/24/2015 COMPREHENSIVE METABOLIC 91308 ALBUMIN 4.2 GM/DL 03/24/2015 COMPREHENSIVE METABOLIC 86958 CHLORIDE 98 MMOL/L 03/24/2015 COMPREHENSIVE METABOLIC 42301 BILI TOT 0.4 MG/DL 03/24/2015 COMPREHENSIVE METABOLIC 74258 ALK PHOS 60 U/L 03/24/2015 COMPREHENSIVE METABOLIC 38919 SODIUM 136 MMOL/L 03/24/2015 COMPREHENSIVE METABOLIC 32658 CREATININE 0.85 MG/DL 03/24/2015 COMPREHENSIVE METABOLIC 32676 CALCIUM 9.7 MG/DL 03/24/2015 COMPREHENSIVE METABOLIC 97468 POTASSIUM 4.0 MMOL/L 03/24/2015 COMPREHENSIVE METABOLIC 51912 PROT TOT 6.8 GM/DL 03/24/2015 COMPREHENSIVE METABOLIC 99080 Glucose 88 MG/DL 03/24/2015 COMPREHENSIVE METABOLIC 28704 BICARB 26 MMOL/L 03/24/2015 COMPREHENSIVE METABOLIC 91836 ANION GAP 12 MEQ/L 03/24/2015 THYROID STIMULATING HORMONE 40780 TSH 1.827 uIU/ML 5 GLYCOSYLATED HEMOGLOBIN TEST 83619 A1C HPLC 02245-8 5.9 % 03/24/2015 LIPID GROUP [address] 57 MG/DL 03/24/2015 LIPID GROUP 09791 TRIG 236 MG/DL 03/24/2015 LIPID GROUP 58193 TEST L DL 136 MG/DL 03/24/2015 LIPID GROUP 54769 CHOL 240 MG/DL 03/24/2015 LIPID GROUP 43732 RCHOL/ HDL 4.21 RATIO 03/24/2015 LIPID GROUP 98605 NON-HD L CH 183 MG/DL 03/24/2015 THYROID STIMULATING HORMONE 53627 TSH 0.769 uIU/ML 5 LIPID GROUP [address] 46 MG/DL 11/19/2014 LIPID GROUP 54763 TRIG 175 MG/DL 11/19/2014 LIPID GROUP 64769 TEST L DL 93 MG/DL 11/19/2014 LIPID GROUP 73837 CHOL 174 MG/DL 11/19/2014 LIPID GROUP 64653 RCHOL/ HDL 3.78 RATIO 11/19/2014 LIPID GROUP 31617 NON-HD L CH 128 MG/DL 11/19/2014 GLYCOSYLATED HEMOGLOBIN TEST 98063 A1C [facility] 24568-4 6.0 % 11/19/2014 GFR CALC 1634652 GFR AA >60 ML/MIN 11/19/2014 GFR CALC 2388293 GFR NON -AA >60 ML/MIN 11/19/2014 COMPLETE BLOOD COUNT 8857948 WBC 8.1 10e9/L 11/19/2014 COMPLETE BLOOD COUNT 5260443 RBC 4.06 10e12/L 5 COMPLETE BLOOD COUNT 0670116 HGB 12.2 g/dL 11/19/2014 COMPLETE BLOOD COUNT 4993958 HCT DET 36.9 % 11/19/2014 COMPLETE BLOOD COUNT 8013629 MCV 90.9 fL 11/19/2014 COMPLETE BLOOD COUNT 0840069 MCH 30.0 pg 11/19/2014 COMPLETE BLOOD COUNT 0926839 MCHC 33.1 g/dL 11/19/2014 COMPLETE BLOOD COUNT 6542448 PLT 320 10e9/L 11/19/2014 COMPLETE BLOOD COUNT 1670379 MPV 10.0 fL 11/19/2014 COMPLETE BLOOD COUNT 4309267 LYNN % 56.0 % 11/19/2014 COMPLETE BLOOD COUNT 4678237 LY % 33.8 % 11/19/2014 COMPLETE BLOOD COUNT 7664864 MON % 5.7 % 11/19/2014 COMPLETE BLOOD COUNT 4864591 EOS % 4.1 % 11/19/2014 COMPLETE BLOOD COUNT 1596873 BASO % 0.4 % 11/19/2014 COMPLETE BLOOD COUNT 8313826 RDW 12.6 % 11/19/2014 COMPLETE BLOOD COUNT 2204685 ABS LYNN 4.54 10e9/L 11/19/2014 COMPLETE BLOOD COUNT 9830879 ABS LYMPH 2.74 10e9/L 11/19/2014 COMPLETE BLOOD COUNT 3654336 ABS MONO 0.46 10e9/L 11/19/2014 COMPLETE BLOOD COUNT 1144463 ABS EOS 0.33 10e9/L 11/19/2014 COMPLETE BLOOD COUNT 6501261 ABS BASO 0.03 10e9/L 11/19/2014 COMPLETE BLOOD COUNT 0823760 RDW-SD 40.9 fL 11/19/2014 URIC ACID 55595 URIC ACID 4.5 MG/DL 11/19/2014 COMPREHENSIVE METABOLIC 27730 AST 16 U/L 11/19/2014 COMPREHENSIVE METABOLIC 03305 ALT 13 IU/L 11/19/2014 COMPREHENSIVE METABOLIC 03847 BUN 16 MG/DL 11/19/2014 COMPREHENSIVE METABOLIC 34346 ALBUMIN 4.2 GM/DL 11/19/2014 COMPREHENSIVE METABOLIC 69083 CHLORIDE 99 MMOL/L 11/19/2014 COMPREHENSIVE METABOLIC 38307 BILI TOT 0.4 MG/DL 11/19/2014 COMPREHENSIVE METABOLIC 24299 ALK PHOS 51 U/L 11/19/2014 COMPREHENSIVE METABOLIC 74307 SODIUM 134 MMOL/L 11/19/2014 COMPREHENSIVE METABOLIC 12993 CREATININE 0.95 MG/DL 11/19/2014 COMPREHENSIVE METABOLIC 54556 CALCIUM 9.8 MG/DL 11/19/2014 COMPREHENSIVE METABOLIC 84298 POTASSIUM 3.9 MMOL/L 11/19/2014 COMPREHENSIVE METABOLIC 15893 PROT TOT 6.8 GM/DL 11/19/2014 COMPREHENSIVE METABOLIC 47320 Glucose 89 MG/DL 11/19/2014 COMPREHENSIVE METABOLIC 54646 BICARB 28 MMOL/L 11/19/2014 COMPREHENSIVE METABOLIC 40714 ANION GAP 7 MEQ/L 11/19/2014 FREE T4 69938 FREE T4 1.34 NG/DL 11/19/2014 GLYCOSYLATED HEMOGLOBIN TEST 03669 A1C HPLC 00061-6 6.0 % 08/17/2014 GFR CALC 4466261 GFR AA >60 ML/MIN 08/17/2014 GFR CALC 0521912 GFR NON -AA >60 ML/MIN 08/17/2014 LIPID GROUP [address] 49 MG/DL 08/17/2014 LIPID GROUP 33862 TRIG 144 MG/DL 08/17/2014 LIPID GROUP 14539 TEST L DL 118 MG/DL 08/17/2014 LIPID GROUP 71099 CHOL 196 MG/DL 08/17/2014 LIPID GROUP 59620 RCHOL/ HDL 4.00 RATIO 08/17/2014 LIPID GROUP 77695 NON-HD L CH 147 MG/DL 08/17/2014 COMPREHENSIVE METABOLIC 40543 AST 18 U/L 08/17/2014 COMPREHENSIVE METABOLIC 44549 ALT 12 IU/L 08/17/2014 COMPREHENSIVE METABOLIC 93977 BUN 12 MG/DL 08/17/2014 COMPREHENSIVE METABOLIC 40628 ALBUMIN 3.9 GM/DL 08/17/2014 COMPREHENSIVE METABOLIC 21377 CHLORIDE 100 MMOL/L 08/17/2014 COMPREHENSIVE METABOLIC 62573 BILI TOT 0.3 MG/DL 08/17/2014 COMPREHENSIVE METABOLIC 88795 ALK PHOS 46 U/L 08/17/2014 COMPREHENSIVE METABOLIC 65804 SODIUM 135 MMOL/L 08/17/2014 COMPREHENSIVE METABOLIC 05657 CREATININE 0.84 MG/DL 08/17/2014 COMPREHENSIVE METABOLIC 27477 CALCIUM 9.5 MG/DL 08/17/2014 COMPREHENSIVE METABOLIC 27152 POTASSIUM 4.2 MMOL/L 08/17/2014 COMPREHENSIVE METABOLIC 25093 PROT TOT 6.4 GM/DL 08/17/2014 COMPREHENSIVE METABOLIC 09721 Glucose 95 MG/DL 08/17/2014 COMPREHENSIVE METABOLIC 37406 BICARB 29 MMOL/L 08/17/2014 COMPREHENSIVE METABOLIC 42868 ANION GAP 6 MEQ/L 08/17/2014 THYROID STIMULATING HORMONE 81854 TSH 1.029 uIU/ML 5 COMPLETE BLOOD COUNT 3079240 WBC 6.6 10e9/L 08/17/2014 COMPLETE BLOOD COUNT 3929406 RBC 3.97 10e12/L 5 COMPLETE BLOOD COUNT 7646625 HGB 12.2 g/dL 08/17/2014 COMPLETE BLOOD COUNT 6462628 HCT DET 36.7 % 08/17/2014 COMPLETE BLOOD COUNT 7631416 MCV 92.4 fL 08/17/2014 COMPLETE BLOOD COUNT 3825429 MCH 30.7 pg 08/17/2014 COMPLETE BLOOD COUNT 8826522 MCHC 33.2 g/dL 08/17/2014 COMPLETE BLOOD COUNT 3352717 PLT 284 10e9/L 08/17/2014 COMPLETE BLOOD COUNT 9199943 MPV 10.5 fL 08/17/2014 COMPLETE BLOOD COUNT 9276361 LYNN % 51.3 % 08/17/2014 COMPLETE BLOOD COUNT 1812982 LY % 38.6 % 08/17/2014 COMPLETE BLOOD COUNT 4421445 MON % 5.7 % 08/17/2014 COMPLETE BLOOD COUNT 5092483 EOS % 4.1 % 08/17/2014 COMPLETE BLOOD COUNT 1796337 BASO % 0.3 % 08/17/2014 COMPLETE BLOOD COUNT 6741748 RDW 12.8 % 08/17/2014 COMPLETE BLOOD COUNT 7070894 ABS LYNN 3.39 10e9/L 08/17/2014 COMPLETE BLOOD COUNT 6420218 ABS LYMPH 2.55 10e9/L 08/17/2014 COMPLETE BLOOD COUNT 9371588 ABS MONO 0.38 10e9/L 08/17/2014 COMPLETE BLOOD COUNT 4767184 ABS EOS 0.27 10e9/L 08/17/2014 COMPLETE BLOOD COUNT 8211371 ABS BASO 0.02 10e9/L 08/17/2014 COMPLETE BLOOD COUNT 7860325 RDW-SD 42.2 fL 08/17/2014 FREE T4 25992 FREE T4 1.31 NG/DL 08/17/2014 GFR CALC 5173312 GFR AA >60 ML/MIN 04/28/2014 GFR CALC 6227536 GFR NON -AA 59.0L ML/MIN 4 FREE T4 97172 FREE T4 1.05 NG/DL 04/28/2014 COMPREHENSIVE METABOLIC 68572 AST 16 U/L 04/28/2014 COMPREHENSIVE METABOLIC 06563 ALT 10 IU/L 04/28/2014 COMPREHENSIVE METABOLIC 11613 BUN 16 MG/DL 04/28/2014 COMPREHENSIVE METABOLIC 09538 ALBUMIN 4.1 GM/DL 04/28/2014 COMPREHENSIVE METABOLIC 03131 CHLORIDE 101 MMOL/L 04/28/2014 COMPREHENSIVE METABOLIC 98407 BILI TOT 0.4 MG/DL 04/28/2014 COMPREHENSIVE METABOLIC 86025 ALK PHOS 46 U/L 04/28/2014 COMPREHENSIVE METABOLIC 87641 SODIUM 136 MMOL/L 04/28/2014 COMPREHENSIVE METABOLIC 88193 CREATININE 0.99 MG/DL 04/28/2014 COMPREHENSIVE METABOLIC 54452 CALCIUM 9.4 MG/DL 04/28/2014 COMPREHENSIVE METABOLIC 81984 POTASSIUM 4.3 MMOL/L 04/28/2014 COMPREHENSIVE METABOLIC 61093 PROT TOT 6.6 GM/DL 04/28/2014 COMPREHENSIVE METABOLIC 17840 Glucose 94 MG/DL 04/28/2014 COMPREHENSIVE METABOLIC 29982 BICARB 28 MMOL/L 04/28/2014 COMPREHENSIVE METABOLIC 82471 ANION GAP 7 MEQ/L 04/28/2014 GLYCOSYLATED HEMOGLOBIN TEST 99671 A1C HPLC 17146-1 6.2 % 04/28/2014 COMPLETE BLOOD COUNT 5445176 WBC 6.5 10e9/L 04/28/2014 COMPLETE BLOOD COUNT 6609512 RBC 3.87 10e12/L 4 COMPLETE BLOOD COUNT 1964791 HGB 11.9 g/dL 04/28/2014 COMPLETE BLOOD COUNT 5535455 HCT DET 36.2 % 04/28/2014 COMPLETE BLOOD COUNT 7151927 MCV 93.5 fL 04/28/2014 COMPLETE BLOOD COUNT 9684212 MCH 30.7 pg 04/28/2014 COMPLETE BLOOD COUNT 3081210 MCHC 32.9 g/dL 04/28/2014 COMPLETE BLOOD COUNT 0251132 PLT 276 10e9/L 04/28/2014 COMPLETE BLOOD COUNT 7126609 MPV 11.0 fL 04/28/2014 COMPLETE BLOOD COUNT 4096722 LYNN % 58.9 % 04/28/2014 COMPLETE BLOOD COUNT 7975417 LY % 32.6 % 04/28/2014 COMPLETE BLOOD COUNT 7854680 MON % 5.4 % 04/28/2014 COMPLETE BLOOD COUNT 2798672 EOS % 2.8 % 04/28/2014 COMPLETE BLOOD COUNT 0747700 BASO % 0.3 % 04/28/2014 COMPLETE BLOOD COUNT 6852814 RDW 12.7 % 04/28/2014 COMPLETE BLOOD COUNT 5996685 ABS LYNN 3.83 10e9/L 04/28/2014 COMPLETE BLOOD COUNT 1575135 ABS LYMPH 2.12 10e9/L 04/28/2014 COMPLETE BLOOD COUNT 3111771 ABS MONO 0.35 10e9/L 04/28/2014 COMPLETE BLOOD COUNT 7099151 ABS EOS 0.18 10e9/L 04/28/2014 COMPLETE BLOOD COUNT 3851691 ABS BASO 0.02 10e9/L 04/28/2014 COMPLETE BLOOD COUNT 0799843 RDW-SD 42.4 fL 04/28/2014 THYROID STIMULATING HORMONE 26292 TSH 1.219 uIU/ML 4 LIPID GROUP [address] 53 MG/DL 04/28/2014 LIPID GROUP 63149 TRIG 144 MG/DL 04/28/2014 LIPID GROUP 28020 TEST L DL 124 MG/DL 04/28/2014 LIPID GROUP 35067 CHOL 206 MG/DL 04/28/2014 LIPID GROUP 33218 RCHOL/ HDL 3.89 RATIO 04/28/2014 LIPID GROUP 81591 NON-HD L CH 153 MG/DL 04/28/2014 COMPLETE BLOOD COUNT 5685411 WBC 6.8 10e9/L 12/23/2013 COMPLETE BLOOD COUNT 9749546 RBC 3.96 10e12/L 4 COMPLETE BLOOD COUNT 3885545 HGB 12.3 g/dL 12/23/2013 COMPLETE BLOOD COUNT 6169190 HCT DET 37.1 % 12/23/2013 COMPLETE BLOOD COUNT 0698712 MCV 93.7 fL 12/23/2013 COMPLETE BLOOD COUNT 6391997 MCH 31.1 pg 12/23/2013 COMPLETE BLOOD COUNT 0452536 MCHC 33.2 g/dL 12/23/2013 COMPLETE BLOOD COUNT 0338427 PLT 258 10e9/L 12/23/2013 COMPLETE BLOOD COUNT 2582581 MPV 10.7 fL 12/23/2013 COMPLETE BLOOD COUNT 8013533 LYNN % 52.5 % 12/23/2013 COMPLETE BLOOD COUNT 7935158 LY % 36.7 % 12/23/2013 COMPLETE BLOOD COUNT 6623181 MON % 6.2 % 12/23/2013 COMPLETE BLOOD COUNT 2791192 EOS % 4.3 % 12/23/2013 COMPLETE BLOOD COUNT 9650594 BASO % 0.3 % 12/23/2013 COMPLETE BLOOD COUNT 6105604 RDW 13.0 % 12/23/2013 COMPLETE BLOOD COUNT 8208737 ABS LYNN 3.57 10e9/L 12/23/2013 COMPLETE BLOOD COUNT 9802081 ABS LYMPH 2.50 10e9/L 12/23/2013 COMPLETE BLOOD COUNT 9810868 ABS MONO 0.42 10e9/L 12/23/2013 COMPLETE BLOOD COUNT 7390591 ABS EOS 0.29 10e9/L 12/23/2013 COMPLETE BLOOD COUNT 1502163 ABS BASO 0.02 10e9/L 12/23/2013 COMPLETE BLOOD COUNT 0888010 RDW-SD 43.0 fL 12/23/2013 LIPID GROUP [address] 45 MG/DL 12/23/2013 LIPID GROUP 14965 TRIG 323 MG/DL 12/23/2013 LIPID GROUP 74472 TEST L DL 129 MG/DL 12/23/2013 LIPID GROUP 75440 CHOL 239 MG/DL 12/23/2013 LIPID GROUP 65002 RCHOL/ HDL 5.31 RATIO 12/23/2013 LIPID GROUP 65574 NON-HD L CH 194 MG/DL 12/23/2013 GLYCOSYLATED HEMOGLOBIN TEST 12608 A1C HPLC 94987-6 5.9 % 12/23/2013 GFR CALC 3319241 GFR AA >60 ML/MIN 12/23/2013 GFR CALC 0352837 GFR NON -AA >60 ML/MIN 12/23/2013 THYROID STIMULATING HORMONE 44596 TSH 1.105 uIU/ML 4 COMPREHENSIVE METABOLIC 84049 AST 19 U/L 12/23/2013 COMPREHENSIVE METABOLIC 62457 ALT 12 IU/L 12/23/2013 COMPREHENSIVE METABOLIC 48123 BUN 13 MG/DL 12/23/2013 COMPREHENSIVE METABOLIC 48786 ALBUMIN 4.1 GM/DL 12/23/2013 COMPREHENSIVE METABOLIC 25260 CHLORIDE 99 MMOL/L 12/23/2013 COMPREHENSIVE METABOLIC 59388 BILI TOT 0.4 MG/DL 12/23/2013 COMPREHENSIVE METABOLIC 73834 ALK PHOS 59 U/L 12/23/2013 COMPREHENSIVE METABOLIC 10411 SODIUM 136 MMOL/L 12/23/2013 COMPREHENSIVE METABOLIC 94881 CREATININE 0.81 MG/DL 12/23/2013 COMPREHENSIVE METABOLIC 36030 CALCIUM 9.5 MG/DL 12/23/2013 COMPREHENSIVE METABOLIC 58636 POTASSIUM 4.1 MMOL/L 12/23/2013 COMPREHENSIVE METABOLIC 69577 PROT TOT 6.6 GM/DL 12/23/2013 COMPREHENSIVE METABOLIC 97581 Glucose 94 MG/DL 12/23/2013 COMPREHENSIVE METABOLIC 48843 BICARB 28 MMOL/L 12/23/2013 COMPREHENSIVE METABOLIC 40990 ANION GAP 9 MEQ/L 12/23/2013 FREE T4 14424 FREE T4 1.12 NG/DL 12/23/2013 HEMOGLOBIN A1C (GLYCOSYLATED) 7328708 A1C [facility] 50025-4 5.9 % 05/01/2013 THYROID STIMULATING HORMONE 15652 TSH 1.216 uIU/ML 3 FREE T4 42145 FREE T4 1.14 NG/DL 05/01/2013 GFR CALC 5307181 GFR AA >60 ML/MIN 05/01/2013 GFR CALC [id number] GFR NON -AA >60 ML/MIN 05/01/2013 COMPLETE BLOOD COUNT [id number] WBC 7.1 10e9/L 05/01/2013 COMPLETE BLOOD COUNT [id number] RBC 4.02 10e12/L 12/12/201 3 COMPLETE BLOOD COUNT [id number] HGB 12.7 g/dL 05/01/2013 COMPLETE BLOOD COUNT [id number] HCT DET 38.5 % 05/01/2013 COMPLETE BLOOD COUNT [id number] MCV 95.8 fL 05/01/2013 COMPLETE BLOOD COUNT [id number] MCH 31.6 pg 05/01/2013 COMPLETE BLOOD COUNT [id number] MCHC 33.0 g/dL 05/01/2013 COMPLETE BLOOD COUNT [id number] PLT 281 10e9/L 05/01/2013 COMPLETE BLOOD COUNT 4294393 MPV 10.4 fL 05/01/2013 COMPLETE BLOOD COUNT [id number] LYNN % 61.1 % 05/01/2013 COMPLETE BLOOD COUNT [id number] LY % 30.2 % 05/01/2013 COMPLETE BLOOD COUNT [id number] MON % 6.2 % 05/01/2013 COMPLETE BLOOD COUNT [id number] EOS % 2.4 % 05/01/2013 COMPLETE BLOOD COUNT 1560408 BASO % 0.1 % 05/01/2013 COMPLETE BLOOD COUNT [id number] RDW 12.4 % 05/01/2013 COMPLETE BLOOD COUNT [id number] ABS LYNN 4.34 10e9/L 05/01/2013 COMPLETE BLOOD COUNT [id number] ABS LYMPH 2.14 10e9/L 05/01/2013 COMPLETE BLOOD COUNT [id number] ABS MONO 0.44 10e9/L 05/01/2013 COMPLETE BLOOD COUNT [id number] ABS EOS 0.17 10e9/L 05/01/2013 COMPLETE BLOOD COUNT [id number] ABS BASO 0.01 10e9/L 05/01/2013 COMPLETE BLOOD COUNT [id number] RDW-SD 42.4 fL 05/01/2013 COMPREHENSIVE METABOLIC 05878 AST 15 U/L 05/01/2013 COMPREHENSIVE METABOLIC 68657 ALT 11 IU/L 05/01/2013 COMPREHENSIVE METABOLIC 78194 BUN 19 MG/DL 05/01/2013 COMPREHENSIVE METABOLIC 47429 ALBUMIN 4.2 GM/DL 05/01/2013 COMPREHENSIVE METABOLIC 90162 CHLORIDE 99 MMOL/L 05/01/2013 COMPREHENSIVE METABOLIC 81213 BILI TOT 0.4 MG/DL 05/01/2013 COMPREHENSIVE METABOLIC 26118 ALK PHOS 53 U/L 05/01/2013 COMPREHENSIVE METABOLIC 90952 SODIUM 137 MMOL/L 05/01/2013 COMPREHENSIVE METABOLIC 93515 CREATININE 0.81 MG/DL 05/01/2013 COMPREHENSIVE METABOLIC 66743 CALCIUM 9.5 MG/DL 05/01/2013 COMPREHENSIVE METABOLIC 32045 POTASSIUM 4.2 MMOL/L 05/01/2013 COMPREHENSIVE METABOLIC 20415 PROT TOT 6.4 GM/DL 05/01/2013 COMPREHENSIVE METABOLIC 83538 Glucose 99 MG/DL 05/01/2013 COMPREHENSIVE METABOLIC 85229 BICARB 31 MMOL/L 05/01/2013 COMPREHENSIVE METABOLIC 89503 ANION GAP 7 MEQ/L 05/01/2013 LIPID GROUP [address] 51 MG/DL 05/01/2013 LIPID GROUP 05726 TRIG 254 MG/DL 05/01/2013 LIPID GROUP 30849 TEST L DL 134 MG/DL 05/01/2013 LIPID GROUP 96147 CHOL 236 MG/DL 05/01/2013 LIPID GROUP 70135 RCHOL/ HDL 4.63 RATIO 05/01/2013 HEMOGLOBIN A1C (GLYCOSYLATED) 7262619 A1C [facility] 06083-4 5.6 % 01/28/2013 THYROID STIMULATING HORMONE 72157 TSH 0.908 uIU/ML 3 FREE T4 60885 FREE T4 1.35 NG/DL 01/28/2013 COMPLETE BLOOD COUNT [id number] WBC 6.7 10e9/L 01/27/2013 COMPLETE BLOOD COUNT [id number] RBC 3.91 10e12/L 3 COMPLETE BLOOD COUNT 4537251 HGB 12.6 g/dL 01/27/2013 COMPLETE BLOOD COUNT 8487986 HCT DET 36.6 % 01/27/2013 COMPLETE BLOOD COUNT 9087662 MCV 93.6 fL 01/27/2013 COMPLETE BLOOD COUNT [id number] MCH 32.2 pg 01/27/2013 COMPLETE BLOOD COUNT 4784772 MCHC 34.4 g/dL 01/27/2013 COMPLETE BLOOD COUNT [id number] PLT 254 10e9/L 01/27/2013 COMPLETE BLOOD COUNT 2634988 MPV 10.3 fL 01/27/2013 COMPLETE BLOOD COUNT 1897696 LYNN % 51.9 % 01/27/2013 COMPLETE BLOOD COUNT 8282458 LY % 37.7 % 01/27/2013 COMPLETE BLOOD COUNT [id number] MON % 7.3 % 01/27/2013 COMPLETE BLOOD COUNT 6896749 EOS % 3.0 % 01/27/2013 COMPLETE BLOOD COUNT 4355132 BASO % 0.1 % 01/27/2013 COMPLETE BLOOD COUNT 9764536 RDW 11.8 % 01/27/2013 COMPLETE BLOOD COUNT 3459900 ABS LYNN 3.48 10e9/L 01/27/2013 COMPLETE BLOOD COUNT 2266095 ABS LYMPH 2.53 10e9/L 01/27/2013 COMPLETE BLOOD COUNT 0508539 ABS MONO 0.49 10e9/L 01/27/2013 COMPLETE BLOOD COUNT 6273194 ABS EOS 0.20 10e9/L 01/27/2013 COMPLETE BLOOD COUNT [id number] ABS BASO 0.01 10e9/L 01/27/2013 COMPLETE BLOOD COUNT 7329523 RDW-SD 39.4 fL 01/27/2013 COMPREHENSIVE METABOLIC 03387 AST 17 U/L 01/27/2013 COMPREHENSIVE METABOLIC 53057 ALT 11 IU/L 01/27/2013 COMPREHENSIVE METABOLIC 53677 BUN 10 MG/DL 01/27/2013 COMPREHENSIVE METABOLIC 03811 ALBUMIN 4.1 GM/DL 01/27/2013 COMPREHENSIVE METABOLIC 26781 CHLORIDE 100 MMOL/L 01/27/2013 COMPREHENSIVE METABOLIC 18401 BILI TOT 0.3 MG/DL 01/27/2013 COMPREHENSIVE METABOLIC 40513 ALK PHOS 51 U/L 01/27/2013 COMPREHENSIVE METABOLIC 45286 SODIUM 138 MMOL/L 01/27/2013 COMPREHENSIVE METABOLIC 12635 CREATININE 0.81 MG/DL 01/27/2013 COMPREHENSIVE METABOLIC 04628 CALCIUM 9.4 MG/DL 01/27/2013 COMPREHENSIVE METABOLIC 10628 POTASSIUM 4.2 MMOL/L 01/27/2013 COMPREHENSIVE METABOLIC 77235 PROT TOT 6.5 GM/DL 01/27/2013 COMPREHENSIVE METABOLIC 04024 Glucose 91 MG/DL 01/27/2013 COMPREHENSIVE METABOLIC 62246 BICARB 29 MMOL/L 01/27/2013 COMPREHENSIVE METABOLIC 07753 ANION GAP 9 MEQ/L 01/27/2013 GFR CALC 4472005 GFR AA >60 ML/MIN 01/27/2013 GFR CALC 3747548 GFR NON -AA >60 ML/MIN 01/27/2013 LIPID GROUP [address] 48 MG/DL 01/27/2013 LIPID GROUP 69461 TRIG 250 MG/DL 01/27/2013 LIPID GROUP 62721 TEST L DL 111 MG/DL 01/27/2013 LIPID GROUP 45391 CHOL 209 MG/DL 01/27/2013 LIPID GROUP 83587 RCHOL/ HDL 4.35 RATIO 01/27/2013 FREE T4 12607 FREE T4 1.24 NG/DL 10/28/2012 HEMOGLOBIN A1C (GLYCOSYLATED) 8266862 A1C HPLC 71098-4 6.2 % 10/28/2012 LIPID GROUP [address] 47 MG/DL 10/28/2012 LIPID GROUP 07330 TRIG 372 MG/DL 10/28/2012 LIPID GROUP 59400 TEST L DL 109 MG/DL 10/28/2012 LIPID GROUP 74786 CHOL 230 MG/DL 10/28/2012 LIPID GROUP 33077 RCHOL/ HDL 4.89 RATIO 10/28/2012 COMPLETE BLOOD COUNT 9266824 WBC 8.0 10e9/L 10/28/2012 COMPLETE BLOOD COUNT 9206160 RBC 4.03 10e12/L 3 COMPLETE BLOOD COUNT 2762612 HGB 12.7 g/dL 10/28/2012 COMPLETE BLOOD COUNT 0316956 HCT DET 38.2 % 10/28/2012 COMPLETE BLOOD COUNT 0127766 MCV 94.8 fL 10/28/2012 COMPLETE BLOOD COUNT 4552873 MCH 31.5 pg 10/28/2012 COMPLETE BLOOD COUNT 3013415 MCHC 33.2 g/dL 10/28/2012 COMPLETE BLOOD COUNT 8771911 PLT 274 10e9/L 10/28/2012 COMPLETE BLOOD COUNT 2006283 MPV 10.4 fL 10/28/2012 COMPLETE BLOOD COUNT 5765353 LYNN % 56.4 % 10/28/2012 COMPLETE BLOOD COUNT 2713843 LY % 33.8 % 10/28/2012 COMPLETE BLOOD COUNT 1069679 MON % 6.7 % 10/28/2012 COMPLETE BLOOD COUNT 3748476 EOS % 2.9 % 10/28/2012 COMPLETE BLOOD COUNT 6292800 BASO % 0.2 % 10/28/2012 COMPLETE BLOOD COUNT 3756000 RDW 12.4 % 10/28/2012 COMPLETE BLOOD COUNT 6190032 ABS LYNN 4.51 10e9/L 10/28/2012 COMPLETE BLOOD COUNT 3783463 ABS LYMPH 2.70 10e9/L 10/28/2012 COMPLETE BLOOD COUNT 5790471 ABS MONO 0.54 10e9/L 10/28/2012 COMPLETE BLOOD COUNT 9266525 ABS EOS 0.23 10e9/L 10/28/2012 COMPLETE BLOOD COUNT 7412406 ABS BASO 0.02 10e9/L 10/28/2012 COMPLETE BLOOD COUNT 5767664 RDW-SD 42.2 fL 10/28/2012 COMPREHENSIVE METABOLIC 21782 AST 18 U/L 10/28/2012 COMPREHENSIVE METABOLIC 07348 ALT 12 IU/L 10/28/2012 COMPREHENSIVE METABOLIC 24117 BUN 15 MG/DL 10/28/2012 COMPREHENSIVE METABOLIC 83599 ALBUMIN 4.3 GM/DL 10/28/2012 COMPREHENSIVE METABOLIC 18158 CHLORIDE 97 MMOL/L 10/28/2012 COMPREHENSIVE METABOLIC 99572 BILI TOT 0.3 MG/DL 10/28/2012 COMPREHENSIVE METABOLIC 56299 ALK PHOS 47 U/L 10/28/2012 COMPREHENSIVE METABOLIC 30037 SODIUM 135 MMOL/L 10/28/2012 COMPREHENSIVE METABOLIC 34071 CREATININE 0.81 MG/DL 10/28/2012 COMPREHENSIVE METABOLIC 91759 CALCIUM 9.5 MG/DL 10/28/2012 COMPREHENSIVE METABOLIC 58438 POTASSIUM 4.0 MMOL/L 10/28/2012 COMPREHENSIVE METABOLIC 62682 PROT TOT 6.3 GM/DL 10/28/2012 COMPREHENSIVE METABOLIC 65191 Glucose 112 MG/DL 10/28/2012 COMPREHENSIVE METABOLIC 79589 BICARB 29 MMOL/L 10/28/2012 COMPREHENSIVE METABOLIC 62777 ANION GAP 9 MEQ/L 10/28/2012 THYROID STIMULATING HORMONE 18817 TSH 1.478 uIU/ML 3 GFR CALC 0239908 GFR AA >60 ML/MIN 10/28/2012 GFR CALC 8336769 GFR NON -AA >60 ML/MIN 10/28/2012 GFR CALC 5772083 GFR AA >60 ML/MIN 07/18/2012 GFR CALC 2726640 GFR NON -AA >60 ML/MIN 07/18/2012 COMPREHENSIVE METABOLIC 43329 AST 22 U/L 07/18/2012 COMPREHENSIVE METABOLIC 40603 ALT 17 IU/L 07/18/2012 COMPREHENSIVE METABOLIC 23563 BUN 10 MG/DL 07/18/2012 COMPREHENSIVE METABOLIC 90754 ALBUMIN 4.4 GM/DL 07/18/2012 COMPREHENSIVE METABOLIC 35034 CHLORIDE 93 MMOL/L 07/18/2012 COMPREHENSIVE METABOLIC 37260 BILI TOT 0.3 MG/DL 07/18/2012 COMPREHENSIVE METABOLIC 46426 ALK PHOS 73 U/L 07/18/2012 COMPREHENSIVE METABOLIC 91705 SODIUM 135 MMOL/L 07/18/2012 COMPREHENSIVE METABOLIC 53852 CREATININE 0.86 MG/DL 07/18/2012 COMPREHENSIVE METABOLIC 73308 CALCIUM 9.9 MG/DL 07/18/2012 COMPREHENSIVE METABOLIC 29423 POTASSIUM 3.8 MMOL/L 07/18/2012 COMPREHENSIVE METABOLIC 47979 PROT TOT 7.1 GM/DL 07/18/2012 COMPREHENSIVE METABOLIC 36451 Glucose 94 MG/DL 07/18/2012 COMPREHENSIVE METABOLIC 26817 BICARB 29 MMOL/L 07/18/2012 COMPREHENSIVE METABOLIC 38863 ANION GAP 13 MEQ/L 07/18/2012 HEMOGLOBIN A1C (GLYCOSYLATED) 3380971 A1C HPLC 45361-4 5.8 % 07/18/2012 URIC ACID 45385 URIC ACID 5.5 MG/DL 06/12/2012 HEPATIC FUNCTION PANEL A 21076 AST 20 U/L 06/12/2012 HEPATIC FUNCTION PANEL A 93399 ALK PHOS 61 U/L 06/12/2012 HEPATIC FUNCTION PANEL A 13853 BILI TOT 0.3 MG/DL 06/12/2012 HEPATIC FUNCTION PANEL A 76059 ALT 18 IU/L 06/12/2012 HEPATIC FUNCTION PANEL A 43369 BILI DIR 0.1 MG/DL 06/12/2012 HEPATIC FUNCTION PANEL A 72761 ALBUMIN 4.6 GM/DL 06/12/2012 HEPATIC FUNCTION PANEL A 94628 PROT TOT 6.9 GM/DL 06/12/2012 GFR CALC 5605564 GFR AA >60 ML/MIN 11/01/2011 GFR CALC 4918044 GFR NON -AA >60 ML/MIN 11/01/2011 COMPREHENSIVE METABOLIC 04657 AST 22 U/L 11/01/2011 COMPREHENSIVE METABOLIC 15748 ALT 19 IU/L 11/01/2011 COMPREHENSIVE METABOLIC 97427 BUN 15 MG/DL 11/01/2011 COMPREHENSIVE METABOLIC 35504 ALBUMIN 4.1 GM/DL 11/01/2011 COMPREHENSIVE METABOLIC 85997 CHLORIDE 98 MMOL/L 11/01/2011 COMPREHENSIVE METABOLIC 71637 BILI TOT 0.3 MG/DL 11/01/2011 COMPREHENSIVE METABOLIC 92663 ALK PHOS 57 U/L 11/01/2011 COMPREHENSIVE METABOLIC 52240 SODIUM 140 MMOL/L 11/01/2011 COMPREHENSIVE METABOLIC 63025 CREATININE 0.84 MG/DL 11/01/2011 COMPREHENSIVE METABOLIC 39165 CALCIUM 9.4 MG/DL 11/01/2011 COMPREHENSIVE METABOLIC 70496 POTASSIUM 3.7 MMOL/L 11/01/2011 COMPREHENSIVE METABOLIC 17375 PROT TOT 6.3 GM/DL 11/01/2011 COMPREHENSIVE METABOLIC 41528 Glucose 97 MG/DL 11/01/2011 COMPREHENSIVE METABOLIC 83029 BICARB 31 MMOL/L 11/01/2011 COMPREHENSIVE METABOLIC 60261 ANION GAP 11 MEQ/L 11/01/2011 GLYCOSYLATED HEMOGLOBIN TEST 44691 A1C HPLC 83896-9 6.0 % 11/01/2011 GLYCOSYLATED HEMOGLOBIN TEST 15532 A1C HPLC 63456-3 6.0 % 04/26/2011 LIPID GROUP [address] 44 MG/DL 02/01/2011 LIPID GROUP 46381 TRIG 199 MG/DL 02/01/2011 LIPID GROUP 12545 TEST L DL 116 MG/DL 02/01/2011 LIPID GROUP 18181 CHOL 200 MG/DL 02/01/2011 LIPID GROUP 62785 RCHOL/ HDL 4.55 RATIO 02/01/2011 INSULIN SERUM 50912 INSU MARGE 26.9 mU/L 01/30/2011 THYROID STIMULATING HORMONE 22206 TSH 1.190 uIU/ML 1 COMPLETE BLOOD COUNT 58439 WBC 8.5 10e9/L 01/30/2011 COMPLETE BLOOD COUNT 27357 RBC 4.23 10e12/L 1 COMPLETE BLOOD COUNT 51925 HGB 13.3 g/dL 01/30/2011 COMPLETE BLOOD COUNT 01794 HCT DET 38.6 % 01/30/2011 COMPLETE BLOOD COUNT 34920 MCV 91.3 fL 01/30/2011 COMPLETE BLOOD COUNT 51786 MCH 31.4 pg 01/30/2011 COMPLETE BLOOD COUNT 67983 MCHC 34.5 g/dL 01/30/2011 COMPLETE BLOOD COUNT 51687 PLT 283 10e9/L 01/30/2011 COMPLETE BLOOD COUNT 53109 MPV 10.5 fL 01/30/2011 COMPLETE BLOOD COUNT 29355 LYNN % 62.5 % 01/30/2011 COMPLETE BLOOD COUNT 57731 LY % 28.6 % 01/30/2011 COMPLETE BLOOD COUNT 20758 MON % 6.7 % 01/30/2011 COMPLETE BLOOD COUNT 64550 EOS % 2.0 % 01/30/2011 COMPLETE BLOOD COUNT 34223 BASO % 0.2 % 01/30/2011 COMPLETE BLOOD COUNT 82205 RDW 12.1 % 01/30/2011 COMPLETE BLOOD COUNT 61143 ABS LYNN 5.31 10e9/L 01/30/2011 COMPLETE BLOOD COUNT 79649 ABS LYMPH 2.43 10e9/L 01/30/2011 COMPLETE BLOOD COUNT 30251 ABS MONO 0.57 10e9/L 01/30/2011 COMPLETE BLOOD COUNT 65134 ABS EOS 0.17 10e9/L 01/30/2011 COMPLETE BLOOD COUNT 50828 ABS BASO 0.02 10e9/L 01/30/2011 COMPLETE BLOOD COUNT 85588 RDW-SD 39.7 fL 01/30/2011 FREE T4 61185 FREE T4 1.24 NG/DL 01/30/2011 GFR CALC 9919550 GFR AA >60 ML/MIN 01/30/2011 GFR CALC 4098984 GFR NON -AA >60 ML/MIN 01/30/2011 COMPREHENSIVE METABOLIC 65452 AST 16 U/L 01/30/2011 COMPREHENSIVE METABOLIC 13379 ALT 15 IU/L 01/30/2011 COMPREHENSIVE METABOLIC 32792 BUN 14 MG/DL 01/30/2011 COMPREHENSIVE METABOLIC 91009 ALBUMIN 4.3 GM/DL 01/30/2011 COMPREHENSIVE METABOLIC 87907 CHLORIDE 97 MMOL/L 01/30/2011 COMPREHENSIVE METABOLIC 01483 BILI TOT 0.5 MG/DL 01/30/2011 COMPREHENSIVE METABOLIC 93651 ALK PHOS 66 U/L 01/30/2011 COMPREHENSIVE METABOLIC 10864 SODIUM 139 MMOL/L 01/30/2011 COMPREHENSIVE METABOLIC 97893 CREATININE 0.87 MG/DL 01/30/2011 COMPREHENSIVE METABOLIC 69600 CALCIUM 9.3 MG/DL 01/30/2011 COMPREHENSIVE METABOLIC 59089 POTASSIUM 3.6 MMOL/L 01/30/2011 COMPREHENSIVE METABOLIC 19304 PROT TOT 6.9 GM/DL 01/30/2011 COMPREHENSIVE METABOLIC 19367 Glucose 107 MG/DL 01/30/2011 COMPREHENSIVE METABOLIC 86548 BICARB 29 MMOL/L 01/30/2011 COMPREHENSIVE METABOLIC 85720 ANION GAP 13 MEQ/L 01/30/2011 ERYTHROCYTE SEDIMENTATION RATE 27231 ESR 19 MM/HR 01/30/2011 Review of Systems System Result Effective Dates Constitutional diaphoresis 10/16/2018 Cardiovascular No arrhythmia 10/16/2018 Cardiovascular No chest pain/pressure 10/16/2018 Cardiovascular No edema 10/16/2018 Cardiovascular No exercise intolerance 10/16/2018 Cardiovascular No orthopnea 10/16/2018 Cardiovascular No palpitations 10/16/2018 Cardiovascular hypertension 10/16/2018 Respiratory No asthma Respiratory No cough Respiratory No dyspnea 0 10/16/2018 Respiratory No pleuritic pain 10/16/2018 Respiratory No productive sputum 10/16/2018 Respiratory No wheezing 10/16/2018 Gastrointestinal No hemorrhoids 10/16/2018 Gastrointestinal No hepatitis 10/16/2018 Gastrointestinal No abdominal pain 10/16/2018 Gastrointestinal No constipation 10/16/2018 Gastrointestinal No diarrhea 10/16/2018 Gastrointestinal No gastroesophageal reflu x 10/16/2018 Gastrointestinal No melena 10/16/2018 Gastrointestinal No nausea 10/16/2018 Gastrointestinal No vomiting 10/16/2018 Genitourinary/Nephrology No dysuria 10/16/2018 Genitourinary/Nephrology No nocturia 10/16/2018 Genitourinary/Nephrology No urinary incontinence 10/16/2018 Musculoskeletal No muscle weakness 10/16/2018 Musculoskeletal No myalgias 10/16/2018 Musculoskeletal No stiffness 10/16/2018 Musculoskeletal No swelling 10/16/2018 Dermatologic No rash Dermatologic No scar Neurologic No dizziness 10/16/2018 Neurologic No headache 0 10/16/2018 Neurologic No neck pain 10/16/2018 Neurologic No syncope Psychiatric No anxiety 0 10/16/2018 Psychiatric No depression 10/16/2018 Psychiatric No disturbances of emotion 10/16/2018 Endocrine No goiter 09/19 Endocrine No hyperglycemia 10/16/2018 Endocrine No hypoglycemia 10/16/2018 Endocrine hyperlipidemia 10/16/2018 Constitutional No fussiness 09/13/2018 Constitutional No night sweats 09/13/2018 Constitutional No anorexia 09/13/2018 Constitutional No chills 09/13/2018 Constitutional No diaphoresis 09/13/2018 Constitutional No recent illness 09/13/2018 Constitutional No fatigue 09/13/2018 Constitutional No fever 09/13/2018 Constitutional No insomnia 09/13/2018 Constitutional No malaise 09/13/2018 Constitutional No weight gain/obesity 09/13/2018 Constitutional No weight loss 09/13/2018 Eyes No eye pain 019 Eyes No visual disturbance 09/13/2018 Ears/Nose/Throat/Neck No dizziness 09/13/2018 Ears/Nose/Throat/Neck No dysphagia 09/13/2018 Ears/Nose/Throat/Neck No oral lesion 09/13/2018 Ears/Nose/Throat/Neck No oral mass 09/13/2018 Ears/Nose/Throat/Neck No sore throat 09/13/2018 Cardiovascular No chest pain/pressure 09/13/2018 Cardiovascular No dyspnea 09/13/2018 Cardiovascular No near-syncope/dizziness 09/13/2018 Respiratory No chest tightness 09/13/2018 Respiratory No cough Gastrointestinal No abdominal pain 09/13/2018 Gastrointestinal No diarrhea 09/13/2018 Gastrointestinal No vomiting 09/13/2018 Genitourinary/Nephrology No dysuria 09/13/2018 Musculoskeletal No low back pain 09/13/2018 Musculoskeletal No myalgias 09/13/2018 Dermatologic rash 2018 Dermatologic dry skin Neurologic No dizziness 09/13/2018 Neurologic No weakness 0 09/13/2018 Psychiatric No anxiety 0 09/13/2018 Psychiatric No depression 09/13/2018 Psychiatric No disturbances of consc iousness 09/13/2018 Hematologic/Lymphatic No abnormal ec chymoses 09/13/2018 Hematologic/Lymphatic No abnormal bl eeding and bruising 09/13/2018 Dermatologic dermatitis - contact 09/13/2018 Cardiovascular hypertension 07/09/2018 Endocrine diabetes mellitus type 2 07/09/2018 Respiratory No asthma Respiratory No cough Respiratory No dyspnea 0 07/09/2018 Respiratory No pleuritic pain 07/09/2018 Respiratory No productive sputum 07/09/2018 Respiratory No wheezing 07/09/2018 Gastrointestinal No hemorrhoids 07/09/2018 Gastrointestinal No hepatitis 07/09/2018 Gastrointestinal No abdominal pain 07/09/2018 Gastrointestinal No constipation 07/09/2018 Gastrointestinal No diarrhea 07/09/2018 Gastrointestinal No gastroesophageal reflu x 07/09/2018 Gastrointestinal No melena 07/09/2018 Gastrointestinal No nausea 07/09/2018 Gastrointestinal No vomiting 07/09/2018 Neurologic pain, limb Psychiatric stress 04/08 Psychiatric anxiety 03/21 Cardiovascular hypertension 04/08/2018 Endocrine diabetes mellitus type 2 04/08/2018 Endocrine hypothyroid Endocrine hyperlipidemia 04/08/2018 Respiratory No asthma Respiratory No cough Respiratory No dyspnea 1 06/08/2017 Respiratory No pleuritic pain 04/08/2018 Respiratory No productive sputum 04/08/2018 Respiratory No wheezing 04/08/2018 Gastrointestinal No hemorrhoids 04/08/2018 Gastrointestinal No hepatitis 04/08/2018 Gastrointestinal No abdominal pain 04/08/2018 Gastrointestinal No constipation 04/08/2018 Gastrointestinal No diarrhea 04/08/2018 Gastrointestinal No gastroesophageal reflu x 04/08/2018 Gastrointestinal No melena 04/08/2018 Gastrointestinal No nausea 04/08/2018 Gastrointestinal No vomiting 04/08/2018 Genitourinary/Nephrology No dysuria 04/08/2018 Genitourinary/Nephrology No nocturia 04/08/2018 Genitourinary/Nephrology No urinary incontinence 04/08/2018 Musculoskeletal No muscle weakness 04/08/2018 Musculoskeletal No myalgias 04/08/2018 Musculoskeletal No stiffness 04/08/2018 Musculoskeletal No swelling 04/08/2018 Musculoskeletal shoulder pain 04/08/2018 Neurologic No dizziness 04/08/2018 Neurologic No headache 1 06/08/2017 Neurologic No neck pain 04/08/2018 Neurologic No syncope Constitutional No night sweats 04/08/2018 Constitutional No fatigue 04/08/2018 Constitutional No fever 04/08/2018 Constitutional No insomnia 04/08/2018 Constitutional No weight loss 04/08/2018 Constitutional No fatigue 03/04/2018 Constitutional No fever 03/04/2018 Ears/Nose/Throat/Neck headache 03/04/2018 Ears/Nose/Throat/Neck nasal discharge 03/04/2018 Ears/Nose/Throat/Neck otalgia 03/04/2018 Ears/Nose/Throat/Neck No sinus congestion 03/04/2018 Ears/Nose/Throat/Neck No sinusitis 03/04/2018 Ears/Nose/Throat/Neck No sore throat 03/04/2018 Respiratory No cough Respiratory No chest congestion 03/04/2018 Respiratory No chest tightness 03/04/2018 Gastrointestinal No abdominal pain 03/04/2018 Gastrointestinal No constipation 03/04/2018 Gastrointestinal No diarrhea 03/04/2018 Gastrointestinal No nausea 03/04/2018 Musculoskeletal No myalgias 03/04/2018 Dermatologic No rash Ears/Nose/Throat/Neck postnasal drip 03/04/2018 Endocrine hypothyroid Endocrine hyperlipidemia 01/03/2018 Endocrine diabetes mellitus type 2 01/03/2018 Cardiovascular hypertension 01/03/2018 Gastrointestinal No hemorrhoids 01/03/2018 Gastrointestinal No hepatitis 01/03/2018 Gastrointestinal No abdominal pain 01/03/2018 Gastrointestinal No constipation 01/03/2018 Gastrointestinal No diarrhea 01/03/2018 Gastrointestinal No gastroesophageal reflu x 01/03/2018 Gastrointestinal No melena 01/03/2018 Gastrointestinal No nausea 01/03/2018 Gastrointestinal No vomiting 01/03/2018 Respiratory No asthma Respiratory No cough Respiratory No dyspnea 0 01/03/2018 Respiratory No pleuritic pain 01/03/2018 Respiratory No productive sputum 01/03/2018 Respiratory No wheezing 01/03/2018 Genitourinary/Nephrology No dysuria 01/03/2018 Genitourinary/Nephrology No nocturia 01/03/2018 Genitourinary/Nephrology No urinary incontinence 01/03/2018 Musculoskeletal joint complaint 01/03/2018 Dermatologic No rash Dermatologic No scar Neurologic No dizziness 01/03/2018 Neurologic No headache 0 01/03/2018 Neurologic No neck pain 01/03/2018 Neurologic No syncope Psychiatric No anxiety 0 01/03/2018 Psychiatric No depression 01/03/2018 Constitutional No fever 10/24/2017 Constitutional No fatigue 10/24/2017 Constitutional No chills 10/24/2017 Musculoskeletal No myalgias 10/24/2017 Dermatologic sores 09/26 Constitutional No fever 09/10/2017 Constitutional No fatigue 09/10/2017 Constitutional No chills 09/10/2017 Dermatologic cellulitis 09/10/2017 Genitourinary/Nephrology No dysuria 07/27/2017 Genitourinary/Nephrology No anuria/oliguri a 07/27/2017 Genitourinary/Nephrology No urinary urgenc y 07/27/2017 Genitourinary/Nephrology No urinary frequency 07/27/2017 Genitourinary/Nephrology No urinary retention/hesitancy 07/27/2017 Genitourinary/Nephrology No urinary incontinence 07/27/2017 Genitourinary/Nephrology No polyuria 07/27/2017 Constitutional chills Constitutional No fever 07/27/2017 Genitourinary/Nephrology flank pain 07/27/2017 Constitutional fatigue 0 07/27/2017 Neurologic dizziness Cardiovascular No arrhythmia 06/06/2017 Cardiovascular chest pain/pressure 06/06/2017 Cardiovascular No edema 06/06/2017 Cardiovascular No exercise intolerance 06/06/2017 Cardiovascular No orthopnea 06/06/2017 Cardiovascular No palpitations 06/06/2017 Cardiovascular hypertension 06/06/2017 Respiratory No asthma Respiratory No cough Respiratory No dyspnea 0 06/06/2017 Respiratory No pleuritic pain 06/06/2017 Respiratory No productive sputum 06/06/2017 Respiratory No wheezing 06/06/2017 Gastrointestinal No hemorrhoids 06/06/2017 Gastrointestinal No hepatitis 06/06/2017 Gastrointestinal No abdominal pain 06/06/2017 Gastrointestinal No constipation 06/06/2017 Gastrointestinal No diarrhea 06/06/2017 Gastrointestinal No gastroesophageal reflu x 06/06/2017 Gastrointestinal No melena 06/06/2017 Gastrointestinal No nausea 06/06/2017 Gastrointestinal No vomiting 06/06/2017 Genitourinary/Nephrology No dysuria 06/06/2017 Genitourinary/Nephrology No nocturia 06/06/2017 Genitourinary/Nephrology No urinary incontinence 06/06/2017 Musculoskeletal No muscle weakness 06/06/2017 Musculoskeletal No myalgias 06/06/2017 Musculoskeletal No stiffness 06/06/2017 Musculoskeletal No swelling 06/06/2017 Dermatologic No rash Dermatologic No scar Endocrine No goiter 05/21 Endocrine No hyperglycemia 06/06/2017 Endocrine No hypoglycemia 06/06/2017 Psychiatric No anxiety 0 06/06/2017 Psychiatric No depression 06/06/2017 Ears/Nose/Throat/Neck No hearing loss 06/06/2017 Ears/Nose/Throat/Neck No nasal discharge 06/06/2017 Ears/Nose/Throat/Neck No sinus congestion 06/06/2017 Ears/Nose/Throat/Neck No sore throat 06/06/2017 Dermatologic No rash Dermatologic No scar Dermatologic cellulitis 03/08/2017 Neurologic paresthesia 1 Constitutional No fever 03/08/2017 Dermatologic cellulitis 02/21/2017 Constitutional No fever 02/21/2017 Constitutional weight loss 08/31/2016 Cardiovascular No arrhythmia 08/31/2016 Cardiovascular No chest pain/pressure 08/31/2016 Cardiovascular No edema 08/31/2016 Cardiovascular No exercise intolerance 08/31/2016 Cardiovascular No orthopnea 08/31/2016 Cardiovascular No palpitations 08/31/2016 Cardiovascular hypertension 08/31/2016 Respiratory No asthma Respiratory No cough Respiratory No dyspnea 0 08/31/2016 Respiratory No pleuritic pain 08/31/2016 Respiratory No productive sputum 08/31/2016 Respiratory No wheezing 08/31/2016 Gastrointestinal No hemorrhoids 08/31/2016 Gastrointestinal No hepatitis 08/31/2016 Gastrointestinal No abdominal pain 08/31/2016 Gastrointestinal No constipation 08/31/2016 Gastrointestinal No diarrhea 08/31/2016 Gastrointestinal No gastroesophageal reflu x 08/31/2016 Gastrointestinal No melena 08/31/2016 Gastrointestinal No nausea 08/31/2016 Gastrointestinal No vomiting 08/31/2016 Genitourinary/Nephrology No dysuria 08/31/2016 Genitourinary/Nephrology No nocturia 08/31/2016 Genitourinary/Nephrology No urinary incontinence 08/31/2016 Musculoskeletal No muscle weakness 08/31/2016 Musculoskeletal No myalgias 08/31/2016 Musculoskeletal No stiffness 08/31/2016 Musculoskeletal No swelling 08/31/2016 Dermatologic No rash Dermatologic No scar Neurologic No dizziness 08/31/2016 Neurologic No headache 0 08/31/2016 Neurologic No neck pain 08/31/2016 Neurologic No syncope Psychiatric No anxiety 0 08/31/2016 Psychiatric No depression 08/31/2016 Endocrine No goiter 08/19 Endocrine No hyperglycemia 08/31/2016 Endocrine No hypoglycemia 08/31/2016 Endocrine diabetes mellitus type 2 08/31/2016 Endocrine hyperlipidemia 08/31/2016 Endocrine hyponatremia 0 08/31/2016 Constitutional No night sweats 08/02/2016 Constitutional No recent illness 08/02/2016 Constitutional No fatigue 08/02/2016 Constitutional No fever 08/02/2016 Constitutional No insomnia 08/02/2016 Constitutional No weight loss 08/02/2016 Cardiovascular No arrhythmia 08/02/2016 Cardiovascular No chest pain/pressure 08/02/2016 Cardiovascular No edema 08/02/2016 Cardiovascular No exercise intolerance 08/02/2016 Cardiovascular No orthopnea 08/02/2016 Cardiovascular No palpitations 08/02/2016 Respiratory No asthma Respiratory No cough Respiratory No dyspnea 0 08/02/2016 Respiratory No pleuritic pain 08/02/2016 Respiratory No productive sputum 08/02/2016 Respiratory No wheezing 08/02/2016 Dermatologic rash 2016 Dermatologic No scar Neurologic neck pain Neurologic paresthesia 0 08/02/2016 Cardiovascular hypertension 01/04/2016 Respiratory No asthma Respiratory No cough Respiratory No dyspnea 0 01/04/2016 Respiratory No pleuritic pain 01/04/2016 Respiratory No productive sputum 01/04/2016 Respiratory No wheezing 01/04/2016 Gastrointestinal No hemorrhoids 01/04/2016 Gastrointestinal No hepatitis 01/04/2016 Gastrointestinal No abdominal pain 01/04/2016 Gastrointestinal No constipation 01/04/2016 Gastrointestinal No diarrhea 01/04/2016 Gastrointestinal No gastroesophageal reflu x 01/04/2016 Gastrointestinal No melena 01/04/2016 Gastrointestinal No nausea 01/04/2016 Gastrointestinal No vomiting 01/04/2016 Genitourinary/Nephrology No dysuria 01/04/2016 Genitourinary/Nephrology No nocturia 01/04/2016 Genitourinary/Nephrology No urinary incontinence 01/04/2016 Musculoskeletal No muscle weakness 01/04/2016 Musculoskeletal No myalgias 01/04/2016 Musculoskeletal No stiffness 01/04/2016 Musculoskeletal No swelling 01/04/2016 Neurologic paresthesia 0 01/04/2016 Dermatologic No rash Dermatologic No scar Psychiatric No anxiety 0 01/04/2016 Psychiatric No depression 01/04/2016 Endocrine diabetes mellitus type 2 01/04/2016 Endocrine hyperlipidemia 01/04/2016 Ears/Nose/Throat/Neck No hearing loss 01/04/2016 Ears/Nose/Throat/Neck No nasal discharge 01/04/2016 Ears/Nose/Throat/Neck No sinus congestion 01/04/2016 Ears/Nose/Throat/Neck No sore throat 01/04/2016 Constitutional No night sweats 11/15/2015 Constitutional No recent illness 11/15/2015 Constitutional No fatigue 11/15/2015 Constitutional No fever 11/15/2015 Constitutional No insomnia 11/15/2015 Constitutional No weight loss 11/15/2015 Cardiovascular No arrhythmia 11/15/2015 Cardiovascular No chest pain/pressure 11/15/2015 Cardiovascular No edema 11/15/2015 Cardiovascular No exercise intolerance 11/15/2015 Cardiovascular No orthopnea 11/15/2015 Cardiovascular No palpitations 11/15/2015 Respiratory No asthma Respiratory No cough Respiratory No dyspnea 0 11/15/2015 Respiratory No pleuritic pain 11/15/2015 Respiratory No productive sputum 11/15/2015 Respiratory No wheezing 11/15/2015 Gastrointestinal No hemorrhoids 11/15/2015 Gastrointestinal No hepatitis 11/15/2015 Gastrointestinal No abdominal pain 11/15/2015 Gastrointestinal No constipation 11/15/2015 Gastrointestinal No diarrhea 11/15/2015 Gastrointestinal No gastroesophageal reflu x 11/15/2015 Gastrointestinal No melena 11/15/2015 Gastrointestinal No nausea 11/15/2015 Gastrointestinal No vomiting 11/15/2015 Dermatologic rash 2015 Dermatologic No scar Psychiatric No anxiety 0 11/15/2015 Psychiatric No depression 11/15/2015 Psychiatric stress 11/14 Constitutional No night sweats 09/24/2015 Constitutional No recent illness 09/24/2015 Constitutional No fatigue 09/24/2015 Constitutional No fever 09/24/2015 Constitutional No insomnia 09/24/2015 Constitutional No weight loss 09/24/2015 Dermatologic No rash 10/2015 Dermatologic No scar 10/2015 Dermatologic sores 09/23 Constitutional No night sweats 09/15/2015 Constitutional No recent illness 09/15/2015 Constitutional No fatigue 09/15/2015 Constitutional No fever 09/15/2015 Constitutional No insomnia 09/15/2015 Constitutional No weight loss 09/15/2015 Dermatologic No rash Dermatologic No scar Dermatologic cellulitis 09/15/2015 Hematologic/Lymphatic No abnormal ec chymoses 09/15/2015 Hematologic/Lymphatic No petechiae 09/15/2015 Hematologic/Lymphatic No abnormal bl eeding and bruising 09/15/2015 Hematologic/Lymphatic No anemia 09/15/2015 Hematologic/Lymphatic No lymph node enlargement/mass 09/15/2015 Constitutional No night sweats 09/13/2015 Constitutional No recent illness 09/13/2015 Constitutional No fatigue 09/13/2015 Constitutional No fever 09/13/2015 Constitutional No insomnia 09/13/2015 Constitutional No weight loss 09/13/2015 Ears/Nose/Throat/Neck No hearing loss 09/13/2015 Ears/Nose/Throat/Neck No nasal discharge 09/13/2015 Ears/Nose/Throat/Neck No sinus congestion 09/13/2015 Ears/Nose/Throat/Neck No sore throat 09/13/2015 Cardiovascular No arrhythmia 09/13/2015 Cardiovascular No chest pain/pressure 09/13/2015 Cardiovascular No edema 09/13/2015 Cardiovascular No exercise intolerance 09/13/2015 Cardiovascular No orthopnea 09/13/2015 Cardiovascular No palpitations 09/13/2015 Respiratory No asthma Respiratory No cough Respiratory No dyspnea 0 09/13/2015 Respiratory No pleuritic pain 09/13/2015 Respiratory No productive sputum 09/13/2015 Respiratory No wheezing 09/13/2015 Dermatologic sores 09/12 Ears/Nose/Throat/Neck No hearing loss 08/19/2015 Ears/Nose/Throat/Neck No nasal discharge 08/19/2015 Ears/Nose/Throat/Neck No sinus congestion 08/19/2015 Ears/Nose/Throat/Neck No sore throat 08/19/2015 Cardiovascular No arrhythmia 08/19/2015 Cardiovascular No chest pain/pressure 08/19/2015 Cardiovascular No edema 08/19/2015 Cardiovascular No exercise intolerance 08/19/2015 Cardiovascular No orthopnea 08/19/2015 Cardiovascular No palpitations 08/19/2015 Respiratory No asthma Respiratory No cough Respiratory No dyspnea 0 08/19/2015 Respiratory No pleuritic pain 08/19/2015 Respiratory No productive sputum 08/19/2015 Respiratory No wheezing 08/19/2015 Gastrointestinal No hemorrhoids 08/19/2015 Gastrointestinal No hepatitis 08/19/2015 Gastrointestinal No abdominal pain 08/19/2015 Gastrointestinal No constipation 08/19/2015 Gastrointestinal No diarrhea 08/19/2015 Gastrointestinal No gastroesophageal reflu x 08/19/2015 Gastrointestinal No melena 08/19/2015 Gastrointestinal No nausea 08/19/2015 Gastrointestinal No vomiting 08/19/2015 Genitourinary/Nephrology No dysuria 08/19/2015 Genitourinary/Nephrology No nocturia 08/19/2015 Genitourinary/Nephrology No urinary incontinence 08/19/2015 Musculoskeletal No muscle weakness 08/19/2015 Musculoskeletal No myalgias 08/19/2015 Musculoskeletal No stiffness 08/19/2015 Musculoskeletal No swelling 08/19/2015 Dermatologic No rash Dermatologic No scar Neurologic No dizziness 08/19/2015 Neurologic No headache 0 08/19/2015 Neurologic No neck pain 08/19/2015 Neurologic No syncope Psychiatric No anxiety 0 08/19/2015 Psychiatric No depression 08/19/2015 Endocrine No goiter 07/21 Endocrine No hyperglycemia 08/19/2015 Endocrine No hypoglycemia 08/19/2015 Endocrine diabetes mellitus type 2 08/19/2015 Endocrine hyperlipidemia 08/19/2015 Cardiovascular edema Cardiovascular hypertension 07/13/2015 Musculoskeletal myalgias 07/13/2015 Musculoskeletal arthralgia(s) 07/13/2015 Constitutional No night sweats 03/29/2015 Constitutional No fatigue 03/29/2015 Constitutional No fever 03/29/2015 Constitutional No insomnia 03/29/2015 Constitutional No weight loss 03/29/2015 Cardiovascular No arrhythmia 03/29/2015 Cardiovascular No chest pain/pressure 03/29/2015 Cardiovascular No edema 03/29/2015 Cardiovascular No exercise intolerance 03/29/2015 Cardiovascular No orthopnea 03/29/2015 Cardiovascular No palpitations 03/29/2015 Respiratory No asthma Respiratory No cough 01/2015 Respiratory No dyspnea 1 05/29/2014 Respiratory No pleuritic pain 03/29/2015 Respiratory No productive sputum 03/29/2015 Respiratory No wheezing 03/29/2015 Gastrointestinal No hemorrhoids 03/29/2015 Gastrointestinal No hepatitis 03/29/2015 Gastrointestinal No abdominal pain 03/29/2015 Gastrointestinal No constipation 03/29/2015 Gastrointestinal No diarrhea 03/29/2015 Gastrointestinal No gastroesophageal reflu x 03/29/2015 Gastrointestinal No melena 03/29/2015 Gastrointestinal No nausea 03/29/2015 Gastrointestinal No vomiting 03/29/2015 Genitourinary/Nephrology No dysuria 03/29/2015 Genitourinary/Nephrology No nocturia 03/29/2015 Genitourinary/Nephrology No urinary incontinence 03/29/2015 Musculoskeletal No muscle weakness 03/29/2015 Musculoskeletal No myalgias 03/29/2015 Musculoskeletal No stiffness 03/29/2015 Musculoskeletal No swelling 03/29/2015 Dermatologic No rash 01/2015 Dermatologic No scar 01/2015 Neurologic No dizziness 03/29/2015 Neurologic No headache 1 05/29/2014 Neurologic No neck pain 03/29/2015 Neurologic No syncope Psychiatric No anxiety 1 05/29/2014 Psychiatric No depression 03/29/2015 Endocrine No goiter 0 01/2015 Endocrine No hyperglycemia 03/29/2015 Endocrine No hypoglycemia 03/29/2015 Cardiovascular hypertension 03/29/2015 Endocrine hyperlipidemia 03/29/2015 Endocrine diabetes mellitus type 2 03/29/2015 Musculoskeletal No joint complaint 03/29/2015 Musculoskeletal bone fracture 03/29/2015 Musculoskeletal No bone pain 03/29/2015 Constitutional No night sweats 11/26/2014 Constitutional No fatigue 11/26/2014 Constitutional No fever 11/26/2014 Constitutional No insomnia 11/26/2014 Constitutional No weight loss 11/26/2014 Eyes No eye pain 015 Eyes No photophobia 01/2015 Eyes No vision change Eyes No visual disturbance 11/26/2014 Ears/Nose/Throat/Neck No hearing loss 11/26/2014 Ears/Nose/Throat/Neck No nasal discharge 11/26/2014 Ears/Nose/Throat/Neck No sinus congestion 11/26/2014 Ears/Nose/Throat/Neck No sore throat 11/26/2014 Cardiovascular No arrhythmia 11/26/2014 Cardiovascular No chest pain/pressure 11/26/2014 Cardiovascular No edema 11/26/2014 Cardiovascular No exercise intolerance 11/26/2014 Cardiovascular No orthopnea 11/26/2014 Cardiovascular No palpitations 11/26/2014 Respiratory No asthma Respiratory No cough 01/2015 Respiratory No dyspnea 0 11/26/2014 Respiratory No pleuritic pain 11/26/2014 Respiratory No productive sputum 11/26/2014 Respiratory No wheezing 11/26/2014 Gastrointestinal No hemorrhoids 11/26/2014 Gastrointestinal No hepatitis 11/26/2014 Gastrointestinal No abdominal pain 11/26/2014 Gastrointestinal No constipation 11/26/2014 Gastrointestinal No diarrhea 11/26/2014 Gastrointestinal No gastroesophageal reflu x 11/26/2014 Gastrointestinal No melena 11/26/2014 Gastrointestinal No nausea 11/26/2014 Gastrointestinal No vomiting 11/26/2014 Genitourinary/Nephrology No dysuria 11/26/2014 Genitourinary/Nephrology No nocturia 11/26/2014 Genitourinary/Nephrology No urinary incontinence 11/26/2014 Musculoskeletal No muscle weakness 11/26/2014 Musculoskeletal No myalgias 11/26/2014 Musculoskeletal No stiffness 11/26/2014 Musculoskeletal No swelling 11/26/2014 Dermatologic No rash 01/2015 Dermatologic No scar 01/2015 Neurologic No dizziness 11/26/2014 Neurologic No headache 0 11/26/2014 Neurologic No neck pain 11/26/2014 Neurologic No syncope Psychiatric No anxiety 0 11/26/2014 Psychiatric No depression 11/26/2014 Endocrine No goiter 07/0 01/2015 Endocrine No hyperglycemia 11/26/2014 Endocrine No hypoglycemia 11/26/2014 Hematologic/Lymphatic No abnormal ec chymoses 11/26/2014 Hematologic/Lymphatic No petechiae 11/26/2014 Hematologic/Lymphatic No abnormal bl eeding and bruising 11/26/2014 Hematologic/Lymphatic No anemia 11/26/2014 Hematologic/Lymphatic No lymph node enlargement/mass 11/26/2014 Allergy/Immunology No food allergy 11/26/2014 Musculoskeletal joint complaint 11/19/2014 Dermatologic cellulitis 11/19/2014 Cardiovascular edema 06/2014 Dermatologic cellulitis 11/16/2014 Cardiovascular edema Endocrine diabetes mellitus type 2 11/16/2014 Gastrointestinal nausea 11/16/2014 Gastrointestinal diarrhea 11/16/2014 Constitutional No night sweats 10/09/2014 Constitutional No recent illness 10/09/2014 Constitutional No fatigue 10/09/2014 Constitutional No fever 10/09/2014 Constitutional No insomnia 10/09/2014 Constitutional No weight loss 10/09/2014 Ears/Nose/Throat/Neck No hearing loss 10/09/2014 Ears/Nose/Throat/Neck No nasal discharge 10/09/2014 Ears/Nose/Throat/Neck No sinus congestion 10/09/2014 Ears/Nose/Throat/Neck No sore throat 10/09/2014 Cardiovascular No arrhythmia 10/09/2014 Cardiovascular No chest pain/pressure 10/09/2014 Cardiovascular No edema 10/09/2014 Cardiovascular No exercise intolerance 10/09/2014 Cardiovascular No orthopnea 10/09/2014 Cardiovascular No palpitations 10/09/2014 Respiratory No asthma Respiratory No cough Respiratory No dyspnea 0 10/09/2014 Respiratory No pleuritic pain 10/09/2014 Respiratory No productive sputum 10/09/2014 Respiratory No wheezing 10/09/2014 Gastrointestinal abdominal pain 10/09/2014 Gastrointestinal dyspepsia 10/09/2014 Genitourinary/Nephrology flank pain 10/09/2014 Genitourinary/Nephrology No dysuria 10/09/2014 Genitourinary/Nephrology No urinary urgenc y 10/09/2014 Genitourinary/Nephrology No urinary frequency 10/09/2014 Genitourinary/Nephrology No urinary incontinence 10/09/2014 Genitourinary/Nephrology No urinary retention/hesitancy 10/09/2014 Musculoskeletal low back pain 10/09/2014 Dermatologic No rash Dermatologic No scar Neurologic No dizziness 10/09/2014 Neurologic No headache 0 10/09/2014 Neurologic No neck pain 10/09/2014 Neurologic No syncope Psychiatric No anxiety 0 10/09/2014 Psychiatric No depression 10/09/2014 Endocrine No goiter 09/19 Endocrine No hyperglycemia 10/09/2014 Endocrine No hypoglycemia 10/09/2014 Cardiovascular hypertension 08/20/2014 Respiratory No asthma Respiratory No cough 06/2014 Respiratory No dyspnea 0 08/20/2014 Respiratory No pleuritic pain 08/20/2014 Respiratory No productive sputum 08/20/2014 Respiratory No wheezing 08/20/2014 Gastrointestinal No hemorrhoids 08/20/2014 Gastrointestinal No hepatitis 08/20/2014 Gastrointestinal No abdominal pain 08/20/2014 Gastrointestinal No constipation 08/20/2014 Gastrointestinal No diarrhea 08/20/2014 Gastrointestinal No gastroesophageal reflu x 08/20/2014 Gastrointestinal No melena 08/20/2014 Gastrointestinal No nausea 08/20/2014 Gastrointestinal No vomiting 08/20/2014 Cardiovascular No arrhythmia 08/20/2014 Cardiovascular No chest pain/pressure 08/20/2014 Cardiovascular No edema 08/20/2014 Cardiovascular No exercise intolerance 08/20/2014 Cardiovascular No orthopnea 08/20/2014 Cardiovascular No palpitations 08/20/2014 Genitourinary/Nephrology No dysuria 08/20/2014 Genitourinary/Nephrology No nocturia 08/20/2014 Genitourinary/Nephrology No urinary incontinence 08/20/2014 Musculoskeletal No muscle weakness 08/20/2014 Musculoskeletal No myalgias 08/20/2014 Musculoskeletal No stiffness 08/20/2014 Musculoskeletal No swelling 08/20/2014 Dermatologic No rash 06/2014 Dermatologic No scar 06/2014 Neurologic No dizziness 08/20/2014 Neurologic No headache 0 08/20/2014 Neurologic No neck pain 08/20/2014 Neurologic No syncope Endocrine No goiter 04/0 06/2014 Endocrine No hyperglycemia 08/20/2014 Endocrine No hypoglycemia 08/20/2014 Psychiatric No anxiety 0 08/20/2014 Psychiatric No depression 08/20/2014 Endocrine diabetes mellitus type 2 08/20/2014 Ears/Nose/Throat/Neck No hearing loss 08/20/2014 Ears/Nose/Throat/Neck No nasal discharge 08/20/2014 Ears/Nose/Throat/Neck No sinus congestion 08/20/2014 Ears/Nose/Throat/Neck No sore throat 08/20/2014 Cardiovascular hypertension 04/23/2014 Endocrine diabetes mellitus type 2 04/23/2014 Endocrine hyperlipidemia 04/23/2014 Respiratory No asthma Respiratory No cough 08/2013 Respiratory No dyspnea 1 06/24/2013 Respiratory No pleuritic pain 04/23/2014 Respiratory No productive sputum 04/23/2014 Respiratory No wheezing 04/23/2014 Gastrointestinal No hemorrhoids 04/23/2014 Gastrointestinal No hepatitis 04/23/2014 Gastrointestinal No abdominal pain 04/23/2014 Gastrointestinal No constipation 04/23/2014 Gastrointestinal No diarrhea 04/23/2014 Gastrointestinal No gastroesophageal reflu x 04/23/2014 Gastrointestinal No melena 04/23/2014 Gastrointestinal No nausea 04/23/2014 Gastrointestinal No vomiting 04/23/2014 Genitourinary/Nephrology No dysuria 04/23/2014 Genitourinary/Nephrology No nocturia 04/23/2014 Genitourinary/Nephrology No urinary incontinence 04/23/2014 Constitutional No night sweats 02/19/2014 Constitutional No fatigue 02/19/2014 Constitutional No fever 02/19/2014 Constitutional No insomnia 02/19/2014 Constitutional No weight loss 02/19/2014 Musculoskeletal joint complaint 02/19/2014 Dermatologic cellulitis 02/19/2014 Endocrine diabetes mellitus type 2 02/12/2014 Dermatologic cellulitis 02/12/2014 Cardiovascular edema Constitutional No fever 02/12/2014 Cardiovascular hypertension 12/25/2013 Respiratory No asthma Respiratory No cough 11/2013 Respiratory No dyspnea 0 12/25/2013 Respiratory No pleuritic pain 12/25/2013 Respiratory No productive sputum 12/25/2013 Respiratory No wheezing 12/25/2013 Gastrointestinal No hemorrhoids 12/25/2013 Gastrointestinal No hepatitis 12/25/2013 Gastrointestinal No abdominal pain 12/25/2013 Gastrointestinal No constipation 12/25/2013 Gastrointestinal No diarrhea 12/25/2013 Gastrointestinal No gastroesophageal reflu x 12/25/2013 Gastrointestinal No melena 12/25/2013 Gastrointestinal No nausea 12/25/2013 Gastrointestinal No vomiting 12/25/2013 Genitourinary/Nephrology No dysuria 12/25/2013 Genitourinary/Nephrology No nocturia 12/25/2013 Genitourinary/Nephrology No urinary incontinence 12/25/2013 Musculoskeletal No muscle weakness 12/25/2013 Musculoskeletal No myalgias 12/25/2013 Musculoskeletal No stiffness 12/25/2013 Musculoskeletal No swelling 12/25/2013 Dermatologic No rash 11/2013 Dermatologic No scar 11/2013 Neurologic No dizziness 12/25/2013 Neurologic No headache 0 12/25/2013 Neurologic No neck pain 12/25/2013 Neurologic No syncope Psychiatric No anxiety 0 12/25/2013 Psychiatric No depression 12/25/2013 Endocrine diabetes mellitus type 2 12/25/2013 Endocrine hyperlipidemia 12/25/2013 Constitutional No night sweats 12/25/2013 Constitutional No fatigue 12/25/2013 Constitutional No fever 12/25/2013 Constitutional No insomnia 12/25/2013 Constitutional No weight loss 12/25/2013 Constitutional weight gain/obesity 08/27/2013 Cardiovascular No arrhythmia 08/27/2013 Cardiovascular No chest pain/pressure 08/27/2013 Cardiovascular No edema 08/27/2013 Cardiovascular No exercise intolerance 08/27/2013 Cardiovascular No orthopnea 08/27/2013 Cardiovascular No palpitations 08/27/2013 Respiratory No asthma Respiratory No cough 01/2014 Respiratory No dyspnea 0 08/27/2013 Respiratory No pleuritic pain 08/27/2013 Respiratory No productive sputum 08/27/2013 Respiratory No wheezing 08/27/2013 Gastrointestinal No hemorrhoids 08/27/2013 Gastrointestinal No hepatitis 08/27/2013 Gastrointestinal No abdominal pain 08/27/2013 Gastrointestinal No constipation 08/27/2013 Gastrointestinal No diarrhea 08/27/2013 Gastrointestinal No gastroesophageal reflu x 08/27/2013 Gastrointestinal No melena 08/27/2013 Gastrointestinal No nausea 08/27/2013 Gastrointestinal No vomiting 08/27/2013 Genitourinary/Nephrology No dysuria 08/27/2013 Genitourinary/Nephrology No nocturia 08/27/2013 Genitourinary/Nephrology No urinary incontinence 08/27/2013 Musculoskeletal No muscle weakness 08/27/2013 Musculoskeletal No myalgias 08/27/2013 Musculoskeletal No stiffness 08/27/2013 Musculoskeletal No swelling 08/27/2013 Dermatologic No rash 01/2014 Dermatologic No scar 01/2014 Neurologic No dizziness 08/27/2013 Neurologic No headache 0 08/27/2013 Neurologic No neck pain 08/27/2013 Neurologic No syncope Psychiatric No anxiety 0 08/27/2013 Psychiatric No depression 08/27/2013 Endocrine No goiter 04/0 01/2014 Endocrine No hyperglycemia 08/27/2013 Endocrine No hypoglycemia 08/27/2013 Endocrine hyperlipidemia 08/27/2013 Endocrine diabetes mellitus type 2 08/27/2013 Ears/Nose/Throat/Neck No hearing loss 08/27/2013 Ears/Nose/Throat/Neck No nasal discharge 08/27/2013 Ears/Nose/Throat/Neck No sinus congestion 08/27/2013 Ears/Nose/Throat/Neck No sore throat 08/27/2013 Constitutional weight gain/obesity 04/30/2013 Cardiovascular hypertension 04/30/2013 Respiratory No asthma Respiratory No cough 03/2013 Respiratory No dyspnea 1 07/01/2012 Respiratory No pleuritic pain 04/30/2013 Respiratory No productive sputum 04/30/2013 Respiratory No wheezing 04/30/2013 Gastrointestinal No hemorrhoids 04/30/2013 Gastrointestinal No hepatitis 04/30/2013 Gastrointestinal No abdominal pain 04/30/2013 Gastrointestinal No constipation 04/30/2013 Gastrointestinal No diarrhea 04/30/2013 Gastrointestinal No gastroesophageal reflu x 04/30/2013 Gastrointestinal No melena 04/30/2013 Gastrointestinal No nausea 04/30/2013 Gastrointestinal No vomiting 04/30/2013 Genitourinary/Nephrology No dysuria 04/30/2013 Genitourinary/Nephrology No nocturia 04/30/2013 Genitourinary/Nephrology No urinary incontinence 04/30/2013 Musculoskeletal No muscle weakness 04/30/2013 Musculoskeletal No myalgias 04/30/2013 Musculoskeletal No stiffness 04/30/2013 Musculoskeletal No swelling 04/30/2013 Dermatologic No rash 03/2013 Dermatologic No scar 03/2013 Neurologic No dizziness 04/30/2013 Neurologic No headache 1 07/01/2012 Neurologic No neck pain 04/30/2013 Neurologic No syncope Psychiatric No anxiety 1 07/01/2012 Psychiatric No depression 04/30/2013 Endocrine No goiter 04/20 Endocrine No hyperglycemia 04/30/2013 Endocrine No hypoglycemia 04/30/2013 Endocrine diabetes mellitus type 2 04/30/2013 Constitutional weight gain/obesity 01/30/2013 Cardiovascular hypertension 01/30/2013 Respiratory No asthma Respiratory No cough 04/2013 Respiratory No dyspnea 0 01/30/2013 Respiratory No pleuritic pain 01/30/2013 Respiratory No productive sputum 01/30/2013 Respiratory No wheezing 01/30/2013 Gastrointestinal No hemorrhoids 01/30/2013 Gastrointestinal No hepatitis 01/30/2013 Gastrointestinal No abdominal pain 01/30/2013 Gastrointestinal No constipation 01/30/2013 Gastrointestinal No diarrhea 01/30/2013 Gastrointestinal No gastroesophageal reflu x 01/30/2013 Gastrointestinal No melena 01/30/2013 Gastrointestinal No nausea 01/30/2013 Gastrointestinal No vomiting 01/30/2013 Genitourinary/Nephrology No dysuria 01/30/2013 Genitourinary/Nephrology No nocturia 01/30/2013 Genitourinary/Nephrology No urinary incontinence 01/30/2013 Musculoskeletal No muscle weakness 01/30/2013 Musculoskeletal No myalgias 01/30/2013 Musculoskeletal No stiffness 01/30/2013 Musculoskeletal No swelling 01/30/2013 Dermatologic No rash 04/2013 Dermatologic No scar 04/2013 Neurologic No dizziness 01/30/2013 Neurologic No headache 0 01/30/2013 Neurologic No neck pain 01/30/2013 Neurologic No syncope Psychiatric No anxiety 0 01/30/2013 Psychiatric No depression 01/30/2013 Endocrine diabetes mellitus type 2 01/30/2013 Endocrine hyperlipidemia 01/30/2013 Constitutional fatigue 0 11/28/2012 Cardiovascular No arrhythmia 11/28/2012 Cardiovascular No chest pain/pressure 11/28/2012 Cardiovascular No edema 11/28/2012 Cardiovascular No exercise intolerance 11/28/2012 Cardiovascular No orthopnea 11/28/2012 Cardiovascular No palpitations 11/28/2012 Respiratory No asthma Respiratory No cough 03/2013 Respiratory No dyspnea 0 11/28/2012 Respiratory No pleuritic pain 11/28/2012 Respiratory No productive sputum 11/28/2012 Respiratory No wheezing 11/28/2012 Gastrointestinal No hemorrhoids 11/28/2012 Gastrointestinal No hepatitis 11/28/2012 Gastrointestinal No abdominal pain 11/28/2012 Gastrointestinal No constipation 11/28/2012 Gastrointestinal No diarrhea 11/28/2012 Gastrointestinal No gastroesophageal reflu x 11/28/2012 Gastrointestinal No melena 11/28/2012 Gastrointestinal No nausea 11/28/2012 Gastrointestinal No vomiting 11/28/2012 Genitourinary/Nephrology No dysuria 11/28/2012 Genitourinary/Nephrology No nocturia 11/28/2012 Genitourinary/Nephrology No urinary incontinence 11/28/2012 Musculoskeletal No muscle weakness 11/28/2012 Musculoskeletal No myalgias 11/28/2012 Musculoskeletal No stiffness 11/28/2012 Musculoskeletal No swelling 11/28/2012 Musculoskeletal shoulder pain 11/28/2012 Musculoskeletal joint complaint 11/28/2012 Dermatologic No rash 03/2013 Dermatologic No scar 03/2013 Psychiatric No anxiety 0 11/28/2012 Psychiatric depression 0 11/28/2012 Neurologic No dizziness 11/28/2012 Neurologic No headache 0 11/28/2012 Neurologic No neck pain 11/28/2012 Neurologic No syncope Psychiatric stress 11/28 Endocrine diabetes mellitus type 2 11/28/2012 Musculoskeletal shoulder pain 10/31/2012 Musculoskeletal joint complaint 10/31/2012 Dermatologic rash 2012 Genitourinary/Nephrology urinary inc ontinence 10/31/2012 Respiratory No asthma Respiratory No cough Respiratory No dyspnea 0 10/31/2012 Respiratory No pleuritic pain 10/31/2012 Respiratory No productive sputum 10/31/2012 Respiratory No wheezing 10/31/2012 Gastrointestinal No hemorrhoids 10/31/2012 Gastrointestinal No hepatitis 10/31/2012 Gastrointestinal No abdominal pain 10/31/2012 Gastrointestinal No constipation 10/31/2012 Gastrointestinal No diarrhea 10/31/2012 Gastrointestinal No gastroesophageal reflu x 10/31/2012 Gastrointestinal No melena 10/31/2012 Gastrointestinal No nausea 10/31/2012 Gastrointestinal No vomiting 10/31/2012 Endocrine diabetes mellitus type 2 10/31/2012 Cardiovascular No arrhythmia 10/31/2012 Cardiovascular No chest pain/pressure 10/31/2012 Cardiovascular No edema 10/31/2012 Cardiovascular No exercise intolerance 10/31/2012 Cardiovascular No orthopnea 10/31/2012 Cardiovascular No palpitations 10/31/2012 Ears/Nose/Throat/Neck No hearing loss 10/31/2012 Ears/Nose/Throat/Neck No nasal discharge 10/31/2012 Ears/Nose/Throat/Neck No sinus congestion 10/31/2012 Ears/Nose/Throat/Neck No sore throat 10/31/2012 Constitutional No night sweats 10/31/2012 Constitutional No fatigue 10/31/2012 Constitutional No fever 10/31/2012 Constitutional No insomnia 10/31/2012 Constitutional No weight loss 10/31/2012 Constitutional weight gain/obesity 10/31/2012 Neurologic pain, limb Neurologic paresis 10/31 Neurologic paresthesia 0 10/31/2012 Psychiatric anxiety 10/19 Psychiatric depression 0 10/31/2012 Psychiatric stress 10/31 Constitutional No night sweats 10/03/2012 Constitutional No fatigue 10/03/2012 Constitutional No fever 10/03/2012 Constitutional No insomnia 10/03/2012 Constitutional No weight loss 10/03/2012 Ears/Nose/Throat/Neck No hearing loss 10/03/2012 Ears/Nose/Throat/Neck No nasal discharge 10/03/2012 Ears/Nose/Throat/Neck No sinus congestion 10/03/2012 Ears/Nose/Throat/Neck No sore throat 10/03/2012 Cardiovascular No arrhythmia 10/03/2012 Cardiovascular No chest pain/pressure 10/03/2012 Cardiovascular No edema 10/03/2012 Cardiovascular No exercise intolerance 10/03/2012 Cardiovascular No orthopnea 10/03/2012 Cardiovascular No palpitations 10/03/2012 Respiratory No asthma Psychiatric No anxiety 0 10/03/2012 Psychiatric No depression 10/03/2012 Endocrine diabetes mellitus type 2 10/03/2012 Respiratory No cough Respiratory No dyspnea 0 10/03/2012 Respiratory No pleuritic pain 10/03/2012 Respiratory No productive sputum 10/03/2012 Respiratory No wheezing 10/03/2012 Gastrointestinal No hemorrhoids 10/03/2012 Gastrointestinal No hepatitis 10/03/2012 Gastrointestinal No abdominal pain 10/03/2012 Gastrointestinal No constipation 10/03/2012 Gastrointestinal No diarrhea 10/03/2012 Gastrointestinal No gastroesophageal reflu x 10/03/2012 Gastrointestinal No melena 10/03/2012 Gastrointestinal No nausea 10/03/2012 Gastrointestinal No vomiting 10/03/2012 Genitourinary/Nephrology No dysuria 10/03/2012 Genitourinary/Nephrology No nocturia 10/03/2012 Genitourinary/Nephrology No urinary incontinence 10/03/2012 Musculoskeletal No muscle weakness 10/03/2012 Musculoskeletal No myalgias 10/03/2012 Musculoskeletal No stiffness 10/03/2012 Musculoskeletal No swelling 10/03/2012 Dermatologic No rash Dermatologic No scar Neurologic No dizziness 10/03/2012 Neurologic No headache 0 10/03/2012 Neurologic No neck pain 10/03/2012 Neurologic No syncope Endocrine diabetes mellitus type 2 07/18/2012 Dermatologic cellulitis 07/18/2012 Cardiovascular hypertension 07/18/2012 Genitourinary/Nephrology urinary inc ontinence 06/12/2012 Genitourinary/Nephrology No urinary urgenc y 06/12/2012 Genitourinary/Nephrology No urinary frequency 06/12/2012 Musculoskeletal joint complaint 06/12/2012 Constitutional No recent illness 06/12/2012 Respiratory No cough 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 Neurologic dizziness Cardiovascular hypertension 03/07/2012 Respiratory No asthma Respiratory No cough Respiratory No dyspnea 1 Respiratory No pleuritic pain 03/07/2012 Respiratory No productive sputum 03/07/2012 Respiratory No wheezing 03/07/2012 Gastrointestinal No hemorrhoids 03/07/2012 Gastrointestinal No hepatitis 03/07/2012 Gastrointestinal No abdominal pain 03/07/2012 Gastrointestinal No constipation 03/07/2012 Gastrointestinal No diarrhea 03/07/2012 Gastrointestinal No gastroesophageal reflu x 03/07/2012 Gastrointestinal No melena 03/07/2012 Gastrointestinal No nausea 03/07/2012 Gastrointestinal No vomiting 03/07/2012 Genitourinary/Nephrology No dysuria 03/07/2012 Genitourinary/Nephrology No nocturia 03/07/2012 Genitourinary/Nephrology No urinary incontinence 03/07/2012 Musculoskeletal No muscle weakness 03/07/2012 Musculoskeletal No myalgias 03/07/2012 Musculoskeletal No stiffness 03/07/2012 Musculoskeletal No swelling 03/07/2012 Dermatologic No rash Dermatologic No scar Endocrine diabetes mellitus type 2 03/07/2012 Psychiatric No anxiety 1 Psychiatric No depression 03/07/2012 Ears/Nose/Throat/Neck No hearing loss 03/07/2012 Ears/Nose/Throat/Neck No nasal discharge 03/07/2012 Ears/Nose/Throat/Neck No sinus congestion 03/07/2012 Ears/Nose/Throat/Neck No sore throat 03/07/2012 Endocrine diabetes mellitus type 2 11/08/2011 Cardiovascular hypertension 11/08/2011 Constitutional fatigue 0 11/08/2011 Psychiatric stress 11/07 Constitutional insomnia 11/08/2011 Constitutional fatigue 0 07/31/2011 Cardiovascular No arrhythmia 07/31/2011 Cardiovascular No chest pain/pressure 07/31/2011 Cardiovascular No edema 07/31/2011 Cardiovascular No exercise intolerance 07/31/2011 Cardiovascular No orthopnea 07/31/2011 Cardiovascular No palpitations 07/31/2011 Cardiovascular hypertension 07/31/2011 Respiratory No asthma Respiratory No pleuritic pain 07/31/2011 Respiratory No productive sputum 07/31/2011 Respiratory No cough 04/2012 Respiratory No dyspnea 0 07/31/2011 Respiratory No wheezing 07/31/2011 Gastrointestinal No hemorrhoids 07/31/2011 Gastrointestinal No hepatitis 07/31/2011 Gastrointestinal No abdominal pain 07/31/2011 Gastrointestinal No constipation 07/31/2011 Gastrointestinal No diarrhea 07/31/2011 Gastrointestinal No gastroesophageal reflu x 07/31/2011 Gastrointestinal No melena 07/31/2011 Gastrointestinal No nausea 07/31/2011 Gastrointestinal No vomiting 07/31/2011 Genitourinary/Nephrology No dysuria 07/31/2011 Genitourinary/Nephrology No nocturia 07/31/2011 Genitourinary/Nephrology No urinary incontinence 07/31/2011 Musculoskeletal No muscle weakness 07/31/2011 Musculoskeletal No myalgias 07/31/2011 Musculoskeletal No stiffness 07/31/2011 Musculoskeletal No swelling 07/31/2011 Dermatologic No rash 04/2012 Dermatologic No scar 04/2012 Neurologic No dizziness 07/31/2011 Neurologic No headache 0 07/31/2011 Neurologic No neck pain 07/31/2011 Neurologic No syncope Psychiatric No anxiety 0 07/31/2011 Psychiatric No depression 07/31/2011 Endocrine No diabetes insipidus 07/31/2011 Endocrine hyperlipidemia 07/31/2011 Endocrine diabetes mellitus type 2 07/31/2011 Gastrointestinal dyspepsia 04/27/2011 Endocrine hyperglycemia 04/27/2011 Constitutional No fever 04/27/2011 Constitutional fatigue 1 06/28/2010 Constitutional weight gain/obesity 04/27/2011 Cardiovascular hypertension 04/27/2011 Neurologic paresthesia 1 06/28/2010 Cardiovascular No hypertension 01/27/2011 Gastrointestinal No diarrhea 01/27/2011 Gastrointestinal No constipation 01/27/2011 Gastrointestinal No nausea 01/27/2011 Gastrointestinal No vomiting 01/27/2011 Endocrine hypoglycemia 0 01/27/2011 Constitutional No insomnia 01/27/2011 Constitutional weight gain/obesity 01/27/2011 Respiratory No cough 01/2011 Psychiatric stress 01/27 Musculoskeletal No low back pain 01/27/2011 Musculoskeletal No muscle spasm 01/27/2011 Musculoskeletal No shoulder pain 01/27/2011 Musculoskeletal No neck pain 01/27/2011 Constitutional No fever 10/31/2010 Constitutional No recent illness 10/31/2010 Ears/Nose/Throat/Neck No nasal discharge 10/31/2010 Ears/Nose/Throat/Neck No otalgia 10/31/2010 Ears/Nose/Throat/Neck No sore throat 10/31/2010 Respiratory No cough Cardiovascular hypertension 10/31/2010 Gastrointestinal No nausea 10/31/2010 Gastrointestinal No abdominal pain 10/31/2010 Gastrointestinal No vomiting 10/31/2010 Dermatologic No rash Dermatologic No sores Dermatologic No mole change 10/31/2010 Psychiatric No anxiety 0 10/31/2010 Psychiatric No stress Psychiatric depression 0 10/31/2010 Genitourinary/Nephrology No Pap smea r abnormality 10/31/2010 Neurologic pain, limb Musculoskeletal neck pain 09/15/2010 Cardiovascular hypertension 09/15/2010 Constitutional No fever 09/08/2010 Constitutional No fatigue 09/08/2010 Constitutional No weight gain/obesity 09/08/2010 Constitutional No weight loss 09/08/2010 Eyes No vision change Ears/Nose/Throat/Neck No nasal discharge 09/08/2010 Ears/Nose/Throat/Neck nasal allergies 09/08/2010 Ears/Nose/Throat/Neck No otalgia 09/08/2010 Ears/Nose/Throat/Neck No sore throat 09/08/2010 Cardiovascular hypertension 09/08/2010 Cardiovascular No palpitations 09/08/2010 Cardiovascular No arrhythmia 09/08/2010 Cardiovascular No syncope 09/08/2010 Respiratory No cigarette smoking 09/08/2010 Respiratory No asthma Genitourinary/Nephrology No menstrua l irregularity 09/08/2010 Gastrointestinal No nausea 09/08/2010 Gastrointestinal No diarrhea 09/08/2010 Gastrointestinal No constipation 09/08/2010 Gastrointestinal No hematochezia 09/08/2010 Musculoskeletal neck pain 09/08/2010 Musculoskeletal No low back pain 09/08/2010 Musculoskeletal shoulder pain 09/08/2010 Dermatologic No rash Dermatologic No sores Dermatologic No mole change 09/08/2010 Psychiatric stress 09/08 Psychiatric No anxiety 0 09/08/2010 Psychiatric No depression 09/08/2010 Physical Exam Exam Name System Name It em Name Status Result Effective Dates Notes Full Exam - General Constitutional general appearance Overall: well nourished 10/16/2018 None Full Exam - General Constitutional general appearance Overall: well developed 10/16/2018 None Full Exam - General Constitutional general appearance Overall: in no acute distress 10/16/2018 None Full Exam - General Neurologic mental status Overall: alert 9 None Full Exam - General Neurologic mental status Overall: oriented 10/16/2018 None Full Exam - General Psychiatric mood and affect Overall: normal mood and affect 10/16/2018 None Full Exam - General Respiratory auscultation Overall: breath sounds clear bilater ally 10/16/2018 None Full Exam - General Cardiovascular auscultation of heart Overall: regular rate 10/16/2018 None Full Exam - General Cardiovascular auscultation of heart Overall: normal heart sounds 10/16/2018 None Full Exam - General Cardiovascular auscultation of heart Overall: no murmurs 10/16/2018 None Full Exam - General Cardiovascular extremities Overall: no clubbing 10/16/2018 None Full Exam - General Cardiovascular extremities Overall: No cyanosis 10/16/2018 None Full Exam - General Cardiovascular extremities Edema present: non-pitting 10/16/2018 trace Full Exam - General Musculoskeletal gait and station Gait: asymmetric 10/16/2018 None Full Exam - General Constitutional general appearance Overall: well nourished 09/13/2018 None Full Exam - General Constitutional general appearance Overall: well developed 09/13/2018 None Full Exam - General Constitutional general appearance Overall: in no acute distress 09/13/2018 None Full Exam - General Eyes conjunctiva/eyelids Overall: conjunctiva clear 09/13/2018 None Full Exam - General Eyes conjunctiva/eyelids Overall: cornea clear 09/13/2018 None Full Exam - General Eyes conjunctiva/eyelids Overall: eyelids normal 09/13/2018 None Full Exam - General Eyes pupils and irises Overall: pupils equal, round, reacti ve to light and accomodation 09/13/2018 None Full Exam - General Ears/Nose/Throat otoscopic exam Overall: external auditory canals clear 09/13/2018 None Full Exam - General Ears/Nose/Throat otoscopic exam Overall: tympanic membranes clear 09/13/2018 None Full Exam - General Ears/Nose/Throat oral cavity/pharynx/larynx Overall: oral mucosa clear 09/13/2018 None Full Exam - General Neck inspection of neck Overall: normal size 09/13/2018 None Full Exam - General Neck inspection of neck Overall: normal appearance 09/13/2018 None Full Exam - General Respiratory auscultation Overall: breath sounds clear bilater ally 09/13/2018 None Full Exam - General Respiratory respiratory effort/rhythm Overall: no retractions 09/13/2018 None Full Exam - General Respiratory respiratory effort/rhythm Overall: normal rate 09/13/2018 None Full Exam - General Cardiovascular auscultation of heart Overall: regular rate 09/13/2018 None Full Exam - General Cardiovascular auscultation of heart Overall: normal heart sounds 09/13/2018 None Full Exam - General Cardiovascular auscultation of heart Overall: no murmurs 09/13/2018 None Full Exam - General Lymphatic neck nodes Overall: anterior cervical chain ania ign 09/13/2018 None Full Exam - General Lymphatic neck nodes Overall: posterior cervical chain be nign 09/13/2018 None Full Exam - General Musculoskeletal head and neck Overall: head atraumatic 09/13/2018 None Full Exam - General Musculoskeletal head and neck Overall: cervical spine benign 09/13/2018 None Full Exam - General Musculoskeletal gait and station Overall: normal gait 09/13/2018 None Full Exam - General Musculoskeletal gait and station Overall: normal station 09/13/2018 None Full Exam - General Integument inspection of skin Dermatitis: erythema 09/13/2018 None Full Exam - General Integument inspection of skin Dermatitis: excoriation 09/13/2018 None Full Exam - General Integument inspection of skin Pigmentation: hyperpigmentation 09/13/2018 None Full Exam - General Integument inspection of skin Consistency: dry 09/13/2018 None Full Exam - General Neurologic mental status Overall: alert 9 None Full Exam - General Neurologic mental status Overall: oriented 09/13/2018 None Full Exam - General Psychiatric mood and affect Overall: normal mood and affect 09/13/2018 None Full Exam - General Integument inspection of skin Dermatitis: dryness/flaking 09/13/2018 None Full Exam - General Integument inspection of skin Rash/Lesions: vesicle 09/13/2018 linear vesicular lesions noted on arms, lower extremities and abdomen Full Exam - General Integument inspection of skin Location abdomen 09/13/2018 None Full Exam - General Integument inspection of skin Location right leg 09/13/2018 None Full Exam - General Integument inspection of skin Location left leg 09/13/2018 None Full Exam - General Integument inspection of skin Location left arm 09/13/2018 None Full Exam - General Integument inspection of skin Location right arm 09/13/2018 None Full Exam - General Constitutional general appearance Overall: well nourished 07/09/2018 None Full Exam - General Constitutional general appearance Overall: well developed 07/09/2018 None Full Exam - General Constitutional general appearance Overall: in no acute distress 07/09/2018 None Full Exam - General Neurologic mental status Overall: alert 9 None Full Exam - General Neurologic mental status Overall: oriented 07/09/2018 None Full Exam - General Psychiatric mood and affect Overall: normal mood and affect 07/09/2018 None Full Exam - General Respiratory auscultation Overall: breath sounds clear bilater ally 07/09/2018 None Full Exam - General Cardiovascular auscultation of heart Overall: regular rate 07/09/2018 None Full Exam - General Cardiovascular auscultation of heart Overall: normal heart sounds 07/09/2018 None Full Exam - General Cardiovascular auscultation of heart Overall: no murmurs 07/09/2018 None Full Exam - General Cardiovascular extremities Overall: no clubbing 07/09/2018 None Full Exam - General Cardiovascular extremities Overall: No cyanosis 07/09/2018 None Full Exam - General Cardiovascular extremities Edema present: severity 1+ - 4+: 1 07/09/2018 None Full Exam - General Constitutional general appearance Overall: well nourished 04/08/2018 None Full Exam - General Constitutional general appearance Overall: well developed 04/08/2018 None Full Exam - General Constitutional general appearance Overall: in no acute distress 04/08/2018 None Full Exam - General Neurologic mental status Overall: alert 8 None Full Exam - General Neurologic mental status Overall: oriented 04/08/2018 None Full Exam - General Psychiatric mood and affect Overall: normal mood and affect 04/08/2018 None Full Exam - General Respiratory auscultation Overall: breath sounds clear bilater ally 04/08/2018 None Full Exam - General Cardiovascular auscultation of heart Overall: regular rate 04/08/2018 None Full Exam - General Cardiovascular auscultation of heart Overall: normal heart sounds 04/08/2018 None Full Exam - General Cardiovascular extremities Overall: no clubbing 04/08/2018 None Full Exam - General Cardiovascular extremities Overall: No edema 04/08/2018 None Full Exam - General Cardiovascular extremities Overall: No cyanosis 04/08/2018 None Full Exam - General Musculoskeletal gait and station Overall: normal gait 04/08/2018 None Full Exam - General Musculoskeletal gait and station Overall: normal station 04/08/2018 None Full Exam - General Musculoskeletal right upper extremity Palpation - right shoulder: a normal exam 04/08/2018 None Full Exam - General Musculoskeletal right upper extremity Inspection - right shoulder: a normal exam 04/08/2018 None Full Exam - General Musculoskeletal right upper extremity ROM - right shoulder: a normal exam 04/08/2018 None Full Exam - General Constitutional general appearance Overall: well nourished 03/04/2018 None Full Exam - General Constitutional general appearance Overall: in no acute distress 03/04/2018 None Full Exam - General Respiratory respiratory effort/rhythm Overall: no retractions 03/04/2018 None Full Exam - General Respiratory respiratory effort/rhythm Overall: normal rate 03/04/2018 None Full Exam - General Respiratory auscultation Overall: breath sounds clear bilater ally 03/04/2018 None Full Exam - General Cardiovascular auscultation of heart Overall: regular rate 03/04/2018 None Full Exam - General Cardiovascular auscultation of heart Overall: no murmurs 03/04/2018 None Full Exam - General Lymphatic neck nodes Overall: anterior cervical chain ania ign 03/04/2018 None Full Exam - General Lymphatic neck nodes Overall: posterior cervical chain be nign 03/04/2018 None Full Exam - General Ears/Nose/Throat otoscopic exam Left tympanic membrane: erythematous 03/04/2018 only 12 oclock region and is slightly red. Full Exam - General Neurologic mental status Overall: alert 8 None Full Exam - General Neurologic mental status Overall: oriented 03/04/2018 None Full Exam - General Constitutional general appearance Overall: well nourished 01/03/2018 None Full Exam - General Constitutional general appearance Overall: well developed 01/03/2018 None Full Exam - General Constitutional general appearance Overall: in no acute distress 01/03/2018 None Full Exam - General Neurologic mental status Overall: oriented 01/03/2018 None Full Exam - General Neurologic mental status Overall: alert 8 None Full Exam - General Psychiatric mood and affect Overall: normal mood and affect 01/03/2018 None Full Exam - General Respiratory auscultation Overall: breath sounds clear bilater ally 01/03/2018 None Full Exam - General Cardiovascular auscultation of heart Overall: regular rate 01/03/2018 None Full Exam - General Cardiovascular auscultation of heart Overall: normal heart sounds 01/03/2018 None Full Exam - General Cardiovascular auscultation of heart S4 (atrial gallop): present 01/03/2018 None Full Exam - General Cardiovascular auscultation of heart Rhythm: regularly irregular rhythm 01/03/2018 None Full Exam - General Cardiovascular extremities Overall: no clubbing 01/03/2018 None Full Exam - General Cardiovascular extremities Overall: No cyanosis 01/03/2018 None Full Exam - General Cardiovascular extremities Edema present: severity 1+ - 4+: 1 01/03/2018 None Full Exam - General Abdomen abdominal exam Overall: no masses 01/03/2018 None Full Exam - General Abdomen abdominal exam Overall: no tenderness 01/03/2018 None Full Exam - General Abdomen abdominal exam Overall: normal bowel sounds 01/03/2018 None Full Exam - General Abdomen abdominal exam Overall: soft 01/03/2018 None Full Exam - General Musculoskeletal gait and station Gait: asymmetric 01/03/2018 None Full Exam - General Musculoskeletal right lower extremity Inspection - right foot: presence of a scar 01/03/2018 [place] foot Full Exam - General Musculoskeletal left lower extremity Inspection - left foot: presence of a scar 01/03/2018 [place] foot Full Exam - General Constitutional general appearance Overall: well nourished 10/24/2017 None Full Exam - General Constitutional general appearance Overall: in no acute distress 10/24/2017 None Full Exam - General Integument inspection of skin Location: left foot 10/24/2017 great toe has redness starting from top of toe down to first joint. no pain but has neuropathy. minimal drainage noted from under nailbed. Full Exam - General Neurologic mental status Overall: alert 8 None Full Exam - General Neurologic mental status Overall: oriented 10/24/2017 None Full Exam - General Integument inspection of skin Location: left foot 09/26/2017 left great toe. medial side. drainage, r edness, swelling, warmth to great toe. Full Exam - General Constitutional general appearance Overall: well nourished 09/26/2017 None Full Exam - General Constitutional general appearance Overall: in no acute distress 09/26/2017 None Full Exam - General Cardiovascular extremities Overall: no clubbing 09/26/2017 None Full Exam - General Cardiovascular extremities Overall: No cyanosis 09/26/2017 None Full Exam - General Neurologic mental status Overall: alert 8 None Full Exam - General Neurologic mental status Overall: oriented 09/26/2017 None Full Exam - General Psychiatric mood and affect Overall: normal mood and affect 09/26/2017 None Full Exam - General Constitutional general appearance Overall: well nourished 09/10/2017 None Full Exam - General Constitutional general appearance Overall: in no acute distress 09/10/2017 None Full Exam - General Integument inspection of skin Location: left foot 09/10/2017 medial area of great toe has dark area o f concern. nontender due to neuropathy. pus is seen on top of dark area as well. Full Exam - General Neurologic mental status Overall: alert 8 None Full Exam - General Neurologic mental status Overall: oriented 09/10/2017 None Full Exam - General Constitutional general appearance Overall: well nourished 07/27/2017 None Full Exam - General Constitutional general appearance Overall: in no acute distress 07/27/2017 None Full Exam - General Respiratory respiratory effort/rhythm Overall: no retractions 07/27/2017 None Full Exam - General Respiratory respiratory effort/rhythm Overall: normal rate 07/27/2017 None Full Exam - General Respiratory auscultation Overall: breath sounds clear bilater ally 07/27/2017 None Full Exam - General Cardiovascular auscultation of heart Overall: regular rate 07/27/2017 None Full Exam - General Cardiovascular auscultation of heart Overall: no murmurs 07/27/2017 None Full Exam - General Neurologic mental status Overall: alert 8 None Full Exam - General Neurologic mental status Overall: oriented 07/27/2017 None Full Exam - General Constitutional general appearance Overall: well nourished 06/06/2017 None Full Exam - General Constitutional general appearance Overall: well developed 06/06/2017 None Full Exam - General Constitutional general appearance Overall: in no acute distress 06/06/2017 None Full Exam - General Neurologic mental status Overall: alert 8 None Full Exam - General Neurologic mental status Overall: oriented 06/06/2017 None Full Exam - General Psychiatric mood and affect Overall: normal mood and affect 06/06/2017 None Full Exam - General Respiratory auscultation Overall: breath sounds clear bilater ally 06/06/2017 None Full Exam - General Cardiovascular auscultation of heart Overall: regular rate 06/06/2017 None Full Exam - General Cardiovascular auscultation of heart Overall: normal heart sounds 06/06/2017 None Full Exam - General Cardiovascular extremities Overall: no clubbing 06/06/2017 None Full Exam - General Cardiovascular extremities Overall: No cyanosis 06/06/2017 None Full Exam - General Cardiovascular extremities Overall: No edema 06/06/2017 None Full Exam - General Constitutional general appearance Overall: well nourished 03/08/2017 None Full Exam - General Constitutional general appearance Overall: well developed 03/08/2017 None Full Exam - General Constitutional general appearance Overall: in no acute distress 03/08/2017 None Full Exam - General Neurologic mental status Overall: alert 7 None Full Exam - General Neurologic mental status Overall: oriented 03/08/2017 None Full Exam - General Psychiatric mood and affect Overall: normal mood and affect 03/08/2017 None Full Exam - General Integument inspection of skin Location right foot 03/08/2017 4th toe sore closed and some surrounding erythema but not hot and not swollen and not tender--seems to be hyperemia Full Exam - General Constitutional general appearance Overall: well nourished 02/21/2017 None Full Exam - General Constitutional general appearance Overall: well developed 02/21/2017 None Full Exam - General Constitutional general appearance Overall: in no acute distress 02/21/2017 None Full Exam - General Neurologic mental status Overall: alert 7 None Full Exam - General Neurologic mental status Overall: oriented 02/21/2017 None Full Exam - General Psychiatric mood and affect Overall: normal mood and affect 02/21/2017 None Full Exam - General Integument inspection of skin Location: right foot 02/21/2017 right 4th toe with scabbing with erythem a and swelling Full Exam - General Constitutional general appearance Overall: well nourished 08/31/2016 None Full Exam - General Constitutional general appearance Overall: well developed 08/31/2016 None Full Exam - General Constitutional general appearance Overall: in no acute distress 08/31/2016 - Full Exam - General Neurologic mental status Overall: alert 7 None Full Exam - General Neurologic mental status Overall: oriented 08/31/2016 None Full Exam - General Psychiatric mood and affect Overall: normal mood and affect 08/31/2016 None Full Exam - General Respiratory auscultation Overall: breath sounds clear bilater ally 08/31/2016 None Full Exam - General Cardiovascular auscultation of heart Overall: regular rate 08/31/2016 None Full Exam - General Cardiovascular auscultation of heart Overall: normal heart sounds 08/31/2016 None Full Exam - General Cardiovascular auscultation of heart Overall: no murmurs 08/31/2016 None Full Exam - General Cardiovascular extremities Overall: no clubbing 08/31/2016 None Full Exam - General Cardiovascular extremities Overall: No edema 08/31/2016 None Full Exam - General Cardiovascular extremities Overall: No cyanosis 08/31/2016 None Full Exam - General Neck inspection of neck Overall: normal size 08/31/2016 None Full Exam - General Neck inspection of neck Overall: no masses 08/31/2016 None Full Exam - General Abdomen abdominal exam Overall: no masses 08/31/2016 None Full Exam - General Abdomen abdominal exam Overall: no tenderness 08/31/2016 None Full Exam - General Abdomen abdominal exam Overall: normal bowel sounds 08/31/2016 None Full Exam - General Abdomen abdominal exam Overall: soft 08/31/2016 None Full Exam - General Constitutional general appearance Overall: well nourished 08/02/2016 None Full Exam - General Constitutional general appearance Overall: well developed 08/02/2016 None Full Exam - General Constitutional general appearance Overall: in no acute distress 08/02/2016 None Full Exam - General Eyes conjunctiva/eyelids Overall: conjunctiva clear 08/02/2016 None Full Exam - General Ears/Nose/Throat lips/teeth/gingiva Overall: benign lips 08/02/2016 None Full Exam - General Ears/Nose/Throat oral cavity/pharynx/larynx Overall: oral mucosa clear 08/02/2016 None Full Exam - General Respiratory respiratory effort/rhythm Overall: no retractions 08/02/2016 None Full Exam - General Respiratory respiratory effort/rhythm Overall: normal rate 08/02/2016 None Full Exam - General Integument inspection of skin Location neck 08/02/2016 left posterior neck noted to have an eru ption of erythematous papular lesions Full Exam - General Neurologic mental status Overall: alert 7 None Full Exam - General Neurologic mental status Overall: oriented 08/02/2016 None Full Exam - General Constitutional general appearance Overall: well nourished 01/04/2016 None Full Exam - General Constitutional general appearance Overall: well developed 01/04/2016 None Full Exam - General Constitutional general appearance Overall: in no acute distress 01/04/2016 None Full Exam - General Neurologic mental status Overall: alert 6 None Full Exam - General Neurologic mental status Overall: oriented 01/04/2016 None Full Exam - General Psychiatric mood and affect Overall: normal mood and affect 01/04/2016 None Full Exam - General Respiratory auscultation Overall: breath sounds clear bilater ally 01/04/2016 None Full Exam - General Cardiovascular auscultation of heart Overall: regular rate 01/04/2016 None Full Exam - General Cardiovascular auscultation of heart Overall: normal heart sounds 01/04/2016 None Full Exam - General Cardiovascular extremities Overall: no clubbing 01/04/2016 None Full Exam - General Cardiovascular extremities Overall: No cyanosis 01/04/2016 None Full Exam - General Abdomen abdominal exam Overall: no masses 01/04/2016 None Full Exam - General Abdomen abdominal exam Overall: no tenderness 01/04/2016 None Full Exam - General Abdomen abdominal exam Overall: normal bowel sounds 01/04/2016 None Full Exam - General Abdomen abdominal exam Overall: soft 01/04/2016 None Full Exam - General Integument inspection of skin Dermatitis: scaling 01/04/2016 behind left ear Full Exam - General Constitutional general appearance Overall: well nourished 11/15/2015 None Full Exam - General Constitutional general appearance Overall: well developed 11/15/2015 None Full Exam - General Constitutional general appearance Overall: in no acute distress 11/15/2015 None Full Exam - General Eyes pupils and irises Overall: pupils equal, round, reacti ve to light and accomodation 11/15/2015 None Full Exam - General Eyes conjunctiva/eyelids Overall: conjunctiva clear 11/15/2015 None Full Exam - General Eyes conjunctiva/eyelids Overall: eyelids normal 11/15/2015 None Full Exam - General Ears/Nose/Throat external ear Overall: normal appearance 11/15/2015 None Full Exam - General Ears/Nose/Throat external nose Overall: benign appearance 11/15/2015 None Full Exam - General Ears/Nose/Throat lips/teeth/gingiva Overall: benign lips 11/15/2015 None Full Exam - General Ears/Nose/Throat oral cavity/pharynx/larynx Overall: oral mucosa clear 11/15/2015 None Full Exam - General Respiratory respiratory effort/rhythm Overall: normal rate 11/15/2015 None Full Exam - General Respiratory respiratory effort/rhythm Overall: no retractions 11/15/2015 None Full Exam - General Integument inspection of skin Location neck 11/15/2015 healing vesicular rash to left posterior neck, up into hairline, and extending to left anterior neck. lesions are dry. no drainage. Full Exam - General Neurologic mental status Overall: alert 6 None Full Exam - General Neurologic mental status Overall: oriented 11/15/2015 None Full Exam - General Constitutional general appearance Overall: well nourished 09/24/2015 None Full Exam - General Constitutional general appearance Overall: well developed 09/24/2015 None Full Exam - General Constitutional general appearance Overall: in no acute distress 09/24/2015 None Full Exam - General Respiratory respiratory effort/rhythm Overall: no retractions 09/24/2015 None Full Exam - General Respiratory respiratory effort/rhythm Overall: normal rate 09/24/2015 None Full Exam - General Cardiovascular inspection of pedal pulses Overall: strong, equal bilaterally 09/24/2015 None Full Exam - General Integument inspection of skin Location right foot 09/24/2015 mild erythema remains to lateral right 5 th toe region with callous formation. ulceration appearing sore between 4th-5th toes with light/white pigmented tissue surrounding. no drainage noted from sore. Full Exam - General Neurologic mental status Overall: alert 6 None Full Exam - General Neurologic mental status Overall: oriented 09/24/2015 None Full Exam - General Psychiatric mood and affect Overall: normal mood and affect 09/24/2015 None Full Exam - General Constitutional general appearance Overall: well nourished 09/15/2015 None Full Exam - General Constitutional general appearance Overall: well developed 09/15/2015 None Full Exam - General Constitutional general appearance Overall: in no acute distress 09/15/2015 None Full Exam - General Respiratory respiratory effort/rhythm Overall: no retractions 09/15/2015 None Full Exam - General Respiratory respiratory effort/rhythm Overall: normal rate 09/15/2015 None Full Exam - General Cardiovascular extremities Overall: no clubbing 09/15/2015 None Full Exam - General Cardiovascular extremities Overall: No edema 09/15/2015 None Full Exam - General Cardiovascular extremities Overall: No cyanosis 09/15/2015 None Full Exam - General Lymphatic inguinal nodes Overall: inguinal non-tender, not en larged 09/15/2015 popliteal negative Full Exam - General Integument inspection of skin Location right foot 09/15/2015 overall area of redness and swelling is diminished. still some moderate erythema to lateral and medial aspect of 5th digit. slight split to skin between 4th-5th digits, no necrosis or purulent drainage seen. Full Exam - General Neurologic mental status Overall: alert 6 None Full Exam - General Neurologic mental status Overall: oriented 09/15/2015 None Full Exam - General Constitutional general appearance Overall: well nourished 09/13/2015 None Full Exam - General Constitutional general appearance Overall: well developed 09/13/2015 None Full Exam - General Constitutional general appearance Overall: in no acute distress 09/13/2015 None Full Exam - General Respiratory respiratory effort/rhythm Overall: no retractions 09/13/2015 None Full Exam - General Respiratory respiratory effort/rhythm Overall: normal rate 09/13/2015 None Full Exam - General Cardiovascular inspection of pedal pulses Overall: strong, equal bilaterally 09/13/2015 None Full Exam - General Cardiovascular extremities Overall: no clubbing 09/13/2015 None Full Exam - General Cardiovascular extremities Edema present: non-pitting 09/13/2015 None Full Exam - General Cardiovascular extremities Edema present: unilateral 09/13/2015 right foot Full Exam - General Musculoskeletal right lower extremity Inspection - right foot: swelling 09/13/2015 None Full Exam - General Musculoskeletal right lower extremity Inspection - right foot: redness 09/13/2015 None Full Exam - General Musculoskeletal right lower extremity Inspection - right foot: callus 09/13/2015 right lateral 5th digit Full Exam - General Musculoskeletal right lower extremity Palpation - right foot: tender 09/13/2015 None Full Exam - General Musculoskeletal right lower extremity Palpation - right foot: swelling 09/13/2015 None Full Exam - General Musculoskeletal right lower extremity ROM - right foot: a normal exam 09/13/2015 None Full Exam - General Integument inspection of skin Overall: no rash, lesions 09/13/2015 None Full Exam - General Neurologic mental status Overall: alert 6 None Full Exam - General Neurologic mental status Overall: oriented 09/13/2015 None Full Exam - General Constitutional general appearance Overall: well nourished 08/19/2015 None Full Exam - General Constitutional general appearance Overall: well developed 08/19/2015 None Full Exam - General Constitutional general appearance Overall: in no acute distress 08/19/2015 None Full Exam - General Neurologic mental status Overall: alert 6 None Full Exam - General Neurologic mental status Overall: oriented 08/19/2015 None Full Exam - General Psychiatric mood and affect Overall: normal mood and affect 08/19/2015 None Full Exam - General Respiratory auscultation Overall: breath sounds clear bilater ally 08/19/2015 None Full Exam - General Cardiovascular auscultation of heart Overall: regular rate 08/19/2015 None Full Exam - General Cardiovascular auscultation of heart Overall: normal heart sounds 08/19/2015 None Full Exam - General Cardiovascular extremities Overall: no clubbing 08/19/2015 None Full Exam - General Cardiovascular extremities Overall: No edema 08/19/2015 None Full Exam - General Cardiovascular extremities Overall: No cyanosis 08/19/2015 None Full Exam - General Constitutional general appearance Overall: well nourished 07/13/2015 None Full Exam - General Constitutional general appearance Overall: well developed 07/13/2015 None Full Exam - General Constitutional general appearance Overall: in no acute distress 07/13/2015 None Full Exam - General Constitutional general appearance Assistive Device: crutches 07/13/2015 None Full Exam - General Neurologic mental status Overall: alert 6 None Full Exam - General Neurologic mental status Overall: oriented 07/13/2015 None Full Exam - General Psychiatric mood and affect Overall: normal mood and affect 07/13/2015 None Full Exam - General Respiratory auscultation Overall: breath sounds clear bilater ally 07/13/2015 None Full Exam - General Cardiovascular auscultation of heart Overall: regular rate 07/13/2015 None Full Exam - General Cardiovascular auscultation of heart Overall: normal heart sounds 07/13/2015 None Full Exam - General Cardiovascular auscultation of heart Overall: no murmurs 07/13/2015 None Full Exam - General Cardiovascular extremities Overall: no clubbing 07/13/2015 None Full Exam - General Cardiovascular extremities Overall: No cyanosis 07/13/2015 None Full Exam - General Cardiovascular extremities Edema present: severity 1+ - 4+: 1 07/13/2015 None Full Exam - General Musculoskeletal right lower extremity Inspection - right foot: nodule 07/13/2015 None Full Exam - General Musculoskeletal right lower extremity Palpation - right foot: swelling 07/13/2015 None Full Exam - General Constitutional general appearance Overall: well nourished 03/29/2015 None Full Exam - General Neurologic mental status Overall: alert 5 None Full Exam - General Neurologic mental status Overall: oriented 03/29/2015 None Full Exam - General Psychiatric mood and affect Overall: normal mood and affect 03/29/2015 None Full Exam - General Respiratory auscultation Overall: breath sounds clear bilater ally 03/29/2015 None Full Exam - General Cardiovascular auscultation of heart Overall: regular rate 03/29/2015 None Full Exam - General Cardiovascular auscultation of heart Overall: normal heart sounds 03/29/2015 None Full Exam - General Cardiovascular auscultation of heart S3 (ventricular gallop): present 03/29/2015 None Full Exam - General Cardiovascular extremities Overall: no clubbing 03/29/2015 None Full Exam - General Cardiovascular extremities Overall: No edema 03/29/2015 None Full Exam - General Cardiovascular extremities Overall: No cyanosis 03/29/2015 None Full Exam - General Constitutional general appearance Overall: well nourished 11/26/2014 None Full Exam - General Constitutional general appearance Overall: well developed 11/26/2014 None Full Exam - General Constitutional general appearance Overall: in no acute distress 11/26/2014 None Full Exam - General Neurologic mental status Overall: alert 5 None Full Exam - General Neurologic mental status Overall: oriented 11/26/2014 None Full Exam - General Psychiatric mood and affect Overall: normal mood and affect 11/26/2014 None Full Exam - General Respiratory auscultation Overall: breath sounds clear bilater ally 11/26/2014 None Full Exam - General Cardiovascular auscultation of heart Overall: regular rate 11/26/2014 None Full Exam - General Cardiovascular auscultation of heart Overall: normal heart sounds 11/26/2014 None Full Exam - General Musculoskeletal right lower extremity Inspection - right foot: swelling 11/26/2014 with deformity Full Exam - General Integument inspection of skin Location: right foot 11/26/2014 3rd toe tip with healing and less erythe ma Full Exam - General Constitutional general appearance Assistive Device: crutches 11/26/2014 None Full Exam - General Psychiatric mood and affect Overall: normal mood and affect 11/19/2014 None Full Exam - General Integument inspection of skin Location right foot 11/19/2014 3rd toe Full Exam - General Ears/Nose/Throat otoscopic exam Overall: tympanic membranes clear 11/19/2014 None Full Exam - General Musculoskeletal right lower extremity Palpation - right foot: swelling 11/19/2014 None Full Exam - General Musculoskeletal right lower extremity Inspection - right foot: hallux valgus 11/19/2014 None Full Exam - General Integument inspection of skin Dermatitis: thickened 11/19/2014 surrounding nail bed/appr ox. 4 mm open wound at tip of toe, minimal serosanguinous drainage noted. Full Exam - General Integument inspection of skin Dermatitis: erythema 11/19/2014 None Full Exam - General Integument inspection of skin Dermatitis: scaling 11/19/2014 None Full Exam - General Constitutional general appearance Overall: well developed 11/19/2014 None Full Exam - General Constitutional general appearance Overall: well nourished 11/19/2014 None Full Exam - General Constitutional general appearance Overall: in no acute distress 11/19/2014 None Full Exam - General Musculoskeletal right lower extremity Inspection - right foot: swelling 11/16/2014 None Full Exam - General Musculoskeletal right lower extremity Inspection - right foot: hallux valgus 11/16/2014 None Full Exam - General Integument inspection of skin Location right foot 11/16/2014 Distal aspect of hird toe has redness at tip and surrounding nailbed . Toenail is loosened at medial and lateal aspect. No pustular drainage noted. Full Exam - General Cardiovascular extremities Edema present: unilateral 11/16/2014 right foot Full Exam - General Cardiovascular extremities Edema present: pitting 11/16/2014 None Full Exam - General Cardiovascular extremities Edema present: severity 1+ - 4+: 2+ 11/16/2014 None Full Exam - General Cardiovascular auscultation of heart Overall: regular rate 11/16/2014 None Full Exam - General Cardiovascular auscultation of heart Overall: normal heart sounds 11/16/2014 None Full Exam - General Cardiovascular auscultation of heart Overall: no murmurs 11/16/2014 None Full Exam - General Respiratory auscultation Overall: breath sounds clear bilater ally 11/16/2014 None Full Exam - General Constitutional general appearance Overall: well nourished 11/16/2014 None Full Exam - General Constitutional general appearance Overall: well developed 11/16/2014 None Full Exam - General Constitutional general appearance Overall: in no acute distress 11/16/2014 None Full Exam - General Ears/Nose/Throat oral cavity/pharynx/larynx Overall: oral mucosa clear 11/16/2014 None Full Exam - General Abdomen abdominal exam Bowel sounds: a normal exam 11/16/2014 None Full Exam - General Abdomen abdominal exam Periumbilical: tender to palpation 11/16/2014 None Full Exam - General Abdomen abdominal exam Right lower quadrant: tender to palp ation 11/16/2014 mild Full Exam - General Abdomen abdominal exam Overall: soft 11/16/2014 None Full Exam - General Abdomen abdominal exam Overall: no masses 11/16/2014 None Full Exam - General Abdomen abdominal exam Overall: normal bowel sounds 11/16/2014 None Full Exam - General Abdomen abdominal exam Left lower quadrant: tender to palpa tion 11/16/2014 mild Full Exam - General Constitutional general appearance Overall: well nourished 10/09/2014 None Full Exam - General Constitutional general appearance Overall: well developed 10/09/2014 None Full Exam - General Constitutional general appearance Overall: in no acute distress 10/09/2014 None Full Exam - General Respiratory auscultation Overall: breath sounds clear bilater ally 10/09/2014 None Full Exam - General Respiratory respiratory effort/rhythm Overall: normal rate 10/09/2014 None Full Exam - General Respiratory respiratory effort/rhythm Overall: no retractions 10/09/2014 None Full Exam - General Cardiovascular auscultation of heart Overall: regular rate 10/09/2014 None Full Exam - General Cardiovascular auscultation of heart Overall: normal heart sounds 10/09/2014 None Full Exam - General Cardiovascular extremities Overall: No cyanosis 10/09/2014 None Full Exam - General Cardiovascular extremities Overall: No edema 10/09/2014 None Full Exam - General Musculoskeletal spine, ribs and pelvis Spine: tender @ thoracic spine 10/09/2014 None Full Exam - General Musculoskeletal spine, ribs and pelvis Spine: normal straight leg raise 10/09/2014 None Full Exam - General Neurologic mental status Overall: alert 5 None Full Exam - General Neurologic mental status Overall: oriented 10/09/2014 None Full Exam - General Psychiatric mood and affect Overall: normal mood and affect 10/09/2014 None Full Exam - General Neurologic gait Overall: no ataxia, no unsteadiness 10/09/2014 None Full Exam - General Constitutional general appearance Overall: well nourished 08/20/2014 None Full Exam - General Constitutional general appearance Overall: well developed 08/20/2014 None Full Exam - General Constitutional general appearance Overall: in no acute distress 08/20/2014 None Full Exam - General Neurologic mental status Overall: alert 5 None Full Exam - General Neurologic mental status Overall: oriented 08/20/2014 None Full Exam - General Psychiatric mood and affect Overall: normal mood and affect 08/20/2014 None Full Exam - General Respiratory auscultation Overall: breath sounds clear bilater ally 08/20/2014 None Full Exam - General Cardiovascular auscultation of heart Overall: regular rate 08/20/2014 None Full Exam - General Cardiovascular auscultation of heart Overall: normal heart sounds 08/20/2014 None Full Exam - General Cardiovascular auscultation of heart Overall: no murmurs 08/20/2014 None Full Exam - General Cardiovascular extremities Overall: no clubbing 08/20/2014 None Full Exam - General Cardiovascular extremities Overall: No edema 08/20/2014 None Full Exam - General Cardiovascular extremities Overall: No cyanosis 08/20/2014 None Full Exam - General Abdomen abdominal exam Overall: no masses 08/20/2014 None Full Exam - General Abdomen abdominal exam Overall: no tenderness 08/20/2014 None Full Exam - General Abdomen abdominal exam Overall: normal bowel sounds 08/20/2014 None Full Exam - General Abdomen abdominal exam Overall: soft 08/20/2014 None Full Exam - General Neck inspection of neck Overall: normal size 08/20/2014 None Full Exam - General Neck inspection of neck Overall: no masses 08/20/2014 None Full Exam - General Constitutional general appearance Overall: well nourished 04/23/2014 None Full Exam - General Constitutional general appearance Overall: well developed 04/23/2014 None Full Exam - General Constitutional general appearance Overall: in no acute distress 04/23/2014 None Full Exam - General Neurologic mental status Overall: alert 4 None Full Exam - General Neurologic mental status Overall: oriented 04/23/2014 None Full Exam - General Psychiatric mood and affect Overall: normal mood and affect 04/23/2014 None Full Exam - General Respiratory auscultation Overall: breath sounds clear bilater ally 04/23/2014 None Full Exam - General Cardiovascular auscultation of heart Overall: regular rate 04/23/2014 None Full Exam - General Cardiovascular auscultation of heart Overall: normal heart sounds 04/23/2014 None Full Exam - General Cardiovascular auscultation of heart S3 (ventricular gallop): present 04/23/2014 None Full Exam - General Cardiovascular extremities Overall: no clubbing 04/23/2014 None Full Exam - General Cardiovascular extremities Overall: No edema 04/23/2014 None Full Exam - General Cardiovascular extremities Overall: No cyanosis 04/23/2014 None Full Exam - General Abdomen abdominal exam Overall: no masses 04/23/2014 None Full Exam - General Abdomen abdominal exam Overall: no tenderness 04/23/2014 None Full Exam - General Abdomen abdominal exam Overall: normal bowel sounds 04/23/2014 None Full Exam - General Abdomen abdominal exam Overall: soft 04/23/2014 None Full Exam - General Neck inspection of neck Overall: normal size 04/23/2014 None Full Exam - General Neck inspection of neck Overall: no masses 04/23/2014 None Full Exam - General Musculoskeletal left lower extremity Inspection - left foot: swelling 04/23/2014 bandage and boot in place Full Exam - General Constitutional general appearance Overall: well nourished 02/19/2014 None Full Exam - General Constitutional general appearance Overall: well developed 02/19/2014 None Full Exam - General Constitutional general appearance Overall: in no acute distress 02/19/2014 None Full Exam - General Neurologic mental status Overall: alert 4 None Full Exam - General Neurologic mental status Overall: oriented 02/19/2014 None Full Exam - General Psychiatric mood and affect Overall: normal mood and affect 02/19/2014 None Full Exam - General Integument inspection of skin Location: right foot 02/19/2014 great toe with mild hamertoe deformity a nd some abrasion over joint, 2nd toe with callus and bruisnig to tip and erythema to first joint area Full Exam - General Constitutional general appearance Overall: well developed 02/12/2014 None Full Exam - General Constitutional general appearance Overall: in no acute distress 02/12/2014 None Full Exam - General Constitutional general appearance Nourishment: obese 02/12/2014 None Full Exam - General Musculoskeletal right lower extremity Inspection - right foot: swelling 02/12/2014 None Full Exam - General Psychiatric orientation/consciousness Overall: oriented to person, place and time 02/12/2014 None Full Exam - General Musculoskeletal digits and nails Left MCPs: second 02/12/2014 None Full Exam - General Musculoskeletal digits and nails Left MCPs: tender 02/12/2014 None Full Exam - General Musculoskeletal digits and nails Left MCPs: redness 02/12/2014 None Full Exam - General Respiratory auscultation Overall: breath sounds clear bilater ally 02/12/2014 None Full Exam - General Cardiovascular auscultation of heart Overall: regular rate 02/12/2014 None Full Exam - General Cardiovascular auscultation of heart Overall: normal heart sounds 02/12/2014 None Full Exam - General Cardiovascular auscultation of heart Overall: no murmurs 02/12/2014 None Full Exam - General Cardiovascular extremities Edema present: unilateral 02/12/2014 None Full Exam - General Cardiovascular extremities Edema present: pitting 02/12/2014 Rt. foot Full Exam - General Cardiovascular extremities Edema present: severity 1+ - 4+: 2+ 02/12/2014 None Full Exam - General Integument inspection of skin Location left foot 02/12/2014 2nd toe has redness and swelling w/ skin breakdown surrounding nailbed on dorsal aspect of toe. Full Exam - General Constitutional general appearance Overall: well nourished 12/25/2013 None Full Exam - General Constitutional general appearance Overall: well developed 12/25/2013 None Full Exam - General Constitutional general appearance Overall: in no acute distress 12/25/2013 None Full Exam - General Neurologic mental status Overall: alert 4 None Full Exam - General Neurologic mental status Overall: oriented 12/25/2013 None Full Exam - General Psychiatric mood and affect Overall: normal mood and affect 12/25/2013 None Full Exam - General Respiratory auscultation Overall: breath sounds clear bilater ally 12/25/2013 None Full Exam - General Cardiovascular auscultation of heart Overall: regular rate 12/25/2013 None Full Exam - General Cardiovascular auscultation of heart Overall: normal heart sounds 12/25/2013 None Full Exam - General Cardiovascular auscultation of heart S3 (ventricular gallop): present 12/25/2013 None Full Exam - General Cardiovascular extremities Overall: no clubbing 12/25/2013 None Full Exam - General Cardiovascular extremities Overall: No edema 12/25/2013 None Full Exam - General Cardiovascular extremities Overall: No cyanosis 12/25/2013 None Full Exam - General Abdomen abdominal exam Overall: no masses 12/25/2013 None Full Exam - General Abdomen abdominal exam Overall: no tenderness 12/25/2013 None Full Exam - General Abdomen abdominal exam Overall: normal bowel sounds 12/25/2013 None Full Exam - General Abdomen abdominal exam Overall: soft 12/25/2013 None Full Exam - General Constitutional general appearance Overall: well nourished 08/27/2013 None Full Exam - General Constitutional general appearance Overall: well developed 08/27/2013 None Full Exam - General Constitutional general appearance Overall: in no acute distress 08/27/2013 None Full Exam - General Neurologic mental status Overall: alert 4 None Full Exam - General Neurologic mental status Overall: oriented 08/27/2013 None Full Exam - General Psychiatric mood and affect Overall: normal mood and affect 08/27/2013 None Full Exam - General Respiratory auscultation Overall: breath sounds clear bilater ally 08/27/2013 None Full Exam - General Cardiovascular auscultation of heart Overall: regular rate 08/27/2013 None Full Exam - General Cardiovascular auscultation of heart Overall: normal heart sounds 08/27/2013 None Full Exam - General Cardiovascular auscultation of heart S3 (ventricular gallop): present 08/27/2013 None Full Exam - General Cardiovascular auscultation of heart Murmur: previously known murmur unchanged 08/27/2013 None Full Exam - General Cardiovascular extremities Overall: no clubbing 08/27/2013 None Full Exam - General Cardiovascular extremities Overall: No cyanosis 08/27/2013 None Full Exam - General Cardiovascular extremities Overall: No edema 08/27/2013 None Full Exam - General Constitutional general appearance Overall: well nourished 04/30/2013 None Full Exam - General Constitutional general appearance Overall: well developed 04/30/2013 None Full Exam - General Constitutional general appearance Overall: in no acute distress 04/30/2013 None Full Exam - General Respiratory auscultation Overall: breath sounds clear bilater ally 04/30/2013 None Full Exam - General Cardiovascular auscultation of heart Overall: regular rate 04/30/2013 None Full Exam - General Cardiovascular auscultation of heart Overall: normal heart sounds 04/30/2013 None Full Exam - General Cardiovascular auscultation of heart S3 (ventricular gallop): present 04/30/2013 None Full Exam - General Cardiovascular extremities Overall: no clubbing 04/30/2013 None Full Exam - General Cardiovascular extremities Overall: No edema 04/30/2013 None Full Exam - General Cardiovascular extremities Overall: No cyanosis 04/30/2013 None Full Exam - General Neurologic mental status Overall: alert 3 None Full Exam - General Neurologic mental status Overall: oriented 04/30/2013 None Full Exam - General Psychiatric mood and affect Overall: normal mood and affect 04/30/2013 None Full Exam - General Abdomen abdominal exam Overall: no masses 04/30/2013 None Full Exam - General Abdomen abdominal exam Overall: no tenderness 04/30/2013 None Full Exam - General Abdomen abdominal exam Overall: normal bowel sounds 04/30/2013 None Full Exam - General Abdomen abdominal exam Overall: soft 04/30/2013 None Full Exam - General Eyes conjunctiva/eyelids Right eyelid: mass 04/30/2013 medially canthus Full Exam - General Constitutional general appearance Overall: well nourished 01/30/2013 None Full Exam - General Constitutional general appearance Overall: well developed 01/30/2013 None Full Exam - General Constitutional general appearance Overall: in no acute distress 01/30/2013 None Full Exam - General Neurologic mental status Overall: alert 3 None Full Exam - General Neurologic mental status Overall: oriented 01/30/2013 None Full Exam - General Psychiatric mood and affect Overall: normal mood and affect 01/30/2013 None Full Exam - General Respiratory auscultation Overall: breath sounds clear bilater ally 01/30/2013 None Full Exam - General Cardiovascular auscultation of heart Overall: regular rate 01/30/2013 None Full Exam - General Cardiovascular auscultation of heart Overall: normal heart sounds 01/30/2013 None Full Exam - General Cardiovascular auscultation of heart S3 (ventricular gallop): present 01/30/2013 None Full Exam - General Cardiovascular extremities Overall: no clubbing 01/30/2013 None Full Exam - General Cardiovascular extremities Overall: No edema 01/30/2013 None Full Exam - General Cardiovascular extremities Overall: No cyanosis 01/30/2013 None Full Exam - General Constitutional general appearance Overall: well nourished 11/28/2012 None Full Exam - General Constitutional general appearance Overall: well developed 11/28/2012 None Full Exam - General Constitutional general appearance Overall: in no acute distress 11/28/2012 None Full Exam - General Neurologic mental status Overall: alert 3 None Full Exam - General Neurologic mental status Overall: oriented 11/28/2012 None Full Exam - General Psychiatric mood and affect Overall: normal mood and affect 11/28/2012 None Full Exam - General Respiratory auscultation Overall: breath sounds clear bilater ally 11/28/2012 None Full Exam - General Cardiovascular auscultation of heart Overall: regular rate 11/28/2012 None Full Exam - General Cardiovascular auscultation of heart Overall: normal heart sounds 11/28/2012 None Full Exam - General Cardiovascular auscultation of heart S3 (ventricular gallop): present 11/28/2012 None Full Exam - General Cardiovascular auscultation of heart Murmur: previously known murmur unchanged 11/28/2012 None Full Exam - General Cardiovascular extremities Overall: no clubbing 11/28/2012 None Full Exam - General Cardiovascular extremities Overall: No edema 11/28/2012 None Full Exam - General Cardiovascular extremities Overall: No cyanosis 11/28/2012 None Full Exam - General Constitutional general appearance Overall: well nourished 10/31/2012 None Full Exam - General Constitutional general appearance Overall: well developed 10/31/2012 None Full Exam - General Constitutional general appearance Overall: in no acute distress 10/31/2012 None Full Exam - General Neurologic mental status Overall: alert 3 None Full Exam - General Neurologic mental status Overall: oriented 10/31/2012 None Full Exam - General Psychiatric mood and affect Overall: normal mood and affect 10/31/2012 None Full Exam - General Musculoskeletal left lower extremity Inspection - left ankle: a normal exam 10/31/2012 None Full Exam - General Musculoskeletal left lower extremity Palpation - left ankle: a normal exam 10/31/2012 None Full Exam - General Musculoskeletal left lower extremity ROM - left ankle: a normal exam 10/31/2012 None Full Exam - General Musculoskeletal left lower extremity Stability - left ankle: a normal exam 10/31/2012 None Full Exam - General Musculoskeletal right upper extremity Inspection - right shoulder: a normal exam 10/31/2012 None Full Exam - General Musculoskeletal right upper extremity Palpation - right shoulder: tenderness @ subacromial space 10/31/2012 None Full Exam - General Musculoskeletal right upper extremity Palpation - right shoulder: tenderness @ biceps tendon 10/31/2012 None Full Exam - General Musculoskeletal right upper extremity ROM - right shoulder: crepitus 10/31/2012 None Full Exam - General Musculoskeletal right upper extremity Stability - right shoulder: a normal exam 10/31/2012 None Full Exam - General Integument inspection of skin Location: diffuse 10/31/2012 erythemic macules to chest, arms Full Exam - General Cardiovascular auscultation of heart Overall: regular rate 10/31/2012 None Full Exam - General Cardiovascular auscultation of heart Overall: normal heart sounds 10/31/2012 None Full Exam - General Cardiovascular auscultation of heart S3 (ventricular gallop): present 10/31/2012 None Full Exam - General Cardiovascular extremities Overall: no clubbing 10/31/2012 None Full Exam - General Cardiovascular extremities Overall: No edema 10/31/2012 None Full Exam - General Cardiovascular extremities Overall: No cyanosis 10/31/2012 None Full Exam - General Respiratory auscultation Overall: breath sounds clear bilater ally 10/31/2012 None Full Exam - General Abdomen abdominal exam Overall: no masses 10/31/2012 None Full Exam - General Abdomen abdominal exam Overall: no tenderness 10/31/2012 None Full Exam - General Abdomen abdominal exam Overall: normal bowel sounds 10/31/2012 None Full Exam - General Abdomen abdominal exam Overall: soft 10/31/2012 None Full Exam - General Constitutional general appearance Overall: well nourished 10/03/2012 None Full Exam - General Constitutional general appearance Overall: well developed 10/03/2012 None Full Exam - General Constitutional general appearance Overall: in no acute distress 10/03/2012 None Full Exam - General Neurologic mental status Overall: alert 3 None Full Exam - General Neurologic mental status Overall: oriented 10/03/2012 None Full Exam - General Psychiatric mood and affect Overall: normal mood and affect 10/03/2012 None Full Exam - General Musculoskeletal left lower extremity Palpation - left ankle: boggy 10/03/2012 None Full Exam - General Musculoskeletal left lower extremity Palpation - left ankle: effusion 10/03/2012 None Full Exam - General Musculoskeletal left lower extremity Palpation - left ankle: tender @ ankle 10/03/2012 medial Full Exam - General Respiratory auscultation Overall: breath sounds clear bilater ally 10/03/2012 None Full Exam - General Cardiovascular auscultation of heart Overall: regular rate 10/03/2012 None Full Exam - General Cardiovascular auscultation of heart Overall: normal heart sounds 10/03/2012 None Full Exam - General Cardiovascular auscultation of heart Overall: no murmurs 10/03/2012 None Full Exam - General Cardiovascular extremities Overall: no clubbing 10/03/2012 None Full Exam - General Cardiovascular extremities Overall: No edema 10/03/2012 None Full Exam - General Cardiovascular extremities Overall: No cyanosis 10/03/2012 None Full Exam - General Constitutional general appearance Overall: well nourished 07/18/2012 None Full Exam - General Constitutional general appearance Overall: well developed 07/18/2012 None Full Exam - General Constitutional general appearance Evidence of Distress: tearful 07/18/2012 None Full Exam - General Integument inspection of skin Location: right foot 07/18/2012 2nd toe erythema with pus at base of toe nail Full Exam - General Neurologic mental status Overall: alert 3 None Full Exam - General Neurologic mental status Overall: oriented 07/18/2012 None Full Exam - General Psychiatric mood and affect Mood: depressed 07/18/2012 None Full Exam - General Psychiatric mood and affect Affect: constricted 07/18/2012 None Full Exam - General Psychiatric mood and affect Affect: blunted 07/18/2012 None Full Exam - General Respiratory auscultation Overall: breath sounds clear bilater ally 07/18/2012 None Full Exam - General Cardiovascular auscultation of heart Overall: regular rate 07/18/2012 None Full Exam - General Cardiovascular auscultation of heart Overall: normal heart sounds 07/18/2012 None Full Exam - General Cardiovascular auscultation of heart S3 (ventricular gallop): present 07/18/2012 None Full Exam - General Cardiovascular extremities Overall: no clubbing 07/18/2012 None Full Exam - General Cardiovascular extremities Overall: No edema 07/18/2012 None Full Exam - General Cardiovascular extremities Overall: No cyanosis 07/18/2012 None Full Exam - General Constitutional general appearance Nourishment: obese 06/12/2012 None Full Exam - General Constitutional general appearance Overall: well developed 06/12/2012 None Full Exam - General Constitutional general appearance Overall: in no acute distress 06/12/2012 None Full Exam - General Musculoskeletal left lower extremity Inspection - left ankle: swelling @ medial malleolus 06/12/2012 None Full Exam - General Musculoskeletal left lower extremity Palpation - left ankle: tender @ ankle 06/12/2012 no more tenderness with ROM Full Exam - General Musculoskeletal left lower extremity ROM - left ankle: a normal exam 06/12/2012 None Full Exam - General Musculoskeletal left lower extremity Stability - left ankle: a normal exam 06/12/2012 None Full Exam - General Musculoskeletal left lower extremity Muscle Strength/Tone - left ankle: a normal exam 06/12/2012 None Full Exam - General Musculoskeletal gait and station Overall: normal gait 06/12/2012 None Full Exam - General Musculoskeletal gait and station Overall: normal station 06/12/2012 None Full Exam - General Psychiatric orientation/consciousness Overall: oriented to person, place and time 06/12/2012 None Full Exam - General Constitutional general appearance Overall: well nourished 04/24/2012 None Full Exam - General Constitutional general appearance Overall: well developed 04/24/2012 None Full Exam - General Constitutional general appearance Overall: in no acute distress 04/24/2012 None Full Exam - General Neurologic mental status Overall: alert 2 None Full Exam - General Neurologic mental status Overall: oriented 04/24/2012 None Full Exam - General Psychiatric mood and affect Overall: normal mood and affect 04/24/2012 None Full Exam - General Musculoskeletal digits and nails Nails: onycholysis 04/24/2012 of both great toes--2nd t oe on right with hammertoe and callus Full Exam - General Constitutional general appearance Overall: well nourished 03/07/2012 None Full Exam - General Constitutional general appearance Overall: well developed 03/07/2012 None Full Exam - General Constitutional general appearance Overall: in no acute distress 03/07/2012 None Full Exam - General Neurologic mental status Overall: alert 2 None Full Exam - General Neurologic mental status Overall: oriented 03/07/2012 None Full Exam - General Psychiatric mood and affect Overall: normal mood and affect 03/07/2012 None Full Exam - General Respiratory auscultation Overall: breath sounds clear bilater ally 03/07/2012 None Full Exam - General Cardiovascular auscultation of heart Overall: regular rate 03/07/2012 None Full Exam - General Cardiovascular auscultation of heart Overall: normal heart sounds 03/07/2012 None Full Exam - General Cardiovascular auscultation of heart S3 (ventricular gallop): present 03/07/2012 None Full Exam - General Cardiovascular auscultation of heart Murmur: previously known murmur unchanged 03/07/2012 None Full Exam - General Cardiovascular extremities Overall: no clubbing 03/07/2012 None Full Exam - General Cardiovascular extremities Overall: No edema 03/07/2012 None Full Exam - General Cardiovascular extremities Overall: No cyanosis 03/07/2012 None Full Exam - General Constitutional general appearance Overall: well nourished 11/08/2011 None Full Exam - General Constitutional general appearance Overall: well developed 11/08/2011 None Full Exam - General Constitutional general appearance Overall: in no acute distress 11/08/2011 None Full Exam - General Neurologic mental status Overall: alert 2 None Full Exam - General Neurologic mental status Overall: oriented 11/08/2011 None Full Exam - General Psychiatric mood and affect Overall: normal mood and affect 11/08/2011 None Full Exam - General Respiratory auscultation Overall: breath sounds clear bilater ally 11/08/2011 None Full Exam - General Cardiovascular auscultation of heart Overall: no murmurs 11/08/2011 None Full Exam - General Cardiovascular auscultation of heart Overall: regular rate 11/08/2011 None Full Exam - General Cardiovascular auscultation of heart Overall: normal heart sounds 11/08/2011 None Full Exam - General Cardiovascular auscultation of heart S1: a normal exam 11/08/2011 None Full Exam - General Cardiovascular auscultation of heart S2: a normal exam 11/08/2011 None Full Exam - General Cardiovascular auscultation of heart Rhythm: regular rhythm 11/08/2011 None Full Exam - General Cardiovascular auscultation of heart Rate: regular rate 11/08/2011 None Full Exam - General Cardiovascular auscultation of heart S3 (ventricular gallop): present 11/08/2011 None Full Exam - General Cardiovascular extremities Overall: no clubbing 11/08/2011 None Full Exam - General Cardiovascular extremities Overall: No cyanosis 11/08/2011 None Full Exam - General Cardiovascular extremities Edema present: non-pitting 11/08/2011 None Full Exam - General Respiratory auscultation Left lower lung field: a normal exam 07/31/2011 None Full Exam - General Respiratory auscultation Overall: breath sounds clear bilater ally 07/31/2011 None Full Exam - General Respiratory auscultation Left upper lung field: a normal exam 07/31/2011 None Full Exam - General Respiratory auscultation Diffuse: a normal exam 07/31/2011 None Full Exam - General Cardiovascular auscultation of heart Overall: no murmurs 07/31/2011 None Full Exam - General Cardiovascular auscultation of heart Overall: regular rate 07/31/2011 None Full Exam - General Cardiovascular auscultation of heart Overall: normal heart sounds 07/31/2011 None Full Exam - General Cardiovascular auscultation of heart S1: a normal exam 07/31/2011 None Full Exam - General Cardiovascular auscultation of heart S2: a normal exam 07/31/2011 None Full Exam - General Cardiovascular auscultation of heart Rhythm: regular rhythm 07/31/2011 None Full Exam - General Cardiovascular auscultation of heart Rate: regular rate 07/31/2011 None Full Exam - General Cardiovascular auscultation of heart S3 (ventricular gallop): present 07/31/2011 None Full Exam - General Cardiovascular extremities Overall: no clubbing 07/31/2011 None Full Exam - General Cardiovascular extremities Overall: No cyanosis 07/31/2011 None Full Exam - General Cardiovascular extremities Edema present: non-pitting 07/31/2011 None Full Exam - General Constitutional general appearance Overall: well nourished 07/31/2011 None Full Exam - General Constitutional general appearance Overall: well developed 07/31/2011 None Full Exam - General Constitutional general appearance Overall: in no acute distress 07/31/2011 None Full Exam - General Neurologic mental status Overall: alert 2 None Full Exam - General Neurologic mental status Overall: oriented 07/31/2011 None Full Exam - General Psychiatric mood and affect Overall: normal mood and affect 07/31/2011 None Full Exam - General Respiratory auscultation Right upper lung field: a normal exa m 07/31/2011 None Full Exam - General Respiratory auscultation Right middle lung field: a normal ex am 07/31/2011 None Full Exam - General Respiratory auscultation Right lower lung field: a normal exa m 07/31/2011 None Full Exam - General Constitutional general appearance Overall: in no acute distress 04/27/2011 None Full Exam - General Constitutional general appearance Overall: well developed 04/27/2011 None Full Exam - General Constitutional general appearance Overall: well nourished 04/27/2011 None Full Exam - General Respiratory auscultation Right upper lung field: a normal exa m 04/27/2011 None Full Exam - General Respiratory auscultation Right middle lung field: a normal ex am 04/27/2011 None Full Exam - General Respiratory auscultation Right lower lung field: a normal exa m 04/27/2011 None Full Exam - General Respiratory auscultation Left lower lung field: a normal exam 04/27/2011 None Full Exam - General Respiratory auscultation Overall: breath sounds clear bilater ally 04/27/2011 None Full Exam - General Respiratory auscultation Left upper lung field: a normal exam 04/27/2011 None Full Exam - General Respiratory auscultation Diffuse: a normal exam 04/27/2011 None Full Exam - General Cardiovascular auscultation of heart Overall: no murmurs 04/27/2011 None Full Exam - General Cardiovascular auscultation of heart Overall: regular rate 04/27/2011 None Full Exam - General Cardiovascular auscultation of heart Overall: normal heart sounds 04/27/2011 None Full Exam - General Cardiovascular auscultation of heart S1: a normal exam 04/27/2011 None Full Exam - General Cardiovascular auscultation of heart S2: a normal exam 04/27/2011 None Full Exam - General Cardiovascular auscultation of heart Rhythm: regular rhythm 04/27/2011 None Full Exam - General Cardiovascular auscultation of heart Rate: regular rate 04/27/2011 None Full Exam - General Cardiovascular auscultation of heart S3 (ventricular gallop): present 04/27/2011 None Full Exam - General Abdomen abdominal exam Overall: no masses 04/27/2011 None Full Exam - General Abdomen abdominal exam Overall: no tenderness 04/27/2011 None Full Exam - General Abdomen abdominal exam Overall: normal bowel sounds 04/27/2011 None Full Exam - General Abdomen abdominal exam Overall: soft 04/27/2011 None Full Exam - General Neurologic mental status Overall: alert 1 None Full Exam - General Neurologic mental status Overall: oriented 04/27/2011 None Full Exam - General Psychiatric mood and affect Overall: normal mood and affect 04/27/2011 None Full Exam - General Constitutional general appearance Nourishment: obese 01/27/2011 None Full Exam - General Constitutional general appearance Overall: well developed 01/27/2011 None Full Exam - General Constitutional general appearance Overall: in no acute distress 01/27/2011 None Full Exam - General Ears/Nose/Throat otoscopic exam Overall: external auditory canals clear 01/27/2011 None Full Exam - General Ears/Nose/Throat otoscopic exam Overall: tympanic membranes clear 01/27/2011 None Full Exam - General Ears/Nose/Throat lips/teeth/gingiva Overall: benign lips 01/27/2011 None Full Exam - General Ears/Nose/Throat lips/teeth/gingiva Overall: normal dentition 01/27/2011 None Full Exam - General Ears/Nose/Throat lips/teeth/gingiva Overall: benign gingiva 01/27/2011 None Full Exam - General Ears/Nose/Throat oral cavity/pharynx/larynx Overall: oral mucosa clear 01/27/2011 None Full Exam - General Ears/Nose/Throat oral cavity/pharynx/larynx Overall: tonsils benign 01/27/2011 None Full Exam - General Ears/Nose/Throat oral cavity/pharynx/larynx Overall: oropharyngeal mucosa clear 01/27/2011 None Full Exam - General Respiratory auscultation Overall: breath sounds clear bilater ally 01/27/2011 None Full Exam - General Respiratory respiratory effort/rhythm Overall: no retractions 01/27/2011 None Full Exam - General Respiratory respiratory effort/rhythm Overall: normal rate 01/27/2011 None Full Exam - General Cardiovascular auscultation of heart Overall: regular rate 01/27/2011 None Full Exam - General Cardiovascular auscultation of heart Overall: normal heart sounds 01/27/2011 None Full Exam - General Lymphatic neck nodes Overall: anterior cervical chain ania ign 01/27/2011 None Full Exam - General Lymphatic neck nodes Overall: posterior cervical chain be nign 01/27/2011 None Full Exam - General Musculoskeletal head and neck Overall: head atraumatic 01/27/2011 None Full Exam - General Musculoskeletal head and neck Overall: cervical spine benign 01/27/2011 None Full Exam - General Musculoskeletal right lower extremity Overall: right knee benign 01/27/2011 None Full Exam - General Musculoskeletal right lower extremity Overall: right ankle benign 01/27/2011 None Full Exam - General Musculoskeletal right lower extremity Overall: right foot benign 01/27/2011 None Full Exam - General Musculoskeletal right lower extremity Overall: full strength in RLE 01/27/2011 None Full Exam - General Musculoskeletal left lower extremity Overall: left knee benign 01/27/2011 None Full Exam - General Musculoskeletal left lower extremity Overall: left ankle benign 01/27/2011 None Full Exam - General Musculoskeletal left lower extremity Overall: left foot benign 01/27/2011 None Full Exam - General Musculoskeletal gait and station Overall: normal gait 01/27/2011 None Full Exam - General Musculoskeletal gait and station Overall: normal station 01/27/2011 None Full Exam - General Psychiatric orientation/consciousness Overall: oriented to person, place and time 01/27/2011 None Full Exam - General Integument inspection of skin Overall: no rash, lesions 01/27/2011 very slight fluorescence of heels and balls of feet. Full Exam - General Musculoskeletal digits and nails Overall: no clubbing 01/27/2011 None Full Exam - General Musculoskeletal digits and nails Overall: digits benign 01/27/2011 None Full Exam - General Musculoskeletal spine, ribs and pelvis Overall: spine benign 01/27/2011 None Full Exam - General Abdomen stool sample obtained Overall: occult blood negative 10/31/2010 None Full Exam - General Abdomen stool sample obtained Overall: normal appearance 10/31/2010 None Full Exam - General Abdomen rectal exam Overall: good sphincter tone, no mas ses, no lesions 10/31/2010 None Full Exam - General Neurologic mental status Overall: alert 1 None Full Exam - General Neurologic mental status Overall: oriented 10/31/2010 None Full Exam - General Ears/Nose/Throat otoscopic exam Overall: tympanic membranes clear 10/31/2010 None Full Exam - General Ears/Nose/Throat lips/teeth/gingiva Overall: benign lips 10/31/2010 None Full Exam - General Ears/Nose/Throat lips/teeth/gingiva Overall: normal dentition 10/31/2010 None Full Exam - General Ears/Nose/Throat lips/teeth/gingiva Overall: benign gingiva 10/31/2010 None Full Exam - General Ears/Nose/Throat oral cavity/pharynx/larynx Overall: oral mucosa clear 10/31/2010 None Full Exam - General Ears/Nose/Throat oral cavity/pharynx/larynx Overall: tonsils benign 10/31/2010 None Full Exam - General Ears/Nose/Throat oral cavity/pharynx/larynx Overall: oropharyngeal mucosa clear 10/31/2010 None Full Exam - General Neck thyroid Overall: normal size None Full Exam - General Neck thyroid Overall: normal consistency 10/31/2010 None Full Exam - General Neck thyroid Overall: nontender 10/31 None Full Exam - General Respiratory auscultation Overall: breath sounds clear bilater ally 10/31/2010 None Full Exam - General Respiratory respiratory effort/rhythm Overall: no retractions 10/31/2010 None Full Exam - General Respiratory respiratory effort/rhythm Overall: normal rate 10/31/2010 None Full Exam - General Cardiovascular auscultation of heart Overall: regular rate 10/31/2010 None Full Exam - General Cardiovascular auscultation of heart Overall: normal heart sounds 10/31/2010 None Full Exam - General Constitutional general appearance Nourishment: obese 10/31/2010 None Full Exam - General Constitutional general appearance Overall: well developed 10/31/2010 None Full Exam - General Constitutional general appearance Overall: in no acute distress 10/31/2010 None Full Exam - General Eyes conjunctiva/eyelids Overall: conjunctiva clear 10/31/2010 None Full Exam - General Eyes conjunctiva/eyelids Overall: cornea clear 10/31/2010 None Full Exam - General Eyes conjunctiva/eyelids Overall: eyelids normal 10/31/2010 None Full Exam - General Eyes pupils and irises Overall: pupils equal, round, reacti ve to light and accomodation 10/31/2010 None Full Exam - General Ears/Nose/Throat otoscopic exam Overall: external auditory canals clear 10/31/2010 None Full Exam - General Abdomen abdominal exam Overall: no tenderness 10/31/2010 None Full Exam - General Abdomen abdominal exam Overall: soft 10/31/2010 None Full Exam - General Abdomen abdominal exam Overall: no masses 10/31/2010 None Full Exam - General Chest/Breast breast and axillae palpation Overall: no masses 10/31/2010 None Full Exam - General Chest/Breast breast and axillae palpation Overall: breasts non- tender 10/31/2010 None Full Exam - General Chest/Breast breast and axillae palpation Overall: axillae non- tender 10/31/2010 None Full Exam - General Chest/Breast breast and axillae palpation Overall: no nipple discharge 10/31/2010 None Full Exam - General Genitourinary labia and vagina Overall: normal hair distribution 10/31/2010 None Full Exam - General Genitourinary labia and vagina Overall: no lesions 10/31/2010 None Full Exam - General Genitourinary adnexa/parametria Overall: no tenderness 10/31/2010 None Full Exam - General Lymphatic neck nodes Overall: anterior cervical chain ania ign 10/31/2010 None Full Exam - General Lymphatic neck nodes Overall: posterior cervical chain be nign 10/31/2010 None Full Exam - General Integument inspection of skin Overall: no rash, lesions 10/31/2010 None Full Exam - General Psychiatric orientation/consciousness Overall: oriented to person, place and time 10/31/2010 None Full Exam - General Constitutional general appearance Overall: well nourished 09/15/2010 None Full Exam - General Constitutional general appearance Overall: well developed 09/15/2010 None Full Exam - General Constitutional general appearance Overall: in no acute distress 09/15/2010 None Full Exam - General Neurologic mental status Overall: alert 1 None Full Exam - General Neurologic mental status Overall: oriented 09/15/2010 None Full Exam - General Psychiatric mood and affect Overall: normal mood and affect 09/15/2010 None Full Exam - General Musculoskeletal spine, ribs and pelvis Spine: tender @ cervical spine 09/15/2010 None Full Exam - General Musculoskeletal spine, ribs and pelvis Spine: tender @ thoracic spine 09/15/2010 None Full Exam - General Respiratory auscultation Overall: breath sounds clear bilater ally 09/15/2010 None Full Exam - General Respiratory auscultation Diffuse: a normal exam 09/15/2010 None Full Exam - General Respiratory auscultation Left upper lung field: a normal exam 09/15/2010 None Full Exam - General Respiratory auscultation Left lower lung field: a normal exam 09/15/2010 None Full Exam - General Respiratory auscultation Right upper lung field: a normal exa m 09/15/2010 None Full Exam - General Respiratory auscultation Right middle lung field: a normal ex am 09/15/2010 None Full Exam - General Respiratory auscultation Right lower lung field: a normal exa m 09/15/2010 None Full Exam - General Cardiovascular auscultation of heart Overall: regular rate 09/15/2010 None Full Exam - General Cardiovascular auscultation of heart Overall: normal heart sounds 09/15/2010 None Full Exam - General Cardiovascular auscultation of heart Overall: no murmurs 09/15/2010 None Full Exam - General Cardiovascular auscultation of heart Rate: regular rate 09/15/2010 None Full Exam - General Cardiovascular auscultation of heart Rhythm: regular rhythm 09/15/2010 None Full Exam - General Cardiovascular auscultation of heart S1: a normal exam 09/15/2010 None Full Exam - General Cardiovascular auscultation of heart S2: a normal exam 09/15/2010 None Full Exam - General Cardiovascular auscultation of heart S3 (ventricular gallop): present 09/15/2010 None Full Exam - General Constitutional general appearance Nourishment: obese 09/08/2010 None Full Exam - General Constitutional general appearance Overall: well developed 09/08/2010 None Full Exam - General Constitutional general appearance Overall: in no acute distress 09/08/2010 None Full Exam - General Musculoskeletal head and neck Overall: head atraumatic 09/08/2010 None Full Exam - General Musculoskeletal head and neck Overall: cervical spine benign 09/08/2010 None Full Exam - General Musculoskeletal right upper extremity Overall: right shoulder benign 09/08/2010 None Full Exam - General Musculoskeletal right upper extremity Overall: right elbow benign 09/08/2010 None Full Exam - General Musculoskeletal right upper extremity Overall: right wrist benign 09/08/2010 None Full Exam - General Musculoskeletal right upper extremity Overall: full strength in RUE 09/08/2010 None Full Exam - General Musculoskeletal right upper extremity Overall: normal RUE bulk and tone 09/08/2010 None Full Exam - General Musculoskeletal left upper extremity Overall: normal left shoulder 09/08/2010 None Full Exam - General Musculoskeletal left upper extremity Overall: normal left elbow 09/08/2010 None Full Exam - General Musculoskeletal left upper extremity Overall: normal left wrist 09/08/2010 None Full Exam - General Musculoskeletal left upper extremity Overall: full strength in LUE 09/08/2010 None Full Exam - General Musculoskeletal left upper extremity Overall: normal LUE bulk and tone 09/08/2010 None Full Exam - General Psychiatric orientation/consciousness Overall: oriented to person, place and time 09/08/2010 None Full Exam - General Eyes conjunctiva/eyelids Overall: conjunctiva clear 09/08/2010 None Full Exam - General Eyes conjunctiva/eyelids Overall: cornea clear 09/08/2010 None Full Exam - General Eyes conjunctiva/eyelids Overall: eyelids normal 09/08/2010 None Full Exam - General Eyes pupils and irises Overall: pupils equal, round, reacti ve to light and accomodation 09/08/2010 None Full Exam - General Ears/Nose/Throat external ear Overall: normal appearance 09/08/2010 None Full Exam - General Ears/Nose/Throat otoscopic exam Overall: external auditory canals clear 09/08/2010 None Full Exam - General Ears/Nose/Throat otoscopic exam Overall: tympanic membranes clear 09/08/2010 None Full Exam - General Ears/Nose/Throat lips/teeth/gingiva Overall: benign lips 09/08/2010 None Full Exam - General Ears/Nose/Throat lips/teeth/gingiva Overall: normal dentition 09/08/2010 None Full Exam - General Ears/Nose/Throat lips/teeth/gingiva Overall: benign gingiva 09/08/2010 None Full Exam - General Ears/Nose/Throat oral cavity/pharynx/larynx Overall: oral mucosa clear 09/08/2010 None Full Exam - General Ears/Nose/Throat oral cavity/pharynx/larynx Overall: tonsils benign 09/08/2010 None Full Exam - General Ears/Nose/Throat oral cavity/pharynx/larynx Overall: oropharyngeal mucosa clear 09/08/2010 None Full Exam - General Neck thyroid Overall: normal size None Full Exam - General Neck thyroid Overall: normal consistency 09/08/2010 None Full Exam - General Neck thyroid Overall: nontender 09/08 None Full Exam - General Respiratory auscultation Overall: breath sounds clear bilater ally 09/08/2010 None Full Exam - General Respiratory respiratory effort/rhythm Overall: no retractions 09/08/2010 None Full Exam - General Respiratory respiratory effort/rhythm Overall: normal rate 09/08/2010 None Full Exam - General Cardiovascular auscultation of heart Overall: regular rate 09/08/2010 None Full Exam - General Cardiovascular auscultation of heart Overall: normal heart sounds 09/08/2010 None Procedures Procedure Codes Date ROUTINE VENIPUNCTURE CPT-4: 63397 10/11/2018 ASSAY OF FREE THYROXINE CPT-4: 19279 10/11/2018 ASSAY THYROID STIM H ORMONE CPT-4: 16186 10/11/2018 COMPREHEN METABOLIC PANEL CPT-4: 37173 10/11/2018 COMPLETE CBC W/AUTO DIFF WBC CPT-4: 10424 10/11/2018 ASSAY OF FERRITIN CPT-4: 79671 10/11/2018 A1C HPLC CPT-4: 76993 10/11/2018 ROUTINE VENIPUNCTURE CPT-4: 17086 07/15/2018 COMPLETE CBC W/AUTO DIFF WBC CPT-4: 35077 07/15/2018 COMPREHEN METABOLIC PANEL CPT-4: 85712 07/15/2018 ASSAY THYROID STIM H ORMONE CPT-4: 35319 07/15/2018 ASSAY OF FREE THYROXINE CPT-4: 14096 07/15/2018 LIPID PANEL CPT-4: 07825 07/15/2018 A1C HPLC CPT-4: 50546 07/15/2018 ROUTINE VENIPUNCTURE CPT-4: 53823 04/04/2018 COMPREHEN METABOLIC PANEL CPT-4: 31875 04/04/2018 A1C HPLC CPT-4: 88387 04/04/2018 ROUTINE VENIPUNCTURE CPT-4: 37346 12/31/2017 ASSAY OF FREE THYROXINE CPT-4: 36503 12/31/2017 ASSAY THYROID STIM H ORMONE CPT-4: 47370 12/31/2017 COMPREHEN METABOLIC PANEL CPT-4: 38481 12/31/2017 COMPLETE CBC W/AUTO DIFF WBC CPT-4: 18617 12/31/2017 LIPID PANEL CPT-4: 78553 12/31/2017 A1C HPLC CPT-4: 59223 12/31/2017 CEFTRIAXONE SODIUM I NJECTION CPT-4: J0696 10/25/2017 THER/PROPH/DIAG INJ SC/IM CPT-4: 31750 10/25/2017 CEFTRIAXONE SODIUM I NJECTION CPT-4: J0696 10/24/2017 THER/PROPH/DIAG INJ SC/IM CPT-4: 36431 10/24/2017 CEFTRIAXONE SODIUM I NJECTION CPT-4: J0696 09/26/2017 THER/PROPH/DIAG INJ SC/IM CPT-4: 98770 09/26/2017 DEBRIDE INFECTED SKIN CPT-4: 88425 09/10/2017 URINE CULTURE/ COLON Y COUNT CPT-4: 77375 07/27/2017 URINALYSIS NONAUTO W /O SCOPE CPT-4: 71093 07/27/2017 ROUTINE VENIPUNCTURE CPT-4: 52450 06/04/2017 ASSAY THYROID STIM H ORMONE CPT-4: 17478 06/04/2017 COMPREHEN METABOLIC PANEL CPT-4: 27006 06/04/2017 COMPLETE CBC W/AUTO DIFF WBC CPT-4: 68495 06/04/2017 LIPID PANEL CPT-4: 52220 06/04/2017 A1C HPLC CPT-4: 85682 06/04/2017 VITAMIN B-12 CPT-4: 17740 06/04/2017 ROUTINE VENIPUNCTURE CPT-4: 88490 02/23/2017 ASSAY OF FREE THYROXINE CPT-4: 72522 02/23/2017 ASSAY THYROID STIM H ORMONE CPT-4: 25967 02/23/2017 COMPREHEN METABOLIC PANEL CPT-4: 51398 02/23/2017 COMPLETE CBC W/AUTO DIFF WBC CPT-4: 42213 02/23/2017 LIPID PANEL CPT-4: 81279 02/23/2017 A1C HPLC CPT-4: 62997 02/23/2017 ROUTINE VENIPUNCTURE CPT-4: 59279 08/31/2016 COMPREHEN METABOLIC PANEL CPT-4: 07706 08/31/2016 COMPLETE CBC W/AUTO DIFF WBC CPT-4: 74264 08/31/2016 LIPID PANEL CPT-4: 33663 08/31/2016 A1C HPLC CPT-4: 57546 08/31/2016 ASSAY OF FREE THYROXINE CPT-4: 11655 08/31/2016 ASSAY THYROID STIM H ORMONE CPT-4: 96100 08/31/2016 A1C HPLC CPT-4: 34575 01/25/2016 ROUTINE VENIPUNCTURE CPT-4: 24929 01/05/2016 ASSAY OF FREE THYROXINE CPT-4: 22811 01/05/2016 ASSAY THYROID STIM H ORMONE CPT-4: 24899 01/05/2016 COMPREHEN METABOLIC PANEL CPT-4: 50442 01/05/2016 COMPLETE CBC W/AUTO DIFF WBC CPT-4: 36268 01/05/2016 LIPID PANEL CPT-4: 62625 01/05/2016 A1C GLYCOSYLATED HEM OGLOBIN TEST CPT-4: 12056 01/05/2016 ASSAY OF BLOOD/URIC ACID CPT-4: 34679 01/05/2016 VITAMIN B-12 CPT-4: 04113 01/05/2016 CEFTRIAXONE SODIUM I NJECTION CPT-4: J0696 09/13/2015 THER/PROPH/DIAG INJ SC/IM CPT-4: 96497 09/13/2015 ROUTINE VENIPUNCTURE CPT-4: 94299 08/17/2015 ASSAY OF FREE THYROXINE CPT-4: 66990 08/17/2015 ASSAY THYROID STIM H ORMONE CPT-4: 16318 08/17/2015 COMPREHEN METABOLIC PANEL CPT-4: 45021 08/17/2015 COMPLETE CBC W/AUTO DIFF WBC CPT-4: 70036 08/17/2015 LIPID PANEL CPT-4: 13597 08/17/2015 A1C HPLC CPT-4: 40455 08/17/2015 METABOLIC PANEL TOTA L CA CPT-4: 13023 07/01/2015 ROUTINE VENIPUNCTURE CPT-4: 45077 07/01/2015 ASSAY THYROID STIM H ORMONE CPT-4: 14453 07/01/2015 ROUTINE VENIPUNCTURE CPT-4: 19830 03/24/2015 ASSAY OF FREE THYROXINE CPT-4: 52693 03/24/2015 ASSAY THYROID STIM H ORMONE CPT-4: 15567 03/24/2015 COMPREHEN METABOLIC PANEL CPT-4: 57514 03/24/2015 COMPLETE CBC W/AUTO DIFF WBC CPT-4: 93322 03/24/2015 LIPID PANEL CPT-4: 35716 03/24/2015 A1C HPLC CPT-4: 77135 03/24/2015 ROUTINE VENIPUNCTURE CPT-4: 91567 11/19/2014 ASSAY OF FREE THYROXINE CPT-4: 19201 11/19/2014 ASSAY THYROID STIM H ORMONE CPT-4: 35846 11/19/2014 COMPREHEN METABOLIC PANEL CPT-4: 50257 11/19/2014 COMPLETE CBC W/AUTO DIFF WBC CPT-4: 09812 11/19/2014 LIPID PANEL CPT-4: 46378 11/19/2014 A1C HPLC CPT-4: 01108 11/19/2014 ASSAY OF BLOOD/URIC ACID CPT-4: 45561 11/19/2014 URINALYSIS NONAUTO W /O SCOPE CPT-4: 06038 10/09/2014 URINE CULTURE/ COLON Y COUNT CPT-4: 50011 10/09/2014 ROUTINE VENIPUNCTURE CPT-4: 41025 08/17/2014 ASSAY OF FREE THYROXINE CPT-4: 93652 08/17/2014 ASSAY THYROID STIM H ORMONE CPT-4: 61120 08/17/2014 COMPREHEN METABOLIC PANEL CPT-4: 50186 08/17/2014 COMPLETE CBC W/AUTO DIFF WBC CPT-4: 68867 08/17/2014 LIPID PANEL CPT-4: 97203 08/17/2014 A1C HPLC CPT-4: 40593 08/17/2014 ROUTINE VENIPUNCTURE CPT-4: 04578 04/28/2014 ASSAY OF FREE THYROXINE CPT-4: 48013 04/28/2014 ASSAY THYROID STIM H ORMONE CPT-4: 43039 04/28/2014 COMPREHEN METABOLIC PANEL CPT-4: 93815 04/28/2014 COMPLETE CBC W/AUTO DIFF WBC CPT-4: 30214 04/28/2014 LIPID PANEL CPT-4: 09725 04/28/2014 A1C HPLC CPT-4: 90988 04/28/2014 ROUTINE VENIPUNCTURE CPT-4: 89919 12/23/2013 ASSAY OF FREE THYROXINE CPT-4: 11539 12/23/2013 ASSAY THYROID STIM H ORMONE CPT-4: 40227 12/23/2013 COMPREHEN METABOLIC PANEL CPT-4: 38451 12/23/2013 COMPLETE CBC W/AUTO DIFF WBC CPT-4: 66627 12/23/2013 LIPID PANEL CPT-4: 12963 12/23/2013 A1C HPLC CPT-4: 69374 12/23/2013 ROUTINE VENIPUNCTURE CPT-4: 88802 08/18/2013 ASSAY OF FREE THYROXINE CPT-4: 55390 08/18/2013 ASSAY THYROID STIM H ORMONE CPT-4: 36505 08/18/2013 COMPREHEN METABOLIC PANEL CPT-4: 53635 08/18/2013 COMPLETE CBC W/AUTO DIFF WBC CPT-4: 16082 08/18/2013 LIPID PANEL CPT-4: 06701 08/18/2013 A1C HPLC CPT-4: 54388 08/18/2013 ROUTINE VENIPUNCTURE CPT-4: 64628 05/01/2013 ASSAY OF FREE THYROXINE CPT-4: 65891 05/01/2013 ASSAY THYROID STIM H ORMONE CPT-4: 82230 05/01/2013 COMPREHEN METABOLIC PANEL CPT-4: 44026 05/01/2013 COMPLETE CBC W/AUTO DIFF WBC CPT-4: 38151 05/01/2013 LIPID PANEL CPT-4: 63482 05/01/2013 A1C GLYCOSYLATED HEM OGLOBIN TEST CPT-4: 31357 05/01/2013 ROUTINE VENIPUNCTURE CPT-4: 50337 01/27/2013 ASSAY OF FREE THYROXINE CPT-4: 12561 01/27/2013 ASSAY THYROID STIM H ORMONE CPT-4: 01402 01/27/2013 COMPREHEN METABOLIC PANEL CPT-4: 81513 01/27/2013 LIPID PANEL CPT-4: 59549 01/27/2013 A1C GLYCOSYLATED HEM OGLOBIN TEST CPT-4: 43564 01/27/2013 COMPLETE CBC W/AUTO DIFF WBC CPT-4: 40168 01/27/2013 DRAIN/INJECT JOINT/B URSA CPT-4: 82594 10/31/2012 METHYLPREDNISOLONE 4 0 MG INJ CPT-4: J1030 10/31/2012 TRIAMCINOLONE ACET I NJ NOS CPT-4: J3301 10/31/2012 ROUTINE VENIPUNCTURE CPT-4: 29553 10/28/2012 COMPLETE CBC W/AUTO DIFF WBC CPT-4: 59921 10/28/2012 LIPID PANEL CPT-4: 89111 10/28/2012 COMPREHEN METABOLIC PANEL CPT-4: 03343 10/28/2012 ASSAY THYROID STIM H ORMONE CPT-4: 55318 10/28/2012 ASSAY OF FREE THYROXINE CPT-4: 52444 10/28/2012 A1C GLYCOSYLATED HEM OGLOBIN TEST CPT-4: 86980 10/28/2012 CEFTRIAXONE SODIUM I NJECTION CPT-4: J0696 07/19/2012 THER/PROPH/DIAG INJ SC/IM CPT-4: 20916 07/19/2012 CEFTRIAXONE SODIUM I NJECTION CPT-4: J0696 07/18/2012 THER/PROPH/DIAG INJ SC/IM CPT-4: 75107 07/18/2012 ROUTINE VENIPUNCTURE CPT-4: 07283 07/18/2012 COMPREHEN METABOLIC PANEL CPT-4: 83301 07/18/2012 A1C GLYCOSYLATED HEM OGLOBIN TEST CPT-4: 96073 07/18/2012 ROUTINE VENIPUNCTURE CPT-4: 98541 06/12/2012 ASSAY OF BLOOD/URIC ACID CPT-4: 01318 06/12/2012 HEPATIC FUNCTION PANEL CPT-4: 27485 06/12/2012 ROUTINE VENIPUNCTURE CPT-4: 95699 11/01/2011 COMPREHEN METABOLIC PANEL CPT-4: 73222 11/01/2011 A1C GLYCOSYLATED HEM OGLOBIN TEST CPT-4: 93027 11/01/2011 ROUTINE VENIPUNCTURE CPT-4: 49524 04/26/2011 A1C GLYCOSYLATED HEM OGLOBIN TEST CPT-4: 97699 04/26/2011 ROUTINE VENIPUNCTURE CPT-4: 31747 01/30/2011 ASSAY OF FREE THYROXINE CPT-4: 85430 01/30/2011 ASSAY THYROID STIM H ORMONE CPT-4: 43997 01/30/2011 COMPREHEN METABOLIC PANEL CPT-4: 38622 01/30/2011 COMPLETE CBC W/AUTO DIFF WBC CPT-4: 06498 01/30/2011 ASSAY OF INSULIN CPT-4: 25527 01/30/2011 RBC SED RATE AUTOMATED CPT-4: 78432 01/30/2011 SPECIMEN HANDLING OF FICE-LAB CPT-4: 69028 10/31/2010 OCCULT BLOOD FECES CPT- 4: 32562 10/31/2010 Vital Signs Date Vital 10/16/2018 Blood Pressure 1: 116/78 Code: 8480-6 Heart Rate 1: 64 bpm Respiratory Rate: 20 bpm SpO2: 97% Temperature: 37.2 (C ) / 99.0 (F) Weight: 240 lbs 09/13/2018 Blood Pressure 1: 140/90 Code: 8480-6 Heart Rate 1: 62 bpm Respiratory Rate: 18 bpm SpO2: 97% Temperature: 36.1 (C ) / 97.0 (F) Weight: 237 lbs 07/09/2018 Blood Pressure 1: 126/78 Code: 8480-6 BMI: 37.9 Code: 18595-9 Heart Rate 1: 72 bpm Height: 5'6" Respiratory Rate: 20 bpm SpO2: 98% Temperature: 36.9 (C ) / 98.4 (F) Weight: 235 lbs 04/08/2018 Blood Pressure 1: 116/70 Code: 8480-6 BMI: 37.0 Code: 34215-0 Heart Rate 1: 60 bpm Height: 5'6" Respiratory Rate: 20 bpm SpO2: 97% Temperature: 36.7 (C ) / 98.1 (F) Weight: 229 lbs 04/04/2018 Blood Pressure 1: 128/80 Code: 8480-6 03/04/2018 Blood Pressure 1: 150/82 Code: 8480-6 Heart Rate 1: 57 bpm Respiratory Rate: 18 bpm SpO2: 96% Temperature: 36.6 (C ) / 97.8 (F) Weight: 230 lbs 01/03/2018 Blood Pressure 1: 116/64 Code: 8480-6 BMI: 36.5 Code: 24260-8 Heart Rate 1: 64 bpm Height: 5'6" Respiratory Rate: 20 bpm Temperature: 36.9 (C ) / 98.5 (F) Weight: 226 lbs 10/24/2017 Blood Pressure 1: 118/78 Code: 8480-6 BMI: 35.2 Code: 16014-9 Heart Rate 1: 70 bpm Height: 5'6" Respiratory Rate: 22 bpm SpO2: 98% Temperature: 36.1 (C ) / 97.0 (F) Weight: 218 lbs 09/26/2017 Blood Pressure 1: 130/84 Code: 8480-6 BMI: 35.3 Code: 17616-0 Heart Rate 1: 53 bpm Height: 5'6" Respiratory Rate: 12 bpm SpO2: 96% Temperature: 36.3 (C ) / 97.4 (F) Weight: 219 lbs 09/10/2017 Blood Pressure 1: 120/70 Code: 8480-6 Heart Rate 1: 50 bpm SpO2: 95% Temperature: 36.2 (C ) / 97.1 (F) Weight: 218 lbs 07/27/2017 Blood Pressure 1: 126/80 Code: 8480-6 BMI: 33.9 Code: 79627-4 Heart Rate 1: 64 bpm Height: 5'6" Respiratory Rate: 20 bpm SpO2: 97% Temperature: 36.8 (C ) / 98.2 (F) Weight: 210 lbs 06/06/2017 Blood Pressure 1: 112/68 Code: 8480-6 BMI: 33.9 Code: 40333-4 Heart Rate 1: 72 bpm Height: 5'6" Respiratory Rate: 20 bpm Temperature: 36.6 (C ) / 97.9 (F) Weight: 210 lbs 03/08/2017 Blood Pressure 1: 104/60 Code: 8480-6 Heart Rate 1: 68 bpm Respiratory Rate: 20 bpm Temperature: 36.6 (C) / 97.8 (F) 02/21/2017 Blood Pressure 1: 106/60 Code: 8480-6 BMI: 33.2 Code: 38627-5 Heart Rate 1: 68 bpm Height: 5'6" Respiratory Rate: 20 bpm Temperature: 36.6 (C ) / 97.8 (F) Weight: 206 lbs 08/31/2016 Blood Pressure 1: 114/68 Code: 8480-6 BMI: 33.2 Code: 78925-2 Heart Rate 1: 60 bpm Height: 5'6" Respiratory Rate: 20 bpm SpO2: 98% Temperature: 36.8 (C ) / 98.2 (F) Weight: 206 lbs 08/02/2016 Blood Pressure 1: 126/68 Code: 8480-6 BMI: 34.5 Code: 03568-3 Heart Rate 1: 58 bpm Height: 5'6" Respiratory Rate: 22 bpm SpO2: 98% Temperature: 36.0 (C ) / 96.8 (F) Weight: 214 lbs 01/04/2016 Blood Pressure 1: 132/68 Code: 8480-6 BMI: 40.8 Code: 94219-5 Heart Rate 1: 80 bpm Height: 5'6" Respiratory Rate: 20 bpm Temperature: 36.8 (C ) / 98.2 (F) Weight: 253 lbs 11/15/2015 Blood Pressure 1: 142/70 Code: 8480-6 BMI: 40.8 Code: 90587-0 Heart Rate 1: 80 bpm Height: 5'6" Respiratory Rate: 18 bpm SpO2: 96% Temperature: 36.1 (C ) / 97.0 (F) Weight: 253 lbs 09/24/2015 Blood Pressure 1: 128/70 Code: 8480-6 Heart Rate 1: 68 bpm Height: Respiratory Rate: 20 bpm SpO2: 99% Temperature: 36.2 (C ) / 97.1 (F) Weight: 09/15/2015 BMI: 40.5 Code: 15308-4 Heart Rate 1: 64 bpm Height: 5'6" Respiratory Rate: 20 bpm SpO2: 97% Temperature: 36.2 (C) / 97.1 (F) Weight: 251 lbs 09/13/2015 Blood Pressure 1: 118/76 Code: 8480-6 BMI: 40.5 Code: 72643-1 Heart Rate 1: 76 bpm Height: 5'6" Respiratory Rate: 20 bpm Temperature: 36.9 (C ) / 98.4 (F) Weight: 251 lbs 08/19/2015 Blood Pressure 1: 126/78 Code: 8480-6 BMI: 40.7 Code: 49639-0 Heart Rate 1: 76 bpm Height: 5'6" Respiratory Rate: 20 bpm Temperature: 36.4 (C ) / 97.5 (F) Weight: 252 lbs 07/13/2015 Blood Pressure 1: 114/70 Code: 8480-6 Heart Rate 1: 76 bpm Height: 5'6" Respiratory Rate: 20 bpm Temperature: 36.8 (C ) / 98.2 (F) Weight: 03/29/2015 Blood Pressure 1: 114/72 Code: 8480-6 BMI: 41.0 Code: 34114-5 Heart Rate 1: 68 bpm Height: 5'6" Respiratory Rate: 20 bpm Temperature: 36.6 (C ) / 97.8 (F) Weight: 254 lbs 11/26/2014 Blood Pressure 1: 114/62 Code: 8480-6 BMI: 39.4 Code: 35609-8 Heart Rate 1: 84 bpm Height: 5'6" Respiratory Rate: 20 bpm Temperature: 36.8 (C ) / 98.3 (F) Weight: 244 lbs 11/19/2014 Blood Pressure 1: 128/76 Code: 8480-6 BMI: 39.4 Code: 25646-6 Heart Rate 1: 80 bpm Height: 5'6" Respiratory Rate: 22 bpm Temperature: 36.4 (C ) / 97.6 (F) Weight: 244 lbs 11/16/2014 Blood Pressure 1: 122/70 Code: 8480-6 BMI: 39.4 Code: 78194-3 Heart Rate 1: 80 bpm Height: 5'6" Respiratory Rate: 18 bpm Temperature: 36.4 (C ) / 97.6 (F) Weight: 244 lbs 10/09/2014 Blood Pressure 1: 126/70 Code: 8480-6 BMI: 39.5 Code: 55062-0 Heart Rate 1: 78 bpm Height: 5'6" Respiratory Rate: 20 bpm Temperature: 36.8 (C ) / 98.2 (F) Weight: 245 lbs 08/20/2014 Blood Pressure 1: 118/82 Code: 8480-6 BMI: 39.5 Code: 25836-2 Heart Rate 1: 72 bpm Height: 5'6" Respiratory Rate: 20 bpm Temperature: 36.8 (C ) / 98.2 (F) Weight: 245 lbs 04/23/2014 Blood Pressure 1: 108/60 Code: 8480-6 BMI: 39.4 Code: 64781-9 Heart Rate 1: 60 bpm Height: 5'6" Respiratory Rate: 20 bpm Temperature: 36.3 (C ) / 97.4 (F) Weight: 244 lbs 02/19/2014 Blood Pressure 1: 114/62 Code: 8480-6 BMI: 39.4 Code: 11257-7 Heart Rate 1: 84 bpm Height: 5'6" Respiratory Rate: 20 bpm Temperature: 36.7 (C ) / 98.1 (F) Weight: 244 lbs 02/12/2014 Blood Pressure 1: 122/80 Code: 8480-6 BMI: 39.4 Code: 12248-5 Heart Rate 1: 80 bpm Height: 5'6" Respiratory Rate: 22 bpm Temperature: 36.2 (C ) / 97.1 (F) Weight: 244 lbs 12/25/2013 Blood Pressure 1: 130/78 Code: 8480-6 Blood Pressure 2: 118/74 Code: 8480-6 BMI: 38.6 Code: 24255-7 Heart Rate 1: 88 bpm Height: 5'6" Respiratory Rate: 20 bpm Temperature: 36.9 (C) / 98.4 (F) Weight: 239 lbs 08/27/2013 Blood Pressure 1: 136/94 Code: 8480-6 BMI: 39.4 Code: 41250-8 Heart Rate 1: 68 bpm Height: 5'6" Respiratory Rate: 20 bpm Temperature: 37.0 (C ) / 98.6 (F) Weight: 244 lbs 04/30/2013 Blood Pressure 1: 126/78 Code: 8480-6 BMI: 39.2 Code: 96386-2 Heart Rate 1: 84 bpm Height: 5'6" Respiratory Rate: 20 bpm Temperature: 36.7 (C ) / 98.0 (F) Weight: 243 lbs 03/04/2013 Blood Pressure 1: 128/86 Code: 8480-6 BMI: 38.9 Code: 90326-7 Height: 5'6" Weight: 241 lbs 01/30/2013 Blood Pressure 1: 122/78 Code: 8480-6 BMI: 39.4 Code: 97938-8 Heart Rate 1: 64 bpm Height: 5'6" Respiratory Rate: 20 bpm Temperature: 35.6 (C ) / 96.1 (F) Weight: 244 lbs 11/28/2012 Blood Pressure 1: 128/86 Code: 8480-6 BMI: 39.4 Code: 49076-7 Heart Rate 1: 72 bpm Height: 5'6" Respiratory Rate: 20 bpm Temperature: 36.7 (C ) / 98.1 (F) Weight: 248 lbs 10/31/2012 Blood Pressure 1: 128/82 Code: 8480-6 BMI: 39.7 Code: 64667-8 Heart Rate 1: 80 bpm Height: 5'6" Respiratory Rate: 20 bpm Temperature: 36.9 (C ) / 98.4 (F) Weight: 250 lbs 10/03/2012 Blood Pressure 1: 116/78 Code: 8480-6 BMI: 39.1 Code: 42804-3 Heart Rate 1: 76 bpm Height: 5'6" Respiratory Rate: 20 bpm Temperature: 36.9 (C ) / 98.5 (F) Weight: 246 lbs 07/18/2012 Blood Pressure 1: 108/86 Code: 8480-6 BMI: 38.6 Code: 69414-9 Heart Rate 1: 92 bpm Height: 5'6" Respiratory Rate: 20 bpm Temperature: 36.8 (C ) / 98.2 (F) Weight: 243 lbs 06/12/2012 Blood Pressure 1: 122/72 Code: 8480-6 BMI: 38.0 Code: 42174-7 Heart Rate 1: 68 bpm Height: 5'6" Temperature: 36.6 (C ) / 97.8 (F) Weight: 239 lbs 04/24/2012 Blood Pressure 1: 108/78 Code: 8480-6 BMI: 39.6 Code: 37086-7 Heart Rate 1: 80 bpm Height: 5'6" Respiratory Rate: 20 bpm Temperature: 36.7 (C ) / 98.1 (F) Weight: 249 lbs 03/07/2012 Blood Pressure 1: 112/72 Code: 8480-6 BMI: 39.6 Code: 47957-0 Heart Rate 1: 74 bpm Height: 5'6" Temperature: 36.1 (C ) / 97.0 (F) Weight: 249 lbs 11/08/2011 Blood Pressure 1: 136/86 Code: 8480-6 BMI: 40.1 Code: 49850-2 Heart Rate 1: 76 bpm Height: 5'6" Respiratory Rate: 20 bpm Temperature: 36.7 (C ) / 98.0 (F) Weight: 252 lbs 07/31/2011 Blood Pressure 1: 126/80 Code: 8480-6 BMI: 40.1 Code: 52636-3 Heart Rate 1: 84 bpm Height: 5'6" Respiratory Rate: 20 bpm Temperature: 36.6 (C ) / 97.8 (F) Weight: 252 lbs 04/27/2011 Blood Pressure 1: 140/82 Code: 8480-6 BMI: 40.7 Code: 13327-8 Heart Rate 1: 76 bpm Height: 5'6" Respiratory Rate: 20 bpm Temperature: 36.4 (C ) / 97.6 (F) Weight: 256 lbs 01/27/2011 Blood Pressure 1: 124/78 Code: 8480-6 Heart Rate 1: 84 bpm Temperature: 36.6 (C) / 97.8 (F) Weight: 254 lbs 10/31/2010 Blood Pressure 1: 124/76 Code: 8480-6 Heart Rate 1: 72 bpm Temperature: 36.1 (C) / 97.0 (F) Weight: 256 lbs 09/15/2010 Blood Pressure 1: 122/84 Code: 8480-6 Temperature: 36.2 (C) / 97.2 (F) Weight: 255 lbs 09/08/2010 Blood Pressure 1: 138/92 Code: 8480-6 BMI: 41.2 Code: 94789-6 Heart Rate 1: 82 bpm Height: 5'6" Temperature: 36.3 (C ) / 97.3 (F) Weight: 255 lbs Functional Status No Functional Status data History of Present Illness Symptom Name Status Resu lt Effective Date Notes Quality chronic 10/16/2018 None Test results HgbA1c le naomy 6.0 10/16/2018 None Glucose monitoring rar jose rafael checks 10/16/2018 None Blood glucose levels 9 0-low 100's 10/16/2018 None Quality stable 10/16/2018 None Quality stable 10/16/2018 None Quality chronic 07/09/2018 None Quality stable 07/09/2018 None Onset and Resolution o ngoing 07/09/2018 None diabetes mellitus Quality chronic 04/08/2018 None diabetes mellitus Test results HgbA1c level 6.2 04/08/2018 None diabetes mellitus Glucose monitoring never checks 04/08/2018 None hypertension Quality sta ble 04/08/2018 None hypothyroid Onset and Resolution ongoing 04/08/2018 None shoulder pain Location i n the right subdeltoid area 04/08/2018 None shoulder pain Location o n the right shoulder 04/08/2018 None anxiety Quality worsening 04/08/2018 family stressors otalgia Location on the left 03/04/2018 None otalgia Quality acute 03/04/2018 None otalgia Onset and Resolution sudden in onset 03/04/2018 None otalgia Onset of Symptom 1 days ago 03/04/2018 None hypertension Quality chr onic 01/03/2018 None hyperlipidemia Labs TOTA L CHOL;241 01/03/2018 None hyperlipidemia Labs TG;1 08 01/03/2018 None hyperlipidemia Labs LDL; 160 01/03/2018 None hyperlipidemia Labs HDL: 59 01/03/2018 None hyperlipidemia Labs RATI O; 4.08 01/03/2018 None hyperlipidemia Quality c hronic 01/03/2018 None diabetes mellitus Quality chronic 01/03/2018 None diabetes mellitus Test results HgbA1c level 5.7 01/03/2018 None diabetes mellitus Quality stable 01/03/2018 None 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 01/03/2018 None diabetes mellitus Glucose monitoring rarely checks 01/03/2018 None toe pain due to infection Location left lateral toe 10/24/2017 None toe pain due to infection Quality numbness 10/24/2017 patient has total neuropa thy toe pain due to infection Onset of Symptom 30 days ago 10/24/2017 None flank pain Location on b oth sides 07/27/2017 None flank pain Onset of Symptom 1 1/2 weeks ago 07/27/2017 None diabetes mellitus Quality chronic 06/06/2017 None diabetes mellitus Test results HgbA1c level 5.6 06/06/2017 None hypertension Quality chr onic 06/06/2017 None hypertension Quality carlos jose hypertension 06/06/2017 None 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 06/06/2017 Patient will have at leas t one episode daily chest pain/pressure Onset of Symptom 1 months ago 06/06/2017 None dizziness Quality interm ittent 06/06/2017 about once a week dizziness Quality lighth eadedness 06/06/2017 None cellulitis Quality impro ving. 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 hypertension Quality chr onic 08/31/2016 None hypertension Quality carlos jose hypertension 08/31/2016 None hypertension Quality sta ble 08/31/2016 Patient has self adjusted medications due to weight loss diabetes mellitus Quality chronic 08/31/2016 None diabetes mellitus Glucose monitoring never checks 08/31/2016 None 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 08/31/2016 None rash Location-Major on t he neck 08/02/2016 None rash Location-Head/Neck on the left side posterior neck 08/02/2016 None rash Quality acute 08/02/2016 None rash Quality dry 08/02/2016 None rash Quality worsening 08/02/2016 None rash Color erythematous 08/02/2016 None rash Onset and Resolution sudden in onset 08/02/2016 None rash Onset of Symptom 4 hours ago 08/02/2016 None paresthesia Location pos terior neck area 08/02/2016 None paresthesia Quality acute 08/02/2016 None paresthesia Quality achi ng 08/02/2016 None paresthesia Quality burn ing 08/02/2016 None paresthesia Quality pins and needles 08/02/2016 None paresthesia Quality ting ling 08/02/2016 None paresthesia Quality wors ening 08/02/2016 None paresthesia Onset and Resolution gradual in onset 08/02/2016 None paresthesia Onset of Symptom 2-3 days ago 08/02/2016 None diabetes mellitus Quality chronic 01/04/2016 Patient currently on diet controlled regimen hypertension Quality chr onic 01/04/2016 None hypertension Quality carlos jose hypertension 01/04/2016 None hyperlipidemia Quality c hronic 01/04/2016 None hypertension Onset of Symptom during adulthood 01/04/2016 None hypertension Onset and Resolution ongoing 01/04/2016 None diabetes mellitus Glucose monitoring rarely checks 01/04/2016 None hyperlipidemia Onset and Resolution ongoing 01/04/2016 None hypothyroid Onset and Resolution ongoing 01/04/2016 None hypothyroid Quality stab le 01/04/2016 None rash Quality acute 11/15/2015 None rash Quality burning 11/15/2015 None rash Quality painful 11/15/2015 None rash Location-Head/Neck on the left posterior neck 11/15/2015 None rash Color erythematous 11/15/2015 None rash Color weeping 11/15/2015 None rash Onset of Symptom 10 days ago 11/15/2015 None cellulitis Location betw een 4th and 5th digit 09/24/2015 None cellulitis Quality chron ic 09/24/2015 None cellulitis Quality deep 09/24/2015 None cellulitis Quality impro ving 09/24/2015 None cellulitis Onset and Resolution ongoing 09/24/2015 None cellulitis Location righ t foot- 4th and 5th digit 09/15/2015 None cellulitis Quality acute 09/15/2015 None cellulitis Quality deep 09/15/2015 None cellulitis Quality impro ving 09/15/2015 None cellulitis Onset and Resolution ongoing 09/15/2015 None cellulitis Quality deep 09/13/2015 None cellulitis Location on t he right foot 09/13/2015 None cellulitis Onset and Resolution sudden in onset 09/13/2015 None cellulitis Onset of Symptom 1 days ago 09/13/2015 None blisters Location-Major on the right fifth toe 09/13/2015 None blisters Color pink 09/13/2015 None blisters Onset of Symptom yesterday 09/13/2015 None hyperlipidemia Labs TOTA L CHOL;211 08/19/2015 None hyperlipidemia Labs TG;2 20 08/19/2015 None hyperlipidemia Labs LDL; 114 08/19/2015 None hyperlipidemia Labs HDL: 53 08/19/2015 None hyperlipidemia Quality i ncreased TG 08/19/2015 None hyperlipidemia Quality i ncreased cholesterol 08/19/2015 None hypertension Quality chr onic 08/19/2015 None hypertension Quality carlos jose hypertension 08/19/2015 None diabetes mellitus Quality chronic 08/19/2015 None diabetes mellitus Test results HgbA1c level 6.0 08/19/2015 None diabetes mellitus Glucose monitoring rarely checks 08/19/2015 None hypertension Quality sta ble 08/19/2015 None hypertension Onset and Resolution ongoing 08/19/2015 None hypertension Onset of Symptom during adulthood 08/19/2015 None arthralgia(s) Location i n the abdomen 07/13/2015 None arthralgia(s) Location o n both legs 07/13/2015 None arthralgia(s) Quality ac clyde 07/13/2015 None arthralgia(s) Quality cr amping 07/13/2015 None arthralgia(s) Quality in termittent 07/13/2015 Patient increased multivi tamin to 2 daily arthralgia(s) Onset and Resolution ongoing 07/13/2015 None diabetes mellitus Test results HgbA1c level 5.9 03/29/2015 None diabetes mellitus Glucose monitoring rarely checks 03/29/2015 None diabetes mellitus Quality chronic 03/29/2015 None diabetes mellitus Quality stable 03/29/2015 None hyperlipidemia Labs TOTA L CHOL;240 03/29/2015 None hyperlipidemia Labs TG;2 36 03/29/2015 None hyperlipidemia Quality i ncreased cholesterol 03/29/2015 None hyperlipidemia Quality i ncreased TG 03/29/2015 None hyperlipidemia Labs HDL: 57 03/29/2015 None hyperlipidemia Labs LDL; 136 03/29/2015 None hyperlipidemia Quality c hronic 03/29/2015 None 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 03/29/2015 None hypothyroid Quality stab le 03/29/2015 None hypothyroid Quality stab le 11/26/2014 None diabetes mellitus Test results HgbA1c level 6.0 11/26/2014 None diabetes mellitus Quality chronic 11/26/2014 None hypertension Quality chr onic 11/26/2014 None hyperlipidemia Labs TOTA L CHOL;174 11/26/2014 None hyperlipidemia Labs TG;1 75 11/26/2014 None hyperlipidemia Quality i ncreased TG 11/26/2014 None hyperlipidemia Labs LDL; 93 11/26/2014 None hyperlipidemia Labs HDL: 46 11/26/2014 None hyperlipidemia Quality c hronic 11/26/2014 None diabetes mellitus Glucose monitoring never checks 11/26/2014 None cellulitis Location on t he right foot 11/26/2014 None cellulitis Quality impro ving 11/26/2014 Currently on clindamycin cellulitis Quality swell ing 11/26/2014 None cellulitis Quality pain 11/26/2014 None toe pain due to infection Location medial right 3rd toe 11/19/2014 None toe pain due to infection Quality acute 11/19/2014 None toe pain due to infection Quality improving 11/19/2014 None toe pain due to infection Location lateral third left toe 11/16/2014 None toe pain due to infection Quality numbness 11/16/2014 patient currently has lynn ropathy toe pain due to infection Quality acute 11/16/2014 None toe pain due to infection Onset of Symptom 1 month ago 11/16/2014 None diarrhea Quality loose 11/16/2014 None diarrhea Quality watery 11/16/2014 None diarrhea Onset of Symptom 4 days ago 11/16/2014 None abdominal pain Location diffusely 11/16/2014 None abdominal pain Quality c ramping 11/16/2014 None abdominal pain Onset of Symptom 3-4 days ago 11/16/2014 None abdominal pain Quality i mproving 11/16/2014 None abdominal pain Quality d ull 11/16/2014 None diarrhea Onset and Resolution gradual in resolution 11/16/2014 improving - no diarrhea today flank pain Location on t he right 10/09/2014 None flank pain Radiating the back 10/09/2014 None flank pain Quality aching 10/09/2014 None flank pain Onset of Symptom 3-4 weeks ago 10/09/2014 None amputation Location on t he second right toe 08/20/2014 None amputation Quality stable 08/20/2014 None diabetes mellitus Test results HgbA1c level 6.0 08/20/2014 Not routinely taking metformin 250mg diabetes mellitus Quality stable 08/20/2014 None diabetes mellitus Quality chronic 08/20/2014 None hyperlipidemia Labs TOTA L CHOL;196 08/20/2014 None hyperlipidemia Quality s table 08/20/2014 None hyperlipidemia Labs HDL: 49 08/20/2014 None hyperlipidemia Labs TG;1 44 08/20/2014 None hyperlipidemia Labs LDL; 118 08/20/2014 None hypertension Quality chr onic 08/20/2014 None diabetes mellitus Glucose monitoring 2 hours postprandial a few times weekly 08/20/2014 None diabetes mellitus Blood glucose levels between 60 and 120 08/20/2014 None diabetes mellitus Quality non-insulin dependent 04/23/2014 None diabetes mellitus Quality stable 04/23/2014 None hypertension Quality sta ble 04/23/2014 None diabetes mellitus Glucose monitoring rarely checks 04/23/2014 None hypertension Onset and Resolution ongoing 04/23/2014 recent low BP cellulitis Location on t he left foot 02/19/2014 None cellulitis Quality impro ving 02/19/2014 Had to stop bactrim due t o alllergic reaction, still using bactroban ointment cellulitis Onset and Resolution ongoing 02/19/2014 None toe pain due to infection Location lateral second left toenail 02/12/2014 None toe pain due to infection Quality numbness 02/12/2014 Patient has neuropathy mole check Location-Major left side/hip 02/12/2014 None mole check Quality del angel ing 02/12/2014 None mole check Color brown 02/12/2014 None vomiting Onset and Resolution sudden in onset this morning 12/25/2013 None diabetes mellitus Glucose monitoring twice weekly 12/25/2013 Stopped metformin about 1 month ago due to low BS low blood pressure Quality orthostatic hypotension 12/25/2013 None low blood pressure Quality intermittent 12/25/2013 None hypertension Quality sta ble 12/25/2013 None diabetes mellitus Test results HgbA1c level 5.9 12/25/2013 None hypothyroid Quality stab le 12/25/2013 None vomiting Quality acute 12/25/2013 None diabetes mellitus Glucose monitoring rarely checks 08/27/2013 None diabetes mellitus Test results HgbA1c level 5.8 08/27/2013 None hyperlipidemia Onset and Resolution ongoing 08/27/2013 None hyperlipidemia Quality i mproving 08/27/2013 None hypertension Onset and Resolution ongoing 08/27/2013 None diabetes mellitus Glucose monitoring rarely checks 04/30/2013 Maybe checks a couple times weekly skin lesion Location on the right eye 04/30/2013 None skin lesion Quality soft 04/30/2013 None skin lesion Quality rais ed 04/30/2013 None diabetes mellitus Blood glucose levels between 60 and 120 04/30/2013 None hyperlipidemia Onset and Resolution ongoing 04/30/2013 None hyperlipidemia Quality s table 04/30/2013 None hypothyroid Quality stab le 04/30/2013 None diabetes mellitus Test results HgbA1c level 5.6 01/30/2013 None hyperlipidemia Quality s table 01/30/2013 None hyperlipidemia Quality i mproving 01/30/2013 None weight gain/obesity Location globally 01/30/2013 None weight gain/obesity Onset and Resolution ongoing 01/30/2013 None weight gain/obesity Quality chronic 01/30/2013 None weight gain/obesity Quality constant 01/30/2013 None diabetes mellitus Glucose monitoring twice daily 11/28/2012 None diabetes mellitus Blood glucose levels running less than 100 in morning and less 120 during day 11/28/2012 Taking metformin 750mg daily instead of 1000mg depression Quality impro ving with increase fluoxetine 11/28/2012 None shoulder pain Quality im proving 11/28/2012 None joint complaint Quality improving 11/28/2012 None ankle pain Quality impro ving 10/31/2012 Still wearing brace edema Location on the le ft ankle 10/31/2012 None shoulder pain Location o n the right shoulder 10/31/2012 None shoulder pain Quality co nstant 10/31/2012 Started wearing sling yes terday but hasn't seen any improvement rash Location-Major on t he upper body 10/31/2012 None urinary incontinence Onset and Resolution ongoing 10/31/2012 None urinary incontinence Quality worsening 10/31/2012 None rash Quality acute 10/31/2012 after taking some hydrocodone for pain urinary incontinence Onset of Symptom during adulthood 10/31/2012 had sling about 10yrs ago depression Onset and Resolution ongoing 10/31/2012 None depression Onset of Symptom during adulthood 10/31/2012 None depression Quality chron ic 10/31/2012 thinks may need to go up on fluoxetine dose pain, limb Location on t he right arm 10/31/2012 None pain, limb Quality dull 10/31/2012 None pain, limb Quality acute 10/31/2012 worse past week pain, limb Onset and Resolution ongoing 10/31/2012 None pain, limb Limitation on Activities moderately limits activities 10/31/2012 None pain, limb Triggers rest 10/31/2012 thinks sleeps on that arm and is making worse diabetes mellitus Glucose monitoring daily alternating times 10/03/2012 None diabetes mellitus Blood glucose levels 80- 120's 10/03/2012 None paresthesia Location on both hands 10/03/2012 None paresthesia Location on both feet 10/03/2012 None paresthesia Quality numb ness 10/03/2012 None paresthesia Quality ting ling 10/03/2012 None paresthesia Quality wors ening 10/03/2012 Wonders if related to stalin ag edema Location on the le ft foot 10/03/2012 None edema Onset and Resolution ongoing 10/03/2012 None edema Quality painful 10/03/2012 None edema Quality non-pitting 10/03/2012 None edema Location on the le ft ankle 10/03/2012 None cellulitis Location on r ight second digit toe 07/18/2012 None cellulitis Quality painf ul 07/18/2012 None cellulitis Quality redne ss/swelling 07/18/2012 None cellulitis Quality acute 07/18/2012 None fever Quality acute 07/18/2012 None diabetes mellitus Glucose monitoring rarely checks 07/18/2012 None diabetes mellitus Test results Fingerstick blood [id number] 07/18/2012 None ankle pain Location on t he left 06/12/2012 None ankle pain Quality sharp pain 06/12/2012 None ankle pain Quality aching 06/12/2012 None ankle pain Quality inter mittent 06/12/2012 None ankle pain Onset and Resolution sudden in onset 06/12/2012 None ankle pain Onset of Symptom 1 weeks ago 06/12/2012 None ankle pain Frequency of Episodes increasing 06/12/2012 None ankle pain Mechanism of injury unknown 06/12/2012 None ankle pain Exacerbating Factors weight bearing 06/12/2012 None color change Location-Major on the toenails 04/24/2012 None color change Quality wor sening 04/24/2012 None diabetes mellitus Quality non-insulin dependent 03/07/2012 None diabetes mellitus Onset of Symptom onset as an adult 03/07/2012 None diabetes mellitus Severity mild 03/07/2012 None diabetes mellitus Test results fasting glucose 115-140 03/07/2012 None hypertension Quality con stant 03/07/2012 None hypertension Quality car[place] hypertension 03/07/2012 None hypertension Onset of Symptom during adulthood 03/07/2012 None hypertension Onset and Resolution ongoing 03/07/2012 None diabetes mellitus Quality stable 11/08/2011 None hypertension Quality sta ble 11/08/2011 None diabetes mellitus Test results HgbA1c level 4.3 11/08/2011 None diabetes mellitus Blood glucose levels between 60 and 120 11/08/2011 None insomnia Quality difficu lty falling asleep 11/08/2011 None insomnia Quality disrupt ed sleep 11/08/2011 None insomnia Quality early a wakening 11/08/2011 None hypertension Quality sta ble 07/31/2011 None diabetes mellitus Glucose monitoring rarely checks 07/31/2011 None diabetes mellitus Glucose monitoring rarely checks 04/27/2011 None paresthesia Quality pins and needles 04/27/2011 None paresthesia Quality numb ness 04/27/2011 None paresthesia Location on both feet 01/27/2011 None paresthesia Quality burn ing 01/27/2011 None paresthesia Quality numb ness 01/27/2011 None paresthesia Onset of Symptom 6 months ago 01/27/2011 None well woman exam (40-65 years) Menstr ual History menopause at age 36, hysterectomy None well woman exam (40-65 years) Pap Smear 10 years ago 10/31/2010 None well woman exam (40-65 years) Contro l none 10/31/2010 None well woman exam (40-65 years) Obstet rical History 3 total pregnancies 10/31/2010 None neck pain Quality improv ing 09/15/2010 None pain, limb Quality impro ving 09/15/2010 None neck and arm pain Location Cervical spine 09/08/2010 None neck and arm pain Radiating down the left arm, numbness 09/08/2010 None neck and arm pain Onset of Symptom 6 months ago 09/08/2010 Has been seeing Chiroprac tor without relief. neck and arm pain Location in the left paracervical area 09/08/2010 None neck and arm pain Location base of skull 09/08/2010 None neck and arm pain Quality constant 09/08/2010 None neck and arm pain Quality discomfort, denies loss of ROM 09/08/2010 None neck and arm pain Mechanism of injury unknown 09/08/2010 None Advance Directives No Advance Directive data Encounters Encounter Performer Loca tion Codes Date ([id number]) OFFICE/OUTPA TIENT VISIT EST Diagnosis: Essential (primary) hypertension[ICD10: I10] Diagnosis: Hypothyroidism, unspecified[ICD10: E03.9] Diagnosis: Mixed hyperlipidemia[ICD10: E78.2] Diagnosis: Type 2 diabetes mellitus with diabetic neuropathy, unspecified[ICD10: E11.40] Gunjan LANTIGUA DO [facility] CPT-4: 44720 10/16/2018 ([id number]) NURSE/OUTPAT IENT VISIT EST Diagnosis: Type 2 diabetes mellitus without complications[ICD10: E11.9] Diagnosis: Essential (primary) hypertension[ICD10: I10] Diagnosis: Mixed hyperlipidemia[ICD10: E78.2] Diagnosis: Hypothyroidism, unspecified[ICD10: E03.9] Diagnosis: Other fatigue[ICD10: R53.83] Gunjan LANTIGUA [employer] CPT-4: 19332 10/11/2018 ([id number]) OFFICE/OUTPA TIENT VISIT EST Diagnosis: Irritant contact dermatitis due to plants, except food[ICD10: L24.7] Darby LANTIGUA [employer] CPT-4: 43849 09/13/2018 ([id number]) NURSE/OUTPAT IENT VISIT EST Diagnosis: Type 2 diabetes mellitus without complications[ICD10: E11.9] Diagnosis: Mixed hyperlipidemia[ICD10: E78.2] Diagnosis: Hypothyroidism, unspecified[ICD10: E03.9] Diagnosis: Essential (primary) hypertension[ICD10: I10] Gunjan KWAN [employer] CPT-4: 03526 07/15/2018 ([id number]) OFFICE/OUTPA TIENT VISIT EST Diagnosis: Essential (primary) hypertension[ICD10: I10] Diagnosis: Type 2 diabetes mellitus without complications[ICD10: E11.9] Diagnosis: Charcot's joint, left ankle and foot[ICD10: M14.672] Diagnosis: Charcot's joint, right ankle and foot[ICD10: M14.671] Diagnosis: Mixed hyperlipidemia[ICD10: E78.2] Gunjan KWAN [employer] CPT-4: 12845 07/09/2018 OFFICE/OUTPATIENT SIT EST Diagnosis: Type 2 diabetes mellitus without complications[ICD10: E11.9] Diagnosis: Hypothyroidism, unspecified[ICD10: E03.9] Diagnosis: Mixed hyperlipidemia[ICD10: E78.2] Diagnosis: Essential (primary) hypertension[ICD10: I10] Diagnosis: Other specified problems related to primary support group[ICD10: Z63.8] Diagnosis: Pain in right shoulder[ICD10: M25.511] Gunjan KWAN [employer] CPT-4: 05884 04/08/2018 ([id number]) OFFICE/OUTPA TIENT VISIT EST Diagnosis: Other allergic rhinitis[ICD10: J30.89] Hina [facility] CPT-4: 52910 03/04/2018 ([id number]) OFFICE/OUTPA TIENT VISIT EST Diagnosis: Charcot's joint, right ankle and foot[ICD10: M14.671] Diagnosis: Charcot's joint, left ankle and foot[ICD10: M14.672] Diagnosis: Type 2 diabetes mellitus without complications[ICD10: E11.9] Diagnosis: Hypothyroidism, unspecified[ICD10: E03.9] Diagnosis: Mixed hyperlipidemia[ICD10: E78.2] Diagnosis: Essential (primary) hypertension[ICD10: I10] Gunjan KWAN [facility] CPT-4: 78713 01/03/2018 ([id number]) NURSE/OUTPAT IENT VISIT EST Diagnosis: Hypothyroidism, unspecified[ICD10: E03.9] Diagnosis: Type 2 diabetes mellitus without complications[ICD10: E11.9] Diagnosis: Mixed hyperlipidemia[ICD10: E78.2] Diagnosis: Essential (primary) hypertension[ICD10: I10] Gunjan KWAN [facility] CPT-4: 50691 12/31/2017 ([id number]) NURSE/OUTPAT IENT VISIT EST Diagnosis: Unspecified open wound, right foot, sequela[ICD10: S91.301S] Gunjan [facility] CPT-4: 91738 10/25/2017 ([id number]) OFFICE/OUTPA TIENT VISIT EST Diagnosis: Cellulitis of left toe[ICD10: L03.032] Hina [facility] CPT-4: 63076 10/24/2017 ([id number]) OFFICE/OUTPA TIENT VISIT EST Diagnosis: Cellulitis of left toe[ICD10: L03.032] Hina LI [facility] CPT-4: 65913 09/26/2017 ([id number]) OFFICE/OUTPA TIENT VISIT EST Diagnosis: Urinary tract infection, site not specified[ICD10: N39.0] Hina [facility] CPT-4: 44433 07/27/2017 ([id number]) OFFICE/OUTPA TIENT VISIT EST Diagnosis: Type 2 diabetes mellitus without complications[ICD10: E11.9] Diagnosis: Essential (primary) hypertension[ICD10: I10] Diagnosis: Mixed hyperlipidemia[ICD10: E78.2] Diagnosis: Angina pectoris, unspecified[ICD10: I20.9] Gunjan RETANA [facility] CPT-4: 97037 06/06/2017 ([id number]) OFFICE/OUTPA TIENT VISIT EST Diagnosis: Hypothyroidism, unspecified[ICD10: E03.9] Diagnosis: Type 2 diabetes mellitus without complications[ICD10: E11.9] Diagnosis: Mixed hyperlipidemia[ICD10: E78.2] Diagnosis: Essential (primary) hypertension[ICD10: I10] Diagnosis: Anesthesia of skin[ICD10: R20.0] Gunjan [facility] CPT-4: 88288 06/04/2017 ([id number]) OFFICE/OUTPA TIENT VISIT EST Diagnosis: Cellulitis of right toe[ICD10: L03.031] Gunjan [facility] CPT-4: 16717 03/08/2017 ([id number]) OFFICE/OUTPA TIENT VISIT EST Diagnosis: Hypothyroidism, unspecified[ICD10: E03.9] Diagnosis: Type 2 diabetes mellitus without complications[ICD10: E11.9] Diagnosis: Mixed hyperlipidemia[ICD10: E78.2] Diagnosis: Essential (primary) hypertension[ICD10: I10] Gunjan RETANA [facility] CPT-4: 63598 02/23/2017 ([id number]) OFFICE/OUTPA TIENT VISIT EST Diagnosis: Cellulitis of right toe[ICD10: L03.031] Gunjan [facility] CPT-4: 54939 02/21/2017 ([id number]) OFFICE/OUTPA TIENT VISIT EST Diagnosis: Type 2 diabetes mellitus without complications[ICD10: E11.9] Diagnosis: Type 2 diabetes mellitus with diabetic neuropathy, unspecified[ICD10: E11.40] Diagnosis: Hypothyroidism, unspecified[ICD10: E03.9] Diagnosis: Essential (primary) hypertension[ICD10: I10] Diagnosis: Bariatric surgery status[ICD10: Z98.84] Gunjan KWAN [employer] [facility] CPT-4: 57537 08/31/2016 ([id number]) OFFICE/OUTPA TIENT VISIT EST Diagnosis: Zoster without complications[ICD10: B02.9] Ernestina Thom GUNJAN [facility] CPT-4: 68514 08/02/2016 ([id number]) OFFICE/OUTPA TIENT VISIT EST Diagnosis: Hypothyroidism, unspecified[ICD10: E03.9] Diagnosis: Type 2 diabetes mellitus without complications[ICD10: E11.9] Diagnosis: Type 2 diabetes mellitus with diabetic neuropathy, unspecified[ICD10: E11.40] Diagnosis: Mixed hyperlipidemia[ICD10: E78.2] Diagnosis: Essential (primary) hypertension[ICD10: I10] Gunjan RETANA [facility] [employer] [facility] CPT-4: 75646 01/05/2016 ([id number]) OFFICE/OUTPA TIENT VISIT EST Diagnosis: Essential (primary) hypertension[ICD10: I10] Diagnosis: Type 2 diabetes mellitus without complications[ICD10: E11.9] Diagnosis: Type 2 diabetes mellitus with diabetic neuropathy, unspecified[ICD10: E11.40] Diagnosis: Mixed hyperlipidemia[ICD10: E78.2] Gunjan RETANA [facility] [employer] [facility] CPT-4: 09534 01/04/2016 ([id number]) OFFICE/OUTPA TIENT VISIT EST Diagnosis: Zoster without complications[ICD10: B02.9] Diagnosis: Acute stress reaction[ICD10: F43.0] Ernestina [facility]OWER [facility]: 73747 11/15/2015 ([id number]) OFFICE/OUTPA TIENT VISIT EST Diagnosis: Unspecified open wound, right foot, sequela[ICD10: S91.301S] Diagnosis: Cellulitis of right lower limb[ICD10: L03.115] Ernestina BOWER [facility] CPT-[facility]: 87133 09/24/2015 ([id number]) OFFICE/OUTPA TIENT VISIT EST Diagnosis: Cellulitis of right lower limb[ICD10: L03.115] Ernestina LANTIGUA DO [facility] CPT-4: 24366 09/15/2015 ([id number]) OFFICE/OUTPA TIENT VISIT EST Diagnosis: Cellulitis of right lower limb[ICD10: L03.115] Ernestina LANTIGUA DO [facility] CPT-4: 27093 09/13/2015 ([id number]) OFFICE/OUTPA TIENT VISIT EST Diagnosis: Type 2 diabetes mellitus with diabetic neuropathy, unspecified[ICD10: E11.40] Diagnosis: Essential (primary) hypertension[ICD10: I10] Diagnosis: Mixed hyperlipidemia[ICD10: E78.2] Gunjan KWAN [facility] CPT-4: 60454 08/19/2015 ([id number]) OFFICE/OUTPA TIENT VISIT EST Diagnosis: Hypothyroidism, unspecified[ICD10: E03.9] Diagnosis: Type 2 diabetes mellitus without complications[ICD10: E11.9] Diagnosis: Mixed hyperlipidemia[ICD10: E78.2] Diagnosis: Essential (primary) hypertension[ICD10: I10] Gunjan KWAN [facility] CPT-4: 57460 08/17/2015 ([id number]) OFFICE/OUTPA TIENT VISIT EST Diagnosis: Cramp and spasm[ICD10: R25.2] Gunjan LANTIGUA [facility] CPT-4: 16135 07/13/2015 ([id number]) OFFICE/OUTPA TIENT VISIT EST Diagnosis: Cramp and spasm[ICD10: R25.2] Gunjan LANTIGUA [facility] CPT-4: 64762 07/01/2015 ([id number]) OFFICE/OUTPA TIENT VISIT EST Diagnosis: Type 2 diabetes mellitus without complications[ICD10: E11.9] Diagnosis: Essential (primary) hypertension[ICD10: I10] Diagnosis: Mixed hyperlipidemia[ICD10: E78.2] Gunjan Rhina KWAN [facility] CPT-4: 15967 03/29/2015 ([id number]) OFFICE/OUTPA TIENT VISIT EST Diagnosis: Type 2 diabetes mellitus without complications[ICD10: E11.9] Diagnosis: Hypothyroidism, unspecified[ICD10: E03.9] Diagnosis: Essential (primary) hypertension[ICD10: I10] Diagnosis: Mixed hyperlipidemia[ICD10: E78.2] Gunjan RETANA [facility] CPT-4: 42150 03/24/2015 ([id number]) OFFICE/OUTPA TIENT VISIT EST Diagnosis: DM W/O COMPLICATION TYPE II[ICD9: 250.00] Diagnosis: HYPOTHYROIDISM[ICD9: 244.9] Diagnosis: HYPERLIPIDEMIA NEC/NOS[ICD9: 272.4] Diagnosis: Charcot's joint of foot, non-diabetic[ICD9: 094.0] Gunjan RETANA [facility] CPT-4: 68156 11/26/2014 ([id number]) OFFICE/OUTPA TIENT VISIT EST Diagnosis: Cellulitis of toe of right foot[ICD9: 681.10] Diagnosis: ONYCHOMYCOSIS[ICD9: 110.1] Yissel LANTIGUA [facility] CPT-4: 39127 11/19/2014 ([id number]) OFFICE/OUTPA TIENT VISIT EST Diagnosis: Cellulitis of toe of right foot[ICD9: 681.10] Diagnosis: ONYCHOMYCOSIS[ICD9: 110.1] Diagnosis: DISTURBANCE OF SKIN SENSATION (Paresthesia)[ICD9: 782.0] Diagnosis: Valgus deformity of foot[ICD9: 736.79] Yissel Whitaker [facility] CPT-4: 22244 11/16/2014 ([id number]) OFFICE/OUTPA TIENT VISIT EST Diagnosis: Epigastric abdominal pain[ICD9: 789.06] Diagnosis: Thoracic back pain[ICD9: 724.1] Yissel LANTIGUA [facility] CPT-4: 20847 10/09/2014 ([id number]) OFFICE/OUTPA TIENT VISIT EST Diagnosis: DM W/O COMPLICATION TYPE II[ICD9: 250.00] Diagnosis: HYPERLIPIDEMIA NEC/NOS[ICD9: 272.4] Diagnosis: HYPERTENSION[ICD9: 401.9] Gunjan LANTIGUA [facility] CPT-4: 22831 08/20/2014 ([id number]) OFFICE/OUTPA TIENT VISIT EST Diagnosis: HYPOTHYROIDISM[ICD9: 244.9] Diagnosis: DM W/O COMPLICATION TYPE II, UNCONTROLLED[ICD9: 250.02] Diagnosis: HYPERLIPIDEMIA NEC/NOS[ICD9: 272.4] Diagnosis: HYPERTENSION[ICD9: 401.9] Gunjan LANTIGUA [facility] CPT-4: 11962 08/17/2014 ([id number]) OFFICE/OUTPA TIENT VISIT EST Diagnosis: HYPOTHYROIDISM[ICD9: 244.9] Diagnosis: DM W/O COMPLICATION TYPE II, UNCONTROLLED[ICD9: 250.02] Diagnosis: HYPERLIPIDEMIA NEC/NOS[ICD9: 272.4] Diagnosis: HYPERTENSION[ICD9: 401.9] Gunjan [facility] CPT-4: 55589 04/28/2014 ([id number]) OFFICE/OUTPA TIENT VISIT EST Diagnosis: DM W/O COMPLICATION TYPE II[ICD9: 250.00] Diagnosis: HYPERLIPIDEMIA NEC/NOS[ICD9: 272.4] Diagnosis: HYPERTENSION[ICD9: 401.9] Gunjan LANTIGUA [facility] CPT-4: 79992 04/23/2014 OFFICE/OUTPATIENT SIT EST Diagnosis: CELLULITIS[ICD9: 682.9] Gunjan [facility] CPT-4: 02242 02/19/2014 OFFICE/OUTPATIENT SIT EST Diagnosis: SKIN SENSATION DISTURB[ICD9: 782.0] Diagnosis: CELLULITIS[ICD9: 682.9] Diagnosis: Edema of lower extremity[ICD9: 782.3] Yissel Herman GUNJAN RUELAS [facility] CPT-4: 66035 02/12/2014 ([id number]) OFFICE/OUTPA TIENT VISIT EST Diagnosis: GASTROENTERITIS[ICD9: 558.9] Diagnosis: DM W/O COMPLICATION TYPE II[ICD9: 250.00] Diagnosis: HYPERLIPIDEMIA NEC/NOS[ICD9: 272.4] Diagnosis: HYPERTENSION[ICD9: 401.9] Gunjan LANTIGUA DO [facility] CPT-4: 20292 12/25/2013 ([id number]) OFFICE/OUTPA TIENT VISIT EST Diagnosis: HYPOTHYROIDISM[ICD9: 244.9] Diagnosis: DM W/O COMPLICATION TYPE II[ICD9: 250.00] Diagnosis: HYPERLIPIDEMIA NEC/NOS[ICD9: 272.4] Diagnosis: HYPERTENSION[ICD9: 401.9] Gunjan LANTIGUA DO [facility] CPT-4: 74535 12/23/2013 ([id number]) OFFICE/OUTPA TIENT VISIT EST Diagnosis: DM W/O COMPLICATION TYPE II[ICD9: 250.00] Diagnosis: HYPERTENSION[ICD9: 401.9] Diagnosis: HYPERLIPIDEMIA NEC/NOS[ICD9: 272.4] Gunjan KWAN [employer] [facility] CPT-4: 37846 08/27/2013 ([id number]) OFFICE/OUTPA TIENT VISIT EST Diagnosis: HYPOTHYROIDISM[ICD9: 244.9] Diagnosis: DM W/O COMPLICATION TYPE II, UNCONTROLLED[ICD9: 250.02] Diagnosis: HYPERTENSION[ICD9: 401.9] Gunjan LANTIGUA DO [facility] CPT-4: 24620 08/18/2013 ([id number]) OFFICE/OUTPA TIENT VISIT EST Diagnosis: HYPOTHYROIDISM[ICD9: 244.9] Diagnosis: DM W/O COMPLICATION TYPE II[ICD9: 250.00] Diagnosis: HYPERLIPIDEMIA NEC/NOS[ICD9: 272.4] Diagnosis: HYPERTENSION[ICD9: 401.9] Gunjan LANTIGUA DO [facility] CPT-4: 55441 05/01/2013 ([id number]) OFFICE/OUTPA TIENT VISIT EST Diagnosis: DM W/O COMPLICATION TYPE II[ICD9: 250.00] Diagnosis: HYPERTENSION[ICD9: 401.9] Diagnosis: HYPOTHYROIDISM[ICD9: 244.9] Gunjan LANTIGUA DO [facility] CPT-4: 62428 04/30/2013 OFFICE/OUTPATIENT SIT EST Diagnosis: ABNORMAL WEIGHT GAIN[ICD9: 783.1] Gunjan KWAN [facility] CPT-4: 90416 03/04/2013 ([id number]) OFFICE/OUTPA TIENT VISIT EST Diagnosis: DM W/O COMPLICATION TYPE II[ICD9: 250.00] Diagnosis: HYPERTENSION[ICD9: 401.9] Diagnosis: HYPERLIPIDEMIA NEC/NOS[ICD9: 272.4] Gunjan KWAN [facility] CPT-4: 07381 01/30/2013 ([id number]) OFFICE/OUTPA TIENT VISIT EST Diagnosis: DM W/O COMPLICATION TYPE II, UNCONTROLLED[ICD9: 250.02] Diagnosis: HYPERTENSION[ICD9: 401.9] Diagnosis: HYPOTHYROIDISM[ICD9: 244.9] Gunjan LANTIGUA [facility] CPT-4: 34232 01/27/2013 ([id number]) OFFICE/OUTPA TIENT VISIT EST Diagnosis: DM W/O COMPLICATION TYPE II, UNCONTROLLED[ICD9: 250.02] Diagnosis: DEPRESSIVE DISORDER NEC[ICD9: 311] Diagnosis: FEM STRESS INCONTINENCE[ICD9: 625.6] Gunjan KWAN [facility] CPT-4: 79250 11/28/2012 OFFICE/OUTPATIENT SIT EST Diagnosis: JOINT PAIN-ANKLE[ICD9: 719.47] Diagnosis: DM W/O COMPLICATION TYPE II, UNCONTROLLED[ICD9: 250.02] Diagnosis: DEPRESSIVE DISORDER NEC[ICD9: 311] Diagnosis: Subacromial bursitis[ICD9: 726.19] Gunjan [facility] CPT-4: 38766 10/31/2012 ([id number]) OFFICE/OUTPA TIENT VISIT EST Diagnosis: DM W/O COMPLICATION TYPE II, UNCONTROLLED[ICD9: 250.02] Diagnosis: HYPERTENSION[ICD9: 401.9] Gunjan LANTIGUA [facility] CPT-4: 84826 10/28/2012 ([id number]) OFFICE/OUTPA TIENT VISIT EST Diagnosis: DISTURBANCE OF SKIN SENSATION (Paresthesia)[ICD9: 782.0] Diagnosis: JOINT PAIN-ANKLE[ICD9: 719.47] Gunjan LANTIGUA [facility] CPT-4: 15918 10/03/2012 ([id number]) OFFICE/OUTPA TIENT VISIT EST Diagnosis: CELLULITIS[ICD9: 682.9] Gunjan LANTIGUA DO [facility] CPT-4: 83385 07/19/2012 ([id number]) OFFICE/OUTPA TIENT VISIT EST Diagnosis: CELLULITIS[ICD9: 682.9] Diagnosis: DM W/O COMPLICATION TYPE II, UNCONTROLLED[ICD9: 250.02] Gunjan KWAN [facility] CPT-4: 94215 07/18/2012 OFFICE/OUTPATIENT SIT EST Diagnosis: Ankle pain, left[ICD9: 719.47] Diagnosis: Stress incontinence[ICD9: 625.6] Diagnosis: Medication therapy continued[ICD9: V58.69] Gunjan KWAN DO [facility] CPT-4: 01213 06/12/2012 ([id number]) OFFICE/OUTPA TIENT VISIT EST Diagnosis: ONYCHOMYCOSIS[ICD9: 110.1] Gunjan LANTIGUA DO [facility] CPT-4: 17567 04/24/2012 ([id number]) OFFICE/OUTPA TIENT VISIT EST Diagnosis: DM W/O COMPLICATION TYPE II[ICD9: 250.00] Diagnosis: HYPERTENSION[ICD9: 401.9] Gunjan LANTIGUA DO [facility] CPT-4: 84836 03/07/2012 ([id number]) OFFICE/OUTPA TIENT VISIT EST Diagnosis: DM W/O COMPLICATION TYPE II[ICD9: 250.00] Diagnosis: HYPERTENSION[ICD9: 401.9] Gunjan LANTIGUA DO [facility] CPT-4: 75561 11/08/2011 ([id number]) OFFICE/OUTPA TIENT VISIT EST Diagnosis: OTHER ABNORMAL GLUCOSE[ICD9: 790.29] Diagnosis: HYPERTENSION[ICD9: 401.9] Gunjan LANTIGUA DO [facility] CPT-4: 70101 11/01/2011 ([id number]) OFFICE/OUTPA TIENT VISIT EST Diagnosis: HYPERTENSION[ICD9: 401.9] Diagnosis: OTHER ABNORMAL GLUCOSE[ICD9: 790.29] Gunjan RETANA NDER DO [employer] CPT-4: 04322 07/31/2011 OFFICE/OUTPATIENT SIT EST Diagnosis: OTHER ABNORMAL GLUCOSE[ICD9: 790.29] Diagnosis: HYPERTENSION[ICD9: 401.9] Diagnosis: SKIN SENSATION DISTURB[ICD9: 782.0] Gunjan RETANA NDER DO [employer] CPT-4: 80332 04/27/2011 OFFICE/OUTPATIENT SIT EST Diagnosis: Neuropathy of foot[ICD9: 355.8] Gunjan LANTIGUA DO [employer] CPT-4: 88945 01/27/2011 ([id number]) PREV VISIT E ST AGE 40-64 Chloe LANTIGUA DO [employer] CPT-4: 39857 10/31/2010 ([id number]) OFFICE/OUTPA TIENT VISIT EST Gunjan RETANA NDER DO [employer] CPT-4: 52829 09/15/2010 ([id number]) OFFICE/OUTPA TIENT VISIT NEW Gunjan RETANA NDER DO [employer] CPT-4: 93125 09/08/2010 Plan of Care Planned Activity Notes C odes Status Date Visit Diagnosis Plan: Mixed hyperlipidemia Discussion: Mediterranean diet Combination of cardio and weight bearing exercise Lab discussed Recheck lipids in 6mos ICD-9 : 272.4 ICD-10 : E78.2 10/16/2018 Visit Diagnosis Plan: Essential (primary) hypertension Discussion: Stable ICD-9 : 401.9 ICD-10 : I10 10/16/2018 Visit Diagnosis Plan: Type 2 diabetes me llitus with diabetic neuropathy, unspecified Discussion: Lab discussed Accuchecks herson ly Continue current meds Check CMP and HbA1C in 4mos then fwup ICD-9 : 250.60 ICD-10 : E11.40 10/16/2018 Visit Diagnosis Plan: Hypothyroidism, unspecified Discussion: Stable ICD-9 : 244.9 ICD-10 : E03.9 10/16/2018 Appointment: Gunjan Lantigua [facility] [phone] [facility] [id number] FO[place] UP 10/16/2018 Appointment: Gunjan Lantigua WPtel: [address] [place], [place] [phone] [place] LAB 10/11/2018 Visit Diagnosis Plan: Irritant contact d ermatitis due to plants, except food Discussion: Prednisone taper- start toda y. Continue oral antihistamines at home. Blue goo called into [facility]- apply twice daily to lower extremities, arms, and abdomen. Go to ED with any orofacial swelling, SOA. Patient states understanding. ICD-9 : 692.6 ICD-10 : L24.7 09/13/2018 Appointment: Darby Pereira [facility] ACUTE ILLNESS 09/13/2018 Patient Education: prednisone- [employer] Coupon [id number] [email or web address] Completed 09/13/2018 Appointment: Gunjan Lantigua WPtel: [address] [place], [place] [phone] [place] LAB 07/15/2018 Visit Diagnosis Plan: Type 2 diabetes me llitus without complications Discussion: Return in AM for [...] ICD-9 : 094.0 ICD-10 : M14.672 07/09/2018 Visit Diagnosis Plan: Essential (primary) hypertension Discussion: Stable ICD-9 : 401.9 ICD-10 : I10 07/09/2018 Appointment: Gunjan Lantigua WPtel: [address] [place], [place] [phone] [place] FOLLOW UP 07/09/2018 Visit Diagnosis Plan: Other specified pr oblems related to primary support group Discussion: Stress Reducers Discussed co unseling Increase fluoxetine to 60mg daily ICD-9 : V61.8 ICD-10 : Z63.8 04/08/2018 Visit Diagnosis Plan: Essential (primary) hypertension Discussion: Stable ICD-9 : 401.9 ICD-10 : I10 04/08/2018 Visit Diagnosis Plan: Pain in right shoulder Discussion: Topical voltaren gel and stretches Discussed possible PT ICD-9 : 719.41 ICD-10 : M25.511 04/08/2018 Visit Diagnosis Plan: Mixed hyperlipidemia Discussion: Lab discussed ICD-9 : 272.4 ICD-10 : E78.2 04/08/2018 Visit Diagnosis Plan: Type 2 diabetes me llitus without complications Discussion: Lab discussed Accuchecks herson ly Follow Up: 3 months ICD-9 : 250.00 ICD-10 : E11.9 04/08/2018 Visit Diagnosis Plan: Hypothyroidism, unspecified Discussion: Stable ICD-9 : 244.9 ICD-10 : E03.9 04/08/2018 Appointment: Gunjan Lantigua WPtel: [address] [place] [address] FOLLOW UP 04/08/2018 Appointment: Gunjan Lantigua WPtel: [address] [place] [address] [place] LAB 04/04/2018 Visit Diagnosis Plan: Other allergic rhinitis Discussion: instructed patient to start flonase daily to bilateral nares. discussed that may not have relief for a couple days but should have relief. if new or worsening symptoms later this week, call clinic ICD-9 : 477.8 ICD-10 : J30.89 03/04/2018 Appointment: Hina Bess [address] [place] [address] ACUTE ILLNESS 03/04/2018 Patient Education: Patient Medication Summary Completed 03/04/2018 Visit Diagnosis Plan: Charcot's joint, right ankle and foot Discussion: Wearing orhotic shoes with inserts and monitoring for sores/infections Patient got first Shingrix ICD-9 : 094.0 ICD-10 : M14.671 01/03/2018 Visit Diagnosis Plan: Mixed hyperlipidemia Discussion: Lifestyle change/diet/exercise and check lipids in 6mos ICD-9 : 272.4 ICD-10 : E78.2 01/03/2018 Visit Diagnosis Plan: Type 2 diabetes me llitus without complications Discussion: Stable Continue accuchecks d aily Follow Up: 3 months ICD-9 : 250.00 ICD-10 : E11.9 01/03/2018 Visit Diagnosis Plan: Hypothyroidism, unspecified Discussion: Stable ICD-9 : 244.9 ICD-10 : E03.9 01/03/2018 Visit Diagnosis Plan: Essential (primary) hypertension Discussion: Stable ICD-9 : 401.9 ICD-10 : I10 01/03/2018 Appointment: Gunjan Lantigua WPtel: [phone] [place], [place] [phone] FOLLOW UP 01/03/2018 Patient Education: Patient Medication Summary Completed 01/03/2018 Appointment: Gunjan Lantigua WPtel: [address] [place], [place] [phone] [place] LAB 12/31/2017 Patient Education: Patient Medication Summary Completed 12/31/2017 Appointment: Gunjan Lantigua WPtel: [address] [place], [place] [phone] [place] INJECTION 10/25/2017 Patient Education: Patient Medication Summary Completed 10/25/2017 Visit Diagnosis Plan: Cellulitis of left toe Discussion: due to no improvement and worsening symptoms, instructed patient to call dr. mary to be seen as soon as possible. rocephin injection given in office and instructed to have additional injection tomorrow due to severity. ICD-9 : 681.10 ICD-10 : L03.032 10/24/2017 Appointment: Hina Bess [address] [id number] ACUTE ILLNESS 10/24/2017 Patient Education: Patient Medication Summary Completed 10/24/2017 Visit Diagnosis Plan: Cellulitis of left toe Discussion: rocephin injection given in office. dicloxacillin prescribed as well. instructed patient to call or rtc with new or worsening symptoms. ICD-9 : 681.10 ICD-10 : L03.032 09/26/2017 Appointment: Hina Bess [address] [facility] ACUTE ILLNESS 09/26/2017 Patient Education: Patient Medication Summary Completed 09/26/2017 Visit Diagnosis Plan: Cellulitis of left toe Discussion: small incision was made over area of concern to attempt to drain out infection. consent was signed. infection under skin had calcified but was completely removed. patient tolerated well due to unable to feel procedure. no bleeding or complications occurred. toe was cleansed thoroughly and covered with bandaid. clindamycin tid for 7 days prescribed. instructed patient to avoid using neospor in for 48 hours in case additional infection was to be removed. ok to cover toe with bandaid. after 48 hours, can use neosporin and bandaid. call or rtc with worsening symptoms or no improvement. educated patient on importance of checking feet regularly. ICD-9 : 681.10 ICD-10 : L03.032 09/10/2017 Appointment: Hina Bess [address] [place] [address] ACUTE ILLNESS 09/10/2017 Patient Education: Patient Medication Summary Completed 09/10/2017 Visit Diagnosis Plan: Urinary tract infe ction, site not specified Discussion: ua obtained due to symptoms. [...] ICD-10 : N39.0 07/27/2017 Appointment: Hina Bess [address] [place] [address] ACUTE ILLNESS 07/27/2017 Patient Education: Patient Medication Summary Completed 07/27/2017 Referral: Shirley Juares WPtel: [address] [place] [address] Referral Initiated 06/21/2017 Visit Diagnosis Plan: Essential (primary) hypertension Discussion: Stable ICD-9 : 401.9 ICD-10 : I10 06/06/2017 Visit Diagnosis Plan: Angina pectoris, unspecified Discussion: Proceed with cardiology for stress testing--will need nuclear due to foot To ER if CP with radiation to neck/back/arm, associated dyspnea, nausea, diaphoresis, or impending doom ICD-9 : 786.50 ICD-10 : I20.9 06/06/2017 Visit Diagnosis Plan: Type 2 diabetes me llitus without complications Discussion: Lab discussed Stable with steven pinto Follow Up: 3 months ICD-9 : 250.00 ICD-10 : E11.9 06/06/2017 Appointment: Gunjan Lantigua WPtel: [address] [place], [place] [address] FOLLOW UP 06/06/2017 Patient Education: Patient Medication Summary Completed 06/06/2017 Care Plan: Referral Order SNOMED-CT : [id number] Pending 06/06/2017 Appointment: Gunjan Lantigua WPtel: [address] [place], [place] [phone] [place] LAB 06/04/2017 Patient Education: Patient Medication Summary Completed 06/04/2017 Visit Diagnosis Plan: Cellulitis of right toe Discussion: Healing Discussed wrapping toe in moleskin if rubbing in shoe Needs to go back and see podiatry Notify if redness returns ICD-9 : 681.10 ICD-10 : L03.031 03/08/2017 Appointment: Gunjan Lantigua WPtel: [address] [place] [address] FOLLOW UP 03/08/2017 Patient Education: Patient Medication Summary Completed 03/08/2017 Appointment: Gunjan Lantiguatel: [address] [place], [place] [phone] [place] CANCELED 03/01/2017 Appointment: Gunjan Lantigua WPtel: [address] [place], [place] [phone] [place] LAB 02/23/2017 Patient Education: Patient Medication Summary Completed 02/23/2017 Visit Diagnosis Plan: Cellulitis of right toe Discussion: Clindamycin Notify if worsening Recheck 1 week Will return in AM for routine fasting lab ICD-9 : 681.10 ICD-10 : L03.031 02/21/2017 Appointment: Gunjan Lantigua WPtel: [address] [place] [address] ACUTE ILLNESS 02/21/2017 Patient Education: Patient Medication Summary Completed 02/21/2017 Patient Education: Patient Medication Summary Completed 12/13/2016 Visit Diagnosis Plan: Hypothyroidism, unspecified Discussion: Check TSH, Free T4 ICD-9 : 244.9 ICD-10 : E03.9 08/31/2016 Visit Diagnosis Plan: Essential (primary) hypertension Discussion: Decrease lisinopril hct to 10/12.5mg 1/2 po daily ICD-9 : 401.9 ICD-10 : I10 08/31/2016 Visit Diagnosis Plan: Type 2 diabetes me llitus without complications Discussion: Check CMP, HbA1C Follow Up: 3 months ICD-9 : 250.00 ICD-10 : E11.9 08/31/2016 Appointment: Gunjan Lantigua WPtel: [address] [place] [address] [place] CHECK UP 08/31/2016 Patient Education: Patient Medication Summary Completed 08/31/2016 Visit Diagnosis Plan: Zoster without complications Discussion: Rash and symptoms appear consistent with shingles Rx as above Supportive care reviewed Can add gabapentin if pain not controlled Discussed contagious precautions Follow up PRN ICD-9 : 053.9 ICD-10 : B02.9 08/02/2016 Appointment: Ernestina Tomas [address] [place] [address] ACUTE ILLNESS 08/02/2016 Patient Education: Patient Medication Summary Completed 08/02/2016 Patient Education: Patient Medication Summary Completed 05/17/2016 Appointment: Gunjan Lantigua WPtel: [address] [place], [place] [phone] [place] LAB 01/25/2016 Patient Education: Patient Medication Summary Completed 01/25/2016 Appointment: Gunjan Lantigua WPtel: [address] [place], [place] [phone] [place] LAB 01/05/2016 Patient Education: Patient Medication Summary Completed 01/05/2016 Visit Plan: Check CMP, CBC, TSH, fr ee T4, B12, uric acid, HbA1C, Lipids Use topical selsun blue to posterior left ear Continue off of neurontin Accuchecks daily 01/04/2016 Appointment: Gunjan Lantigua WPtel: [address] [place] [address] 01/02 lm~sl 01/03 lm~sl FOLLOW UP 01/04/2016 Patient Education: Patient Medication Summary Completed 01/04/2016 Appointment: Gunjan [facility]antigua [facility]el[facility] [place] [facility] 12/16/2015 Visit Plan: Finish acyclovir as ord ered Discussed shingles vaccine - she will check with insurance if covered yet - per Dr Lantigua wait 6 months to vaccinate Advised healthy grieving and stress reduction Offered as sistance with paperwork(FMLA) or work note if needed - patient declines at this time 11/15/2015 Visit Plan: Finish acyclovir as ord ered Discussed shingles vaccine - she will check with insurance if covered yet - per Dr Lantigua wait 6 months to vaccinate Advised healthy grieving and stress reduction Offered as sistance with paperwork(FMLA) or work note if needed - patient declines at this time 11/15/2015 Appointment: [facility] [address] [facility] 11/11 confirmed~sl FOLLOW UP 11/15/2015 Patient Education: Patient Medication Summary Completed 11/15/2015 Visit Plan: Sore to right foot is n ow appearing more ulcerative in nature Is not progressing in healing process Will refer over to wound care for further management since she is not able to get into her podia trist promptly Appt made for Sunday at 2:00 09/24/2015 Visit Plan: Sore to right foot is n ow appearing more ulcerative in nature Is not progressing in healing process Will refer over to wound care for further management since she is not able to get into her podia trist promptly Appt made for Sunday at 2:00 09/24/2015 Visit Plan: Sore to right foot is n ow appearing more ulcerative in nature Is not progressing in healing process Will refer over to wound care for further management since she is not able to get into her podia trist promptly Appt made for Sunday at 2:00 09/24/2015 [facility]ment[facility] [facility] 09/24/2015 Patient Education: Patient Medication Summary Completed 09/24/2015 Visit Plan: Foot does appear some i mproved Work harder at getting epsom salt soaks in Continue clinda and other wound care Monitor closely Follow up if stops improving or if worsens 09/15/2015 Visit Plan: Foot does appear some i mproved Work harder at getting epsom salt soaks in Continue clinda and other wound care Monitor closely Follow up if stops improving or if worsens 09/15/2015 Appointment: Ernestina Tomas [address] [place] [address] 09/13 confirmed~sl FOLLOW UP 09/15/2015 Patient Education: Patient Medication Summary Completed 09/15/2015 Visit Plan: Patient requesting to b e aggressive due to history of infections 1 Gram of Rocephin given Clindamycin rx as above Has topical bactroban at home Epsom salt soaks and elevate Keep DYLAN when possible Recheck in 48 hours 09/13/2015 Visit Plan: Patient requesting to b e aggressive due to history of infections 1 Gram of Rocephin given Clindamycin rx as above Has topical bactroban at home Epsom salt soaks and elevate Keep DYLAN when possible Recheck in 48 hours 09/13/2015 Visit Plan: Patient requesting to b e aggressive due to history of infections 1 Gram of Rocephin given Clindamycin rx as above Has topical bactroban at home Epsom salt soaks and elevate Keep MANAGER SUPPORT when possible Recheck in 48 hours 09/13/2015 Appointment: Ernestina Tomas [address] [place] [address] ACUTE ILLNESS 09/13/2015 Patient Education: Patient Medication Summary Completed 09/13/2015 Visit Plan: Lab discussed Accucheck s daily Gabapentin 300mg q HS Going to start training 08/19/2015 Appointment: Gunjan Lantigua WPtel: [address] [place], [place] [id number] 08/09 lm-sp 08/10 confirmed-sp RESCHEDULED 08/19/2015 Patient Education: Patient Medication Summary Completed 08/19/2015 Appointment: Gunjan Lantigua WPtel: [facility] US LAB 08/17/2015 Patient Education: Patient Medication Summary Completed 08/17/2015 Appointment: Gunjan Lantigua WPtel: [address] [place], [place] [address] [place] FOLLOW UP 07/26/2015 Visit Plan: Lab discussed Sees Podi atry tomorrow Add potassium micro-K 8meq daily and magnesium 400mg daily Call in 1month 07/13/2015 Appointment: Gunjan Lantigua WPtel: [address] [place], [place] [phone] [place] 07/12 confirmed~lb FOLLOW UP 07/13/2015 Patient Education: Patient Medication Summary Completed 07/13/2015 Appointment: Gunjan Lantigua WPtel: [address] [place], [place] [phone] [place] LAB 07/01/2015 Patient Education: Patient Medication Summary Completed 07/01/2015 Patient Education: Patient Medication Summary Completed 04/27/2015 Visit Plan: Lab discussed Continue current meds and add back fish oil 3gram daily Accuchecks daily Recheck in 4mos Fwup with podiatry on right foot 03/29/2015 Appointment: Gunjan Lantigua WPtel: [address] [place], [place] [phone] 03/26 left message~lb...03/26 confirmed~lb 03/29/15 appt confirmed cn FOLLOW UP 03/29/2015 Patient Education: Patient Medication Summary Completed 03/29/2015 Appointment: Gunjan Lantigua WPtel: [address] [place], [place] [phone] [place] LAB 03/24/2015 Patient Education: Patient Medication Summary Completed 03/24/2015 Visit Plan: Sees podiatry next week and going to have to have right foot surgery Continue current meds Finish antibiotics Will check lab and fwup at end of February or first part of 11/26/2014 Appointment: Gunjan Lantigua WPtel: [address] [place], [place] [phone] [place] FOLLOW UP 11/26/2014 Patient Education: Patient Medication Summary Completed 11/26/2014 Visit Plan: Routine fasting labs to day. CBC, CMP, TSH, Free T4, Lipid Panel, HgbA1C, Uric Acid Continue warm foot soaks and application of Mupirocin bid Complete Clindamycin Appt. with Dr. Tirso Arguetaesday. 11/19/2014 Visit Plan: Routine fasting labs to day. CBC, CMP, TSH, Free T4, Lipid Panel, HgbA1C, Uric Acid Continue warm foot soaks and application of Mupirocin bid Complete Clindamycin Appt. with Dr. Tirso Arguetaesday. 11/19/2014 Appointment: Yissel Herman WPtel: [address] [place], [place] [phone] 11/18 appt confirmed FOLLOW UP 11/19/2014 Patient Education: Patient Medication Summary Completed 11/19/2014 Visit Plan: Wear open toed shoes to avoid pressure on toe Foot soaks BID x 20 min. Mupirocin topical to affected area of toe BID Follow-up on Recommended increasing Probiotic to BID while on antibiotc Will make appt for follow-up with Dr. Mary concerning foot deformity 11/16/2014 Visit Plan: Wear open toed shoes to avoid pressure on toe Foot soaks BID x 20 min. Mupirocin topical to affected area of toe BID Follow-up on Recommended increasing Probiotic to BID while on antibiotc Will make appt for follow-up with Dr. Mary concerning foot deformity 11/16/2014 Appointment: Yissel Herman WPtel: [address] [place], [place] [phone] ACUTE ILLNESS 11/16/2014 Patient Education: Patient Medication Summary Completed 11/16/2014 Visit Plan: Omperazole OTC BID x 1 week, then daily flexeril 10mg TID PRN for muscle spasm Zorvolex 35mg TID Notify if no improvement or worsening of symptoms 10/09/2014 Appointment: Yissel Herman WPtel: [address] [place], [place] [phone] ACUTE ILLNESS 10/09/2014 Patient Education: Patient Medication Summary Completed 10/09/2014 Visit Plan: Labs discussed Stop Met formin Accuchecks daily alternating times Discussed Saxenda Recheck HbA1C in 3mos 08/20/2014 Appointment: Gunjan Lantigua WPtel: [address] [place] [address] FOLLOW UP 08/20/2014 Patient Education: Patient Medication Summary Completed 08/20/2014 Appointment: Gunjan Lantigua WPtel: [address] [place], [place] [phone] 08/17/2014 Patient Education: Patient Medication Summary Completed 08/17/2014 Appointment: Gunjan Lantigua WPtel: [address] [place], [place] [id number] 04/28/2014 Patient Education: Patient Medication Summary Completed 04/28/2014 Visit Plan: Patient will return nex t week for fasting lab Decrease Toprol XL to 25mg daily and moniter BP Pt sees podiatry next week 04/23/2014 Appointment: Gunjan Lantigua WPtel: [address] [place] [address] FOLLOW UP 04/23/2014 Patient Education: Patient Medication Summary Completed 04/23/2014 Visit Plan: Add clindamycin Use mol eskin on 1st and 2nd toe and see podiatry 02/19/2014 Appointment: Gunjan Lantigua WPtel: [address] [place] [address] FOLLOW UP 02/19/2014 Patient Education: Patient Medication Summary Completed 02/19/2014 Visit Plan: Warm Foot soaks BID w/ Epson salts. Complete antibiotics Topical Mupirocin to toe bid Follow-up in one week. 02/12/2014 Appointment: Yissel Herman WPtel: [address] [place] [address] ACUTE ILLNESS 02/12/2014 Patient Education: Patient Medication Summary Completed 02/12/2014 Visit Plan: Clear liquids--litle si ps at a time, notify if worsens or persists and phenergan to use prn Labs discussed Cont off metformin and monitmaddi BS Fenofibrate 12/25/2013 Appointment: Gunjan Lantigua WPtel: [address] [place], [place] [id number] 12/24 vm PAP 12/25/2013 Patient Education: Patient Medication Summary Completed 12/25/2013 Appointment: Gunjan Lantigua WPtel: [address] [place], [place] [phone] ACUTE ILLNESS 12/23/2013 Patient Education: Patient Medication Summary Completed 12/23/2013 Visit Plan: Lab discussed--continue current meds Continue accuchecks Defers chol meds--will add fish oil 3gm daily Will go for 2nd opinion on left ankle/foot 08/27/2013 Appointment: Gunjan Lantigua WPtel: [address] [place], [place] [phone] FOLLOW UP 08/27/2013 Patient Education: Patient Medication Summary Completed 08/27/2013 Appointment: Gunjan Lantigua WPtel: [address] [place], [place] [phone] LAB 08/18/2013 Patient Education: Patient Medication Summary Completed 08/18/2013 Appointment: Gunjan Lantigua WPtel: [address] [place], [place] [phone] LAB 05/01/2013 Patient Education: Patient Medication Summary Completed 05/01/2013 Visit Plan: See ophtalmalogy for re moval of right eye cyst Discussed podiatry consult Will return later this week or next for fasting lab 04/30/2013 Appointment: Gunjan Lantigua WPtel: [address] [place], [place] [id number] [place] FOLLOW UP 04/30/2013 Patient Education: Patient Medication Summary Completed 04/30/2013 Appointment: Gunjan Lantiguatel: [address] [place], [place] [phone] WT CHECK 03/04/2013 Patient Education: Patient Medication Summary Completed 03/04/2013 Visit Plan: Lab discussed Continue accuchecks Continue current meds and phenteramine for next 3mos 01/30/2013 Appointment: Gunjan Lantigua WPtel: [address] [place] [address] FOLLOW UP 01/30/2013 Patient Education: Patient Medication Summary Completed 01/30/2013 Appointment: Gunjan Lantigua WPtel: [address] [place], [place] [phone] [place] LAB 01/27/2013 Patient Education: Patient Medication Summary Completed 01/27/2013 Visit Plan: Continue increase dose of fluoxetine Trial of enablex Keep metformin at 750mg daily with accuchecks Trial of phenteramine in 1mo Mammogram scheduled 11/28/2012 Appointment: Gunjan Lantigua WPtel: [address] [place] [address] FOLLOW UP 11/28/2012 Patient Education: Patient Medication Summary Completed 11/28/2012 Visit Plan: Aircast to left ankle f or 1more week then ankle brace for 2wks then prn Increase fluoxetine to 40mg daily Injection to shoulder as above Increase metforminER to 1000mg daily Trial of Enablex 15mg q HS C ontinue benadryl and 3 days of prednisone for both rash and shoulder 10/31/2012 Appointment: Gunjan Lantiguatel: [address] [place] [address] FOLLOW UP 10/31/2012 Patient Education: Patient Medication Summary Completed 10/31/2012 Appointment: Gunjan Lantiguatel: [address] [place], [place] [phone] [place] LAB 10/28/2012 Patient Education: Patient Medication Summary Completed 10/28/2012 Visit Plan: DC cymbalta and start f luoxetine Discussed likely diabetic neuropathy Aircast to left ankle Restart Lamisil 10/03/2012 Appointment: Gunjan Lantigua WPtel: [address] [place], [place] [phone] [place] FOLLOW UP 10/03/2012 Patient Education: Patient Medication Summary Completed 10/03/2012 Appointment: Gunjan Lantigua WPtel: [address] [place], [place] [phone] [place] INJECTION 07/19/2012 Patient Education: Patient Medication Summary Completed 07/19/2012 Visit Plan: Check CMP, HbA1C Restar t Accuchecks Rocephin 1gram IM today and return tomorrow for repeat Continue keflex Discussed trial of sporanox and possible removal of 2nd toenail 07/18/2012 Appointment: Gunjan Lantigua WPtel: [address] [place], [place] [phone] 07/15 patient notified to call office be fore coming to appt to make sure clinic is not closed due to weather FOLLOW UP 07/18/2012 Patient Education: Patient Medication Summary Completed 07/18/2012 Visit Plan: uric acid and liver enz ymes. (pt takes Lamisil and states no liver enzymes since started med) Will obtain records from bladder procedure. Discussed possible urology consult regarding the past "bladder surgery" 06/12/2012 Appointment: Chloe Pak WPtel: [address] [place] [address] ACUTE ILLNESS 06/12/2012 Patient Education: Patient Medication Summary Completed 06/12/2012 Visit Plan: Lamisil for 3mos LFTs i n 6wks Fwup 3mos Discussed diabetic shoes vs wide-toed shoes 04/24/2012 Appointment: Gunjan Lantigua WPtel: [address] [place], [place] [phone] ACUTE ILLNESS 04/24/2012 Patient Education: Patient Medication Summary Completed 04/24/2012 Visit Plan: Check HbA1C, CBC, CMP, Lipids, TSH, Free T4 Discussed possibility of carpal tunnel--will start with wrist splints Decrease lisinopril hct 20/25mg to 1/2 tablet daily 03/07/2012 Appointment: Gunjan Lantigua WPtel: [address] [place], [place] [phone] 03/06 number no longer FOLLOW UP 03/07/2012 Patient Education: Patient Medication Summary Completed 03/07/2012 Visit Plan: Decrease metformin to 2 50mg daily Continue accuchecks Change HCTZ to lisinopril hct Discussed lap-band procedure--pt has tried numerous diets in past with little success 11/08/2011 Appointment: Gunjan Lantigua WPtel: [address] [place], [place] [phone] FOLLOW UP 11/08/2011 Patient Education: Patient Medication Summary Completed 11/08/2011 Appointment: Gunjan Lantigua WPtel: [address] [place], [place] [phone] [place] LAB 11/01/2011 Patient Education: Patient Medication Summary Completed 11/01/2011 Visit Plan: Continue current meds L vanna discussion about diet/exercise and weight loss Check CMP, HbA1C in 3mos 07/31/2011 Appointment: Gunjan Lantigua WPtel: [address] [place], [place] [phone] FOLLOW UP 07/31/2011 Patient Education: Patient Medication Summary Completed 07/31/2011 Visit Plan: Decrease Metformin to 5 00mg po daily Glucometer to do spot checks Start Metanx 1 po BID 04/27/2011 Appointment: Gunjan Lantigua WPtel: [address] [place] [address] [place] FOLLOW UP 04/27/2011 Patient Education: Patient Medication Summary Completed 04/27/2011 Appointment: Gunjan Lantigua WPtel: [address] [place], [place] [phone] US LAB 04/26/2011 Patient Education: Patient Medication Summary Completed 04/26/2011 Appointment: Gunjan Lantigua WPtel: [address] [place], [place] [phone] US LAB 01/30/2011 Patient Education: Patient Medication Summary Completed 01/30/2011 Visit Plan: Neuropathy of both feet to mid foot. Labs: (fasting labs: CBC, CMP, insulin and sed rate, TSH, Free T4). Discussed that if all labs are normal we will consider further studies. (EMG etc) 01/27/2011 Appointment: Chloe Pak WPtel: [address] [place], [place] [phone] ACUTE ILLNESS 01/27/2011 Patient Education: Patient Medication Summary Completed 01/27/2011 Visit Plan: Mammo scheduled. No hea lth concerns at current. Pt. will follow up as necessary 10/31/2010 Appointment: Chloe Pak WPtel: [address] [place], [place] [phone] PAP 10/31/2010 Patient Education: Patient Medication Summary Completed 10/31/2010 Visit Plan: Cont flexeril plus estelle y stretches Discussed if arm pain continues will need MRI of cervical spine Pt will return in October for annual with lab 09/15/2010 Appointment: Gunjan Lantigua WPtel: [address] [place], [place] [phone] FOLLOW UP 09/15/2010 Patient Education: Patient Medication Summary Completed 09/15/2010 Visit Plan: Pt reports seeing Dr. Erick jaffe in [facility].(Chiropractor) Discussed use of heat, stretches. Pt. will come in for re-eval next week. Will schedule for PAP /well woman in October. Pt. is allergic to Napro xen sodium. 09/08/2010 Appointment: Chloe Pak WPtel: [address] [place], [place] [phone] NEW PATIENT 09/08/2010 Patient Education: Patient Medication Summary Completed 09/08/2010 Instructions Comment . Lab discussed Continue current meds and add back fish oil 3gram daily Accuchecks daily Recheck in 4mos Fwup with podiatry on right foot . Wear open toed rhonda es to avoid pressure on toe Foot soaks BID x 20 min. Mupirocin topical to affected area of toe BID Follow-up on Recommended increasing Probiotic to BID while on antibiotc Will make appt for follow-up with Dr. Mary concerning foot deformity . Wear open toed rhonda es to avoid pressure on toe Foot soaks BID x 20 min. Mupirocin topical to affected area of toe BID Follow-up on Recommended increasing Probiotic to BID while on antibiotc Will make appt for follow-up with Dr. Mary concerning foot deformity . Pt reports seeing Dr. Bartlett in [facility].(Chiropractor) Discussed use of heat, stretches. Pt. will come in for re-eval next week. Will schedule for PAP /well woman in October. Pt. is allergic to Naproxen sodium. . Foot does appear s ome improved Work harder at getting epsom salt soaks in Continue clinda and other wound care Monitor closely Follow up if stops improving or if worsens . Foot does appear s ome improved Work harder at getting epsom salt soaks in Continue clinda and other wound care Monitor closely Follow up if stops improving or if worsens . Lab discussed Continue accuchecks Continue current meds and phenteramine for next 3mos . Finish acyclovir a s ordered Discussed shingles vaccine - she will check with insurance if covered yet - per Dr Lantigua wait 6 months to vaccinate Advised healthy grieving and stress reduction Offered assistance with paperwork(FMLA) or work note if needed - patient declines at this time . Finish acyclovir a s ordered Discussed shingles vaccine - she will check with insurance if covered yet - per Dr Lantigua wait 6 months to vaccinate Advised healthy grieving and stress reduction Offered assistance with paperwork(FMLA) or work note if needed - patient declines at this time . Lab discussed--con tinue current meds Continue accuchecks Defers chol meds--will add fish oil 3gm daily Will go for 2nd opinion on left ankle/foot . Continue current m eds Long discussion about diet/exercise and weight loss Check CMP, HbA1C in 3mos . Mammo scheduled. N o health concerns at current. Pt. will follow up as necessary . See ophtalmalogy f or removal of right eye cyst Discussed podiatry consult Will return later this week or next for fasting lab . Omperazole OTC BID x 1 week, then daily flexeril 10mg TID PRN for muscle spasm Zorvolex 35mg TID Notify if no improvement or worsening of symptoms . Warm Foot soaks BI D w/ Epson salts. Complete antibiotics Topical Mupirocin to toe bid Follow-up in one week. . Cont flexeril plus daily stretches Discussed if arm pain continues will need MRI of cervical spine Pt will return in October for annual with lab . Decrease Metformin to 500mg po daily Glucometer to do spot checks Start Metanx 1 po BID . Lab discussed Sees Podiatry tomorrow Add potassium micro-K 8meq daily and magnesium 400mg daily Call in 1month . Patient will retur n next week for fasting lab Decrease Toprol XL to 25mg daily and moniter BP Pt sees podiatry next week . Decrease metformin to 250mg daily Continue accuchecks Change HCTZ to lisinopril hct Discussed lap-band procedure--pt has tried numerous diets in past with little success . Labs discussed Stop Metformin Accuchecks daily alternating times Discussed Saxenda Recheck HbA1C in 3mos . 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 Sees podiatry next week and going to have to have right foot surgery Continue current meds Finish antibiotics Will check lab and fwup at end of February or first part of March Positive tinels, pha lens bilaterally and negative reverse phalens. Check HbA1C, CBC, CMP, Lipids, TSH, Free T4 Discussed possibility of carpal tunnel--will start with wrist splints Decrease lisinopril hct 20/25mg to 1/2 tablet daily Patient's toe looks better. There is less redness and no puss coming out she says.. . DC cymbalta and st art fluoxetine Discussed likely diabetic neuropathy Aircast to left ankle Restart Lamisil . Continue increase dose of fluoxetine Trial of enablex Keep metformin at 750mg daily with accuchecks Trial of phenteramine in 1mo Mammogram scheduled . Check CMP, HbA1C Restart Accuchecks Rocephin 1gram IM today and return tomorrow for repeat Continue keflex Discussed trial of sporanox and possible removal of 2nd toenail . Aircast to left an kle for 1more week then ankle brace for 2wks then prn Increase fluoxetine to 40mg daily Injection to shoulder as above Increase metforminER to 1000mg daily Trial of Enablex 15mg q HS Continue benadryl and 3 days of prednisone for both rash and shoulder . uric acid and live r enzymes. (pt takes Lamisil and states no liver enzymes since started med) Will obtain records from bladder procedure. Discussed possible urology consult regarding the past "bladder surgery" . Clear liquids--lit le sips at a time, notify if worsens or persists and phenergan to use prn Labs discussed Cont off metformin and moniter BS Fenofibrate . Lamisil for 3mos LFTs in 6wks Fwup 3mos Discussed diabetic shoes vs wide-toed shoes . Add clindamycin Use moleskin on 1st and 2nd toe and see podiatry . Sore to right foot is now appearing more ulcerative in nature Is not progressing in healing process Will refer over to wound care for further management since she is not able to get into her plaster applicator promptly Appt made for Sunday at 2:00 . Sore to right foot is now appearing more ulcerative in nature Is not progressing in healing process Will refer over to wound care for further management since she is not able to get into her plaster applicator promptly Appt made for Sunday at 2:00 . Sore to right foot is now appearing more ulcerative in nature Is not progressing in healing process Will refer over to wound care for further management since she is not able to get into her plaster applicator promptly Appt made for Sunday at 2:00 . Check CMP, CBC, TS H, free T4, B12, uric acid, HbA1C, Lipids Use topical selsun blue to posterior left ear Continue off of neurontin Accuchecks daily . Neuropathy of both feet to mid foot. Labs: (fasting labs: CBC, CMP, insulin and sed rate, TSH, Free T4). Discussed that if all labs are normal we will consider further studies. (EMG etc) . Lab discussed Accuchecks daily Gabapentin 300mg q HS Going to start training . Routine fasting la bs today. CBC, CMP, TSH, Free T4, Lipid Panel, HgbA1C, Uric Acid Continue warm foot soaks and application of Mupirocin bid Complete Clindamycin Appt. with Dr. Mary - Sunday. . Routine fasting la bs today. CBC, CMP, TSH, Free T4, Lipid Panel, HgbA1C, Uric Acid Continue warm foot soaks and application of Mupirocin bid Complete Clindamycin Appt. with Dr. Tirso Moreno.
--- OUTSIDE RECORDS SUMMARY | 2019-05-18 21:44 | XMS REPORT | Continuity of Care Document ---
Author Organization Unknown Address Unknown Phone Unavailable Allergies Active Description Code Type Severity Reaction Onset Reported/Identified Relationship to Patient Clinical Status Yes naproxen Drug Allergy 03/28/2012 Yes naproxen Drug Allergy N/A N/A 03/28/2012 Yes naproxen [id number] Drug Allergy Unknown N/A 08/03/2014 Yes Sulfa (Sulfonamide Antibiotics) [id number] Drug Allergy Unknown N/A 015 Medications There is no data. Problems Date Dx Coded Attending Type Code Diagnosis Diagnosed By 03/01/2012 V04.81 FLU DX (3 YRS AND ABOVE, IM) 03/01/2012 SHEILA BALLESTEROS APRN V04.81 FLU DX (3 YRS AND ABOVE, IM) 03/01/2012 SHEILA BALLESTEROS APRN V04.81 FLU DX (3 YRS AND ABOVE, IM) 03/28/2012 V81.1 HYPE RTENSION SCREENING 03/28/2012 SHEILA BALLESTEROS APRN V81.1 HYPERTENSION SCREENING 03/28/2012 SHEILA BALLESTEROS APRN V81.1 HYPERTENSION SCREENING 08/21/2014 Ot 355.9 04/29/2015 Ot V16.3 04/29/2015 Ot V76.11 04/29/2015 Ot V76.12 04/29/2015 Ot 719.47 04/29/2015 GUNJAN LANTIGUA DO S Ot V76.12 04/29/2015 GUNJAN LANTIGUA DO S Ot V76.12 04/29/2015 Ot 355.9 04/29/2015 Ot 721.3 04/29/2015 Ot 355.9 05/25/2015 GUNJAN LANTIGUA DO Ot Z12.31 08/29/2015 Ot V16.3 08/29/2015 Ot V76.11 08/29/2015 Ot V76.12 08/29/2015 Ot 719.47 08/29/2015 GUNJAN LANTIGUA DO Ot V76.12 08/29/2015 SWAPNA STOKES, GUNJAN S Ot V76.12 08/29/2015 Ot 355.9 08/29/2015 Ot 721.3 08/29/2015 Ot 355.9 08/29/2015 SWAPNA STOKES GUNJAN Lyles Ot Z12.31 09/27/2015 Ot 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 09/27/2015 Ot V76.11 SCR N MAMMO-HIGH RISK PT, MALIGNANT NEOPL 09/27/2015 Ot V76.12 OTH SCREEN MAMMO- MALIGN NEOPLASM OF [place] 09/27/2015 Ot 719.47 ROSELIA NT PAIN-ANKLE 09/27/2015 SWAPNA STOKES GUNJAN S Ot V76.12 OTH SCREEN MAMMO-MALIGN NEOPLASM OF [place] 09/27/2015 SWAPNA STOKES GUNJAN S Ot V76.12 OTH SCREEN MAMMO-MALIGN NEOPLASM OF [place] 09/27/2015 Ot 355.9 MONO NEURITIS NOS 09/27/2015 Ot 721.3 LUMB OSACRAL SPONDYLOSIS 09/27/2015 Ot 355.9 MONO NEURITIS NOS 09/27/2015 SWAPNA STOKES GUNJAN Lyles Ot Z12.31 ENCNTR SCREEN MAMMOGRAM FOR MALIGNANT NE 10/11/2015 RAUL HEMPHILL, ZANA Aguirre Ot E11.42 TYPE 2 DIABETES MELLITUS WITH DIABETIC P 10/11/2015 ZANA CARTER MD Ot E11.610 TYPE 2 DIABETES MELLITUS W DIABETIC NEUR 10/11/2015 ZANA CARTER MD Ot E11.621 TYPE 2 DIABETES MELLITUS WITH FOOT ULCER 10/11/2015 ZANA CARTER MD Ot L97.512 NON-PRS CHRONIC ULCER OTH PRT RIGHT FOOT 11/11/2015 Ot 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 11/11/2015 Ot V76.11 SCR N MAMMO-HIGH RISK PT, MALIGNANT NEOPL 11/11/2015 Ot V76.12 OTH SCREEN MAMMO- MALIGN NEOPLASM OF [place] 11/11/2015 Ot 719.47 ROSELIA NT PAIN-ANKLE 11/11/2015 SWAPNA GUNJAN S Ot V76.12 OTH SCREEN MAMMO-MALIGN NEOPLASM OF [place] 11/11/2015 GUILLERMOJULES STOKES GUNJAN S Ot V76.12 OTH SCREEN MAMMO-MALIGN NEOPLASM OF [place] 11/11/2015 Ot 355.9 MONO NEURITIS NOS 11/11/2015 Ot 721.3 LUMB OSACRAL SPONDYLOSIS 11/11/2015 Ot 355.9 MONO NEURITIS NOS 11/11/2015 ORENDER DO, GUNJAN S Ot Z12.31 ENCNTR SCREEN MAMMOGRAM FOR MALIGNANT NE 01/21/2016 Ot 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 01/21/2016 Ot V76.11 SCR N MAMMO-HIGH RISK PT, MALIGNANT NEOPL 01/21/2016 Ot V76.12 OTH SCREEN MAMMO- MALIGN NEOPLASM OF [place] 01/21/2016 Ot 719.47 ROSELIA NT PAIN-ANKLE 01/21/2016 ORENDER DO, GUNJAN S Ot V76.12 OTH SCREEN MAMMO-MALIGN NEOPLASM OF [place] 01/21/2016 ORENDER DO, GUNJAN S Ot V76.12 OTH SCREEN MAMMO-MALIGN NEOPLASM OF [place] 01/21/2016 Ot 355.9 MONO NEURITIS NOS 01/21/2016 Ot 721.3 LUMB OSACRAL SPONDYLOSIS 01/21/2016 Ot 355.9 MONO NEURITIS NOS 01/21/2016 LAINEYNDER DO, GUNJAN S Ot Z12.31 ENCNTR SCREEN MAMMOGRAM FOR MALIGNANT NE 04/04/2016 Ot 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 04/04/2016 Ot V76.11 SCR N MAMMO-HIGH RISK PT, MALIGNANT NEOPL 04/04/2016 Ot V76.12 OTH SCREEN MAMMO- MALIGN NEOPLASM OF [place] 04/04/2016 Ot 719.47 ROSELIA NT PAIN-ANKLE 04/04/2016 ORENDER DO, GUNJAN S Ot V76.12 OTH SCREEN MAMMO-MALIGN NEOPLASM OF [place] 04/04/2016 ORENDER DO, GUNJAN S Ot V76.12 OTH SCREEN MAMMO-MALIGN NEOPLASM OF [place] 04/04/2016 Ot 355.9 MONO NEURITIS NOS 04/04/2016 Ot 721.3 LUMB OSACRAL SPONDYLOSIS 04/04/2016 Ot 355.9 MONO NEURITIS NOS 04/04/2016 LAINEYNDER DO, GUNJAN S Ot Z12.31 ENCNTR SCREEN MAMMOGRAM FOR MALIGNANT NE 04/05/2016 DIMITRIS PATE MD Ot K21.9 GASTRO-ESOPHAGEAL REFLUX DISEASE WITHOUT 04/05/2016 DIMITRIS PATE MD Ot K21.9 GASTRO-ESOPHAGEAL REFLUX DISEASE WITHOUT 04/17/2016 DIMITRIS PATE MD Ot K21.9 GASTRO-ESOPHAGEAL REFLUX DISEASE WITHOUT 05/31/2016 RENE CHURCH [employer] HELPER Ot Z12.31 ENCNTR SCREEN MAMMOGRAM FOR MALIGNANT NE 05/31/2016 RENE CHURCH [employer] HELPER Ot Z12.31 ENCNTR SCREEN MAMMOGRAM FOR MALIGNANT NE 06/08/2016 LAINEYNDJULES STOKESHAKEEMGUNJAN S Ot R92.8 OTH ABN AND INCONCLUSIVE FINDINGS ON DX 06/12/2016 RENE CHURCH [employer] HELPER Ot Z12.31 ENCNTR SCREEN MAMMOGRAM FOR MALIGNANT NE 06/20/2016 SWAPNA HAKEEMGUNJAN S Ot N63 UNSPECIFIED LUMP IN BREAST 06/22/2016 HAKEEM LANTIGUA DOLINE S Ot R92.8 OTH ABN AND INCONCLUSIVE FINDINGS ON DX 07/05/2016 HAKEEM LANTIGUA DOLINE S Ot N60.31 FIBROSCLEROSIS OF RIGHT BREAST 12/29/2016 Ot V76.12 OTH SCREEN MAMMO- MALIGN NEOPLASM OF [place] 12/29/2016 Ot 719.47 ROSELIA NT PAIN-ANKLE 12/29/2016 HAKEEM LANTIGUA DOLINE S Ot V76.12 OTH SCREEN MAMMO-MALIGN NEOPLASM OF [place] 12/29/2016 HAKEEM LANTIGUA DOLINE S Ot V76.12 OTH SCREEN MAMMO-MALIGN NEOPLASM OF [place] 12/29/2016 Ot 355.9 MONO NEURITIS NOS 12/29/2016 Ot 721.3 LUMB OSACRAL SPONDYLOSIS 12/29/2016 Ot 355.9 MONO NEURITIS NOS 12/29/2016 HAKEEM LANTIGUA DOLINE S Ot Z12.31 ENCNTR SCREEN MAMMOGRAM FOR MALIGNANT NE 12/29/2016 DIMITRIS PATE MD Ot K21.9 GASTRO-ESOPHAGEAL REFLUX DISEASE WITHOUT 12/29/2016 RENE CHURCH [employer] HELPER Ot Z12.31 ENCNTR SCREEN MAMMOGRAM FOR MALIGNANT NE 12/29/2016 HAKEEM LANTIGUA DOLINE S Ot R92.8 OTH ABN AND INCONCLUSIVE FINDINGS ON DX 12/29/2016 HAKEEM LANTIGUA DOLINE S Ot N60.31 FIBROSCLEROSIS OF RIGHT BREAST 01/01/2017 GUNJAN LANTIGUA DO S Ot N63 UNSPECIFIED LUMP IN BREAST 01/17/2017 GUNJAN LANTIGUA DO S Ot N63 UNSPECIFIED LUMP IN BREAST 07/13/2017 DOMINGUEZ SOMERS MD Ot E03. 9 HYPOTHYROIDISM, UNSPECIFIED 07/13/2017 DOMINGUEZ SOMERS MD Ot E66. 9 OBESITY, UNSPECIFIED 07/13/2017 DOMINGUEZ SOMERS MD Ot I10 ESSENTIAL (PRIMARY) HYPERTENSION 07/13/2017 DOMINGUEZ SOMERS MD Ot R00. 2 PALPITATIONS 07/13/2017 DOMINGUEZ SOMERS MD Ot R07. 89 OTHER CHEST PAIN 07/13/2017 DOMINGUEZ SOMERS MD Ot R42 DIZZINESS AND GIDDINESS 07/13/2017 DOMINGUEZ OSMERS MD Ot Z82. 49 FAMILY HX OF ISCHEM HEART DIS AND OTH DI 07/16/2017 Ot 719.47 ROSELIA NT PAIN-ANKLE 07/16/2017 SWAPNA STOKES GUNJAN S Ot V76.12 OTH SCREEN MAMMO-MALIGN NEOPLASM OF [place] 07/16/2017 HAKEEM LANTIGUA DOLINE S Ot V76.12 OTH SCREEN MAMMO-MALIGN NEOPLASM OF [place] 07/16/2017 Ot 355.9 MONO NEURITIS NOS 07/16/2017 Ot 721.3 LUMB OSACRAL SPONDYLOSIS 07/16/2017 Ot 355.9 MONO NEURITIS NOS 07/16/2017 GUNJAN LANTIGUA DO S Ot Z12.31 ENCNTR SCREEN MAMMOGRAM FOR MALIGNANT NE 07/16/2017 DIMITRIS PATE MD Ot K21.9 GASTRO-ESOPHAGEAL REFLUX DISEASE WITHOUT 07/16/2017 RENE CHURCH APRN Ot Z12.31 ENCNTR SCREEN MAMMOGRAM FOR MALIGNANT NE 07/16/2017 GUNJAN LANTIGUA DO S Ot R92.8 OTH ABN AND INCONCLUSIVE FINDINGS ON DX 07/16/2017 GUNJAN LANTIGUA DO S Ot N60.31 FIBROSCLEROSIS OF RIGHT BREAST 07/16/2017 GUNJAN LANTIGUA DO S Ot N63 UNSPECIFIED LUMP IN BREAST 07/16/2017 DOMINGUEZ SOMERS MD Ot E03. 9 HYPOTHYROIDISM, UNSPECIFIED 07/16/2017 DOMINGUEZ SOMERS MD Ot E66. 9 OBESITY, UNSPECIFIED 07/16/2017 DOMINGUEZ SOMERS MD Ot I10 ESSENTIAL (PRIMARY) HYPERTENSION 07/16/2017 DOMINGUEZ SOMERS MD Ot R00. 2 PALPITATIONS 07/16/2017 DOMINGUEZ SOMERS MD Ot R07. 89 OTHER CHEST PAIN 07/16/2017 DOMINGUEZ SOMERS MD Ot R42 DIZZINESS AND GIDDINESS 07/16/2017 DOMINGUEZ SOMERS MD Ot Z82. 49 FAMILY HX OF ISCHEM HEART DIS AND OTH DI 07/17/2017 DOMINGUEZ SOMERS MD Ot E03. 9 HYPOTHYROIDISM, UNSPECIFIED 07/17/2017 DOMINGUEZ SOMERS MD Ot E66. 9 OBESITY, UNSPECIFIED 07/17/2017 DOMINGUEZ SOMERS MD Ot I10 ESSENTIAL (PRIMARY) HYPERTENSION 07/17/2017 DOMINGUEZ SOMERS MD Ot R00. 2 PALPITATIONS 07/17/2017 DOMINGUEZ SOMERS MD Ot R07. 89 OTHER CHEST PAIN 07/17/2017 DOMINGUEZ SOMERS MD Ot R42 DIZZINESS AND GIDDINESS 07/17/2017 DOMINGUEZ SOMERS MD Ot Z68. 33 BODY MASS INDEX (BMI) 33.0-33.9, ADULT 07/17/2017 DOMINGUEZ SOMERS MD Ot Z82. 49 FAMILY HX OF ISCHEM HEART DIS AND OTH DI 07/18/2017 DOMINGUEZ SOMERS MD Ot E03. 9 HYPOTHYROIDISM, UNSPECIFIED 07/18/2017 DOMINGUEZ SOMERS MD Ot E66. 9 OBESITY, UNSPECIFIED 07/18/2017 DOMINGUEZ SOMERS MD Ot I10 ESSENTIAL (PRIMARY) HYPERTENSION 07/18/2017 DOMINGUEZ SOMERS MD Ot R00. 2 PALPITATIONS 07/18/2017 DOMINGUEZ SOMERS MD Ot R07. 89 OTHER CHEST PAIN 07/18/2017 DOMINGUEZ SOMERS MD Ot R42 DIZZINESS AND GIDDINESS 07/18/2017 DOMINGUEZ SOMERS MD Ot Z82. 49 FAMILY HX OF ISCHEM HEART DIS AND OTH DI 07/25/2017 DOMINGUEZ SOMERS MD Ot E03. 9 HYPOTHYROIDISM, UNSPECIFIED 07/25/2017 DOMINGUEZ SOMERS MD Ot E66. 9 OBESITY, UNSPECIFIED 07/25/2017 DOMINGUEZ SOMERS MD Ot I10 ESSENTIAL (PRIMARY) HYPERTENSION 07/25/2017 DOMINGUEZ SOMERS MD Ot R00. 2 PALPITATIONS 07/25/2017 DOMINGUEZ SOMERS MD Ot R07. 89 OTHER CHEST PAIN 07/25/2017 DOMINGUEZ SOMERS MD Ot R42 DIZZINESS AND GIDDINESS 07/25/2017 DOMINGUEZ SOMERS MD Ot Z82. 49 FAMILY HX OF ISCHEM HEART DIS AND OTH DI 08/15/2017 DOMINGUEZ SOMERS MD Ot E03. 9 HYPOTHYROIDISM, UNSPECIFIED 08/15/2017 DOMINGUEZ SOMERS MD Ot E66. 9 OBESITY, UNSPECIFIED 08/15/2017 DOMINGUEZ SOMERS MD Ot I10 ESSENTIAL (PRIMARY) HYPERTENSION 08/15/2017 DOMINGUEZ SOMERS MD Ot R00. 2 PALPITATIONS 08/15/2017 DOMINGUEZ SOMERS MD Ot R07. 89 OTHER CHEST PAIN 08/15/2017 DOMINGUEZ SOMERS MD Ot R42 DIZZINESS AND GIDDINESS 08/15/2017 DOMINGUEZ SOMERS MD Ot Z68. 33 BODY MASS INDEX (BMI) 33.0-33.9, ADULT 08/15/2017 DOMINGUEZ SOMERS MD Ot Z82. 49 FAMILY HX OF ISCHEM HEART DIS AND OTH DI 09/19/2017 DOMINGUEZ SOMERS MD Ot E03. 9 HYPOTHYROIDISM, UNSPECIFIED 09/19/2017 DOMINGUEZ SOMERS MD Ot E66. 9 OBESITY, UNSPECIFIED 09/19/2017 DOMINGUEZ SOMERS MD Ot I10 ESSENTIAL (PRIMARY) HYPERTENSION 09/19/2017 DOMINGUEZ SOMERS MD Ot R00. 2 PALPITATIONS 09/19/2017 DOMINGUEZ SOMERS MD Ot R07. 89 OTHER CHEST PAIN 10/25/2017 DOMINGUEZ SOMERS MD Ot E03. 9 HYPOTHYROIDISM, UNSPECIFIED 10/25/2017 DOMINGUEZ SOMERS MD Ot E66. 9 OBESITY, UNSPECIFIED 10/25/2017 DOMINGUEZ SOMERS MD Ot I10 ESSENTIAL (PRIMARY) HYPERTENSION 10/25/2017 DOMINGUEZ SOMERS MD Ot R00. 2 PALPITATIONS 10/25/2017 DOMINGUEZ SOMERS MD Ot R07. 89 OTHER CHEST PAIN 10/26/2017 DOMINGUEZ SOMERS MD Ot E03. 9 HYPOTHYROIDISM, UNSPECIFIED 10/26/2017 DOMINGUEZ SOMERS MD Ot E66. 9 OBESITY, UNSPECIFIED 10/26/2017 DOMINGUEZ SOMERS MD Ot I10 ESSENTIAL (PRIMARY) HYPERTENSION 10/26/2017 DOMINGUEZ SOMERS MD Ot R00. 2 PALPITATIONS 10/26/2017 DOMINGUEZ SOMERS MD Ot R07. 89 OTHER CHEST PAIN 10/17/2018 HAEKEM LANTIGUA DOLINE S Ot V76.12 OTH SCREEN MAMMO-MALIGN NEOPLASM OF [place] 10/17/2018 Ot 355.9 MONO NEURITIS NOS 10/17/2018 Ot 721.3 LUMB OSACRAL SPONDYLOSIS 10/17/2018 Ot 355.9 MONO NEURITIS NOS 10/17/2018 HAKEEM LANTIGUA DOLINE S Ot Z12.31 ENCNTR SCREEN MAMMOGRAM FOR MALIGNANT NE 10/17/2018 DIMITRIS PATE MD Ot K21.9 GASTRO-ESOPHAGEAL REFLUX DISEASE WITHOUT 10/17/2018 RENE CHURCH APRN Ot Z12.31 ENCNTR SCREEN MAMMOGRAM FOR MALIGNANT NE 10/17/2018 HAKEEM LANTIGUA DOLINE S Ot R92.8 OTH ABN AND INCONCLUSIVE FINDINGS ON DX 10/17/2018 HAKEEM LANTIGUA DOLINE S Ot N60.31 FIBROSCLEROSIS OF RIGHT BREAST 10/17/2018 HAKEEM LANTIGUA DOLINE S Ot N63 UNSPECIFIED LUMP IN BREAST 10/17/2018 DOMINGUEZ SOMERS MD Ot E03. 9 HYPOTHYROIDISM, UNSPECIFIED 10/17/2018 DOMINGUEZ SOMERS MD Ot E66. 9 OBESITY, UNSPECIFIED 10/17/2018 DOMINGUEZ SOMERS MD Ot I10 ESSENTIAL (PRIMARY) HYPERTENSION 10/17/2018 DOMINGUEZ SOMERS MD Ot R00. 2 PALPITATIONS 10/17/2018 DOMINGUEZ SOMERS MD Ot R07. 89 OTHER CHEST PAIN 10/17/2018 DOMINGUEZ SOMERS MD Ot R42 DIZZINESS AND GIDDINESS 10/17/2018 DOMINGUEZ SOMERS MD Ot Z82. 49 FAMILY HX OF ISCHEM HEART DIS AND OTH DI 10/17/2018 DOMINGUEZ SOMERS MD Ot E03. 9 HYPOTHYROIDISM, UNSPECIFIED 10/17/2018 DOMINGUEZ SOMERS MD Ot E66. 9 OBESITY, UNSPECIFIED 10/17/2018 DOMINGUEZ SOMERS MD Ot I10 ESSENTIAL (PRIMARY) HYPERTENSION 10/17/2018 DOMINGUEZ SOMERS MD Ot R00. 2 PALPITATIONS 10/17/2018 DOMINGUEZ SOMERS MD Ot R07. 89 OTHER CHEST PAIN 10/17/2018 DOMINGUEZ SOMERS MD Ot R42 DIZZINESS AND GIDDINESS 10/17/2018 DOMINGUEZ SOMERS MD Ot Z68. 33 BODY MASS INDEX (BMI) 33.0-33.9, ADULT 10/17/2018 DOMINGUEZ SOMERS MD Ot Z82. 49 FAMILY HX OF ISCHEM HEART DIS AND OTH DI 10/17/2018 DOMINGUEZ SOMERS MD Ot E03. 9 HYPOTHYROIDISM, UNSPECIFIED 10/17/2018 DOMINGUEZ SOMERS MD Ot E66. 9 OBESITY, UNSPECIFIED 10/17/2018 DOMINGUEZ SOMERS MD Ot I10 ESSENTIAL (PRIMARY) HYPERTENSION 10/17/2018 DOMINGUEZ SOMERS MD Ot R00. 2 PALPITATIONS 10/17/2018 DOMINGUEZ SOMERS MD Ot R07. 89 OTHER CHEST PAIN 10/29/2018 GUNJAN LANTIGUA DO S Ot V76.12 OTH SCREEN MAMMO-MALIGN NEOPLASM OF [place] 10/29/2018 Ot 355.9 MONO NEURITIS NOS 10/29/2018 Ot 721.3 LUMB OSACRAL SPONDYLOSIS 10/29/2018 Ot 355.9 MONO NEURITIS NOS 10/29/2018 GUNJAN LANTIGUA DO S Ot Z12.31 ENCNTR SCREEN MAMMOGRAM FOR MALIGNANT NE 10/29/2018 DIMITRIS PATE MD Ot K21.9 GASTRO-ESOPHAGEAL REFLUX DISEASE WITHOUT 10/29/2018 RENE CHURCH APRN Ot Z12.31 ENCNTR SCREEN MAMMOGRAM FOR MALIGNANT NE 10/29/2018 GUNJAN LANTIGUA DO S Ot R92.8 OTH ABN AND INCONCLUSIVE FINDINGS ON DX 10/29/2018 HAKEEM LANTIGUA DOLINE S Ot N60.31 FIBROSCLEROSIS OF RIGHT BREAST 10/29/2018 GUNJAN LANTIGUA DO S Ot N63 UNSPECIFIED LUMP IN BREAST 10/29/2018 DOMINGUEZ SOMERS MD Ot E03. 9 HYPOTHYROIDISM, UNSPECIFIED 10/29/2018 DOMINGUEZ SOMERS MD Ot E66. 9 OBESITY, UNSPECIFIED 10/29/2018 DOMINGUEZ SOMERS MD Ot I10 ESSENTIAL (PRIMARY) HYPERTENSION 10/29/2018 DOMINGUEZ SOMERS MD Ot R00. 2 PALPITATIONS 10/29/2018 DOMINGUEZ SOMERS MD Ot R07. 89 OTHER CHEST PAIN 10/29/2018 DOMINGUEZ SOMERS MD Ot R42 DIZZINESS AND GIDDINESS 10/29/2018 DOMINGUEZ SOMERS MD Ot Z82. 49 FAMILY HX OF ISCHEM HEART DIS AND OTH DI 10/29/2018 DOMINGUEZ SOMERS MD Ot E03. 9 HYPOTHYROIDISM, UNSPECIFIED 10/29/2018 DOMINGUEZ SOMERS MD Ot E66. 9 OBESITY, UNSPECIFIED 10/29/2018 DOMINGUEZ SOMERS MD Ot I10 ESSENTIAL (PRIMARY) HYPERTENSION 10/29/2018 DOMINGUEZ SOMERS MD Ot R00. 2 PALPITATIONS 10/29/2018 DOMINGUEZ SOMERS MD Ot R07. 89 OTHER CHEST PAIN 10/29/2018 DOMINGUEZ SOMERS MD Ot R42 DIZZINESS AND GIDDINESS 10/29/2018 DOMINGUEZ SOMERS MD Ot Z68. 33 BODY MASS INDEX (BMI) 33.0-33.9, ADULT 10/29/2018 DOMINGUEZ SOMERS MD Ot Z82. 49 FAMILY HX OF ISCHEM HEART DIS AND OTH DI 10/29/2018 DOMINGUEZ SOMERS MD Ot E03. 9 HYPOTHYROIDISM, UNSPECIFIED 10/29/2018 DOMINGUEZ SOMERS MD Ot E66. 9 OBESITY, UNSPECIFIED 10/29/2018 DOMINGUEZ SOMERS MD Ot I10 ESSENTIAL (PRIMARY) HYPERTENSION 10/29/2018 DOMINGUEZ SOMERS MD Ot R00. 2 PALPITATIONS 10/29/2018 DOMINGUEZ SOMERS MD Ot R07. 89 OTHER CHEST PAIN 04/09/2019 GUNJAN LANTIGUA DO Ot V76.12 OTH SCREEN MAMMO-MALIGN NEOPLASM OF [place] 04/09/2019 Ot 355.9 MONO NEURITIS NOS 04/09/2019 Ot 721.3 LUMB OSACRAL SPONDYLOSIS 04/09/2019 Ot 355.9 MONO NEURITIS NOS 04/09/2019 ORENDER DO, GUNJAN S Ot Z12.31 ENCNTR SCREEN MAMMOGRAM FOR MALIGNANT NE 04/09/2019 RIO HEMPHILL, DIMITRIS Ot K21.9 GASTRO-ESOPHAGEAL REFLUX DISEASE WITHOUT 04/09/2019 RENE CHURCH APRN Ot Z12.31 ENCNTR SCREEN MAMMOGRAM FOR MALIGNANT NE 04/09/2019 SWAPNA STOKES, GUNJAN Lyles Ot R92.8 OTH ABN AND INCONCLUSIVE FINDINGS ON DX 04/09/2019 SWAPNA STOKES, GUNJAN S Ot N60.31 FIBROSCLEROSIS OF RIGHT BREAST 04/09/2019 SWAPNA STOKES, GUNJAN S Ot N63 UNSPECIFIED LUMP IN BREAST 04/09/2019 DOMINGUEZ SOMERS MD Ot E03. 9 HYPOTHYROIDISM, UNSPECIFIED 04/09/2019 DOMINGUEZ SOMERS MD Ot E66. 9 OBESITY, UNSPECIFIED 04/09/2019 DOMINGUEZ SOMERS MD Ot I10 ESSENTIAL (PRIMARY) HYPERTENSION 04/09/2019 DOMINGUEZ SOMERS MD Ot R00. 2 PALPITATIONS 04/09/2019 DOMINGUEZ SOMERS MD Ot R07. 89 OTHER CHEST PAIN 04/09/2019 DOMINGUEZ SOMERS MD Ot R42 DIZZINESS AND GIDDINESS 04/09/2019 DOMINGUEZ SOMERS MD Ot Z82. 49 FAMILY HX OF ISCHEM HEART DIS AND OTH DI 04/09/2019 DOMINGUEZ SOMERS MD Ot E03. 9 HYPOTHYROIDISM, UNSPECIFIED 04/09/2019 DOMINGUEZ SOMERS MD Ot E66. 9 OBESITY, UNSPECIFIED 04/09/2019 DOMINGUEZ SOMERS MD Ot I10 ESSENTIAL (PRIMARY) HYPERTENSION 04/09/2019 DOMINGUEZ SOMERS MD Ot R00. 2 PALPITATIONS 04/09/2019 DOMINGUEZ SOMERS MD Ot R07. 89 OTHER CHEST PAIN 04/09/2019 DOMINGUEZ SOMERS MD Ot R42 DIZZINESS AND GIDDINESS 04/09/2019 DOMINGUEZ SOMERS MD Ot Z68. 33 BODY MASS INDEX (BMI) 33.0-33.9, ADULT 04/09/2019 DOMINGUEZ SOMERS MD Ot Z82. 49 FAMILY HX OF ISCHEM HEART DIS AND OTH DI 04/09/2019 DOMINGUEZ SOMERS MD Ot E03. 9 HYPOTHYROIDISM, UNSPECIFIED 04/09/2019 DOMINGUEZ SOMERS MD Ot E66. 9 OBESITY, UNSPECIFIED 04/09/2019 DOMINGUEZ SOMERS MD Ot I10 ESSENTIAL (PRIMARY) HYPERTENSION 04/09/2019 DOMINGUEZ SOMERS MD Ot R00. 2 PALPITATIONS 04/09/2019 DOMINGUEZ SOMERS MD Ot R07. 89 OTHER CHEST PAIN 04/14/2019 HAKEEM LANTIGUA DOLINE S Ot V76.12 OTH SCREEN MAMMO-MALIGN NEOPLASM OF [place] 04/14/2019 Ot 355.9 MONO NEURITIS NOS 04/14/2019 Ot 721.3 LUMB OSACRAL SPONDYLOSIS 04/14/2019 Ot 355.9 MONO NEURITIS NOS 04/14/2019 HAKEEM LANTIGUA DOLINE S Ot Z12.31 ENCNTR SCREEN MAMMOGRAM FOR MALIGNANT NE 04/14/2019 DIMITRIS PATE MD Ot K21.9 GASTRO-ESOPHAGEAL REFLUX DISEASE WITHOUT 04/14/2019 RENE CHURCH APRN Ot Z12.31 ENCNTR SCREEN MAMMOGRAM FOR MALIGNANT NE 04/14/2019 HAKEEM LANTIGUA DOLINE S Ot R92.8 OTH ABN AND INCONCLUSIVE FINDINGS ON DX 04/14/2019 HAKEEM LANTIGUA DOLINE S Ot N60.31 FIBROSCLEROSIS OF RIGHT BREAST 04/14/2019 HAKEEM LANTIGUA DOLINE S Ot N63 UNSPECIFIED LUMP IN BREAST 04/14/2019 DOMINGUEZ SOMERS MD Ot E03. 9 HYPOTHYROIDISM, UNSPECIFIED 04/14/2019 DOMINGUEZ SOMERS MD Ot E66. 9 OBESITY, UNSPECIFIED 04/14/2019 DOMINGUEZ SOMERS MD Ot I10 ESSENTIAL (PRIMARY) HYPERTENSION 04/14/2019 DOMINGUEZ SOMERS MD Ot R00. 2 PALPITATIONS 04/14/2019 DOMINGUEZ SOMERS MD Ot R07. 89 OTHER CHEST PAIN 04/14/2019 DOMINGUEZ SOMERS MD Ot R42 DIZZINESS AND GIDDINESS 04/14/2019 DOMINGUEZ SOMERS MD Ot Z82. 49 FAMILY HX OF ISCHEM HEART DIS AND OTH DI 04/14/2019 DOMINGUEZ SOMERS MD Ot E03. 9 HYPOTHYROIDISM, UNSPECIFIED 04/14/2019 DOMINGUEZ SOMERS MD Ot E66. 9 OBESITY, UNSPECIFIED 04/14/2019 DOMINGUEZ SOMERS MD Ot I10 ESSENTIAL (PRIMARY) HYPERTENSION 04/14/2019 DOMINGUEZ SOMERS MD Ot R00. 2 PALPITATIONS 04/14/2019 DOMINGUEZ SOMERS MD Ot R07. 89 OTHER CHEST PAIN 04/14/2019 DOMINGUEZ SOMERS MD Ot R42 DIZZINESS AND GIDDINESS 04/14/2019 DOMINGUEZ SOMERS MD Ot Z68. 33 BODY MASS INDEX (BMI) 33.0-33.9, ADULT 04/14/2019 DOMINGUEZ SOMERS MD Ot Z82. 49 FAMILY HX OF ISCHEM HEART DIS AND OTH DI 04/14/2019 DOMINGUEZ SOMERS MD Ot E03. 9 HYPOTHYROIDISM, UNSPECIFIED 04/14/2019 DOMINGUEZ SOMERS MD Ot E66. 9 OBESITY, UNSPECIFIED 04/14/2019 DOMINGUEZ SOMERS MD Ot I10 ESSENTIAL (PRIMARY) HYPERTENSION 04/14/2019 DOMINGUEZ SOMERS MD Ot R00. 2 PALPITATIONS 04/14/2019 DOMINGUEZ SOMERS MD Ot R07. 89 OTHER CHEST PAIN 04/16/2019 GUNJAN LANTIGUA DO S Ot V76.12 OTH SCREEN MAMMO-MALIGN NEOPLASM OF [place] 04/16/2019 Ot 355.9 MONO NEURITIS NOS 04/16/2019 Ot 721.3 LUMB OSACRAL SPONDYLOSIS 04/16/2019 Ot 355.9 MONO NEURITIS NOS 04/16/2019 HAKEEM LANTIGUA DOLINE S Ot Z12.31 ENCNTR SCREEN MAMMOGRAM FOR MALIGNANT NE 04/16/2019 DIMITRIS PATE MD Ot K21.9 GASTRO-ESOPHAGEAL REFLUX DISEASE WITHOUT 04/16/2019 RENE CHURCH APRN Ot Z12.31 ENCNTR SCREEN MAMMOGRAM FOR MALIGNANT NE 04/16/2019 HAKEEM LANTIGUA DOLINE S Ot R92.8 OTH ABN AND INCONCLUSIVE FINDINGS ON DX 04/16/2019 HAKEEM LANTIGUA DOLINE S Ot N60.31 FIBROSCLEROSIS OF RIGHT BREAST 04/16/2019 HAKEEM LANTIGUA DOLINE S Ot N63 UNSPECIFIED LUMP IN BREAST 04/16/2019 DOMINGUEZ SOMERS MD Ot E03. 9 HYPOTHYROIDISM, UNSPECIFIED 04/16/2019 DOMINGUEZ SOMERS MD Ot E66. 9 OBESITY, UNSPECIFIED 04/16/2019 DOMINGUEZ SOMERS MD Ot I10 ESSENTIAL (PRIMARY) HYPERTENSION 04/16/2019 DOMINGUEZ SOMERS MD Ot R00. 2 PALPITATIONS 04/16/2019 DOMINGUEZ SOMERS MD Ot R07. 89 OTHER CHEST PAIN 04/16/2019 DOMINGUEZ SOMERS MD Ot R42 DIZZINESS AND GIDDINESS 04/16/2019 DOMINGUEZ SOMERS MD Ot Z82. 49 FAMILY HX OF ISCHEM HEART DIS AND OTH DI 04/16/2019 DOMINGUEZ SOMERS MD Ot E03. 9 HYPOTHYROIDISM, UNSPECIFIED 04/16/2019 DOMINGUEZ SOMERS MD Ot E66. 9 OBESITY, UNSPECIFIED 04/16/2019 DOMINGUEZ SOMERS MD Ot I10 ESSENTIAL (PRIMARY) HYPERTENSION 04/16/2019 DOMINGUEZ SOMERS MD Ot R00. 2 PALPITATIONS 04/16/2019 DOMINGUEZ SOMERS MD Ot R07. 89 OTHER CHEST PAIN 04/16/2019 DOMINGUEZ SOMERS MD Ot R42 DIZZINESS AND GIDDINESS 04/16/2019 DOMINGUEZ SOMERS MD Ot Z68. 33 BODY MASS INDEX (BMI) 33.0-33.9, ADULT 04/16/2019 DOMINGUEZ SOMERS MD Ot Z82. 49 FAMILY HX OF ISCHEM HEART DIS AND OTH DI 04/16/2019 DOMINGUEZ SOMERS MD Ot E03. 9 HYPOTHYROIDISM, UNSPECIFIED 04/16/2019 DOMINGUEZ SOMERS MD Ot E66. 9 OBESITY, UNSPECIFIED 04/16/2019 DOMINGUEZ SOMERS MD Ot I10 ESSENTIAL (PRIMARY) HYPERTENSION 04/16/2019 DOMINGUEZ SOMERS MD Ot R00. 2 PALPITATIONS 04/16/2019 DOMINGUEZ SOMERS MD Ot R07. 89 OTHER CHEST PAIN 04/22/2019 GUNJAN LANTIGUA DO S Ot V76.12 OTH SCREEN MAMMO-MALIGN NEOPLASM OF [place] 04/22/2019 Ot 355.9 MONO NEURITIS NOS 04/22/2019 Ot 721.3 LUMB OSACRAL SPONDYLOSIS 04/22/2019 Ot 355.9 MONO NEURITIS NOS 04/22/2019 GUNJAN LANTIGUA DO S Ot Z12.31 ENCNTR SCREEN MAMMOGRAM FOR MALIGNANT NE 04/22/2019 KIDO MD, TAKAAKI Ot K21.9 GASTRO-ESOPHAGEAL REFLUX DISEASE WITHOUT 04/22/2019 RENE CHURCH APRN Ot Z12.31 ENCNTR SCREEN MAMMOGRAM FOR MALIGNANT NE 04/22/2019 GUNJAN LANTIGUA DO Ot R92.8 OTH ABN AND INCONCLUSIVE FINDINGS ON DX 04/22/2019 GUNJAN LANTIGUA DO Ot N60.31 FIBROSCLEROSIS OF RIGHT BREAST 04/22/2019 GUNJAN LANTIGUA DO Ot N63 UNSPECIFIED LUMP IN BREAST 04/22/2019 DOMINGUEZ SOMERS MD Ot E03. 9 HYPOTHYROIDISM, UNSPECIFIED 04/22/2019 DOMINGUEZ SOMERS MD Ot E66. 9 OBESITY, UNSPECIFIED 04/22/2019 DOMINGUEZ SOMERS MD Ot I10 ESSENTIAL (PRIMARY) HYPERTENSION 04/22/2019 DOMINGUEZ SOMERS MD Ot R00. 2 PALPITATIONS 04/22/2019 DOMINGUEZ SOMERS MD Ot R07. 89 OTHER CHEST PAIN 04/22/2019 DOMINGUEZ SOMERS MD Ot R42 DIZZINESS AND GIDDINESS 04/22/2019 DOMINGUEZ SOMERS MD Ot Z82. 49 FAMILY HX OF ISCHEM HEART DIS AND OTH DI 04/22/2019 DOMINGUEZ SOMERS MD Ot E03. 9 HYPOTHYROIDISM, UNSPECIFIED 04/22/2019 DOMINGUEZ SOMERS MD Ot E66. 9 OBESITY, UNSPECIFIED 04/22/2019 DOMINGUEZ SOMERS MD Ot I10 ESSENTIAL (PRIMARY) HYPERTENSION 04/22/2019 DOMINGUEZ SOMERS MD Ot R00. 2 PALPITATIONS 04/22/2019 DOMINGUEZ SOMERS MD Ot R07. 89 OTHER CHEST PAIN 04/22/2019 DOMINGUEZ SOMERS MD Ot R42 DIZZINESS AND GIDDINESS 04/22/2019 DOMINGUEZ SOMERS MD Ot Z68. 33 BODY MASS INDEX (BMI) 33.0-33.9, ADULT 04/22/2019 DOMINGUEZ SOMERS MD Ot Z82. 49 FAMILY HX OF ISCHEM HEART DIS AND OTH DI 04/22/2019 DOMINGUEZ SOMERS MD Ot E03. 9 HYPOTHYROIDISM, UNSPECIFIED 04/22/2019 DOMINGUEZ SOMERS MD Ot E66. 9 OBESITY, UNSPECIFIED 04/22/2019 DOMINGUEZ SOMERS MD J Ot I10 ESSENTIAL (PRIMARY) HYPERTENSION 04/22/2019 DOMINGUEZ SOMERS MD Ot R00. 2 PALPITATIONS 04/22/2019 DOMINGUEZ SOMERS MD Ot R07. 89 OTHER CHEST PAIN 04/22/2019 DIMITRIS PATE MD, Ot Z01.81 8 ENCOUNTER FOR OTHER PREPROCEDURAL EXAMIN 04/25/2019 DIMITRIS PATE MD, Ot E03.9 HYPOTHYROIDISM, UNSPECIFIED 04/25/2019 DIMITRIS PATE MD, Ot E11.9 TYPE 2 DIABETES MELLITUS WITHOUT COMPLIC 04/25/2019 DIMITRIS PATE MD, Ot E66.01 MORBID (SEVERE) OBESITY DUE TO EXCESS CA 04/25/2019 DIMITRIS PATE MD, Ot F32.9 MAJOR DEPRESSIVE DISORDER, SINGLE EPISOD 04/25/2019 DIMITRIS PATE MD, Ot I10 ESSENTIAL (PRIMARY) HYPERTENSION 04/25/2019 DIMITRIS PATE MD, Ot Z12.11 ENCOUNTER FOR SCREENING FOR MALIGNANT NE 04/25/2019 DIMITRIS PATE MD, Ot Z68.38 BODY MASS INDEX (BMI) 38.0-38.9, ADULT 04/25/2019 DIMITRIS PATE MD, Ot Z79.52 OPERATIONS MANAGER STATION (CURRENT) USE OF SYSTEMIC STER 04/25/2019 DIMITRIS PATE MD, Ot Z79.82 ASSISTED (CURRENT) USE OF ASPIRIN 04/25/2019 DIMITRIS PATE MD, Ot Z79.89 9 OTHER ASSISTED (CURRENT) DRUG THERAPY 04/25/2019 DIMITRIS PATE MD, Ot Z80.3 FAMILY HISTORY OF MALIGNANT NEOPLASM OF 04/25/2019 DIMITRIS PATE MD, Ot Z82.49 FAMILY HX OF ISCHEM HEART DIS AND OTH DI 04/25/2019 DIMITRIS PATE MD, Ot Z83.3 FAMILY HISTORY OF DIABETES MELLITUS 04/25/2019 DIMITRIS PATE MD, Ot Z87.89 1 PERSONAL HISTORY OF NICOTINE DEPENDENCE 04/25/2019 DIMITRIS PATE MD, Ot Z88.2 ALLERGY STATUS TO SULFONAMIDES STATUS 04/25/2019 DIMITRIS PATE MD, Ot Z90.71 0 ACQUIRED ABSENCE OF BOTH [facility] Procedures Code Description Performed By Per formed On BLOO D PRESSURE CHECK 03/28/2012 87130 TB T EST INTRADERMAL 06/30/2014 Results There is no data. Encounters ACCT No. Visit Date/Time Discharge Status Pt. Type Provider Facility Loc./Unit Complaint [id number] 06/30/2014 08:38:00 06/30/2014 23:59: 59 CLS Outpatient LESLI HAYS SHEILA Vides [id number] 02/27/2014 14:24:00 02/27/2014 23:59: 59 CLS Outpatient VIKAS BALLESTEROS APRNSHIRA Vides [id number] 03/28/2012 09:27:00 03/28/2012 23:59: 59 CLS Outpatient [id number] 04/23/2019 09:30:00 23:59:59 CLS Outpatient DIMITRIS PATE MD [facility] ENDO SCREENING [id number] 04/16/2019 05:34:00 14:13:00 DIS Outpatient DIMITRIS PATE MD [facility] PREOP COLONOSCOPY [id number] 10/26/2017 13:00:00 23:59:59 CLS Preadmit DOMINGUEZ SOMERS MD [facility] CARD R07.89 ANTERIOR CHEST W ALL PAIN [id number] 07/27/2017 12:45:00 018 00:01:00 DIS Outpatient DOMINGUEZ SOMERS MD [facility] CARD R07.89 ANTERIOR CHEST W ALL PAIN [id number] 07/16/2017 07:39:00 018 23:59:59 CLS Outpatient DOMINGUEZ SOMERS MD [facility] CARD ANTERIOR CHEST WALL JAY JAY N [id number] 07/12/2017 13:03:00 018 23:59:59 CLS Outpatient DOMINGUEZ SOMERS MD [facility] CARD ANTERIOR CHEST WALL JAY JAY N [id number] 06/21/2017 14:34:00 018 23:59:59 CLS Preadmit DOMINGUEZ SOMERS MD [facility] CARD ANTERIOR CHEST WALL JAY AJY N [id number] 12/29/2016 08:22:00 017 23:59:59 CLS Outpatient GUNJAN LANTIGUA DO [facility] RAD RT BREAST ASYMM ETRY [id number] 06/19/2016 12:14:00 017 23:59:59 CLS Outpatient GUNJAN LANTIGUA DO S [facility] RAD RIGHT BREAST YMMETRY [id number] 06/07/2016 08:02:00 017 23:59:59 CLS Outpatient HAKEEM LANTIGUA DOLINE S [facility] RAD RIGHT BREAST YMMETRY [id number] 05/30/2016 10:56:00 017 23:59:59 CLS Outpatient RANJIT RENEZan Huggins APRN [facility] RAD SCREENING [id number] 04/04/2016 09:12:00 016 23:59:59 CLS Outpatient DIMITRIS PATE MD [facility] RAD REFLUX [id number] 10/11/2015 15:24:00 016 16:00:00 DIS Outpatient ZANA CARTER MD [facility] WOUNDCARE [id number] 05/11/2015 10:20:00 015 23:59:59 CLS Outpatient GUNJAN LANTIGUA DO S [facility] RAD SCREENING [id number] 12/17/2013 14:27:00 014 23:59:59 CLS Outpatient CATHERINE LANTIGUA DOQUELINE S [facility] RAD SCREENING [id number] 12/16/2012 10:03:00 013 23:59:59 CLS Outpatient GUILLERMOER DO GUNJAN S [facility] RAD SCREENING [id number] 08/21/2014 16:34:00 Document Registration [id number] 07/21/2014 13:06:00 Document Registration [id number] 07/05/2012 08:51:00 Document Registration [id number] 12/14/2011 09:54:00 Document Registration [id number] 11/08/2010 10:21:00 Document Registration 07/201702/27/2019 08:06:24 02/27/2019 23:59: 59 CLS Outpatient Gunjan Lantigua S.
--- OUTSIDE RECORDS SUMMARY | 2019-05-18 21:44 | XMS REPORT ---
Author Author Yecenia BALLESTEROS Organization [employer] Address Unknown Phone Unavailable Care Team Providers Care Transmission Superintendent Name Role Phone SHEILA BALLESTEROS CP Unavailable Allergies No Known Allergies Problems Problem Type Condition Code Onset Dates Condition Statu s Problem Screening examination for pulmonary tuberculosis V74.1 Active Problem Need for prophylactic vaccination and inoculation, Inf luenza V04.81 Active Problem Screening for hypertension V81.1 A ctive Assessment Encounter for immunization Z23 A ctive Medications No Known Medications Procedures Procedure Coding System Code Date SINGLE IMMUNIZATION ADMIN CPT-4 31076 Feb FLUARIX QUAD (3 & UP)-GSK-2014 CPT-[address] 2014 Results No Known Results Immunizations Vaccine Administration Date FLUARIX QUAD (3 & UP)-GSK-2014Mar 09, 2015 Summary Purpose [employer] Submission
--- OUTSIDE RECORDS SUMMARY | 2019-05-18 21:44 | XMS REPORT ---
Author Author Yecenia Blakely Doctor Organization [facility] Address Unknown Phone Unavailable Care Team Providers Care Plastics Fabrication Supervisor Name Role Phone Migration, Doctor Unavailable Unavailable PROBLEMS Type Condition ICD9-CM Code TIY98-BZ Code Onset Dates Condition S tatus SNOMED Code Problem Screening examination for pulmonary tuberculosis V74.1 Active 380639494 Problem Need for prophylactic vaccination and inoculation, Influen za V04.81 Active 322533239 Problem Screening for hypertension V81.1 Act toribio [id number] ALLERGIES No Information ENCOUNTERS Encounter Location Date Diagnosis [facility] [address] [facility] [id number] [address] [place] [phone] Feb, Encounter for immunization Z 23 [facility] [place] [address] [facility] [id number] [place] [id number] September, Ulcer of right foot, limited to breakdown of skin L97.511 [facility] [address] [facility] [id number] [address] [place] [phone] Feb, Encounter for immunization Z 23 [facility] [address] [facility] [id number] [address] [place] [phone] Aug, [facility] [address] [facility] [id number] [address] [place] [phone] Aug, [facility] [address] [facility] [id number] [address] [place] [phone] Jun, [facility] [address] [facility] [id number] [address] [place] [phone] Jun, [facility] [address] [facility] [id number] [address] [place] [phone] Feb, [facility] [address] [facility] [id number] [address] [place] [phone] Feb, [facility] [address] [facility] [id number] [address] [place] [phone] Mar, [facility] [address] [facility] [id number] [address] [place] [phone] Mar, [facility] [address] [facility] [id number] [address] [place] [phone] Feb, [facility] [address] [facility] [id number] [address] [place] [phone] Feb, IMMUNIZATIONS No Known Immunizations SOCIAL HISTORY Never Assessed REASON FOR VISIT [facility] [place] PLAN OF CARE VITAL SIGNS MEDICATIONS Unknown Medications RESULTS No Results PROCEDURES No Known procedures INSTRUCTIONS MEDICATIONS ADMINISTERED No Known Medications MEDICAL (GENERAL) HISTORY Type Description Date Medical History Charcot foot Surgical History numerous foot surgeries
--- OUTSIDE RECORDS SUMMARY | 2019-05-18 21:44 | XMS REPORT ---
Author Author Yecenia BALLESTEROS Organization [employer] Address Unknown Phone Unavailable Care Team Providers Care Applications Manager Name Role Phone SHEILA BALLESTEROS CP Unavailable [...] System Code Date SINGLE IMMUNIZATION ADMIN CPT-4 55507 Feb FLUARIX QUAD P-FREE 3 AND UP .50 2015 CPT-4 89302 Feb 21, 2016 Results No Known Results Immunizations Vaccine Administration Date FLUARIX QUAD P-FREE 3 AND UP .50 2015Feb 21, 2016 Summary Purpose [employer] Submission
== END ==
LOC: ENDO 08:59
PROVIDERS: ATTEND Surgery
DX: Z12.11 Encounter for screening for malignant neoplasm of colon (principal); E11.9 Type 2 diabetes mellitus without complications; I10 Essential (primary) hypertension; E03.9 Hypothyroidism, unspecified; F32.9 Major depressive disorder, single episode, unspecified; E66.01 Morbid (severe) obesity due to excess calories; Z68.38 Body mass index [BMI] 38.0-38.9, adult; Z90.710 Acquired absence of both cervix and uterus; Z88.2 Allergy status to sulfonamides; Z87.891 Personal history of nicotine dependence; Z79.52 Long term (current) use of systemic steroids; Z79.82 Long term (current) use of aspirin; Z79.899 Other long term (current) drug therapy; Z80.3 Family history of malignant neoplasm of breast; Z83.3 Family history of diabetes mellitus; Z82.49 Family history of ischemic heart disease and other diseases of the circulatory system

== ENCOUNTER 2019-07-14 05:30 | Outpatient (CLI) | payer OTHER ==
[~2019-07-14] VITALS: Ht 167.7 cm; Wt 109.1 kg
[~2019-07-14 05:30] MED LIST changes: -ACETAMINOPHEN 325 MG TABLET PO PRN; -CETI10TA20 PO; +CETI10TA21 PO; -HYDROcodone/APAP 5 MG/325 MG (LORTAB) TAB PO PRN; -LIDOCAINE JELLY 2% 6 ML SYRINGE MM PRN; -LIDOCAINE JELLY 2% 6 ML SYRINGE ONE; +LISI1TAB29 PO; -LISI1TAB6 PO; -METO-387 PO; -MIDAZOLAM 5 MG/5 ML (VERSED) VIAL ONE; +MTP25TSR PO; -NS IV 500 ML 500 ML IV PRN; -NS IV 500 ML 500 ML ONE; -ONDANSETRON 4 MG/2 ML (SDV) Z0FRAN IVP PRN; -fentaNYL INJECTION 100 MCG/2 ML AMP IVP ONE; -fentaNYL INJECTION 100 MCG/2 ML AMP ONE; -morphine INJ 10 MG/ML 1ML (SYR OR VIAL) IVP PRN
== END 2019-07-14 13:38 | disposition home or self-care (01) ==
LOC: PREOP 05:30
PROVIDERS: ATTEND Specialist
DX: Z01.818 Encounter for other preprocedural examination (principal)

== ENCOUNTER 2019-07-18 07:00 | Day surgery (SDC) | payer OTHER ==
[~2019-07-18] VITALS: Ht 167 cm; Wt 109.1 kg
[2019-07-18 07:05] VITALS: BP 114/85
[2019-07-18] MEDS ORDERED: POVIDONE (BETADINE) OPHTH SOLN 5% 30 ML OP ONE (07:15)
[2019-07-18] MEDS ORDERED: TIMOLOL MALEATE 0.5% 5 ML (TIMOPTIC) BTL OU PRN (07:15)
[2019-07-18] MEDS ORDERED: LIDOCAINE PF 1% 2 ML VIAL IR PRN (07:15)
[2019-07-18] MEDS ORDERED: MOXIFLOXACIN OPHTH SOLN 5 MG/ML 0.3 ML SYRINGE OP ONE (07:15)
[2019-07-18] MEDS: TETRACAINE 0.5% OPHTH SOLN 4 ML BTL (SINGLE DOSE ONLY) OU PRN ×4 (07:17→07:53)
[2019-07-18] MEDS: PHENYLEPHRINE 10% OPHTH (NEO-SYN) 5 ML BTL OU SCH ×3 (07:30→07:54)
[2019-07-18] MEDS: CYCLOPENTOLATE 1% (CYCLOGYL) 2 ML DROPS OP SCH ×3 (07:30→07:53)
--- NOTE | 2019-07-18 08:09 | Ophthalmologist Pre-Op Note ---
Pre-Operative Progress Note H&P Reviewed The H&P was reviewed, patient examined and no changes noted. Date H&P Reviewed: Jul 18, 2019 Time H&P Reviewed: 08:08 Pre-Op Dx Cataract, Left Eye JIGNA YOUNG MD Jul 18, 2019 08:09
[2019-07-18] MEDS ORDERED: MIDAZOLAM 2 MG/2 ML (VERSED) VIAL ONE (08:15)
--- NOTE | 2019-07-18 08:30 | Ophthalmology Operative Report ---
Cataract removal/placement IOL PREOPERATIVE DIAGNOSIS: Cataract Left Eye POSTOPERATIVE DIAGNOSIS: Cataract Left Eye PROCEDURE: Cataract removal and placement of posterior chamber implant, left eye SURGEON: Robi Young ANESTHESIA: Topical with sedation COMPLICATIONS: None ESTIMATED BLOOD LOSS: Minimal DESCRIPTION OF PROCEDURE: After proper informed consent was obtained, the patient, a 53 female, was taken to the Operating Room and the left eye was anesthetized with tetracaine. The left eye was then prepped and draped in the usual manner. A wire lid speculum was placed. A paracentesis was made at the left hand position. Preservative free lidocaine was injected into the anterior chamber followed by viscoelastic. A clear corneal incision was made in the temporal position. A capsulorrhexis was preformed and the central nuclear and cortical material were removed. The posterior capsule was polished and an Mik 20.5 [id number] was placed into the capsular bag. The residual viscoelastic was aspirated and balanced saline solution was injected into the anterior chamber. Moxifloxacin was injected into the anterior chamber. The wound was checked and found to be water tight. The patient tolerated the procedure well without complications. ROBI YOUNG MD Jul 18, 2019 08:30
[2019-07-18 08:40] VITALS: BP 121/73
--- NOTE | 2019-07-18 11:33 | Anesthesia-General Post-Op ---
MAC Patient Condition Mental Status/LOC: Same as Preop Cardiovascular: Satisfactory Nausea/Vomiting: Absent Respiratory: Satisfactory Pain: Controlled Complications: Absent Post Op Complications Complications None Follow Up Care/Instructions Patient Instructions None needed. Anesthesiology Discharge Order Discharge Order Patient was seen this morning after the procedure and she was doing well, no complaints, stable vital signs, no apparent adverse anesthesia problems. JENNA CHILDS DO Jul 18, 2019 11:33
== END 2019-07-18 08:40 | disposition home or self-care (01) ==
LOC: SDC 07:00
PROVIDERS: ATTEND Specialist
DX: E11.36 Type 2 diabetes mellitus with diabetic cataract (principal); H25.12 Age-related nuclear cataract, left eye; I10 Essential (primary) hypertension; G62.9 Polyneuropathy, unspecified; E66.9 Obesity, unspecified; F41.9 Anxiety disorder, unspecified; Z68.39 Body mass index [BMI] 39.0-39.9, adult; Z90.89 Acquired absence of other organs; Z87.891 Personal history of nicotine dependence; Z98.84 Bariatric surgery status; Z88.2 Allergy status to sulfonamides; Z79.82 Long term (current) use of aspirin; Z79.899 Other long term (current) drug therapy; Z88.6 Allergy status to analgesic agent; Z80.3 Family history of malignant neoplasm of breast

== ENCOUNTER 2020-07-03 11:45 | Outpatient (RCR) | payer OTHER ==
[2020-07-02 12:00] VITALS: BP 112/61
[~2020-07-03] VITALS: Ht 167.7 cm; Wt 109.0 kg
[2020-07-03 11:45] VITALS: BP 127/61
[~2020-07-03 11:45] MED LIST changes: -CETI10TA21 PO; +CETI10TA49 PO; +VANCOMYCIN 1 GM/NS 250 ML IVPB IV SCH; +VANCOMYCIN 500 MG/NS 100 ML IV NR
[2020-07-03] MEDS: VANCOMYCIN 1500 MG/NS 500 ML IVPB IV SCH ×2 (12:10)
[2020-07-04] MEDS: VANCOMYCIN 1500 MG/NS 500 ML IVPB IV SCH ×2 (12:16)
[2020-07-04 14:43] VITALS: BP 145/67
== END 2020-07-04 10:00 | disposition home or self-care (01) ==
LOC: SDC 11:45
PROVIDERS: ATTEND Family Medicine
DX: L03.115 Cellulitis of right lower limb (principal); L02.611 Cutaneous abscess of right foot
CPT/HCPCS: 96365; 96366

== ENCOUNTER 2020-10-10 13:48 | Emergency (ER) | payer OTHER ==
[~2020-10-10] VITALS: Ht 167.7 cm; Wt 109.0 kg
[~2020-10-10 13:48] MED LIST changes: -DICL100T83 PO; +NF-DICLOTA PO; -VANCOMYCIN 1 GM/NS 250 ML IVPB IV SCH; -VANCOMYCIN 500 MG/NS 100 ML IV NR
--- NOTE | 2020-10-10 14:16 | ED Lower Extremity ---
General Chief Complaint: Lower Extremity Stated Complaint: RIGHT FOOT PAIN Source: patient Exam Limitations: no limitations History of Present Illness Date Seen by Provider: October 10, 2020 Time Seen by Provider: 14:13 Initial Comments To ER with right foot pain. She awakened this morning with inability to bear weight on the right foot. She has a severe Charcot foot on the right with what she describes as "half an orange" on the plantar surface of the midfoot where the arch should be. She is been dealing with a wound here for a while. The seem to get worse after her second Covid vaccination. She had fever up to 103 at home last night. No known injury of the foot. Most of her pain is on the dorsal aspect lateral side of the foot. She follows with Dr. Lantigua and Dr. Pearson podiatry out of [place]. She states that her hemoglobin A1c without treatment runs in the 6-6.5 range. Onset: just prior to arrival Severity: moderate Pain/Injury Location: right foot Method of Injury: unknown Modifying Factors: Worse With Movement Allergies and Home Medications Allergies Coded Allergies: naproxen (Unverified Allergy, Severe, ANAPHYLACTIC, 07/02/20) ANAFLACTIC REACTION Sulfa (Sulfonamide Antibiotics) (Unverified Allergy, Intermediate, RASH, 07/02/20) RASH Home Medications Aspirin 81 Mg Tablet.dr, 81 MG PO DAILY, (Reported) Cetirizine HCl 10 Mg Tablet, 10 MG PO DAILY, (Reported) Diclofenac Sod 100 Mg Tab, 100 MG PO DAILY PRN for joint pain, (Reported) Estradiol 0.5 Mg Tablet, 0.5 MG PO DAILY, (Reported) Fluoxetine HCl 60 Mg Tablet, 60 MG PO DAILY, (Reported) Gabapentin 300 Mg Capsule, 300 MG PO DAILY, (Reported) Krill/Om-3/Dha/Epa/Phospho/Ast 1 Each Capsule, 1 EACH PO BID, (Reported) Levothyroxine Sodium 75 Mcg Tablet, 75 MCG PO DAILY, (Reported) Lisinopril/Hydrochlorothiazide 1 Each Tablet, 1 EACH PO DAILY, (Reported) Metoprolol Succinate 25 Mg Tab.er.24h, 12.5 MG PO DAILY, (Reported) Mv-Mn/Folic Acid/Calcium/Vit K 1 Each Tablet, 1 EACH PO BID, (Reported) Potassium Chloride 8 Meq Tablet.er, 8 MEQ PO DAILY, (Reported) Patient Home Medication List Home Medication List Reviewed: Yes Review of Systems Constitutional: see HPI, chills EENTM: see HPI Respiratory: no symptoms reported Cardiovascular: no symptoms reported Genitourinary: no symptoms reported Musculoskeletal: see HPI Skin: no symptoms reported Psychiatric/Neurological: No Symptoms Reported Past Xfcbgts-Anxtna-Ryqyeh Hx Patient Social History Former Smoker, Quit: Apr 16, 1992 Recent Hopitalizations: No Immunizations Up To Date Date of Influenza Vaccine: Mar 21, 2019 Past Medical History Surgeries: Yes (L ankle tendon repair, bilat toe sx, R foot sx, ) Appendectomy, Section, Hysterectomy Respiratory: No Cardiac: Yes Hypertension Neurological: Yes Neuropathy HISTORICAL INTERPRETER History: Hysterectomy Genitourinary: No Gastrointestinal: No Musculoskeletal: Yes Arthritis Endocrine: Yes Hypothyroidsim HEENT: No Cancer: No Psychosocial: Yes Anxiety Integumentary: No Blood Disorders: No Physical Exam Vital Signs Vital Signs - First Documented 10/10/20 13:56 Temp 37.6 Pulse 97 Resp 20 B/P (MAP) 152/89 (110) Capillary Refill : Height, Weight, BMI Height: 5'6.00" Weight: 210lbs. 0.0oz. 95.739104iz; 38.75 BMI Method: General Appearance: WD/WN, no apparent distress Neck: non-tender, full range of motion Cardiovascular: regular rate, rhythm, no edema Respiratory: no respiratory distress, no accessory muscle use Hips: bilateral hip non-tender, bilateral hip normal inspection, bilateral hip normal range of motion Legs: bilateral leg non-tender, bilateral leg normal inspection, bilateral leg normal range of motion Knees: bilateral knee non-tender, bilateral knee normal inspection Ankles: bilateral ankle non-tender, bilateral ankle normal inspection Feet: right foot pain (Her pain is to the dorsal lateral aspect of the foot), right foot swelling (There is a bulge on the plantar surface of the midfoot consistent with "half an orange" description that she provides. Is about that size. At the apex of this bulge is a 1.5 cm circular ulcer with some mild surrounding callus. There is no visible cellulitis to any part of the foot dorsal or plantar. Brisk capillary refill of the toes.) Neurologic/Psychiatric: alert, normal mood/affect, oriented x 3 Skin: normal color, warm/dry Progress/Results/Core Measures Results/Orders Lab Results Laboratory Tests Test 10/10/20 14:18 10/10/20 15:48 Range/Units White Blood Count 15.1 H 4.3-11.0 10^3/uL Red Blood Count 4.37 3.80-5.11 10^6/uL Hemoglobin 12.0 11.5-16.0 g/dL Hematocrit 38 35-52 % Mean Corpuscular Volume 87 80-99 fL Mean Corpuscular Hemoglobin 28 25-34 pg Mean Corpuscular Hemoglobin Concent 32 32-36 g/dL Red Cell Distribution Width 14.1 10.0-14.5 % Platelet Count 291 130-400 10^3/uL Mean Platelet Volume 10.0 9.0-12.2 fL Immature Granulocyte % (Auto) 1 % Neutrophils (%) (Auto) 85 H 42-75 % Lymphocytes (%) (Auto) 7 L 12-44 % Monocytes (%) (Auto) 6 0-12 % Eosinophils (%) (Auto) 0 0-10 % Basophils (%) (Auto) 0 0-10 % Neutrophils # (Auto) 12.9 H 1.8-7.8 10^3/uL Lymphocytes # (Auto) 1.1 1.0-4.0 10^3/uL Monocytes # (Auto) 0.9 0.0-1.0 10^3/uL Eosinophils # (Auto) 0.0 0.0-0.3 10^3/uL Basophils # (Auto) 0.0 0.0-0.1 10^3/uL Immature Granulocyte # (Auto) 0.2 H 0.0-0.1 10^3/uL Neutrophils % (Manual) 85 % Lymphocytes % (Manual) 9 % Monocytes % (Manual) 5 % Eosinophils % (Manual) 0 % Basophils % (Manual) 1 % Band Neutrophils 0 % Blood Morphology Comment NORMAL Erythrocyte Sedimentation Rate 32 H 0-30 MM/HR Sodium Level 136 135-145 MMOL/L Potassium Level 3.9 3.6-5.0 MMOL/L Chloride Level 97 L 98-107 MMOL/L Carbon Dioxide Level 25 21-32 MMOL/L Anion Gap 14 5-14 MMOL/L Blood Urea Nitrogen 15 7-18 MG/DL Creatinine 0.94 0.60-1.30 MG/DL Estimat Glomerular Filtration Rate > 60 BUN/Creatinine Ratio 16 Glucose Level 119 H 70-105 MG/DL Lactic Acid Level 2.49 *H 0.50-2.00 MMOL/L Calcium Level 9.3 8.5-10.1 MG/DL Corrected Calcium 9.1 8.5-10.1 MG/DL Total Bilirubin 0.6 0.1-1.0 MG/DL Aspartate Amino Transf (AST/SGOT) 22 5-34 U/L Alanine Aminotransferase (ALT/SGPT) 17 0-55 U/L Alkaline Phosphatase 85 40-136 U/L C-Reactive Protein High Sensitivity 4.70 H 0.00-0.50 MG/DL Total Protein 7.6 6.4-8.2 GM/DL Albumin 4.2 3.2-4.5 GM/DL Urine Color YELLOW Urine Clarity CLEAR Urine pH 8.0 5-9 Urine Specific J[place] 1.020 1.016-1.022 Urine Protein TRACE H NEGATIVE Urine Glucose (UA) NEGATIVE NEGATIVE Urine Ketones NEGATIVE NEGATIVE Urine Nitrite NEGATIVE NEGATIVE Urine Bilirubin NEGATIVE NEGATIVE Urine Urobilinogen 1.0 < = 1.0 MG/DL Urine Leukocyte Esterase NEGATIVE NEGATIVE Urine RBC (Auto) 2+ H NEGATIVE Urine RBC 5-10 H /HPF Urine WBC NONE /HPF Urine Squamous Epithelial Cells NONE /HPF Urine Crystals NONE /LPF Urine Bacteria FEW H /HPF Urine Casts NONE /LPF Urine Mucus NEGATIVE /LPF Urine Culture Indicated NO My Orders Orders - MARSHALL MUÑIZ APRN Cbc With Automated Diff (10/10/20 14:05) Comprehensive Metabolic Panel (10/10/20 14:05) Hs C Reactive Protein (10/10/20 14:05) Ed Iv/Invasive Line Start (10/10/20 14:05) Erythrocyte Sedimentation Rate (10/10/20 14:05) Blood Culture (10/10/20 14:05) Lactic Acid Analyzer (10/10/20 14:05) Foot, Right, 3 View (10/10/20 14:13) Ns Iv 1000 Ml (Sodium Chloride 0.9%) (10/10/20 14:30) Ondansetron Injection (Zofran Injectio (10/10/20 14:30) Fentanyl Inj (Sublimaze Injection) (10/10/20 14:30) Manual Differential (10/10/20 14:18) Piperacillin/Tazobactam (Bulk) (Zosyn In (10/10/20 15:00) Wound Culture (10/10/20 14:55) Ua Culture If Indicated (10/10/20 15:04) Chest 1 View, Ap/Pa Only (10/10/20 15:04) Medications Given in ED Current Medications Medications Dose Ordered Sig/Mouna Route Start Time Stop Time Status Last Admin Dose Admin Fentanyl Citrate 50 mcg ONCE ONCE IVP 10/10/20 14:30 10/10/20 14:31 DC 10/10/20 14:39 50 MCG Ondansetron HCl 8 mg ONCE ONCE IVP 10/10/20 14:30 10/10/20 14:31 DC 10/10/20 14:37 8 MG Piperacillin Sod/ Tazobactam Sod 4.5 gm/Sodium Chloride 120 ml @ 240 mls/hr ONCE ONCE IV 10/10/20 15:00 10/10/20 15:29 DC 10/10/20 15:39 240 MLS/HR Vital Signs/I&O 10/10/20 13:56 Temp 37.6 Pulse 97 Resp 20 B/P (MAP) 152/89 (110) Departure Communication (Admissions) Family Conversation 1619-patient has sepsis with the suspected source of infection being the right foot given this is her new onset of severe pain. She is already established with podiatry at [facility] in [place]. Given the concern for possibility of infected hardware, she needs to go up here. I have given Zosyn here and will start vancomycin. She is agreeable to going to [facility]. Spoke with Dr. Godfrey from transfer services who has accepted the patient. NAME: BRANT ALICEA [facility] REC#: [id number] PT STATUS: REG ER : 1965 PHYSICIAN: MARSHALL MUÑIZ APRN ADMIT DATE: 10/10/20/ER Draft Date of Exam:10/10/20 FOOT, RIGHT, 3 VIEW HISTORY: Right foot pain, Charcot foot. COMPARISON: None TECHNIQUE: 3 views of the right foot FINDINGS: There has been prior internal fixation of the 1st, 2nd, and 3rd carpometacarpal joints. There are severe degenerative change and destruction in the midfoot. The 3rd carpometacarpal joint dorsal arthrodesis plate is fractured, with 8 mm of dorsal displacement, and about 5 mm of overriding. The distal screws are fractured as well. The most proximal screw of the 2nd carpometacarpal plate also appears fractured. There is prior amputation of the 2nd toe at the PIP joint. There is deformity of the 5th proximal phalangeal head. There is marked focal soft tissue swelling at the plantar lateral aspect of the right foot, with a soft tissue ulceration. No soft tissue gas is seen. IMPRESSION: 1. Marked degenerative change and destruction of the midfoot consistent with the patient's history of Charcot arthropathy. There are multiple fractures of the fixation hardware, as described above. 2. Marked focal plantar soft tissue swelling with ulceration. Infection is not excluded, and Charcot arthropathy and chronic osteomyelitis can have a similar appearance on imaging. Dictated on workstation # [id number] Dict: 10/10/20 1443 Trans: 10/10/20 1459 MARY [id number] Interpreted by: WASHINGTON ZELAYA MD Electronically signed by: NAME: BRANT ALICEA [facility] REC#: [id number] PT STATUS: REG ER : 1965 PHYSICIAN: MARSHALL MUÑIZ [employer] ADMIT DATE: 10/10/20/ER Draft Date of Exam:10/10/20 CHEST 1 VIEW, AP/PA ONLY PATIENT HISTORY: Sepsis. TECHNIQUE: Single frontal view of the chest. COMPARISON: None. FINDINGS: The lung volumes are normal. No focal consolidation is seen. No large pleural effusion or pneumothorax is seen. The cardiomediastinal silhouette is normal in size and contour. No acute osseous abnormality is seen. IMPRESSION: No acute pulmonary abnormality seen. Dictated on workstation # [id number] Dict: 10/10/20 1607 Trans: 10/10/20 1614 PJE [id number] Interpreted by: WASHINGTON ZELAYA MD Electronically signed by: Impression Primary Impression: Sepsis Additional Impression: Charcot's joint of foot Disposition: 01 HOME, SELF-CARE Condition: Stable Transfer Transfer Reason: Exceeds level of care Time Spoke to Accepting Phy: 16:20 Departure-Patient Inst. Referrals: CHELI LANTIGUA DO (PCP/Family) Primary Care Physician Copy Copies To 1: CHELI LANTIGUA PETER J APRN October 10, 2020 14:16
[2020-10-10] MEDS ORDERED: ONDANSETRON 4 MG/2 ML (SDV) Z0FRAN IVP ONE (14:30)
[2020-10-10] MEDS ORDERED: NS IV 1000 ML 1,000 ML IV SCH (14:30)
[2020-10-10] MEDS ORDERED: fentaNYL INJ 100 MCG/2 ML AMP IVP ONE (14:30)
[2020-10-10 14:31] LABS: BASOPHILS % (AUTO) 0 % (0-10); EOSINOPHILS % (AUTO) 0 % (0-10); HEMATOCRIT 38 % (35-52); LYMPHOCYTES # (AUTO) 1.1 10^3/uL (1.0-4.0); LYMPHOCYTES % (AUTO) 7 % (12-44); MEAN CORPUSCULAR HEMOGLOBIN 28 pg (25-34); MEAN CORPUSCULAR HGB CONC 32 g/dL (32-36); MEAN CORPUSCULAR VOLUME 87 fL (80-99); MONOCYTES # (AUTO) 0.9 10^3/uL (0.0-1.0); MONOCYTES % (AUTO) 6 % (0-12); NEUTROPHILS # (AUTO) 12.9 10^3/uL (1.8-7.8); NEUTROPHILS % (AUTO) 85 % (42-75); PLATELET COUNT 291 10^3/uL (130-400); WHITE BLOOD COUNT 15.1 10^3/uL (4.3-11.0)
[2020-10-10 14:38] LABS: ALBUMIN 4.2 GM/DL (3.2-4.5); CHLORIDE 97 MMOL/L (98-107); POTASSIUM 3.9 MMOL/L (3.6-5.0); SODIUM 136 MMOL/L (135-145)
[2020-10-10 14:40] LABS: CALCIUM 9.3 MG/DL (8.5-10.1)
[2020-10-10 14:41] LABS: GLUCOSE 119 MG/DL (70-105); TOTAL PROTEIN 7.6 GM/DL (6.4-8.2)
[2020-10-10 14:42] LABS: CARBON DIOXIDE 25 MMOL/L (21-32)
[2020-10-10 14:43] LABS: BILIRUBIN,TOTAL 0.6 MG/DL (0.1-1.0)
[2020-10-10 14:44] LABS: ALKALINE PHOSPHATASE 85 U/L (40-136); CREATININE SERUM 0.94 MG/DL (0.60-1.30); GFR ESTIMATED > 60
[2020-10-10 14:46] LABS: BUN/CREATININE RATIO 16
[2020-10-10 14:47] LABS: ALANINE AMINOTRANSFERASE 17 U/L (0-55)
[2020-10-10 14:52] LABS: BAND NEUTROPHILS 0 %; BASOPHILS % (MANUAL) 1 %; EOSINOPHILS % (MANUAL) 0 %; LYMPHOCYTES % (MANUAL) 9 %; MONOCYTES % (MANUAL) 5 %; NEUTROPHILS % (MANUAL) 85 %; RBC MORPH NORMAL
[2020-10-10 14:59] LABS: ERYTHROCYTE SEDIMENTATION RATE 32 MM/HR (0-30)
[2020-10-10] MEDS ORDERED: PIPERACILLIN/TAZOBACTAM (BULK) 4.5 GM in NS (IVPB) 100 ML IV ONE (15:00)
--- NOTE | 2020-10-10 15:01 | Diagnostic Imaging Report ---
HISTORY: Right foot pain, Charcot foot. COMPARISON: None TECHNIQUE: 3 views of the right foot FINDINGS: There has been prior internal fixation of the 1st, 2nd, and 3rd carpometacarpal joints. There are severe degenerative change and destruction in the midfoot. The 3rd carpometacarpal joint dorsal arthrodesis plate is fractured, with 8 mm of dorsal displacement, and about 5 mm of overriding. The distal screws are fractured as well. The most proximal screw of the 2nd carpometacarpal plate also appears fractured. There is prior amputation of the 2nd toe at the PIP joint. There is deformity of the 5th proximal phalangeal head. There is marked focal soft tissue swelling at the plantar lateral aspect of the right foot, with a soft tissue ulceration. No soft tissue gas is seen. IMPRESSION: 1. Marked degenerative change and destruction of the midfoot consistent with the patient's history of Charcot arthropathy. There are multiple fractures of the fixation hardware, as described above. 2. Marked focal plantar soft tissue swelling with ulceration. Infection is not excluded, and Charcot arthropathy and chronic osteomyelitis can have a similar appearance on imaging. Dictated by: Dictated on workstation # [id number]
[2020-10-10 15:53] LABS: BILIRUBIN,URINE NEGATIVE (NEGATIVE); CLARITY,URINE CLEAR; COLOR,URINE YELLOW; GLUCOSE, URINE (UA) NEGATIVE (NEGATIVE); KETONES,URINE NEGATIVE (NEGATIVE); LEUKOCYTE ESTERASE ,URINE NEGATIVE (NEGATIVE); NITRITE,URINE NEGATIVE (NEGATIVE); PROTEIN,URINE TRACE (NEGATIVE)
[2020-10-10 16:03] LABS: BACTERIA,URINE FEW /HPF
--- NOTE | 2020-10-10 16:15 | Diagnostic Imaging Report ---
PATIENT HISTORY: Sepsis. TECHNIQUE: Single frontal view of the chest. COMPARISON: None. FINDINGS: The lung volumes are normal. No focal consolidation is seen. No large pleural effusion or pneumothorax is seen. The cardiomediastinal silhouette is normal in size and contour. No acute osseous abnormality is seen. IMPRESSION: No acute pulmonary abnormality seen. Dictated by: Dictated on workstation # [id number]
[2020-10-10] MEDS ORDERED: VANCOMYCIN INJECTION 1,500 MG in NS IV 500 ML 500 ML IV SCH (16:30)
[2020-10-10] MEDS ORDERED: VANCOMYCIN 1000 MG/VIAL ONE (17:00)
[2020-10-10] MEDS ORDERED: NS IV 500 ML 500 ML ONE (17:01)
[2020-10-10] MEDS ORDERED: VANCOMYCIN 500 MG/VIAL IV ONE (17:01)
[2020-10-10 18:04] VITALS: BP 121/73
== END 2020-10-10 18:06 | disposition short-term general hospital (02) ==
LOC: EDUNIT# 13:48 → ER 13:52
DX: M14.671 Charcot's joint, right ankle and foot (principal); A41.9 Sepsis, unspecified organism; I10 Essential (primary) hypertension; G62.9 Polyneuropathy, unspecified; E03.9 Hypothyroidism, unspecified; F41.9 Anxiety disorder, unspecified; Z87.891 Personal history of nicotine dependence; Z79.899 Other long term (current) drug therapy; Z79.890 Hormone replacement therapy
CPT/HCPCS: 36415; 71045; 73630; 80053; 81000; 83605; 85007; 85027; 85652; 86141; 87040; 87070; 87205

== ENCOUNTER 2020-11-16 15:35 | Outpatient (RCR) | payer OTHER ==
[2020-10-20 13:40] VITALS: BP 122/58
[2020-10-20 13:42] LABS: BASOPHILS % (AUTO) 0 % (0-10); EOSINOPHILS # (AUTO) 0.3 10^3/uL (0.0-0.3); EOSINOPHILS % (AUTO) 3 % (0-10); HEMATOCRIT 31 % (35-52); HEMOGLOBIN 9.9 g/dL (11.5-16.0); LYMPHOCYTES # (AUTO) 1.8 10^3/uL (1.0-4.0); LYMPHOCYTES % (AUTO) 23 % (12-44); MEAN CORPUSCULAR HEMOGLOBIN 28 pg (25-34); MEAN CORPUSCULAR HGB CONC 32 g/dL (32-36); MEAN CORPUSCULAR VOLUME 87 fL (80-99); MONOCYTES # (AUTO) 0.5 10^3/uL (0.0-1.0); MONOCYTES % (AUTO) 7 % (0-12); NEUTROPHILS # (AUTO) 5.2 10^3/uL (1.8-7.8); NEUTROPHILS % (AUTO) 66 % (42-75); PLATELET COUNT 365 10^3/uL (130-400); WHITE BLOOD COUNT 7.9 10^3/uL (4.3-11.0)
[2020-10-20 13:50] LABS: ALBUMIN 3.6 GM/DL (3.2-4.5); POTASSIUM 3.9 MMOL/L (3.6-5.0)
[2020-10-20 13:51] LABS: CALCIUM 9.4 MG/DL (8.5-10.1)
[2020-10-20 13:52] LABS: TOTAL PROTEIN 6.9 GM/DL (6.4-8.2)
[2020-10-20 13:54] LABS: BILIRUBIN,TOTAL 0.2 MG/DL (0.1-1.0)
[2020-10-20 13:56] LABS: CREATININE SERUM 1.13 MG/DL (0.60-1.30)
[2020-10-20 14:01] LABS: ERYTHROCYTE SEDIMENTATION RATE 63 MM/HR (0-30)
[2020-10-20 14:15] LABS: BAND NEUTROPHILS 0 %; BASOPHILS % (MANUAL) 0 %; EOSINOPHILS % (MANUAL) 3 %; LYMPHOCYTES % (MANUAL) 25 %; MONOCYTES % (MANUAL) 5 %; NEUTROPHILS % (MANUAL) 67 %; RBC MORPH NORMAL
[2020-10-27 14:10] VITALS: BP 120/67
[2020-10-27 14:23] LABS: BASOPHILS # (AUTO) 0.1 10^3/uL (0.0-0.1); BASOPHILS % (AUTO) 1 % (0-10); EOSINOPHILS # (AUTO) 0.2 10^3/uL (0.0-0.3); EOSINOPHILS % (AUTO) 3 % (0-10); HEMATOCRIT 32 % (35-52); HEMOGLOBIN 10.2 g/dL (11.5-16.0); LYMPHOCYTES # (AUTO) 1.9 10^3/uL (1.0-4.0); LYMPHOCYTES % (AUTO) 27 % (12-44); MEAN CORPUSCULAR HEMOGLOBIN 28 pg (25-34); MEAN CORPUSCULAR HGB CONC 32 g/dL (32-36); MEAN CORPUSCULAR VOLUME 87 fL (80-99); MONOCYTES # (AUTO) 0.7 10^3/uL (0.0-1.0); MONOCYTES % (AUTO) 9 % (0-12); NEUTROPHILS # (AUTO) 4.3 10^3/uL (1.8-7.8); NEUTROPHILS % (AUTO) 60 % (42-75); PLATELET COUNT 344 10^3/uL (130-400); WHITE BLOOD COUNT 7.1 10^3/uL (4.3-11.0)
[2020-10-27 14:45] LABS: ALANINE AMINOTRANSFERASE 13 U/L (0-55); ALBUMIN 3.8 GM/DL (3.2-4.5); ALKALINE PHOSPHATASE 78 U/L (40-136); BILIRUBIN,TOTAL 0.2 MG/DL (0.1-1.0); BUN/CREATININE RATIO 18; CALCIUM 9.4 MG/DL (8.5-10.1); CARBON DIOXIDE 29 MMOL/L (21-32); CHLORIDE 102 MMOL/L (98-107); CREATININE SERUM 0.95 MG/DL (0.60-1.30); GFR ESTIMATED > 60; GLUCOSE 114 MG/DL (70-105); SODIUM 137 MMOL/L (135-145); TOTAL PROTEIN 7.7 GM/DL (6.4-8.2)
[2020-10-27 14:51] LABS: ERYTHROCYTE SEDIMENTATION RATE 47 MM/HR (0-30)
[2020-11-02 14:10] VITALS: BP 129/60
[2020-11-02 14:19] LABS: BASOPHILS % (AUTO) 0 % (0-10); EOSINOPHILS # (AUTO) 0.3 10^3/uL (0.0-0.3); EOSINOPHILS % (AUTO) 5 % (0-10); HEMATOCRIT 31 % (35-52); HEMOGLOBIN 10.1 g/dL (11.5-16.0); LYMPHOCYTES # (AUTO) 1.4 10^3/uL (1.0-4.0); LYMPHOCYTES % (AUTO) 26 % (12-44); MEAN CORPUSCULAR HEMOGLOBIN 28 pg (25-34); MEAN CORPUSCULAR HGB CONC 33 g/dL (32-36); MEAN CORPUSCULAR VOLUME 87 fL (80-99); MEAN PLATELET VOLUME 10.4 fL (9.0-12.2); MONOCYTES # (AUTO) 0.5 10^3/uL (0.0-1.0); MONOCYTES % (AUTO) 9 % (0-12); NEUTROPHILS # (AUTO) 3.1 10^3/uL (1.8-7.8); NEUTROPHILS % (AUTO) 60 % (42-75); PLATELET COUNT 233 10^3/uL (130-400); WHITE BLOOD COUNT 5.3 10^3/uL (4.3-11.0)
[2020-11-02 14:41] LABS: ALBUMIN 3.6 GM/DL (3.2-4.5); BILIRUBIN,TOTAL 0.2 MG/DL (0.1-1.0); CALCIUM 9.3 MG/DL (8.5-10.1); CREATININE SERUM 0.99 MG/DL (0.60-1.30); POTASSIUM 3.6 MMOL/L (3.6-5.0)
[2020-11-02 14:44] LABS: BAND NEUTROPHILS 1 %; BASOPHILS % (MANUAL) 1 %; EOSINOPHILS % (MANUAL) 8 %; LYMPHOCYTES % (MANUAL) 23 %; MONOCYTES % (MANUAL) 4 %; NEUTROPHILS % (MANUAL) 63 %; RBC MORPH NORMAL
[2020-11-02 15:04] LABS: ERYTHROCYTE SEDIMENTATION RATE 47 MM/HR (0-30)
[2020-11-09 14:00] VITALS: BP 139/64
[2020-11-09 14:14] LABS: BASOPHILS % (AUTO) 0 % (0-10); EOSINOPHILS # (AUTO) 0.1 10^3/uL (0.0-0.3); EOSINOPHILS % (AUTO) 4 % (0-10); HEMATOCRIT 33 % (35-52); HEMOGLOBIN 10.5 g/dL (11.5-16.0); LYMPHOCYTES # (AUTO) 0.8 10^3/uL (1.0-4.0); LYMPHOCYTES % (AUTO) 30 % (12-44); MEAN CORPUSCULAR HEMOGLOBIN 28 pg (25-34); MEAN CORPUSCULAR HGB CONC 32 g/dL (32-36); MEAN CORPUSCULAR VOLUME 86 fL (80-99); MEAN PLATELET VOLUME 10.2 fL (9.0-12.2); MONOCYTES # (AUTO) 0.2 10^3/uL (0.0-1.0); MONOCYTES % (AUTO) 8 % (0-12); NEUTROPHILS # (AUTO) 1.5 10^3/uL (1.8-7.8); NEUTROPHILS % (AUTO) 57 % (42-75); PLATELET COUNT 130 10^3/uL (130-400); WHITE BLOOD COUNT 2.5 10^3/uL (4.3-11.0)
[2020-11-09 14:27] LABS: ALBUMIN 3.7 GM/DL (3.2-4.5)
[2020-11-09 14:28] LABS: BAND NEUTROPHILS 6 %; CHLORIDE 100 MMOL/L (98-107); EOSINOPHILS % (MANUAL) 4 %; LYMPHOCYTES % (MANUAL) 34 %; MONOCYTES % (MANUAL) 6 %; NEUTROPHILS % (MANUAL) 50 %; POTASSIUM 3.8 MMOL/L (3.6-5.0); RBC MORPH NORMAL; SODIUM 137 MMOL/L (135-145)
[2020-11-09 14:30] LABS: GLUCOSE 111 MG/DL (70-105)
[2020-11-09 14:31] LABS: CARBON DIOXIDE 26 MMOL/L (21-32)
[2020-11-09 14:32] LABS: BILIRUBIN,TOTAL 0.2 MG/DL (0.1-1.0)
[2020-11-09 14:33] LABS: ALKALINE PHOSPHATASE 81 U/L (40-136); ERYTHROCYTE SEDIMENTATION RATE 38 MM/HR (0-30)
[2020-11-09 14:34] LABS: CREATININE SERUM 0.86 MG/DL (0.60-1.30); GFR ESTIMATED > 60
[2020-11-09 14:35] LABS: BUN/CREATININE RATIO 21
[2020-11-09 14:37] LABS: ALANINE AMINOTRANSFERASE 14 U/L (0-55)
[2020-11-16 15:35] VITALS: BP 135/70
== END 2020-11-19 11:37 | disposition home or self-care (01) ==
LOC: SDC 15:35
PROVIDERS: ATTEND Internal Medicine
DX: M00.9 Pyogenic arthritis, unspecified (principal)
CPT/HCPCS: 80053; 85007; 85027; 85652; 86141; G0463; 36415; 85025; 99211

== ENCOUNTER 2020-11-19 11:06 | Outpatient (CLI) | payer OTHER ==
[2020-11-19 11:15] VITALS: BP 147/82
== END 2020-11-19 11:25 ==
LOC: SDC 11:06
PROVIDERS: ATTEND Family Medicine
DX: L97.519 Non-pressure chronic ulcer of other part of right foot with unspecified severity (principal)

== ENCOUNTER → 2021-03-04 | Outpatient (CLI) | payer OTHER | LOC: CARD 09:00 | PROVIDERS: ATTEND Internal Medicine Cardiovascular Disease | DX: I11.9 Hypertensive heart disease without heart failure (principal); M14.679 Charcot's joint, unspecified ankle and foot | CPT/HCPCS: 93306 ==

== ENCOUNTER → 2021-03-09 | Outpatient (CLI) | payer OTHER ==
[~2021-03-09] VITALS: Ht 167 cm; Wt 109.0 kg
[~2021-03-09] MED LIST changes: +REGADENOSON 0.4 MG/5 ML SYR (LEXISCAN) IV ONE
[2021-03-09] MEDS: CATHETER FLUSH 10 ML SYR IV PRN ×2 (08:56→09:45)
[2021-03-09 09:43] VITALS: BP 147/81
--- NOTE | 2021-03-09 12:22 | Cardiology Stress Test Report ---
Stress Test Report Date of Procedure/Referring: Date of Procedure: Mar 09, 2021 PCP Dominguez Juares MD Admitting Physician Gunjan Lantigua DO Indications: HTN Baseline Heart Rate: 49 Baseline Blood Pressure: Blood Pressure Systolic: 147 Blood Pressure Diastolic: 81 Baseline Vitals Vital Signs Date Time Temp Pulse Resp B/P (MAP) Pulse Ox O2 Delivery O2 Flow Rate FiO2 03/09/21 09:43 53 16 147/81 (103) 96 Room Air Baseline EKG: Baseline EKG: NSR Summary After explaining the procedure to the patient, she signed a consent and then brought to the stress nuclear laboratory. Patient received 0.4 mg Lexiscan for stress test, ECG, heart rate and blood pressure were monitored continuously. Resting and stress dose of radio tracer were injected, imaging was acquired and reviewed in short axis, horizontal long axis and vertical long axis views. TID: 1.06 SSS: 2 SDS: 2 EF: 64 1. Patient tolerated Lexiscan well 2. Breast attenuation with typical female pattern. No significant ischemia or infarction on SPECT images 3. Normal left ventricular size, EF 64% DOMINGUEZ JUARES MD Mar 09, 2021 12:21
--- NOTE | 2021-03-09 15:23 | Diagnostic Imaging Report ---
PROCEDURE: US Bilateral lower extremity arterial. TECHNIQUE: Multiple real-time grayscale images are obtained through both lower extremity arterial systems with color Doppler imaging and color Doppler spectral analysis. INDICATION: Foot wound. COMPARISON: None. FINDINGS: Minimal atherosclerosis is seen throughout the lower extremity arterial system. Flow pattern is primarily triphasic biphasic. Runoff flow below the right popliteal artery cannot be evaluated due to patient leg being in a cast. Normal runoff flow is seen on the left. There is no dampening. No critical stenosis or occlusion. IMPRESSION: 1. Limited examination. The runoff vessels of the right leg could not be evaluated. 2. No critical stenosis, occlusion or flow dampening. Dictated by: Dictated on workstation # [id number]
== END ==
LOC: CARD 08:45
PROVIDERS: ATTEND Internal Medicine Cardiovascular Disease
DX: I10 Essential (primary) hypertension (principal); I25.10 Atherosclerotic heart disease of native coronary artery without angina pectoris; M14.679 Charcot's joint, unspecified ankle and foot
CPT/HCPCS: 78452; 93017; 93925; A9502

== ENCOUNTER 2022-03-03 13:26 | Outpatient (CLI) | payer OTHER ==
[~2022-03-03] VITALS: Ht 167.7 cm; Wt 109.1 kg
[~2022-03-03 13:26] MED LIST changes: -LISI1TAB29 PO; +LISI1TAB44 PO; -REGADENOSON 0.4 MG/5 ML SYR (LEXISCAN) IV ONE
== END 2022-03-08 10:04 | disposition home or self-care (01) ==
LOC: PREOP 13:26
PROVIDERS: ATTEND Specialist
DX: Z01.818 Encounter for other preprocedural examination (principal)

== ENCOUNTER 2022-03-10 10:25 | Day surgery (SDC) | payer BC, OTHER ==
[~2022-03-10] VITALS: Ht 167.7 cm; Wt 109.1 kg
[2022-03-10 10:45] VITALS: BP 133/95
[2022-03-10] MEDS ORDERED: MOXIFLOXACIN OPHTH SOLN 5 MG/ML 0.3 ML SYRINGE OP ONE (10:45)
[2022-03-10] MEDS ORDERED: POVIDONE (BETADINE) OPHTH SOLN 5% 30 ML OP ONE (10:45)
[2022-03-10] MEDS ORDERED: TIMOLOL MALEATE 0.5% 5 ML (TIMOPTIC) BTL OU PRN (10:45)
[2022-03-10] MEDS: TETRACAINE 0.5% OPHTH SOLN 4 ML BTL (SINGLE DOSE ONLY) OU PRN ×4 (10:47→11:04)
[2022-03-10] MEDS: TROPICAMIDE 1% OPH SOLN (MYDRIACYL) 15 ML BTL OP SCH ×3 (10:54→11:04)
[2022-03-10] MEDS: PHENYLEPHRINE 10% OPHTH (NEO-SYN) 5 ML BTL OU SCH ×3 (10:54→11:04)
[2022-03-10] MEDS ORDERED: MIDAZOLAM 2 MG/2 ML (VERSED) VIAL ONE (11:08)
--- NOTE | 2022-03-10 11:25 | Ophthalmologist Pre-Op Note ---
Pre-Operative Progress Note H&P Reviewed The H&P was reviewed, patient examined and no changes noted. Date H&P Reviewed: Mar 10, 2022 Time H&P Reviewed: 11:25 Pre-Op Dx Cataract, Right Eye JIGNA YOUNG MD Mar 10, 2022 11:25
--- NOTE | 2022-03-10 11:45 | Ophthalmology Operative Report ---
Cataract removal/placement IOL PREOPERATIVE DIAGNOSIS: Cataract Right Eye POSTOPERATIVE DIAGNOSIS: Cataract Right Eye PROCEDURE: Cataract removal and placement of posterior chamber implant, right eye SURGEON: Robi Young ANESTHESIA: Topical with sedation COMPLICATIONS: None ESTIMATED BLOOD LOSS: Minimal DESCRIPTION OF PROCEDURE: After proper informed consent was obtained, the patient, a 56 female, was taken to the Operating Room and the right eye was anesthetized with tetracaine. The right eye was then prepped and draped in the usual manner. A wire lid speculum was placed. A paracentesis was made at the left hand position. Preservative free lidocaine was injected into the anterior chamber followed by viscoelastic. A clear corneal incision was made in the temporal position. A capsulorrhexis was preformed and the central nuclear and cortical material were removed. The posterior capsule was polished and Mik 19.5 [id number] IOL was placed into the capsular bag. The residual viscoelastic was aspirated and balanced saline solution was injected into the anterior chamber. Moxifloxacin was injected into the anterior chamber. The wound was checked and found to be water tight. The patient tolerated the procedure well without complications. ROBI YOUNG MD Mar 10, 2022 11:45
[2022-03-10 11:49] VITALS: BP 141/79
--- NOTE | 2022-03-10 11:56 | Anesthesia-General Post-Op ---
MAC Patient Condition Mental Status/LOC: Same as Preop Cardiovascular: Satisfactory Nausea/Vomiting: Absent Respiratory: Satisfactory Pain: Controlled Complications: Absent Post Op Complications Complications None Follow Up Care/Instructions Patient Instructions None needed. Anesthesiology Discharge Order Discharge Order Patient is doing well, no complaints, stable vital signs, no apparent adverse anesthesia problems. No complications reported per nursing. KWAKU PEPE CRNA Mar 10, 2022 11:56
== END 2022-03-10 11:51 | disposition home or self-care (01) ==
LOC: SDC 10:25
PROVIDERS: ATTEND Specialist
DX: E11.36 Type 2 diabetes mellitus with diabetic cataract (principal); H25.9 Unspecified age-related cataract
CPT/HCPCS: 66984; V2632

== ENCOUNTER → 2022-06-06 | Outpatient (CLI) | payer BC ==
--- NOTE | 2022-06-06 20:24 | Diagnostic Imaging Report ---
INDICATION: Left-sided toe pain, mostly 2nd toe. TECHNIQUE: Single AP views of the left foot along with oblique and lateral view of the toes CORRELATION STUDY: Right foot radiographs 10/10/2020 FINDINGS: There is suggested resorbed appearance about the distal tuft of the 1st, 2nd, 3rd and 4th digits. There is fusion across the proximal interphalangeal joints of the 3rd and 4th toes. Some narrowing at the proximal interphalangeal joint of the 2nd toe. MTP joints are fairly well maintained and unremarkable. Mild soft tissue prominence particularly of the 1st and 2nd digits. No radiographic evidence of foreign body. Partial visualization of a screw over the hindfoot. IMPRESSION: 1. Resorbed appearance about the distal chery of the 1st through 4th digits. Nonspecific, however, can be reflective of potential osteomyelitis. Clinical correlation recommended. If further assessment is desired and patient is clinically able, MRI may be of additional diagnostic utility. Dictated by: Dictated on workstation # [id number]
== END ==
LOC: RAD 15:51
PROVIDERS: ATTEND Nurse Practitioner Family
DX: L98.9 Disorder of the skin and subcutaneous tissue, unspecified (principal); M79.675 Pain in left toe(s)
CPT/HCPCS: 73660

== ENCOUNTER → 2022-06-08 | Outpatient (CLI) | payer BC ==
[2022-06-08] MEDS: GADOTERATE 0.5 MMOL/ML (CLARISCAN) 20 ML VIAL IV ONE (13:59)
--- NOTE | 2022-06-08 14:36 | Diagnostic Imaging Report ---
EXAM: MRI left foot without and with intravenous contrast. DATE: June 08, 2022. INDICATION: 56-year-old female, left second toe ulcer. Concern for osteomyelitis. TECHNIQUE: Multiple pre and post contrast MRI sequences of the left foot were obtained. FINDINGS: The Lisfranc ligament proper is intact. The imaged portions of the peroneus longus tendon, anterior extensor tendons, and posterior flexor tendons are intact without evidence of tenosynovitis. The visualized portions of the plantar fascia are intact. There is edema-like signal in the second distal phalanx, well demonstrated on sagittal STIR sequence image 15. There is also abnormal marrow enhancement at this location. There appears to be an overlying dorsal soft tissue ulcer. There is no identified focal fluid collection or abscess. There is no identified joint effusion. There is at least mild midfoot arthritis which is incompletely imaged. There is diffuse fatty atrophy of the imaged foot musculature, most compatible with polyneuropathy. IMPRESSION: 1. Findings consistent with osteomyelitis of the second distal phalanx with adjacent dorsal soft tissue ulcer. 2. No identified focal fluid collection or abscess. 3. No evidence of septic arthritis. 4. Diffuse fatty atrophy of the imaged foot musculature, most compatible with polyneuropathy. Dictated by: Dictated on workstation # [id number]
== END ==
LOC: RAD 13:26
PROVIDERS: ATTEND Nurse Practitioner Family
DX: L97.529 Non-pressure chronic ulcer of other part of left foot with unspecified severity (principal)
CPT/HCPCS: 73720

== ENCOUNTER 2022-06-16 18:47 | Emergency (ER) | payer BC ==
[~2022-06-16] VITALS: Ht 168 cm; Wt 109.1 kg
[2022-06-16] MEDS ORDERED: POTASSIUM (19:14)
[2022-06-16] MEDS ORDERED: GABAPENTIN (19:14)
--- NOTE | 2022-06-16 19:40 | ED Lower Extremity ---
General Chief Complaint: Lower Extremity Stated Complaint: L 2ND TOE SWELLING Nursing Triage Note: possible toe infection Source: patient Exam Limitations: no limitations History of Present Illness Date Seen by Provider: Jun 16, 2022 Time Seen by Provider: 19:10 Initial Comments Patient is a 56-year-old female who presents to the emergency department for evaluation of left second toe swelling and discoloration. Patient states this issue began prior to and has been progressively worsening since. Patient was seen at PCP last week and MRI of the foot was ordered and obtained on June 08. Patient states there was a delay in getting the report and she was notified today that there was evidence and concern of osteomyelitis. Patient states she has an appointment scheduled for Sunday with her agricultural systems specialist at . She states she has a history of Charcot foot bilaterally and had osteomyelitis in her right foot that required long-term antibiotic therapy. She states she is concerned that the symptoms may be worsening and she is unsure if she should wait until Sunday to see the specialist. She denies any fever or systemic symptoms of any kind. States the area is not particularly painful. Allergies and Home Medications Allergies Coded Allergies: naproxen (Unverified Allergy, Severe, ANAPHYLACTIC, 07/02/20) ANAFLACTIC REACTION Sulfa (Sulfonamide Antibiotics) (Unverified Allergy, Intermediate, RASH, 07/02/20) RASH Patient Home Medication List Home Medication List Reviewed: Yes Aspirin (Aspir 81) 81 Mg Tablet.dr, 81 MG PO DAILY, (Reported) Entered as Reported by: IVAN LOZANO on 04/16/19 141 Cetirizine HCl (Zyrtec) 10 Mg Tablet, 10 MG PO DAILY, (Reported) Entered as Reported by: IVAN LOZANO on 04/16/19 141 Estradiol (Estradiol Tablet) 0.5 Mg Tablet, 0.5 MG PO DAILY, (Reported) Entered as Reported by: IVAN LOZANO on 04/16/19 141 Fluoxetine HCl (Fluoxetine HCl) 60 Mg Tablet, 60 MG PO DAILY, (Reported) Entered as Reported by: IVAN LOZANO on 04/16/19 141 Krill/Om-3/Dha/Epa/Phospho/Ast (Krill Oil 1,000 mg Softgel) 1 Each Capsule, 1 EA CH PO BID, (Reported) Entered as Reported by: IVAN LOZANO on 04/16/191409 Levothyroxine Sodium (Levothyroxine Sodium) 75 Mcg Tablet, 75 MCG PO DAILY, (Reported) Entered as Reported by: IVAN LOZANO on 04/16/191409 Lisinopril/Hydrochlorothiazide (Lisinopril-Hctz 10-12.5 mg Tab) 1 Each Tablet, 1 EACH PO DAILY, (Reported) Entered as Reported by: IVAN LOZANO on 04/16/191409 Metoprolol Succinate (Metoprolol Succinate) 25 Mg Tab.er.24h, 12.5 MG PO DAILY, (Reported) Entered as Reported by: IVAN LOZANO on 04/16/191409 Mv-Mn/Folic Acid/Calcium/Vit K (Women's 50 Plus Multivit Tab) 1 Each Tablet, 1 EACH PO BID, (Reported) Entered as Reported by: IVAN LOZANO on 04/16/191409 Potassium Chloride (Potassium Chloride) 8 Meq Tablet.er, 8 MEQ PO DAILY, (Reported) Entered as Reported by: IVAN LOZANO on 04/16/191409 [Gabapentin] , (Reported) Entered as Reported by: JERO GARCIA on 06/16/221913 Last Action: New Order [Potassium] , (Reported) Entered as Reported by: JERO GARCIA on 06/16/221913 Last Action: New Order Review of Systems Constitutional: no symptoms reported EENTM: no symptoms reported Respiratory: no symptoms reported Cardiovascular: no symptoms reported Gastrointestinal: no symptoms reported Genitourinary: no symptoms reported Musculoskeletal: see HPI Skin: no symptoms reported Psychiatric/Neurological: No Symptoms Reported Past Lqyemba-Ffspuf-Byxtwk Hx Patient Social History Tobacco Use?: No Substance use?: No Alcohol Use?: Yes Alcohol Frequency: Once in a while Pt feels they are or have been: No Immunizations Up To Date First/Initial COVID19 Vaccinat: x2 Past Medical History Surgery/Hospitalization HX: orhto sx bilateral feet, c-sect, appy htn, hypothryoidism, depression/anxiety, Surgeries: Yes (L ankle tendon repair, bilat toe sx, R foot sx, ) Appendectomy, Section, Hysterectomy Respiratory: No Cardiac: Yes Hypertension Neurological: Yes Neuropathy [employer] TE[employer] History: Hysterectomy Genitourinary: No Gastrointestinal: No Musculoskeletal: Yes (CHARCOT FOOT) Arthritis Endocrine: Yes (PRE-DIABETIC) Hypothyroidsim HEENT: No Cancer: No Psychosocial: Yes Anxiety Integumentary: No Blood Disorders: No Physical Exam Vital Signs Vital Signs - First Documented 06/16/22 19:04 Temp 37.3 Pulse 81 Resp 16 B/P (MAP) 146/85 (105) Pulse Ox 95 O2 Delivery Room Air Capillary Refill : Less Than 3 Seconds Height, Weight, BMI Height: 5'6.00" Weight: 210lbs. 0.0oz. 95.730807wh; 38.00 BMI Method: General Appearance: WD/WN, no apparent distress HEENT: PERRL/EOMI, normal ENT inspection, TMs normal, pharynx normal Neck: non-tender, full range of motion, supple Cardiovascular: regular rate, rhythm Respiratory: chest non-tender, lungs clear, normal breath sounds Gastrointestinal: normal bowel sounds, non tender, soft Feet: left foot swelling Neurologic/Psychiatric: no motor/sensory deficits, alert, normal mood/affect, oriented x 3 Skin: normal color, warm/dry Progress/Results/Core Measures Results/Orders Lab Results Laboratory Tests Test 06/16/22 19:40 Range/Units White Blood Count 7.6 4.3-11.0 10^3/uL Red Blood Count 4.19 3.80-5.11 10^6/uL Hemoglobin 12.8 11.5-16.0 g/dL Hematocrit 38 35-52 % Mean Corpuscular Volume 91 80-99 fL Mean Corpuscular Hemoglobin 31 25-34 pg Mean Corpuscular Hemoglobin Concent 34 32-36 g/dL Red Cell Distribution Width 12.6 10.0-14.5 % Platelet Count 260 130-400 10^3/uL Mean Platelet Volume 9.6 9.0-12.2 fL Immature Granulocyte % (Auto) 0 % Neutrophils (%) (Auto) 51 42-75 % Lymphocytes (%) (Auto) 38 12-44 % Monocytes (%) (Auto) 6 0-12 % Eosinophils (%) (Auto) 4 0-10 % Basophils (%) (Auto) 0 0-10 % Neutrophils # (Auto) 3.9 1.8-7.8 10^3/uL Lymphocytes # (Auto) 2.9 1.0-4.0 10^3/uL Monocytes # (Auto) 0.5 0.0-1.0 10^3/uL Eosinophils # (Auto) 0.3 0.0-0.3 10^3/uL Basophils # (Auto) 0.0 0.0-0.1 10^3/uL Immature Granulocyte # (Auto) 0.0 0.0-0.1 10^3/uL C-Reactive Protein High Sensitivity 1.05 H 0.00-0.50 MG/DL My Orders Orders - AMINTA ACOSTA NANNY CAREGIVER Cbc With Automated Diff (06/16/22 19:28) Hs C Reactive Protein (06/16/22 19:28) Vital Signs/I&O 06/16/22 19:04 Temp 37.3 Pulse 81 Resp 16 B/P (MAP) 146/85 (105) Pulse Ox 95 O2 Delivery Room Air Blood Pressure Mean: 105 Progress Progress Note : Progress Note Patient is nontoxic and well-hydrated on exam. Vital signs are reassuring. There is some eschar noted to the distal portion of the left second digit. No significant erythema. No lymphangitic streaking noted. Area is not significantly painful to palpation. No active drainage appreciated. Patient was ambulatory to the treatment room without issue. I had a lengthy discussion with patient regarding her specific concerns that led to her presentation to the ER [facility]. She states that she wants to make sure that she is not going to become septic prior to seeing the specialist on Sunday. I stated there was no way to completely exclude that possibility. I stated that osteomyelitis often requires lengthy durations of antibiotic therapy. She states that she had to have a PICC line and long-term antibiotic therapy with her last foot infection. She does not particularly wish to be admitted at this time for antibiotics but is still concerned. She agreed that obtaining some basic labs would reassure her. Thus a CBC and CRP were ordered. CBC is reassuring with no leukocytosis or left shift. CRP is very mildly elevated but not to the point of clinical significance. These results were relayed to the patient. I discussed the importance of following up with her specialist for further expert care. Return precautions for urgent symptomology discussed. Patient verbalized understanding. Departure Impression Primary Impression: Osteomyelitis of second toe of left foot Disposition: HOME, SELF-CARE Condition: Stable Departure-Patient Inst. Decision time for Depature: 20:15 Referrals: CHELI BARCENAS DO (PCP/Family) Primary Care Physician Patient Instructions: Osteomyelitis (DC) Add. Discharge Instructions: Follow-up with your agricultural systems specialist as scheduled on Sunday at . All discharge instructions reviewed with patient and/or family. Voiced understanding. AMINTA ACOSTA APRN Jun 16, 2022 19:40
[2022-06-16 19:48] LABS: BASOPHILS % (AUTO) 0 % (0-10); EOSINOPHILS # (AUTO) 0.3 10^3/uL (0.0-0.3); EOSINOPHILS % (AUTO) 4 % (0-10); HEMATOCRIT 38 % (35-52); HEMOGLOBIN 12.8 g/dL (11.5-16.0); LYMPHOCYTES # (AUTO) 2.9 10^3/uL (1.0-4.0); LYMPHOCYTES % (AUTO) 38 % (12-44); MEAN CORPUSCULAR HEMOGLOBIN 31 pg (25-34); MEAN CORPUSCULAR HGB CONC 34 g/dL (32-36); MEAN CORPUSCULAR VOLUME 91 fL (80-99); MEAN PLATELET VOLUME 9.6 fL (9.0-12.2); MONOCYTES # (AUTO) 0.5 10^3/uL (0.0-1.0); MONOCYTES % (AUTO) 6 % (0-12); NEUTROPHILS # (AUTO) 3.9 10^3/uL (1.8-7.8); NEUTROPHILS % (AUTO) 51 % (42-75); PLATELET COUNT 260 10^3/uL (130-400); WHITE BLOOD COUNT 7.6 10^3/uL (4.3-11.0)
[2022-06-16 20:25] VITALS: BP 135/79
== END 2022-06-16 20:28 | disposition home or self-care (01) ==
LOC: EDUNIT# 18:47 → ER 18:48
DX: M86.8X7 Other osteomyelitis, ankle and foot (principal); R79.82 Elevated C-reactive protein (CRP); Z98.890 Other specified postprocedural states
CPT/HCPCS: 36415; 85025; 86141

== ENCOUNTER → 2023-04-11 | Outpatient (CLI) | payer BC ==
[~2023-04-11] MED LIST changes: -ESTR0.5T PO; +ESTR0.5T2 PO; +GABAPENTIN; +POTASSIUM
--- NOTE | 2023-04-11 16:44 | Diagnostic Imaging Report ---
CLINICAL INDICATIONS: Patient with back pain. EXAM: X-ray of the lumbar spine, multiple views. COMPARISON: MRI of the lumbar spine without contrast dated 07/21/2014. FINDINGS: There is no acute lumbar spine fracture. There is interval development of grade 1 retrolisthesis of L2 on L3. There is interval progression of severe loss of disk space height at the L4-L5 level and moderate to severe loss of disk space height at the L2-L3 level. There is lower lumbar spine facet arthropathy. There is left curvature of the thoracolumbar spine again noted. There are multiple surgical clips with sutures overlying the left upper quadrant region. There is a surgical clip overlying left pelvis region. IMPRESSION: There is interval progression of lumbar spine degenerative disease most pronounced at the L2-L3 and L4-L5 levels. This is described above. MRI of the lumbar spine would help better evaluate. Dictated by: Dictated on workstation # [id number]
== END ==
LOC: RAD 15:59
PROVIDERS: ATTEND Family Medicine
DX: M43.16 Spondylolisthesis, lumbar region (principal); M51.36 Other intervertebral disc degeneration, lumbar region; M47.816 Spondylosis without myelopathy or radiculopathy, lumbar region
CPT/HCPCS: 72100